=== PATIENT | male | born 1940 | race Caucasian/White ===

== ENCOUNTER 2017-07-25 17:06 | Emergency (ER) | payer MEDICARE ==
[2017-07-25] MEDS ORDERED: Adacel Vial IM ONE (17:23)
[2017-07-25] MEDS ORDERED: BACIGUENT PACKET TP ONE (17:23)
--- NOTE | 2017-07-25 17:49 | ERPHSYRPT ---
- History of Present Illness Source: patient Exam Limitations: no limitations Patient Subjective Stated Complaint: states yesterday was having left lower leg cramping. hx of dvt in left lower leg four years ago. denies any pain today Triage Nursing Assessment: ambulated to room per self. skin w/d, color normal. left lower leg warm/dry, no redness noted to leg. no swelling or tenderness at this time. Method of Injury: other (no injury) Occurred: other (symptoms for the last several weeks(2-3) worse yesterday resolved today) Severity of Pain-Max: moderate Severity of Pain-Current: none Lower Extremities Pain: leg: left Modifying Factors: Improves With: nothing Associated Symptoms: none Hx Tetanus, Diphtheria Vaccination/Date Given: Yes Hx Influenza Vaccination/Date Given: No Hx Pneumococcal Vaccination/Date Given: Yes <BRANDON AVILA - Last Filed: 07/25/17 18:59> <DANIELA ALEXANDRA - Last Filed: 07/25/17 20:20> - History of Present Illness Time Seen by Provider: 07/25/17 17:23 Physician History: 77-year-old white male arrives with complaint of leg cramps in the lower leg on the left symptoms for 2-3 weeks he states that this is markedly worse yesterday. However today he is pain free. He states that he was worried about possible blood clot. Past medical history includes DVT, PE, prostate problems, orthopedic surgery, arthritis, fractures Past surgical history includes neck surgery (BRANDON AVILA) Allergies/Adverse Reactions: hydromorphone [From Dilaudid] Allergy (Unknown, Verified 07/25/17 17:29) Home Medications: Tamsulosin HCl 0.4 mg [Flomax 0.4 MG] 0.4 mg PO DAILY 03/16/13 [History] Warfarin Sodium 3 mg [Coumadin 3 MG] 3 mg PO DAILY 08/24/14 [History] Benazepril HCl [Lotensin] 20 mg PO DAILY 07/24/16 [History] Triamterene [Dyrenium] 50 mg PO DAILY 07/24/16 [History] Omeprazole 20 MG [Prilosec 20 mg] 20 mg PO DAILY 04/14/17 [History] - Review of Systems Constitutional: No Fever, No Chills Eyes: No Symptoms Ears, Nose, & Throat: No Symptoms Respiratory: No Cough, No Dyspnea Cardiac: No Chest Pain, No Edema, No Syncope Abdominal/Gastrointestinal: No Abdominal Pain, No Nausea, No Vomiting, No Diarrhea Genitourinary Symptoms: No Dysuria Musculoskeletal: Other (cramps and left lower leg for 2-3 weeks, worse yesterday ,, resolved today) Skin: No Rash Neurological: No Dizziness, No Focal Weakness, No Sensory Changes Psychological: No Symptoms Endocrine: No Symptoms All Other Systems: Reviewed and Negative <AUSTINBRANDON NACHO - Last Filed: 07/25/17 18:59> - Past Medical History Pertinent Past Medical History: Yes Neurological History: No Pertinent History ENT History: No Pertinent History Cardiac History: Deep Vein Thrombosis, Hypertension Respiratory History: No Pertinent History Endocrine Medical History: No Pertinent History, Liver Disease Musculoskeletal History: Arthritis, Fractures GI Medical History: No Pertinent History History: Other Psycho-Social History: No Pertinent History Male Reproductive Disorders: Prostate Problems Other Medical History: C-spine fracture - Past Surgical History Past Surgical History: Yes Neuro Surgical History: No Pertinent History Cardiac: No Pertinent History Respiratory: No Pertinent History Gastrointestinal: No Pertinent History Genitourinary: No Pertinent History Musculoskeletal: Orthopedic Surgery Male Surgical History: No Pertinent History Other Surgical History: neck surg - Social History Smoking Status: Current every day smoker How long have you smoked: 69 Exposure to second hand smoke: No Drug Use: none Patient Lives Alone: No <AUSTINBRANDON NACHO - Last Filed: 07/25/17 18:59> - Physical Exam General Appearance: alert Eyes, Ears, Nose, Throat Exam: moist mucous membranes Neck Exam: non-tender, supple Cardiovascular/Respiratory Exam: chest non-tender, normal breath sounds, regular rate/rhythm, no respiratory distress Gastrointestinal/Abdominal Exam: non-tender, guarding Back Exam: normal inspection, No vertebral tenderness Hips Exam: bilateral: non-tender, normal inspection, normal range of motion, no evidence of injury Legs Exam: bilateral leg: non-tender, normal inspection, normal range of motion , no evidence of injury Knees Exam: bilateral knee: non-tender, normal inspection, normal range of motion, no evidence of injury Ankle Exam: bilateral ankle: non-tender, normal inspection, normal range of motion, no evidence of injury Foot Exam: bilateral foot: non-tender, normal inspection, normal range of motion , no evidence of injury Neuro/Tendon Exam: normal sensation, normal motor functions Mental Status Exam: alert, oriented x 3, cooperative Skin Exam: normal color, warm, dry SpO2 Interpretation: normal (99%) SpO2: 99 Oxygen Delivery: Room Air <BRANDON AVILA - Last Filed: 07/25/17 18:59> - Nursing Vital Signs Nursing Vital Signs: Initial Vital Signs Temperature 97.6 F 07/25/17 17:15 Pulse Rate 68 07/25/17 17:15 Respiratory Rate 18 07/25/17 17:15 Blood Pressure 151/103 07/25/17 17:15 O2 Sat by Pulse Oximetry 99 07/25/17 17:15 Pain Scale Pain Intensity [Left Calf] 0 Pain Intensity 5 - Course Nursing assessment & vital signs reviewed: Yes <AUSTINBRANDON MAXWELLLEY - Last Filed: 07/25/17 18:59> - Radiology Ultrasound Exam Venous Lower Extremity Ultrasound: tele radiology report, negative <DANIELA ALEXANDRA - Last Filed: 07/25/17 20:20> Ordered Tests: Active Orders 24 hr Category Date Time Status Wound Care STAT Care 07/25/17 17:23 Inactive VENOUS UNILAT/LIMITED EXTREMIT [US] Stat Exams 07/25/17 Ordered CBC W DIFF Stat Lab 07/25/17 18:24 Completed CMP Stat Lab 07/25/17 18:24 Completed D-DIMER QUANTITATION Stat Lab 07/25/17 18:24 Completed PROTIME WITH INR Stat Lab 07/25/17 18:15 Completed PTT Stat Lab 07/25/17 18:15 Completed Medication Summary Discontinued Medications Generic Name Dose Route Start Last Admin Trade Name Freq PRN Reason Stop Dose Admin Bacitracin Zinc 0.9 gm 07/25/17 17:23 07/25/17 17:25 Baciguent Packet TP 07/25/17 17:24 Not Given STAT ONE Diphtheria/Tetanus/Acell Pertussis 0.5 ml 07/25/17 17:23 07/25/17 17:27 Adacel Vial IM 07/25/17 17:24 Not Given .ONCE ONE Lab/Rad Data: Laboratory Result Diagrams 07/25/17 18:24 07/25/17 18:24 Laboratory Results 05/20/18 05/20/18 05/20/18 Range/Units 18:24 18:24 18:24 WBC 6.1 (4.0-10.5) K/mm3 RBC 4.11 (4.1-5.6) M/mm3 Hgb 12.5 (12.5-18.0) gm/dl Hct 36.9 L (42-50) % MCV 89.8 (78-100) fl MCH 30.4 (26-32) pg MCHC 33.9 (32-36) g/dl RDW 13.1 (11.5-14.0) % Plt Count 230 (150-450) K/mm3 MPV 9.4 (6-9.5) fl Gran % 47.9 (36.0-66.0) % Eos # (Auto) 0.34 (0-0.5) Absolute Lymphs (auto) 2.06 (1.0-4.6) Absolute Monos (auto) 0.74 (0.0-1.3) Lymphocytes % 33.7 (24.0-44.0) % Monocytes % 12.1 H (0.0-12.0) % Eosinophils % 5.6 H (0.00-5.0) % Basophils % 0.7 (0.0-0.4) % Absolute Granulocytes 2.93 (1.4-6.9) Basophils # 0.04 (0-0.4) PT (8.83-12.87) SECONDS INR (0.8-3.0) APTT (24.1-36.1) SECONDS D-Dimer 777 H* (215-500) ng/mL Sodium 138 (137-145) mmol/L Potassium 3.9 (3.5-5.1) mmol/L Chloride 101 (98-107) mmol/L Carbon Dioxide 27 (22-30) mmol/L Anion Gap 13.3 (5-15) MEQ/L BUN 9 (9-20) mg/dL Creatinine 0.89 (0.66-1.25) mg/dL Estimated GFR > 60.0 ML/MIN Glucose 102 (74-106) mg/dL Calcium 9.3 (8.4-10.2) mg/dL Total Bilirubin 0.40 (0.2-1.3) mg/dL AST 14 L (17-59) U/L ALT 9 (0-50) U/L Alkaline Phosphatase 85 (38-126) U/L Serum Total Protein 7.4 (6.3-8.2) g/dL Albumin 3.9 (3.5-5.0) g/dL 07/25/17 Range/Units 18:15 WBC (4.0-10.5) K/mm3 RBC (4.1-5.6) M/mm3 Hgb (12.5-18.0) gm/dl Hct (42-50) % MCV (78-100) fl MCH (26-32) pg MCHC (32-36) g/dl RDW (11.5-14.0) % Plt Count (150-450) K/mm3 MPV (6-9.5) fl Gran % (36.0-66.0) % Eos # (Auto) (0-0.5) Absolute Lymphs (auto) (1.0-4.6) Absolute Monos (auto) (0.0-1.3) Lymphocytes % (24.0-44.0) % Monocytes % (0.0-12.0) % Eosinophils % (0.00-5.0) % Basophils % (0.0-0.4) % Absolute Granulocytes (1.4-6.9) Basophils # (0-0.4) PT 22.6 H (8.83-12.87) SECONDS INR 1.93 (0.8-3.0) APTT 40.6 H (24.1-36.1) SECONDS D-Dimer (215-500) ng/mL Sodium (137-145) mmol/L Potassium (3.5-5.1) mmol/L Chloride (98-107) mmol/L Carbon Dioxide (22-30) mmol/L Anion Gap (5-15) MEQ/L BUN (9-20) mg/dL Creatinine (0.66-1.25) mg/dL Estimated GFR ML/MIN Glucose (74-106) mg/dL Calcium (8.4-10.2) mg/dL Total Bilirubin (0.2-1.3) mg/dL AST (17-59) U/L ALT (0-50) U/L Alkaline Phosphatase (38-126) U/L Serum Total Protein (6.3-8.2) g/dL Albumin (3.5-5.0) g/dL - Progress Progress: improved <BRANDON AVILA - Last Filed: 07/25/17 18:59> - Progress Counseled pt/family regarding: lab results, diagnosis, need for follow-up, rad results <DANIELA ALEXANDRA - Last Filed: 07/25/17 20:20> - Progress Progress Note: 07/25/17 17:47 This is a 77-year-old white male who has had a PE in the past as well as a DVT in the left leg in the past approximate 4 years ago he states 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 . He complains of leg cramps for 2-3 weeks left lower extremity he states he has not been having any swelling he denies any injury he has not been bedridden he has no diagnosis of cancer on physical examination patient is alert oriented 3 his bilateral legs are nontender with palpation dorsal pedal posterior tibial pulses are intact 2 over 4 there is no calf tenderness there is no pain with dorsiflexion of the feet Patient states he was quite tender yesterday. Will go ahead and obtain CMP CBC and d-dimer. 07/25/17 18:57 the patient's d-dimer is elevated INR is 1.9 Venous Doppler has been ordered. the patient's case will be turned over to Dr. West due to shift change ( BRANDON AVILA) 07/25/17 20:19 I discussed the results with patient, agreed to be discharged and take his usual pain medications, contact his PCP tomorrow for follow up. (DANIELA ALEXANDRA) <BRANDON AVILA - Last Filed: 07/25/17 18:59> - Departure Time of Disposition: 20:18 Departure Disposition: Home Critical Care Time: No <DANIELA ALEXANDRA - Last Filed: 07/25/17 20:20> - Departure Clinical Impression: Leg pain Qualifiers: Laterality: left Qualified Code(s): M79.605 - Pain in left leg Condition: Stable Referrals: KAYLEIGH QUINTERO [Primary Care Provider] - Instructions: Nocturnal (Nighttime) Leg Cramps, Peripheral Vascular (Arterial) Disease (DC) Additional Instructions: Rest x 2-3 days with elevated leg, follow up with your physician next week, return if severe pain, swelling or discoloration of the toes!
[2017-07-25 18:35] LABS: ALBUMIN 3.9 g/dL (3.5-5.0); ALKALINE PHOSPHATASE 85 U/L (38-126); ANION GAP 13.3 MEQ/L (5-15); BLOOD UREA NITROGEN 9 mg/dL (9-20); CHLORIDE 101 mmol/L (98-107); Calcium 9.3 mg/dL (8.4-10.2); Carbon Dioxide 27 mmol/L (22-30); Creatinine 1 0.89 mg/dL (0.66-1.25); Glucose 102 mg/dL (74-106); Potassium 3.9 mmol/L (3.5-5.1); SGOT/AST 14 U/L (17-59); SGPT/ALT 9 U/L (0-50); SODIUM 138 mmol/L (137-145); Total Protein 7.4 g/dL (6.3-8.2)
[2017-07-25 18:36] LABS: BASOPHIL % 0.7 % (0.0-0.4); Basophil (Absolute #) 0.04 (0-0.4); Eosinophil % 5.6 % (0.00-5.0); Eosinophil (Absolute #) 0.34 (0-0.5); Granulocyte Absolute (ANC) 2.93 (1.4-6.9); Granulocytes % 47.9 % (36.0-66.0); Hematocrit 36.9 % (42-50); Hemoglobin 12.5 gm/dl (12.5-18.0); Lymphocyte (Absolute #) 2.06 (1.0-4.6); Lymphocytes % 33.7 % (24.0-44.0); Mean Cell Volume 89.8 fl (78-100); Mean Corpuscular Hemoglobin 30.4 pg (26-32); Mean Corpuscular Hgb Concent. 33.9 g/dl (32-36); Mean Platelet Volume 9.4 fl (6-9.5); Monocyte (Absolute #) 0.74 (0.0-1.3); Monocytes % 12.1 % (0.0-12.0); Platelet Count 230 K/mm3 (150-450); Red Blood Count 4.11 M/mm3 (4.1-5.6); Red Cell Distribution Width 13.1 % (11.5-14.0); White Blood Count 6.1 K/mm3 (4.0-10.5)
[2017-07-25 18:54] LABS: INR 1.93 (0.8-3.0); PTT 40.6 SECONDS (24.1-36.1)
[2017-07-25 20:28] VITALS: BP 161/109; PULSE 78; O2SAT 98
--- NOTE | 2017-07-25 21:05 | XRAY ---
Indication: Left leg pain. Elevated d-dimer. Two-dimensional sonogram and color Doppler imaging of the major venous vessels of the left leg was performed. Comparison: March 16, 2013. No thrombus seen in the examined deep venous vessels of the left leg including greater saphenous vein. Veins demonstrate normal compressibility. Venous waveforms are normal with and without augmentation. Impression: Left leg negative for DVT. Comment: Preliminary report was given.
== END 2017-07-25 20:28 | disposition home or self-care (01) ==
LOC: ED 17:06
DX: M79.605 Pain in left leg (principal); R25.2 Cramp and spasm; Z86.718 Personal history of other venous thrombosis and embolism; Z79.01 Long term (current) use of anticoagulants; Z79.899 Other long term (current) drug therapy
CPT/HCPCS: 36415; 80053; 85025; 85379; 85610; 85730; 93971; 99283

== ENCOUNTER 2017-12-27 13:19 | Emergency (ER) | payer MEDICARE ==
[2017-12-27] MEDS ORDERED: solu-MEDROL 125 MG IV ONE (13:23)
[2017-12-27] MEDS ORDERED: DUONEB 0.5-3 MG/3 ml Neb IH ONE ×2 (13:23→13:41)
--- NOTE | 2017-12-27 13:28 | ERPHSYRPT ---
- History of Present Illness Time Seen by Provider: 12/27/17 13:26 Source: patient Physician History: mild to mod shortness of breath, hx copd, +wheezing, no fever, no pain, not on home oxygen, hx dvt left leg Allergies/Adverse Reactions: hydromorphone [From Dilaudid] Allergy (Unknown, Verified 12/27/17 13:38) Home Medications: Tamsulosin HCl 0.4 mg [Flomax 0.4 MG] 0.4 mg PO DAILY 03/16/13 [History] Warfarin Sodium 3 mg [Coumadin 3 MG] 2 mg PO DAILY 08/24/14 [History] Hx Tetanus, Diphtheria Vaccination/Date Given: Yes Hx Influenza Vaccination/Date Given: No Hx Pneumococcal Vaccination/Date Given: Yes - Review of Systems Constitutional: Fatigue, No Fever Eyes: No Vision Changes Ears, Nose, & Throat: No Nose Congestion Respiratory: Dyspnea Cardiac: No Chest Pain Abdominal/Gastrointestinal: No Abdominal Pain Genitourinary Symptoms: No Dysuria Musculoskeletal: No Back Pain Skin: No Rash Neurological: No Dizziness - Past Medical History Pertinent Past Medical History: Yes Neurological History: No Pertinent History ENT History: No Pertinent History Cardiac History: Deep Vein Thrombosis, Hypertension Respiratory History: No Pertinent History Endocrine Medical History: No Pertinent History, Liver Disease Musculoskeletal History: Arthritis, Fractures GI Medical History: No Pertinent History History: Other Psycho-Social History: No Pertinent History Male Reproductive Disorders: Prostate Problems Other Medical History: C-spine fracture - Past Surgical History Past Surgical History: Yes Neuro Surgical History: No Pertinent History Cardiac: No Pertinent History Respiratory: No Pertinent History Gastrointestinal: No Pertinent History Genitourinary: No Pertinent History Musculoskeletal: Orthopedic Surgery Male Surgical History: No Pertinent History Other Surgical History: neck surg - Social History Smoking Status: Current every day smoker How long have you smoked: 69 Exposure to second hand smoke: No Drug Use: none Patient Lives Alone: No - Nursing Vital Signs Nursing Vital Signs: Initial Vital Signs Temperature 97.9 F 12/27/17 13:20 Pulse Rate 90 12/27/17 13:20 Respiratory Rate 27 H 12/27/17 13:20 Blood Pressure 138/122 12/27/17 13:20 O2 Sat by Pulse Oximetry 95 12/27/17 13:20 Pain Scale Pain Intensity 0 - Physical Exam General Appearance: no apparent distress Eye Exam: eyes nml inspection Ears, Nose, Throat Exam: moist mucous membranes Neck Exam: normal inspection Respiratory Exam: wheezing Cardiovascular Exam: regular rate/rhythm Gastrointestinal/Abdomen Exam: soft, No tenderness Extremity Exam: swelling Neurologic Exam: alert, oriented x 3, cooperative Skin Exam: warm, dry - Course Nursing assessment & vital signs reviewed: Yes EKG Interpreted by Me: Other - Radiology Exams Chest X-ray Interpretation: Discussed w/ radiologist, Negative Ordered Tests: Active Orders 24 hr Category Date Time Status EKG-ER Only STAT Care 12/27/17 13:23 Active IV Insertion STAT Care 12/27/17 13:23 Active Pulse Oximetry (ED) STAT Care 12/27/17 13:23 Active CHEST 1 VIEW (PORTABLE) Stat Exams 12/27/17 13:24 Completed BLOOD CULTURE Stat Lab 12/27/17 13:47 Received CBC W DIFF Stat Lab 12/27/17 13:47 Completed CMP Stat Lab 12/27/17 13:47 Completed D-DIMER QUANTITATION Stat Lab 12/27/17 13:47 Completed Lactic Acid Stat Lab 12/27/17 13:55 Completed NT PRO BNP Stat Lab 12/27/17 13:47 Completed PROTIME WITH INR Stat Lab 12/27/17 13:47 Completed TROPONIN Q3H Lab 12/27/17 13:47 Completed TROPONIN Q3H Lab 12/27/17 16:30 Ordered TROPONIN Q3H Lab 12/27/17 19:30 Ordered TROPONIN Q3H Lab 12/27/17 22:30 Ordered TROPONIN Q3H Lab 12/28/17 01:30 Ordered Peak Expiratory Flow Rate ONCE RT 12/27/17 13:46 Active Respiratory Nebulizer STAT RT 12/27/17 13:25 Completed Respiratory Therapy Assessment DAILY RT 12/27/17 13:47 Active Medication Summary Discontinued Medications Generic Name Dose Route Start Last Admin Trade Name Freq PRN Reason Stop Dose Admin Albuterol/Ipratropium 3 ml 12/27/17 13:23 12/27/17 13:42 Duoneb 0.5-3 Mg/3 Ml Neb IH 12/27/17 13:24 3 ml STAT ONE Administration Albuterol/Ipratropium Confirm 12/27/17 13:41 Duoneb 0.5-3 Mg/3 Ml Neb Administered 12/27/17 13:42 Dose 3 ml IH .STK-MED ONE Methylprednisolone Sodium Succinate 125 mg 10/22/18 13:23 12/27/17 13:54 Solu-Medrol 125 Mg IV 12/27/17 13:24 125 mg STAT ONE Administration Methylprednisolone Sodium Succinate Confirm 12/27/17 13:49 Solu-Medrol 125 Mg Administered 12/27/17 13:50 Dose 125 mg .ROUTE .STK-MED ONE Lab/Rad Data: Laboratory Result Diagrams 12/27/17 13:47 12/27/17 13:47 Laboratory Results 12/27/17 12/27/17 12/27/17 Range/Units 13:55 13:47 13:47 WBC (4.0-10.5) K/mm3 RBC (4.1-5.6) M/mm3 Hgb (12.5-18.0) gm/dl Hct (42-50) % MCV (78-100) fl MCH (26-32) pg MCHC (32-36) g/dl RDW (11.5-14.0) % Plt Count (150-450) K/mm3 MPV (6-9.5) fl Gran % (36.0-66.0) % Eos # (Auto) (0-0.5) Absolute Lymphs (auto) (1.0-4.6) Absolute Monos (auto) (0.0-1.3) Lymphocytes % (24.0-44.0) % Monocytes % (0.0-12.0) % Eosinophils % (0.00-5.0) % Basophils % (0.0-0.4) % Absolute Granulocytes (1.4-6.9) Basophils # (0-0.4) PT 35.8 H (8.83-12.87) SECONDS INR 3.04 H (0.8-3.0) D-Dimer 353 (215-500) ng/mL Sodium (137-145) mmol/L Potassium (3.5-5.1) mmol/L Chloride (98-107) mmol/L Carbon Dioxide (22-30) mmol/L Anion Gap (5-15) MEQ/L BUN (9-20) mg/dL Creatinine (0.66-1.25) mg/dL Estimated GFR ML/MIN Glucose (74-106) mg/dL Lactic Acid 1.8 (0.4-2.0) Calcium (8.4-10.2) mg/dL Total Bilirubin (0.2-1.3) mg/dL AST (17-59) U/L ALT (0-50) U/L Alkaline Phosphatase (38-126) U/L Troponin I < 0.012 (0.000-0.034) ng/mL NT-Pro-B Natriuret Pep (0-1800) pg/mL Serum Total Protein (6.3-8.2) g/dL Albumin (3.5-5.0) g/dL 12/27/17 12/27/17 Range/Units 13:47 13:47 WBC 7.8 (4.0-10.5) K/mm3 RBC 4.51 (4.1-5.6) M/mm3 Hgb 13.9 (12.5-18.0) gm/dl Hct 40.9 L (42-50) % MCV 90.7 (78-100) fl MCH 30.8 (26-32) pg MCHC 34.0 (32-36) g/dl RDW 13.8 (11.5-14.0) % Plt Count 213 (150-450) K/mm3 MPV 10.0 H (6-9.5) fl Gran % 46.8 (36.0-66.0) % Eos # (Auto) 1.23 H (0-0.5) Absolute Lymphs (auto) 2.22 (1.0-4.6) Absolute Monos (auto) 0.64 (0.0-1.3) Lymphocytes % 28.4 (24.0-44.0) % Monocytes % 8.2 (0.0-12.0) % Eosinophils % 15.7 H (0.00-5.0) % Basophils % 0.9 (0.0-0.4) % Absolute Granulocytes 3.65 (1.4-6.9) Basophils # 0.07 (0-0.4) PT (8.83-12.87) SECONDS INR (0.8-3.0) D-Dimer (215-500) ng/mL Sodium 140 (137-145) mmol/L Potassium 3.9 (3.5-5.1) mmol/L Chloride 106 (98-107) mmol/L Carbon Dioxide 24 (22-30) mmol/L Anion Gap 14.0 (5-15) MEQ/L BUN 9 (9-20) mg/dL Creatinine 0.88 (0.66-1.25) mg/dL Estimated GFR > 60.0 ML/MIN Glucose 111 H (74-106) mg/dL Lactic Acid (0.4-2.0) Calcium 9.1 (8.4-10.2) mg/dL Total Bilirubin 0.30 (0.2-1.3) mg/dL AST 19 (17-59) U/L ALT 17 (0-50) U/L Alkaline Phosphatase 82 (38-126) U/L Troponin I (0.000-0.034) ng/mL NT-Pro-B Natriuret Pep 203 (0-1800) pg/mL Serum Total Protein 7.7 (6.3-8.2) g/dL Albumin 4.3 (3.5-5.0) g/dL - Progress Progress: improved Progress Note: 12/27/17 15:17 elevated ddimer, known dvt, therapeutic INR Counseled pt/family regarding: lab results, diagnosis, need for follow-up, rad results - Departure Time of Disposition: 15:13 Departure Disposition: Home Clinical Impression: COPD (chronic obstructive pulmonary disease) Qualifiers: COPD type: COPD with acute exacerbation Qualified Code(s): J44.1 - Chronic obstructive pulmonary disease with (acute) exacerbation Condition: Stable Critical Care Time: No Referrals: KAYLEIGH QUINTERO [Primary Care Provider] - Instructions: Exacerbation of COPD (DC), Chronic Obstructive Pulmonary Disease Additional Instructions: see your doctor, return if worse, medrol, proventil inhaler, levaquiin Prescriptions: Albuterol Sulfate [Albuterol Sulfate Hfa] 7 gm IH Q6HPRN PRN 7 Days [email or web address] PRN Reason: Shortness Of Breath Levofloxacin [Levaquin] 1 tab PO DAILY #7 tablet Methylprednisolone Packet [Medrol Dosepack] 0 mg PO UD #1 packet
[2017-12-27] MEDS ORDERED: solu-MEDROL 125 MG ONE (13:49)
--- NOTE | 2017-12-27 13:51 | XRAY ---
Indication: Short of breath one month. Comparison: February 02, 2012. Portable chest again demonstrates COPD with biapical pleural parenchymal scarring/thickening. No focal infiltrate, consolidation, or large effusion. Heart is not enlarged. Stable right paratracheal calcified node. Bony thorax intact again with mild osteopenia and degenerative changes. Impression: Nonacute chest with chronic features.
[2017-12-27 13:56] LABS: BASOPHIL % 0.9 % (0.0-0.4); Basophil (Absolute #) 0.07 (0-0.4); Eosinophil % 15.7 % (0.00-5.0); Eosinophil (Absolute #) 1.23 (0-0.5); Granulocyte Absolute (ANC) 3.65 (1.4-6.9); Granulocytes % 46.8 % (36.0-66.0); Hematocrit 40.9 % (42-50); Hemoglobin 13.9 gm/dl (12.5-18.0); Lymphocyte (Absolute #) 2.22 (1.0-4.6); Lymphocytes % 28.4 % (24.0-44.0); Mean Cell Volume 90.7 fl (78-100); Mean Corpuscular Hemoglobin 30.8 pg (26-32); Monocyte (Absolute #) 0.64 (0.0-1.3); Monocytes % 8.2 % (0.0-12.0); Platelet Count 213 K/mm3 (150-450); Red Blood Count 4.51 M/mm3 (4.1-5.6); Red Cell Distribution Width 13.8 % (11.5-14.0); White Blood Count 7.8 K/mm3 (4.0-10.5)
[2017-12-27 14:05] LABS: INR 3.04 (0.8-3.0)
[2017-12-27 14:09] LABS: ALBUMIN 4.3 g/dL (3.5-5.0); ALKALINE PHOSPHATASE 82 U/L (38-126); BLOOD UREA NITROGEN 9 mg/dL (9-20); CHLORIDE 106 mmol/L (98-107); Calcium 9.1 mg/dL (8.4-10.2); Carbon Dioxide 24 mmol/L (22-30); Creatinine 1 0.88 mg/dL (0.66-1.25); Glucose 111 mg/dL (74-106); NT PRO BNP 203 pg/mL (0-1800); Potassium 3.9 mmol/L (3.5-5.1); SGOT/AST 19 U/L (17-59); SGPT/ALT 17 U/L (0-50); SODIUM 140 mmol/L (137-145); Total Protein 7.7 g/dL (6.3-8.2)
[2017-12-27] MEDS ORDERED: PROVENTIL 2.5 MG/3 ML NEB IH ONE ×2 (15:48→15:49)
[2017-12-27 16:09] VITALS: BP 129/90; PULSE 110; O2SAT 97
== END 2017-12-27 16:03 | disposition home or self-care (01) ==
LOC: ED 13:19
DX: J44.1 Chronic obstructive pulmonary disease with (acute) exacerbation (principal); I10 Essential (primary) hypertension; Z86.718 Personal history of other venous thrombosis and embolism; M19.90 Unspecified osteoarthritis, unspecified site; K76.9 Liver disease, unspecified; Z79.01 Long term (current) use of anticoagulants; Z79.899 Other long term (current) drug therapy
CPT/HCPCS: 36000; 36415; 71045; 80053; 83605; 83880; 84484; 85025; 85379; 85610; 87040; 94150; 94640; 96374; 99284; J7609; J2930; A9270-GY

== ENCOUNTER 2019-02-15 18:34 | Inpatient (IN) | payer MEDICARE ==
--- NOTE | 2019-02-15 18:38 | ERPHSYRPT ---
- History of Present Illness Time Seen by Provider: 02/15/19 18:38 Source: patient, family Exam Limitations: no limitations Physician History: 78 y/o white male, former smoker quitting 2 years ago, presents with cough and soa with right lateral chest wall pain with coughing. pt is exposed to second hand smoke. pt is supposed to on oxygen 24/7 but only uses it during the day. pt has copd. 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 he denies h/o fever. he denies n/v/d. pt denies abd pain. Timing/Duration: day(s) (4 to 5) Severity: moderate Associated Symptoms: shortness of breath, cough, No nausea, No vomiting, No abdominal pain, No chest pain Allergies/Adverse Reactions: hydromorphone [From Dilaudid] Allergy (Unknown, Verified 02/15/19 18:54) Home Medications: Tamsulosin HCl 0.4 mg [Flomax 0.4 MG] 0.4 mg PO DAILY 03/16/13 [History] Warfarin Sodium 3 mg [Coumadin 3 MG] 2 mg PO DAILY 08/24/14 [History] Albuterol 2.5 mg/3 ml Neb [Proventil 2.5 mg/3 ml Neb] 1 neb PO UD [History] Finasteride 5 mg [Proscar 5 MG] 5 mg PO DAILY 02/15/19 [History] Hx Tetanus, Diphtheria Vaccination/Date Given: Yes Hx Influenza Vaccination/Date Given: No Hx Pneumococcal Vaccination/Date Given: Yes - Review of Systems Constitutional: No Symptoms Eyes: No Symptoms Ears, Nose, & Throat: No Symptoms Respiratory: Cough, Dyspnea Cardiac: No Symptoms Abdominal/Gastrointestinal: No Symptoms Genitourinary Symptoms: No Symptoms Musculoskeletal: No Symptoms Skin: No Symptoms Neurological: No Symptoms Psychological: No Symptoms Endocrine: No Symptoms Hematologic/Lymphatic: No Symptoms Immunological/Allergic: No Symptoms All Other Systems: Reviewed and Negative - Past Medical History Pertinent Past Medical History: Yes Neurological History: No Pertinent History ENT History: No Pertinent History Cardiac History: Deep Vein Thrombosis, Hypertension Respiratory History: No Pertinent History Endocrine Medical History: No Pertinent History, Liver Disease Musculoskeletal History: Arthritis, Fractures GI Medical History: No Pertinent History History: Other Psycho-Social History: No Pertinent History Male Reproductive Disorders: Prostate Problems Other Medical History: C-spine fracture - Past Surgical History Past Surgical History: Yes Neuro Surgical History: No Pertinent History Cardiac: No Pertinent History Respiratory: No Pertinent History Gastrointestinal: No Pertinent History Genitourinary: No Pertinent History Musculoskeletal: Orthopedic Surgery Male Surgical History: No Pertinent History Other Surgical History: neck surg - Social History Smoking Status: Current every day smoker How long have you smoked: 69 Exposure to second hand smoke: No Drug Use: none Patient Lives Alone: No - Nursing Vital Signs Nursing Vital Signs: Initial Vital Signs Temperature 98.7 F 02/15/19 18:44 Pulse Rate 102 H 02/15/19 18:44 Respiratory Rate 36 H 02/15/19 18:44 Blood Pressure 134/87 02/15/19 18:44 O2 Sat by Pulse Oximetry 93 L 02/15/19 18:44 Pain Scale Pain Intensity 3 - Physical Exam General Appearance: mild distress, alert, anxiety Eye Exam: PERRL/EOMI, eyes nml inspection Ears, Nose, Throat Exam: normal ENT inspection, moist mucous membranes Neck Exam: normal inspection, non-tender, supple, full range of motion Respiratory Exam: normal breath sounds, chest tenderness (right lateral chest wall with inspiration and cough), lungs clear, respiratory distress (mild), airway intact, No accessory muscle use, No rhonchi, No wheezing, No stridor Cardiovascular Exam: regular rate/rhythm, normal heart sounds, normal peripheral pulses Gastrointestinal/Abdomen Exam: soft, normal bowel sounds, No tenderness Rectal Exam: not done Back Exam: normal inspection, normal range of motion, No CVA tenderness, No vertebral tenderness Extremity Exam: normal inspection, normal range of motion, pelvis stable Neurologic Exam: alert, oriented x 3, cooperative, youth teacher II-XII nml as tested Skin Exam: normal color, warm, dry Lymphatic Exam: No adenopathy SpO2 Interpretation: normal O2 Delivery: Nasal Cannula - Course Nursing assessment & vital signs reviewed: Yes Ordered Tests: Active Orders 24 hr Category Date Time Status Personal Injury Litigation Paralegal STAT Care 02/15/19 19:04 Active EKG-ER Only STAT Care 02/15/19 19:02 Active IV Insertion STAT Care 02/15/19 19:02 Active IV Insertion-2nd Peripheral STAT Care 02/15/19 19:42 Active Pulse Oximetry (ED) STAT Care 02/15/19 19:02 Active CHEST 1 VIEW (PORTABLE) Stat Exams 02/15/19 19:04 Taken BLOOD CULTURE Stat Lab 02/15/19 19:40 Received CBC W DIFF Stat Lab 02/15/19 18:50 Completed CMP Stat Lab 02/15/19 18:50 Completed CULTURE,SPUTUM Stat Lab 02/15/19 19:04 Uncollected CULTURE,URINE Stat Lab 02/15/19 22:10 Received Lactic Acid Stat Lab 02/15/19 19:38 Completed Lactic Acid Stat Lab 02/15/19 22:30 Completed Manual Differential NC Stat Lab 02/15/19 18:50 Completed NT PRO BNP Stat Lab 02/15/19 18:50 Completed PROTIME WITH INR Stat Lab 02/15/19 18:50 Completed TROPONIN Q3H Lab 02/15/19 18:50 Completed TROPONIN Q3H Lab 02/15/19 22:20 Completed TROPONIN Q3H Lab 02/16/19 01:15 Ordered TROPONIN Q3H Lab 02/16/19 04:15 Ordered TROPONIN Q3H Lab 02/16/19 07:15 Ordered UA W/RFX UR CULTURE Stat Lab 02/15/19 20:37 Completed Peak Expiratory Flow Rate ONCE RT 02/15/19 19:24 Completed Respiratory Therapy Assessment DAILY RT 02/15/19 19:25 Completed Transfer Order Routine Transfer 02/15/19 Ordered Medication Summary Generic Name Dose Route Start Last Admin Trade Name Freq PRN Reason Stop Dose Admin Sodium Chloride 1,000 mls @ 250 mls/hr 02/15/19 20:30 02/15/19 21:30 Sodium Chloride 0.9% 1000 Ml IV 03/17/19 20:29 Infused .Q4H YANELI Infusion Sodium Chloride 1,000 mls @ 100 mls/hr 02/15/19 21:30 02/15/19 21:32 Sodium Chloride 0.9% 1000 Ml IV 03/17/19 21:29 100 mls/hr .Q10H YANELI Administration Discontinued Medications Generic Name Dose Route Start Last Admin Trade Name Freq PRN Reason Stop Dose Admin Albuterol Sulfate 2.5 mg 02/15/19 19:02 02/15/19 19:18 Proventil 2.5 Mg/3 Ml Neb IH 02/15/19 19:03 2.5 mg STAT ONE Administration Albuterol Sulfate Confirm 02/15/19 19:15 Proventil 2.5 Mg/3 Ml Neb Administered 02/15/19 19:16 Dose 2.5 mg IH .STK-MED ONE Diltiazem HCl 15 mg 02/15/19 20:08 02/15/19 20:10 Cardizem Iv 50 Mg/10 Ml IV 02/15/19 20:09 15 mg STAT ONE Administration Diltiazem HCl Confirm 02/15/19 20:09 Cardizem Iv 50 Mg/10 Ml Administered 02/15/19 20:10 Dose 50 mg IV .STK-MED ONE Diltiazem HCl 10 mg 02/15/19 20:19 02/15/19 20:29 Cardizem Iv 50 Mg/10 Ml IV 02/15/19 20:20 10 mg STAT ONE Administration Fentanyl Citrate 25 mcg 02/15/19 21:41 02/15/19 21:44 Sublimaze 100 Mcg/2 Ml IV 02/15/19 21:42 25 mcg STAT ONE Administration Fentanyl Citrate Confirm 02/15/19 21:43 Sublimaze 100 Mcg/2 Ml Administered 02/15/19 21:44 Dose 100 mcg .ROUTE .STK-MED ONE Sodium Chloride 500 mls @ 500 mls/hr 02/15/19 19:43 02/15/19 20:47 Sodium Chloride 0.9% 500 Ml IV 02/15/19 20:42 Infused .Q1H ONE Infusion Sodium Chloride Confirm 02/15/19 19:44 Sodium Chloride 0.9% 1000 Ml Administered 02/15/19 19:45 Dose 1,000 mls @ ud .ROUTE .STK-MED ONE Sodium Chloride Confirm 02/15/19 19:46 Sodium Chloride 0.9% 500 Ml Administered 02/15/19 19:47 Dose 500 mls @ ud IV .STK-MED ONE Meropenem 1 g/ Sodium Chloride 100 mls @ 200 mls/hr 02/15/19 22:21 02/15/19 22:30 IV 02/15/19 22:50 200 mls/hr STAT ONE Administration Sodium Chloride Confirm 02/15/19 22:24 Sodium Chloride 0.9% 100 Ml Ivpb Administered 02/15/19 22:25 Dose 100 mls @ ud IV .STK-MED ONE Lidocaine HCl 200 mg 02/15/19 21:58 02/15/19 22:00 Xylocaine 2% Uro-Jet TOP 02/15/19 21:59 200 mg STAT ONE Administration Lidocaine HCl Confirm 02/15/19 21:59 Xylocaine 2% Uro-Jet Administered 02/15/19 22:00 Dose 200 mg .ROUTE .STK-MED ONE Meropenem Confirm 02/15/19 22:23 Merrem 1 Gm Administered 02/15/19 22:24 Dose 1 g IV .STK-MED ONE Methylprednisolone Sodium Succinate 125 mg 02/15/19 19:02 02/15/19 19:17 Solu-Medrol 125 Mg IV 02/15/19 19:03 125 mg STAT ONE Administration Methylprednisolone Sodium Succinate Confirm 02/15/19 19:15 Solu-Medrol 125 Mg Administered 02/15/19 19:16 Dose 125 mg .ROUTE .STK-MED ONE Metoprolol Tartrate 2.5 mg 02/15/19 20:30 02/15/19 20:38 Lopressor 5 Mg/5 Ml Injection IV 02/15/19 20:31 2.5 mg STAT ONE Administration Metoprolol Tartrate Confirm 02/15/19 20:35 Lopressor 5 Mg/5 Ml Injection Administered 02/15/19 20:36 Dose 5 mg IV .STK-MED ONE Metoprolol Tartrate 2.5 mg 02/15/19 21:02 02/15/19 21:05 Lopressor 5 Mg/5 Ml Injection IV 02/15/19 21:03 2.5 mg STAT ONE Administration Lab/Rad Data: Laboratory Result Diagrams 02/15/19 18:50 02/15/19 18:50 Laboratory Results 02/15/19 02/15/19 02/15/19 Range/Units Unknown 22:30 22:20 WBC (4.0-10.5) K/mm3 RBC (4.1-5.6) M/mm3 Hgb (12.5-18.0) gm/dl Hct (42-50) % MCV (78-100) fl MCH (26-32) pg MCHC (32-36) g/dl RDW (11.5-14.0) % Plt Count (150-450) K/mm3 MPV (6-9.5) fl Segmented Neutrophils (36.-66.) % Band Neutrophils (0.0-2.0) % Lymphocytes (Manual) (24-44) % Monocytes (Manual) (0.0-12.0) % Toxic Granulation Platelet Estimate (NORMAL) RBC Morphology Poikilocytosis Anisocytosis PT (8.83-12.87) SECONDS INR (0.8-3.0) Sodium (137-145) mmol/L Potassium (3.5-5.1) mmol/L Chloride (98-107) mmol/L Carbon Dioxide (22-30) mmol/L Anion Gap (5-15) MEQ/L BUN (9-20) mg/dL Creatinine (0.66-1.25) mg/dL Estimated GFR ML/MIN Glucose (74-106) mg/dL Lactic Acid 1.8 (0.4-2.0) Calcium (8.4-10.2) mg/dL Total Bilirubin (0.2-1.3) mg/dL AST (17-59) U/L ALT (0-50) U/L Alkaline Phosphatase (38-126) U/L Troponin I < 0.012 (0.000-0.034) ng/mL NT-Pro-B Natriuret Pep (0-1800) pg/mL Serum Total Protein (6.3-8.2) g/dL Albumin (3.5-5.0) g/dL Urine Color (YELLOW) Urine Appearance (CLEAR) Urine pH (5-6) Ur Specific Banner (1.005-1.025) Urine Protein (Negative) Urine Ketones (NEGATIVE) Urine Blood (0-5) Richard/ul Urine Nitrite (NEGATIVE) Urine Bilirubin (NEGATIVE) Urine Urobilinogen (0-1) mg/dL Ur Leukocyte Esterase (NEGATIVE) Urine WBC (Auto) (0-5) /HPF Urine Bacteria (Auto) (NEGATIVE) /HPF Urine Mucus (Auto) (NEGATIVE) /HPF Urine Culture Reflexed (NO) Urine Glucose (NEGATIVE) mg/dL Influenza Type A Ag NEGATIVE (NEGATIVE) Influenza Type B Ag NEGATIVE (NEGATIVE) RSV (PCR) NEGATIVE (Negative) 02/15/19 02/15/19 02/15/19 Range/Units 20:37 19:38 18:50 WBC (4.0-10.5) K/mm3 RBC (4.1-5.6) M/mm3 Hgb (12.5-18.0) gm/dl Hct (42-50) % MCV (78-100) fl MCH (26-32) pg MCHC (32-36) g/dl RDW (11.5-14.0) % Plt Count (150-450) K/mm3 MPV (6-9.5) fl Segmented Neutrophils (36.-66.) % Band Neutrophils (0.0-2.0) % Lymphocytes (Manual) (24-44) % Monocytes (Manual) (0.0-12.0) % Toxic Granulation Platelet Estimate (NORMAL) RBC Morphology Poikilocytosis Anisocytosis PT (8.83-12.87) SECONDS INR (0.8-3.0) Sodium (137-145) mmol/L Potassium (3.5-5.1) mmol/L Chloride (98-107) mmol/L Carbon Dioxide (22-30) mmol/L Anion Gap (5-15) MEQ/L BUN (9-20) mg/dL Creatinine (0.66-1.25) mg/dL Estimated GFR ML/MIN Glucose (74-106) mg/dL Lactic Acid 3.3 H (0.4-2.0) Calcium (8.4-10.2) mg/dL Total Bilirubin (0.2-1.3) mg/dL AST (17-59) U/L ALT (0-50) U/L Alkaline Phosphatase (38-126) U/L Troponin I < 0.012 (0.000-0.034) ng/mL NT-Pro-B Natriuret Pep (0-1800) pg/mL Serum Total Protein (6.3-8.2) g/dL Albumin (3.5-5.0) g/dL Urine Color YELLOW (YELLOW) Urine Appearance SLIGHTLY CLOUDY (CLEAR) Urine pH 5.0 (5-6) Ur Specific Banner 1.020 (1.005-1.025) Urine Protein 30 (Negative) Urine Ketones TRACE (NEGATIVE) Urine Blood MODERATE (0-5) Richard/ul Urine Nitrite NEGATIVE (NEGATIVE) Urine Bilirubin NEGATIVE (NEGATIVE) Urine Urobilinogen NEGATIVE (0-1) mg/dL Ur Leukocyte Esterase NEGATIVE (NEGATIVE) Urine WBC (Auto) NONE (0-5) /HPF Urine Bacteria (Auto) FEW (NEGATIVE) /HPF Urine Mucus (Auto) MODERATE (NEGATIVE) /HPF Urine Culture Reflexed NO (NO) Urine Glucose >=500 (NEGATIVE) mg/dL Influenza Type A Ag (NEGATIVE) Influenza Type B Ag (NEGATIVE) RSV (PCR) (Negative) 02/15/19 02/15/19 02/15/19 Range/Units 18:50 18:50 18:50 WBC 17.2 H (4.0-10.5) K/mm3 RBC 4.35 (4.1-5.6) M/mm3 Hgb 13.2 (12.5-18.0) gm/dl Hct 39.5 L (42-50) % MCV 90.8 (78-100) fl MCH 30.3 (26-32) pg MCHC 33.4 (32-36) g/dl RDW 13.1 (11.5-14.0) % Plt Count 213 (150-450) K/mm3 MPV 10.5 H (6-9.5) fl Segmented Neutrophils 72 H (36.-66.) % Band Neutrophils 5 H (0.0-2.0) % Lymphocytes (Manual) 21 L (24-44) % Monocytes (Manual) 2 (0.0-12.0) % Toxic Granulation 2+ Platelet Estimate NORMAL (NORMAL) RBC Morphology ABNORMAL Poikilocytosis 1+ Anisocytosis 2+ PT 54.7 H (8.83-12.87) SECONDS INR 4.69 H (0.8-3.0) Sodium 135 L (137-145) mmol/L Potassium 3.2 L (3.5-5.1) mmol/L Chloride 98 (98-107) mmol/L Carbon Dioxide 25 (22-30) mmol/L Anion Gap 15.8 H (5-15) MEQ/L BUN 16 (9-20) mg/dL Creatinine 1.03 (0.66-1.25) mg/dL Estimated GFR > 60.0 ML/MIN Glucose 202 H (74-106) mg/dL Lactic Acid (0.4-2.0) Calcium 8.8 (8.4-10.2) mg/dL Total Bilirubin 0.70 (0.2-1.3) mg/dL AST 59 (17-59) U/L ALT 32 (0-50) U/L Alkaline Phosphatase 96 (38-126) U/L Troponin I (0.000-0.034) ng/mL NT-Pro-B Natriuret Pep 626 (0-1800) pg/mL Serum Total Protein 7.5 (6.3-8.2) g/dL Albumin 3.6 (3.5-5.0) g/dL Urine Color (YELLOW) Urine Appearance (CLEAR) Urine pH (5-6) Ur Specific Banner (1.005-1.025) Urine Protein (Negative) Urine Ketones (NEGATIVE) Urine Blood (0-5) Richard/ul Urine Nitrite (NEGATIVE) Urine Bilirubin (NEGATIVE) Urine Urobilinogen (0-1) mg/dL Ur Leukocyte Esterase (NEGATIVE) Urine WBC (Auto) (0-5) /HPF Urine Bacteria (Auto) (NEGATIVE) /HPF Urine Mucus (Auto) (NEGATIVE) /HPF Urine Culture Reflexed (NO) Urine Glucose (NEGATIVE) mg/dL Influenza Type A Ag (NEGATIVE) Influenza Type B Ag (NEGATIVE) RSV (PCR) (Negative) - Progress Progress: improved, re-examined Progress Note: 02/15/19 23:20 cxr-right pneumonia 02/15/19 23:20 i reviewed pt hx, condition, labs, xray and ekg results. i also reviewed my care in ED and pt response. dr. zhang states to hold on any lopressor or cardizem. will admit to med-surg telemetry Discussed with : Soniya Will see patient in: hospital (full admit) Counseled pt/family regarding: lab results, diagnosis, rad results - Departure Departure Disposition: In-patient Admission Clinical Impression: Atrial fibrillation with RVR, Hypotension, Sepsis, Pneumonia Condition: Fair Critical Care Time: Yes Critical Care Time(excluding separately billable procedures): Critical 75-104 mins Referrals: KAYLEIGH QUINTERO [Primary Care Provider] -
[2019-02-15] MEDS ORDERED: PROVENTIL 2.5 MG/3 ML NEB IH ONE ×2 (19:02→19:15)
[2019-02-15] MEDS ORDERED: solu-MEDROL 125 MG IV ONE (19:02)
[2019-02-15] MEDS ORDERED: solu-MEDROL 125 MG ONE (19:15)
[2019-02-15] MEDS ORDERED: Sodium Chloride 0.9% 500 ML 500 ML IV ONE ×2 (19:43→19:46)
[2019-02-15] MEDS ORDERED: Sodium Chloride 0.9% 1000 ML 0 ML ONE (19:44)
[2019-02-15 19:49] LABS: Hematocrit 39.5 % (42-50); Hemoglobin 13.2 gm/dl (12.5-18.0); Mean Cell Volume 90.8 fl (78-100); Mean Corpuscular Hemoglobin 30.3 pg (26-32); Mean Corpuscular Hgb Concent. 33.4 g/dl (32-36); Mean Platelet Volume 10.5 fl (6-9.5); Platelet Count 213 K/mm3 (150-450); Red Blood Count 4.35 M/mm3 (4.1-5.6); Red Cell Distribution Width 13.1 % (11.5-14.0); White Blood Count 17.2 K/mm3 (4.0-10.5)
[2019-02-15 19:56] LABS: INR 4.69 (0.8-3.0); PROTIME 54.7 SECONDS (8.83-12.87)
[2019-02-15] MEDS ORDERED: Cardizem IV 50 MG/10 ML IV ONE ×3 (20:08→20:19)
[2019-02-15 20:15] LABS: ALBUMIN 3.6 g/dL (3.5-5.0); ALKALINE PHOSPHATASE 96 U/L (38-126); ANION GAP 15.8 MEQ/L (5-15); BLOOD UREA NITROGEN 16 mg/dL (9-20); CHLORIDE 98 mmol/L (98-107); Calcium 8.8 mg/dL (8.4-10.2); Carbon Dioxide 25 mmol/L (22-30); Creatinine 1 1.03 mg/dL (0.66-1.25); Glucose 202 mg/dL (74-106); NT PRO BNP 626 pg/mL (0-1800); Potassium 3.2 mmol/L (3.5-5.1); SGOT/AST 59 U/L (17-59); SGPT/ALT 32 U/L (0-50); SODIUM 135 mmol/L (137-145); Total Protein 7.5 g/dL (6.3-8.2)
[2019-02-15] MEDS ORDERED: LOPRESSOR 5 MG/5 ML INJECTION IV ONE ×3 (20:30→21:02)
[2019-02-15] MEDS ORDERED: Sodium Chloride 0.9% 1000 ML 1,000 ML IV SCH ×2 (20:30→21:30)
[2019-02-15 21:15] LABS: INFLUENZA A NEGATIVE (NEGATIVE); INFLUENZA B NEGATIVE (NEGATIVE); RESPIRATORY SYNCTIAL VIRUS NEGATIVE (Negative)
[2019-02-15] MEDS ORDERED: SUBLIMAZE 100 MCG/2 ML IV ONE (21:41)
[2019-02-15] MEDS ORDERED: SUBLIMAZE 100 MCG/2 ML ONE (21:43)
[2019-02-15 21:47] LABS: Lactic Acid 3.3 (0.4-2.0)
[2019-02-15] MEDS ORDERED: XYLOCAINE 2% Uro-Jet TOP ONE (21:58)
[2019-02-15] MEDS ORDERED: XYLOCAINE 2% Uro-Jet ONE (21:59)
[2019-02-15 22:20] LABS: Appearance SLIGHTLY CLOUDY (CLEAR); Bacteria FEW /HPF (NEGATIVE); Bilirubin NEGATIVE (NEGATIVE); Blood MODERATE Ery/ul (0-5); Glucose >=500 mg/dL (NEGATIVE); Ketones TRACE (NEGATIVE); Leukocyte Esterase NEGATIVE (NEGATIVE); Mucus MODERATE /HPF (NEGATIVE); Nitrite NEGATIVE (NEGATIVE); Protein,Urine Dip 30 (Negative); Urobilinogen NEGATIVE mg/dL (0-1)
[2019-02-15] MEDS ORDERED: Merrem 1 GM 1 G in Sodium Chloride 100ML MINI-BAG PLUS 100 ML IV ONE (22:21)
[2019-02-15] MEDS ORDERED: Merrem 1 GM IV ONE (22:23)
[2019-02-15] MEDS ORDERED: Sodium Chloride 0.9% 100 ML IVPB 100 ML IV ONE (22:24)
[2019-02-15 22:46] LABS: ANISOCYTOSIS 2+; BAND 5 % (0.0-2.0); Lymphocytes 21 % (24-44); Monocyte 2 % (0.0-12.0); Neutrophils 72 % (36.-66.); Platelet Estimate NORMAL (NORMAL); Poikilocytosis 1+; Total Cells Counted 100; Toxic Granulation 2+
[2019-02-16] MEDS ORDERED: DILAUDID 2 MG INJECTION IV PRN
[2019-02-16] MEDS ORDERED: TYLENOL 325 MG PO PRN
[2019-02-16] MEDS ORDERED: PROVENTIL 2.5 MG/3 ML NEB IH ONE (01:44)
[2019-02-16] MEDS: PROVENTIL 2.5 MG/3 ML NEB IH SCH ×2 (01:52→07:03)
[2019-02-16] MEDS: Sodium Chloride 0.9% 1000 ML 1,000 ML IV SCH ×3 (02:06→17:50)
[2019-02-16 05:01] LABS: Absolute Neutrophil Ct (ANC) 10.16 (1.4-6.9); BASOPHIL % 0.1 % (0.0-0.4); Basophil (Absolute #) 0.01 (0-0.4); Eosinophil % 0.1 % (0.00-5.0); Eosinophil (Absolute #) 0.01 (0-0.5); Hematocrit 35.5 % (42-50); Hemoglobin 11.7 gm/dl (12.5-18.0); Lymphocyte (Absolute #) 0.59 (1.0-4.6); Lymphocytes % 5.2 % (24.0-44.0); Mean Cell Volume 92.2 fl (78-100); Mean Corpuscular Hemoglobin 30.4 pg (26-32); Mean Platelet Volume 9.9 fl (6-9.5); Monocyte (Absolute #) 0.47 (0.0-1.3); Monocytes % 4.2 % (0.0-12.0); Platelet Count 189 K/mm3 (150-450); Red Blood Count 3.85 M/mm3 (4.1-5.6); Red Cell Distribution Width 13.3 % (11.5-14.0); White Blood Count 11.2 K/mm3 (4.0-10.5)
[2019-02-16 05:25] LABS: ALBUMIN 2.5 g/dL (3.5-5.0); ALKALINE PHOSPHATASE 72 U/L (38-126); ANION GAP 13.9 MEQ/L (5-15); BLOOD UREA NITROGEN 18 mg/dL (9-20); CHLORIDE 104 mmol/L (98-107); Calcium 8.3 mg/dL (8.4-10.2); Carbon Dioxide 23 mmol/L (22-30); Creatinine 1 0.84 mg/dL (0.66-1.25); Glucose 359 mg/dL (74-106); NT PRO BNP 781 pg/mL (0-1800); Potassium 3.5 mmol/L (3.5-5.1); SGOT/AST 39 U/L (17-59); SGPT/ALT 27 U/L (0-50); SODIUM 136 mmol/L (137-145); Total Protein 5.4 g/dL (6.3-8.2)
[2019-02-16 05:40] LABS: BAND 4 % (0.0-2.0); Lymphocytes 7 % (24-44); Neutrophils 89 % (36.-66.); Platelet Estimate NORMAL (NORMAL); Total Cells Counted 100; Toxic Granulation 2+
[2019-02-16 05:41] LABS: ANISOCYTOSIS 1+; Poikilocytosis 1+
[2019-02-16] MEDS ORDERED: Merrem 1 GM IV ONE (06:07)
[2019-02-16] MEDS ORDERED: Sodium Chloride 0.9% 100 ML IVPB 100 ML IV ONE (06:07)
[2019-02-16] MEDS: Merrem 1 GM 1 G in Sodium Chloride 100ML MINI-BAG PLUS 100 ML IV SCH ×3 (06:17→21:29)
--- NOTE | 2019-02-16 08:47 | XRAY ---
Indication: Cough. Comparison: May 27, 2018. Portable chest demonstrates new right mid to lower lung airspace disease with small effusion. Elsewhere stable biapical pleural parenchymal scarring/thickening. Heart is not enlarged. Bony thorax intact again with mild osteopenia, degenerative changes, and lower cervical fusion surgery. Impression: New right lung airspace disease with small effusion.
--- NOTE | 2019-02-16 09:10 | HP ---
CHIEF COMPLAINT: Shortness of breath. HISTORY OF PRESENT ILLNESS: The patient is a 78 year-old white male who reports that over the past three or four days he has had problems with increasing shortness of breath, having pain on the right side of his chest. He reports he coughed up some mucous plug thick and as long as his middle finger. He reported that he is having increasing shortness of breath and felt that he was getting into trouble and therefore presented himself to the emergency room. The patient does have a previous history of pneumonia, chronic obstructive pulmonary disease and hypoxia. He does have home oxygen he wears just at nighttime. PAST MEDICAL/SURGICAL HISTORY: Previous history for deep venous thrombosis. He has had benign prostatic hypertrophy. He had spinal fracture. HOME MEDICATIONS: Tamsulosin 0.4 mg daily. Warfarin 3 mg tablet alternating with 2 mg every other day. Albuterol nebulizer treatments. Proscar 5 mg daily. ALLERGIES: HYDROMORPHONE. PHYSICAL EXAMINATION: The patient's vital signs on admission showed a temperature 98.7F, pulse 102, respiratory rate 36 and blood pressure 134/87. O2 saturation 93% on sublingual oxygen. HEENT: Normocephalic, atraumatic. Pupils equal round reactive to light. Extraocular movements intact. Oropharynx is somewhat dry. NECK: Supple without lymphadenopathy, thyromegaly or JVD. CHEST: Reveals rales and rhonchi in the right side of the chest. The left is much more clear. HEART: The heart currently is regular. He was in atrial fibrillation with rapid ventricular response on his initial evaluation in the emergency room. ABDOMEN: Soft. No palpable masses. EXTREMITIES: Without cyanosis, clubbing or edema. NEUROLOGIC: The patient is alert and oriented x3. No focal deficits were noted. LAB DATA AND TESTS: Chest x-ray on my interpretation showed pneumonia on the right side in mid and lower lobe areas. The left seems to be clear. The heart seems to be normal. His initial lab studies showed his lactic acid to be somewhat elevated at 3.3 but after fluids was down to 1.8. His white count was 17,200 with 5 bands and 72 polys, hemoglobin 13.2, PLT 213,000. His UA with specific gravity 1.020, greater than 500 glucose and was otherwise negative. Troponin was less than 0.012. Influenza A, B and respiratory syncytial virus were negative. His metabolic panel showed a glucose of 202, BUN 16, creatinine 1.03. Potassium slightly low at 3.2. Electrolytes were otherwise normal. Liver enzymes were normal. The patient's international normalized ratio was 4.69. His EKG initially showed atrial fibrillation with rapid ventricular rate but after Cardizem has returned to sinus rhythm. ASSESSMENT: A patient with pneumonia. He has been admitted to the hospital on IV fluids, IV antibiotics and nebulizer treatments and guaifenesin. We will give him a flutter valve and instruct him to be up and moving around as he tolerates.
[2019-02-16] MEDS ORDERED: Zofran 4 MG/2 ML VIAL IV PRN ×2 (11:23)
[2019-02-16] MEDS: Flomax 0.4 MG PO SCH (11:38)
[2019-02-16] MEDS: Proscar 5 MG PO SCH (11:39)
[2019-02-16] MEDS: Mucinex 600MG ER Tabs PO SCH ×2 (11:39→21:29)
[2019-02-16] MEDS: PROTONIX 40 MG IV IV SCH (11:39)
[2019-02-16] MEDS: DUONEB 0.5-3 MG/3 ml Neb IH SCH ×2 (12:58→20:25)
[2019-02-16] MEDS ORDERED: PROVENTIL 2.5 MG/3 ML NEB IH SCH (13:00)
[2019-02-17] MEDS: DUONEB 0.5-3 MG/3 ml Neb IH SCH ×4 (00:07→20:20)
[2019-02-17] MEDS: Sodium Chloride 0.9% 1000 ML 1,000 ML IV SCH (04:30)
[2019-02-17 04:58] LABS: Hemoglobin 10.4 gm/dl (12.5-18.0); Mean Cell Volume 92.8 fl (78-100); Mean Corpuscular Hemoglobin 30.1 pg (26-32); Mean Corpuscular Hgb Concent. 32.5 g/dl (32-36); Mean Platelet Volume 10.3 fl (6-9.5); Platelet Count 214 K/mm3 (150-450); Red Blood Count 3.45 M/mm3 (4.1-5.6); Red Cell Distribution Width 13.3 % (11.5-14.0); White Blood Count 14.4 K/mm3 (4.0-10.5)
[2019-02-17 05:25] LABS: BLOOD UREA NITROGEN 25 mg/dL (9-20); CHLORIDE 108 mmol/L (98-107); Calcium 8.6 mg/dL (8.4-10.2); Carbon Dioxide 23 mmol/L (22-30); Creatinine 1 0.89 mg/dL (0.66-1.25); Glucose 339 mg/dL (74-106); Potassium 3.2 mmol/L (3.5-5.1); SODIUM 138 mmol/L (137-145)
[2019-02-17] MEDS: Merrem 1 GM 1 G in Sodium Chloride 100ML MINI-BAG PLUS 100 ML IV SCH ×3 (05:41→21:24)
[2019-02-17] MEDS ORDERED: Sodium Chloride 0.9% 10 ML FLUSH Syringe IV PRN (06:24)
[2019-02-17 06:59] LABS: BAND 1 % (0.0-2.0); Lymphocytes 1 % (24-44); Neutrophils 98 % (36.-66.); Total Cells Counted 100
[2019-02-17 07:00] LABS: ANISOCYTOSIS 1+; Platelet Estimate NORMAL (NORMAL); Poikilocytosis 1+; Toxic Granulation 1+
[2019-02-17] MEDS ORDERED: Glutose 15 GM ORAL GEL PO PRN (07:09)
[2019-02-17] MEDS ORDERED: D50W 50 ml Abboject IV PRN (07:09)
[2019-02-17] MEDS: Flomax 0.4 MG PO SCH (09:32)
[2019-02-17] MEDS: Mucinex 600MG ER Tabs PO SCH ×2 (09:32→21:24)
[2019-02-17] MEDS: Proscar 5 MG PO SCH (09:32)
[2019-02-17] MEDS: solu-MEDROL 40 MG IV SCH ×2 (09:33→21:24)
[2019-02-17 10:16] LABS: INR 5.97 (0.8-3.0)
[2019-02-17] MEDS: Norco 10/325 MG Tablet PO PRN (11:42)
[2019-02-17] MEDS: PROTONIX 40 MG IV IV SCH (11:43)
[2019-02-18] MEDS: DUONEB 0.5-3 MG/3 ml Neb IH SCH ×4 (01:15→19:37)
[2019-02-18] MEDS ORDERED: PROVENTIL 2.5 MG/3 ML NEB IH PRN (04:36)
[2019-02-18] MEDS ORDERED: PROVENTIL Solution 2.5 MG/0.5 ML IH ONE (04:39)
[2019-02-18] MEDS: Merrem 1 GM 1 G in Sodium Chloride 100ML MINI-BAG PLUS 100 ML IV SCH ×3 (05:45→21:45)
[2019-02-18 05:58] LABS: Hematocrit 32.7 % (42-50); Hemoglobin 10.5 gm/dl (12.5-18.0); Mean Cell Volume 93.2 fl (78-100); Mean Corpuscular Hemoglobin 29.9 pg (26-32); Mean Corpuscular Hgb Concent. 32.1 g/dl (32-36); Mean Platelet Volume 10.3 fl (6-9.5); Platelet Count 249 K/mm3 (150-450); Red Blood Count 3.51 M/mm3 (4.1-5.6); Red Cell Distribution Width 13.5 % (11.5-14.0); White Blood Count 8.9 K/mm3 (4.0-10.5)
[2019-02-18 06:09] LABS: ALBUMIN 2.8 g/dL (3.5-5.0); ALKALINE PHOSPHATASE 79 U/L (38-126); ANION GAP 14.1 MEQ/L (5-15); BLOOD UREA NITROGEN 24 mg/dL (9-20); CHLORIDE 105 mmol/L (98-107); Calcium 8.5 mg/dL (8.4-10.2); Carbon Dioxide 22 mmol/L (22-30); Creatinine 1 0.89 mg/dL (0.66-1.25); Glucose 409 mg/dL (74-106); Potassium 3.6 mmol/L (3.5-5.1); SGOT/AST 29 U/L (17-59); SGPT/ALT 40 U/L (0-50); SODIUM 138 mmol/L (137-145); Total Protein 5.9 g/dL (6.3-8.2)
[2019-02-18 08:01] LABS: INR 6.94 (0.8-3.0)
[2019-02-18] MEDS: Flomax 0.4 MG PO SCH (09:00)
[2019-02-18] MEDS: solu-MEDROL 40 MG IV SCH ×2 (09:00→21:44)
[2019-02-18] MEDS: Mucinex 600MG ER Tabs PO SCH ×3 (09:00→21:51)
[2019-02-18] MEDS: Proscar 5 MG PO SCH (09:00)
[2019-02-18] MEDS: NovoLOG Insulin SQ PRN ×3 (12:37→21:18)
[2019-02-18] MEDS: PROTONIX 40 MG IV IV SCH (12:38)
--- NOTE | 2019-02-18 15:05 | PCM.NOTE ---
Date and Time: 02/18/19 1500 Subjective Assessment: Pt feeling better, breathing is better. Russel po. BS continue to be elevated, this a.m. 409. - Review of Systems Constitutional: No Fever Respiratory: Cough Objective Exam General Appearance: no apparent distress, alert Neurologic Exam: oriented x 3, cooperative Skin Exam: normal color, warm, dry, No rash Respiratory Exam: diminished breath sounds, No crackles/rales, No rhonchi, No wheezing Cardiovascular Exam: regular rate/rhythm, normal heart sounds, No murmur Gastrointestinal/Abdomen Exam: soft, normal bowel sounds, No tenderness, No distention Extremity Exam: normal inspection, No pedal edema, No swelling Back Exam: normal inspection, No rash OBJECTIVE DATA Vital Signs: Vital Signs - 24 hr Temp Pulse Resp BP Pulse Ox 02/18/19 14:06 79 18 95 02/18/19 14:03 93 H 20 93 L 02/18/19 11:54 98.2 F 84 18 158/82 94 L 02/18/19 07:53 98.2 F 77 18 149/77 89 L 02/18/19 04:39 85 28 H 92 L 02/18/19 02:15 88 L 02/18/19 02:00 97.7 F 83 20 119/72 88 L 02/18/19 01:15 73 18 90 L 02/17/19 20:23 85 24 90 L 02/17/19 20:00 97.4 F 85 26 H 153/77 91 L 02/17/19 16:00 97.1 F 77 22 109/57 90 L Oxygen-Last 24 hours O2 Percentage 3 Liters = 32% O2 Percentage 3 Liters = 32% O2 Percentage 3 Liters = 32% O2 Percentage 2 Liters = 28% Pain Assessment - Last Documented Pain Intensity 5 Pain Scale Used 0-10 Pain Scale Intake and Output: Intake & Output 02/16/19 02/17/19 02/18/19 02/19/19 11:59 11:59 11:59 11:59 Intake Total 1040 4666 2029 Output Total 75 400 825 Balance 965 4266 1204 Weight 84.6 kg 86.6 kg 86.5 kg Lab Results: Accuchecks Date 02/18/19 Time 12:40 Accucheck Value: 464 Lab Results-Last 24 Hours 02/18/19 02/18/19 02/18/19 Range/Units 05:30 05:30 05:30 WBC 8.9 (4.0-10.5) K/mm3 RBC 3.51 L (4.1-5.6) M/mm3 Hgb 10.5 L (12.5-18.0) gm/dl Hct 32.7 L (42-50) % MCV 93.2 (78-100) fl MCH 29.9 (26-32) pg MCHC 32.1 (32-36) g/dl RDW 13.5 (11.5-14.0) % Plt Count 249 (150-450) K/mm3 MPV 10.3 H (6-9.5) fl PT 81.0 H (8.83-12.87) SECONDS INR 6.94 H* (0.8-3.0) Sodium 138 (137-145) mmol/L Potassium 3.6 (3.5-5.1) mmol/L Chloride 105 (98-107) mmol/L Carbon Dioxide 22 (22-30) mmol/L Anion Gap 14.1 (5-15) MEQ/L BUN 24 H (9-20) mg/dL Creatinine 0.89 (0.66-1.25) mg/dL Estimated GFR > 60.0 ML/MIN Glucose 409 H (74-106) mg/dL Calcium 8.5 (8.4-10.2) mg/dL Total Bilirubin 0.30 (0.2-1.3) mg/dL AST 29 (17-59) U/L ALT 40 (0-50) U/L Alkaline Phosphatase 79 (38-126) U/L Serum Total Protein 5.9 L (6.3-8.2) g/dL Albumin 2.8 L (3.5-5.0) g/dL Assessment/Plan (1) Pneumonia Current Visit: Yes Status: Acute Qualifiers: Pneumonia type: due to unspecified organism Laterality: right Lung location: lower lobe of lung Qualified Code(s): J18.9 - Pneumonia, unspecified organism Assessment & Plan: On IV meropenem day #4. Doing better wtih addition of solumedrol yesterday, 40mg IV q12h. WIll start to decrease tomorrow if still going well. Pt will be here at least until Wednesday. Code(s): J18.9 - PNEUMONIA, UNSPECIFIED ORGANISM (2) COPD (chronic obstructive pulmonary disease) Current Visit: No Status: Chronic Qualifiers: COPD type: unspecified COPD Qualified Code(s): J44.9 - Chronic obstructive pulmonary disease, unspecified (3) HTN (hypertension) Current Visit: Yes Status: Chronic Qualifiers: Hypertension type: essential hypertension Qualified Code(s): I10 - Essential (primary) hypertension Code(s): I10 - ESSENTIAL (PRIMARY) HYPERTENSION (4) BPH (benign prostatic hyperplasia) Current Visit: Yes Status: Chronic Qualifiers: Lower urinary tract symptom presence: symptoms absent Qualified Code(s): N40.0 - Benign prostatic hyperplasia without lower urinary tract symptoms Code(s): N40.0 - BENIGN PROSTATIC HYPERPLASIA WITHOUT LOWER URINRY TRACT SYMP (5) Hx of deep venous thrombosis Current Visit: Yes Status: Chronic Assessment & Plan: on coumadin; currently INR is elevated, likely due to abx/steroids. Continue checking daily and holding coumadin. Code(s): Z86.718 - PERSONAL HISTORY OF OTHER VENOUS THROMBOSIS AND EMBOLISM (6) Chronic low back pain Current Visit: Yes Status: Chronic Qualifiers: Back pain laterality: unspecified Sciatica presence: without sciatica Qualified Code(s): M54.5 - Low back pain; G89.29 - Other chronic pain Code(s): M54.5 - LOW BACK PAIN; G89.29 - OTHER CHRONIC PAIN
[2019-02-18] MEDS ORDERED: Cardizem IV 50 MG/10 ML IV ONE (23:28)
[2019-02-18] MEDS: Norco 10/325 MG Tablet PO PRN (23:44)
[2019-02-19] MEDS: Lopressor 25MG Tab PO SCH ×3 (00:18→22:17)
[2019-02-19] MEDS ORDERED: Lopressor 25MG Tab PO ONE ×2 (02:13→03:05)
[2019-02-19] MEDS ORDERED: Lopressor 25MG Tab ONE ×2 (02:21→03:06)
[2019-02-19 04:48] LABS: PROTIME 76.4 SECONDS (8.83-12.87)
[2019-02-19 05:07] LABS: INR 6.32 (0.8-3.0)
[2019-02-19] MEDS: Merrem 1 GM 1 G in Sodium Chloride 100ML MINI-BAG PLUS 100 ML IV SCH ×3 (05:35→22:17)
[2019-02-19] MEDS: DUONEB 0.5-3 MG/3 ml Neb IH SCH ×5 (06:30→23:41)
[2019-02-19] MEDS: NovoLOG Insulin SQ PRN ×3 (07:44→22:16)
[2019-02-19 08:27] LABS: ANION GAP 11.8 MEQ/L (5-15); BLOOD UREA NITROGEN 22 mg/dL (9-20); CHLORIDE 107 mmol/L (98-107); Calcium 8.2 mg/dL (8.4-10.2); Carbon Dioxide 25 mmol/L (22-30); Creatinine 1 0.83 mg/dL (0.66-1.25); Glucose 367 mg/dL (74-106); SODIUM 140 mmol/L (137-145)
[2019-02-19] MEDS: Flomax 0.4 MG PO SCH (09:23)
[2019-02-19] MEDS: solu-MEDROL 40 MG IV SCH (09:23)
[2019-02-19] MEDS: Mucinex 600MG ER Tabs PO SCH ×2 (09:23→22:16)
[2019-02-19] MEDS: Proscar 5 MG PO SCH (09:23)
[2019-02-19] MEDS: PROTONIX 40 MG IV IV SCH (10:36)
[2019-02-19] MEDS ORDERED: CEPACOL SORE THROAT LOZENGE PO PRN (10:40)
--- NOTE | 2019-02-19 13:14 | PCM.NOTE ---
Date and Time: 02/19/19 1308 Subjective Assessment: Overnight pt went into afib with RVR, HR to 150s. was given 10mg IV cardiazem with no improvement; then was given a total of 50mg metoprolol and HR decreased. In sinus rhythm today. Overnight he also became more hypoxemia and dyspneic on exertion (rolling over in bed causes dyspnea). He denies any chest pain. Was put on 6L NC at some point between 4 am and 6 am today; currently on 3L NC with O2 sat between 88-92% . - Review of Systems Constitutional: No Fever Respiratory: Cough, Short Of Breath Objective Exam General Appearance: no apparent distress, alert Neurologic Exam: oriented x 3, cooperative Skin Exam: normal color, warm, dry, No rash Respiratory Exam: diminished breath sounds, wheezing (throughout), No crackles/ rales, No rhonchi Cardiovascular Exam: regular rate/rhythm, normal heart sounds, No murmur Gastrointestinal/Abdomen Exam: soft, normal bowel sounds, distention, No tenderness, No mass, No guarding, No rebound Extremity Exam: normal inspection, No pedal edema, No swelling Back Exam: normal inspection, No rash OBJECTIVE DATA Vital Signs: Vital Signs - 24 hr Temp Pulse Resp BP Pulse Ox 02/19/19 11:39 98.2 F 70 18 175/91 98 02/19/19 11:31 91 H 22 94 L 02/19/19 07:49 98.2 F 69 22 145/78 94 L 02/19/19 06:50 69 22 94 L 02/19/19 04:00 98.0 F 123 H 18 99/62 93 L 02/19/19 00:00 97.7 F 85 18 159/74 94 L 02/18/19 20:00 97.7 F 75 18 146/73 98 02/18/19 19:38 69 18 93 L 02/18/19 15:58 98.3 F 75 18 132/72 94 L 02/18/19 14:06 79 18 95 02/18/19 14:03 93 H 20 93 L Oxygen-Last 24 hours O2 Percentage 6 Liters = 44% O2 Percentage 6 Liters = 44% O2 Percentage 2 Liters = 28% O2 Percentage 2 Liters = 28% O2 Percentage 2 Liters = 28% O2 Percentage 2 Liters = 28% Pain Assessment - Last Documented Pain Intensity 2 Pain Scale Used FLACC Intake and Output: Intake & Output 02/17/19 02/18/19 02/19/19 02/20/19 11:59 11:59 11:59 11:59 Intake Total 4661 2029 607 Output Total 400 825 175 400 Balance 4266 1204 432 -400 Weight 86.6 kg 86.5 kg 86.2 kg Lab Results: Accuchecks Date 02/19/19 Date 02/19/19 Date 02/18/19 Date 02/18/19 Time 11:42 Time 07:43 Time 21:30 Time 16:15 Accucheck Value: 151 Accucheck Value: 324 Accucheck Value: 357 Accucheck Value: 270 Lab Results-Last 24 Hours 02/18/19 02/19/19 02/19/19 Range/Units Unknown 04:39 05:00 PT 76.4 H (8.83-12.87) SECONDS INR 6.32 H* (0.8-3.0) Sodium 140 (137-145) mmol/L Potassium 4.0 (3.5-5.1) mmol/L Chloride 107 (98-107) mmol/L Carbon Dioxide 25 (22-30) mmol/L Anion Gap 11.8 (5-15) MEQ/L BUN 22 H (9-20) mg/dL Creatinine 0.83 (0.66-1.25) mg/dL Estimated GFR > 60.0 ML/MIN Glucose 367 H (74-106) mg/dL Hemoglobin A1c 6.15 H (4.5-6.0) % Calcium 8.2 L (8.4-10.2) mg/dL Magnesium (1.6-2.3) mg/dL 02/19/19 Range/Units 05:00 PT (8.83-12.87) SECONDS INR (0.8-3.0) Sodium (137-145) mmol/L Potassium (3.5-5.1) mmol/L Chloride (98-107) mmol/L Carbon Dioxide (22-30) mmol/L Anion Gap (5-15) MEQ/L BUN (9-20) mg/dL Creatinine (0.66-1.25) mg/dL Estimated GFR ML/MIN Glucose (74-106) mg/dL Hemoglobin A1c (4.5-6.0) % Calcium (8.4-10.2) mg/dL Magnesium 2.4 H (1.6-2.3) mg/dL Radiology Exams: Radiology Procedures Category Date Time Status CHEST 1 VIEW (PORTABLE) Stat Exams 02/19/19 09:52 Taken Assessment/Plan (1) Pneumonia Current Visit: Yes Status: Acute Qualifiers: Pneumonia type: due to unspecified organism Laterality: right Lung location: lower lobe of lung Qualified Code(s): J18.9 - Pneumonia, unspecified organism Assessment & Plan: Increased steroid. Repeat CXR with read pending. Code(s): J18.9 - PNEUMONIA, UNSPECIFIED ORGANISM (2) Atrial fibrillation with RVR Current Visit: Yes Status: Acute Assessment & Plan: on coumadin; in fact INR is still elevated Code(s): I48.91 - UNSPECIFIED ATRIAL FIBRILLATION (3) Shortness of breath Current Visit: Yes Status: Acute Assessment & Plan: Pt extremely unlikely to have PE with elevated INR. CXR is pending. Will check troponin and EKG. Code(s): R06.02 - SHORTNESS OF BREATH (4) Elevated INR Current Visit: Yes Status: Acute Assessment & Plan: Down today, to 6.32 from a high of 6.94 yesterday. Continuing to hold coumadin. Code(s): R79.1 - ABNORMAL COAGULATION PROFILE (5) COPD (chronic obstructive pulmonary disease) Current Visit: No Status: Chronic Qualifiers: COPD type: unspecified COPD Qualified Code(s): J44.9 - Chronic obstructive pulmonary disease, unspecified (6) HTN (hypertension) Current Visit: Yes Status: Chronic Qualifiers: Hypertension type: essential hypertension Qualified Code(s): I10 - Essential (primary) hypertension Code(s): I10 - ESSENTIAL (PRIMARY) HYPERTENSION (7) BPH (benign prostatic hyperplasia) Current Visit: Yes Status: Chronic Qualifiers: Lower urinary tract symptom presence: symptoms absent Qualified Code(s): N40.0 - Benign prostatic hyperplasia without lower urinary tract symptoms Code(s): N40.0 - BENIGN PROSTATIC HYPERPLASIA WITHOUT LOWER URINRY TRACT SYMP (8) Hx of deep venous thrombosis Current Visit: Yes Status: Chronic Code(s): Z86.718 - PERSONAL HISTORY OF OTHER VENOUS THROMBOSIS AND EMBOLISM (9) Chronic low back pain Current Visit: Yes Status: Chronic Qualifiers: Back pain laterality: unspecified Sciatica presence: without sciatica Qualified Code(s): M54.5 - Low back pain; G89.29 - Other chronic pain Code(s): M54.5 - LOW BACK PAIN; G89.29 - OTHER CHRONIC PAIN
[2019-02-19] MEDS: solu-MEDROL 125 MG IV SCH ×3 (13:20→23:58)
[2019-02-19] MEDS: Mylicon 80MG PO PRN ×2 (13:53→21:34)
--- NOTE | 2019-02-19 20:29 | XRAY ---
Indication: Increased O2 requirement. Comparison: February 15, 2019. Portable chest demonstrates very minimal clearing of the previous right mid to lower lung airspace disease with effusion. Stable biapical pleural parenchymal scarring/thickening and paratracheal calcified nodes. Heart is not enlarged. No new cardiopulmonary abnormalities. Comment: Preliminary interpretation was made by [facility]. No critical discrepancy.
[2019-02-20] MEDS: DUONEB 0.5-3 MG/3 ml Neb IH SCH ×3 (03:57→10:43)
[2019-02-20] MEDS ORDERED: APRESOLINE 20 MG/ML INJ IV ONE (04:20)
[2019-02-20 04:47] VITALS: BP 180/100
[2019-02-20] MEDS ORDERED: Sodium Chloride 0.9% 100 ML IVPB 100 ML IV ONE (05:26)
[2019-02-20] MEDS ORDERED: Merrem 1 GM IV ONE (05:26)
[2019-02-20 05:32] LABS: PROTIME 59.9 SECONDS (8.83-12.87)
[2019-02-20] MEDS: solu-MEDROL 125 MG IV SCH (05:54)
[2019-02-20] MEDS: Merrem 1 GM 1 G in Sodium Chloride 100ML MINI-BAG PLUS 100 ML IV SCH (05:54)
[2019-02-20 06:17] LABS: INR 5.17 (0.8-3.0)
[2019-02-20] MEDS: NovoLOG Insulin SQ PRN (08:03)
[2019-02-20] MEDS ORDERED: Vitamin K 10 MG/ML PO ONE (09:04)
[2019-02-20] MEDS: Flomax 0.4 MG PO SCH (10:29)
[2019-02-20] MEDS: Mucinex 600MG ER Tabs PO SCH (10:30)
[2019-02-20] MEDS: Lopressor 25MG Tab PO SCH (10:30)
[2019-02-20] MEDS: PROTONIX 40 MG IV IV SCH (10:31)
[2019-02-20] MEDS: Proscar 5 MG PO SCH (10:31)
[2019-02-20 10:46] VITALS: PULSE 76; O2SAT 92
--- NOTE | 2019-02-20 10:52 | DS ---
DISCHARGE DIAGNOSES: 1) PNEUMONIA. 2) ATRIAL FIBRILLATION WITH RAPID VENTRICULAR RESPONSE. 3) CHRONIC OBSTRUCTIVE PULMONARY DISEASE. 4) HYPOXIA. HOSPITAL COURSE: The patient is a 78 year-old white male who reports he had gotten sicker over the past three days. He presented to the emergency room and had a rapid heart rate and being short of breath. The patient was found to be in atrial fibrillation with rapid ventricular rate which responded nicely to Cardizem drip and fluids. The patient however showed significant pneumonia on the right side of the chest. He was put on Meropenem which he did improve nicely over the ensuing next several days. By the morning of 02/20/2019, the patient looked to be back to his normal state of health. There was minimal abnormal sounds in his chest on the right side at the time of discharge. No wheezes. His oxygen saturations were running in the mid 90's on supplemental oxygen. He was running a little high on his sugars due to the Solu-Medrol and this had been discontinued prior to his discharge home. His international normalized ratio has been running a little high with the most recent one running at 5.17. We will hold his blood thinners for an additional two days at home. Otherwise he will be using Augmentin 875 mg twice a day for seven days and guaifenesin extended release 600 mg b.i.d. He is to use his oxygen and keep an eye on his oxygen sensors at home and call us if he cannot keep his saturations above 90%. We will see him in follow up in the office in five days, or he is to return to the hospital if he has any further problems in the interim.
== END 2019-02-20 12:00 | disposition home or self-care (01) | DRG 195 ==
LOC: ED 18:34 → MED SURG 23:57
PROVIDERS: ADMIT Family Medicine; ATTEND Family Medicine
DX: J18.9 Pneumonia, unspecified organism (principal); J44.9 Chronic obstructive pulmonary disease, unspecified; Z86.711 Personal history of pulmonary embolism; I10 Essential (primary) hypertension; I48.91 Unspecified atrial fibrillation; R09.02 Hypoxemia; Z99.81 Dependence on supplemental oxygen; N40.0 Benign prostatic hyperplasia without lower urinary tract symptoms; M54.5 Low back pain; R79.1 Abnormal coagulation profile; Z79.01 Long term (current) use of anticoagulants; Z79.899 Other long term (current) drug therapy
CPT/HCPCS: 36000; 36415; 71045; 80048; 80053; 81001; 82962; 83036; 83605; 83735; 83880; 84484; 85025; 85027; 85610; 87040; 87070; 87086; 87631; 93005; 93041; 94150; 94640; 94667; 94668; 94760; 94762; 96374; 96375; 96376; 99285; 99291; 99292; J0360; J2405; J2920; J2930; J3010; J3430; J7609; A9270-GY

== ENCOUNTER 2021-10-17 14:17 | Emergency (ER) | payer MEDICARE ==
--- NOTE | 2021-10-17 14:45 | ERPHSYRPT ---
- History of Present Illness Time Seen by Provider: 10/17/21 14:45 Source: patient Exam Limitations: no limitations Physician History: This is an 81-year-old white male patient of Dr. Currie who stated that he has noticed a sore has been present on the lateral aspect of his right ankle for approximately 2 weeks. It has not healed well and he is concerned there might be an infection. There is redness that is present today that was not redness before. There is been no odor and no significant drainage. Patient has not had a fever. Method of Injury: other Occurred: last week, other (2 weeks) Severity of Pain-Max: mild Severity of Pain-Current: mild Lower Extremities Pain: ankle: right (Lateral aspect) Modifying Factors: Improves With: nothing Associated Symptoms: none Allergies/Adverse Reactions: hydromorphone [From Dilaudid] Allergy (Unknown, Verified 10/17/21 14:49) unknown by patient if real allergy Home Medications: Tamsulosin HCl 0.4 mg [Flomax 0.4 MG] 0.4 mg PO DAILY 03/16/13 [History] Warfarin Sodium 3 mg [Coumadin 3 MG] 2 mg PO DAILY 08/24/14 [History] Albuterol 2.5 mg/3 ml Neb [Proventil 2.5 mg/3 ml Neb] 1 neb PO UD 02/15/19 [History] Finasteride 5 mg [Proscar 5 MG] 5 mg PO DAILY 02/15/19 [History] Furosemide 40 mg [Lasix 40 MG] 40 mg PO BID 10/17/21 [History] Hx Tetanus, Diphtheria Vaccination/Date Given: Yes Hx Influenza Vaccination/Date Given: No Hx Pneumococcal Vaccination/Date Given: Yes Travel Risk - International Travel Have you traveled outside of the country in past 3 weeks: No - Coronavirus Screening Are you exhibiting any of the following symptoms?: No Close contact with a COVID-19 positive Pt in past 14-21 Days: No - Review of Systems Constitutional: No Symptoms Eyes: No Symptoms Ears, Nose, & Throat: No Symptoms Respiratory: No Symptoms Cardiac: No Symptoms Abdominal/Gastrointestinal: No Symptoms Genitourinary Symptoms: No Symptoms Musculoskeletal: No Symptoms Skin: Cellulitis (Mild localized cellulitis lateral aspect right ankle. There is a wound/ulceration present with a thin layer of fibrinous exudate on it. There is no odor) Neurological: No Symptoms Psychological: No Symptoms Endocrine: No Symptoms Hematologic/Lymphatic: No Symptoms Immunological/Allergic: No Symptoms All Other Systems: Reviewed and Negative - Past Medical History Pertinent Past Medical History: Yes Neurological History: No Pertinent History ENT History: No Pertinent History Cardiac History: Deep Vein Thrombosis, Hypertension Respiratory History: No Pertinent History, COPD Endocrine Medical History: No Pertinent History Musculoskeletal History: Arthritis, Fractures GI Medical History: No Pertinent History History: Other Psycho-Social History: No Pertinent History Male Reproductive Disorders: Prostate Problems Other Medical History: C-spine fracture - Past Surgical History Past Surgical History: Yes Neuro Surgical History: No Pertinent History Cardiac: No Pertinent History Respiratory: No Pertinent History Gastrointestinal: No Pertinent History Genitourinary: No Pertinent History Musculoskeletal: Orthopedic Surgery Male Surgical History: No Pertinent History Other Surgical History: neck surg - Social History Smoking Status: Former smoker How long have you smoked: 69 Exposure to second hand smoke: Yes Drug Use: none Patient Lives Alone: No - Nursing Vital Signs Nursing Vital Signs: Initial Vital Signs Temperature 96.7 F 10/17/21 14:43 Pulse Rate 68 10/17/21 14:43 Respiratory Rate 18 10/17/21 14:43 Blood Pressure 121/72 10/17/21 14:43 O2 Sat by Pulse Oximetry 100 10/17/21 14:43 Pain Scale Pain Intensity 0 - Physical Exam General Appearance: no apparent distress, alert Eyes, Ears, Nose, Throat Exam: normal ENT inspection, moist mucous membranes Neck Exam: normal inspection, non-tender, supple, full range of motion Cardiovascular/Respiratory Exam: chest non-tender, no respiratory distress Gastrointestinal/Abdominal Exam: non-tender Back Exam: normal inspection, normal range of motion, No CVA tenderness, No vertebral tenderness Hips Exam: bilateral: non-tender, normal inspection, normal range of motion, no evidence of injury Legs Exam: bilateral leg: non-tender, normal inspection, normal range of motion, no evidence of injury Knees Exam: bilateral knee: non-tender, normal inspection, normal range of motion, no evidence of injury Ankle Exam: right ankle: normal range of motion, other (Ulcer skin overlying lateral malleoli region. Mild fibrinous exudate present. No odor. No proximal streaking), left ankle: non-tender, normal inspection, no evidence of injury Foot Exam: bilateral foot: non-tender, normal inspection, normal range of motion, no evidence of injury Neuro/Tendon Exam: normal sensation, normal motor functions, normal tendon functions, responds to pain, no evidence tendon injury Mental Status Exam: alert, oriented x 3, cooperative Skin Exam: normal color, warm, dry SpO2 Interpretation: normal O2 Delivery: Room Air - Course Nursing assessment & vital signs reviewed: Yes Ordered Tests: Medication Summary Discontinued Medications Generic Name Dose Route Start Last Admin Trade Name Manuel PRN Reason Stop Dose Admin Albuterol/Ipratropium 3 ml 10/17/21 15:12 Ipratropium/Albuterol Sulfate 3 Ml Ampul.Neb IH 10/17/21 15:13 STAT ONE Albuterol/Ipratropium Confirm 10/17/21 15:23 Ipratropium/Albuterol Sulfate 3 Ml Ampul.Neb Administered 10/17/21 15:24 Dose 3 ml IH .STK-MED ONE Ceftriaxone Sodium 1,000 mg 10/17/21 15:13 Ceftriaxone Sodium 1000 Mg Inj Vial IM 10/17/21 15:14 STAT ONE Trimethoprim/Sulfamethoxazole 1 tab 10/17/21 15:13 Smz/Tmp Ds Tablet 1 Tablet PO 10/17/21 15:14 STAT ONE - Progress Progress: unchanged Counseled pt/family regarding: diagnosis, need for follow-up - Departure Departure Disposition: Home Clinical Impression: Cellulitis, Skin ulcer Condition: Stable Critical Care Time: No Referrals: KAYLEIGH CURRIE [Primary Care Provider] - Follow up/PCP as directed Additional Instructions: Keep the site clean daily with soap and water. Scrub the ulceration/wound daily. Take your antibiotics as prescribed. Follow-up with your prescribing physician on 10/20/2021, for further evaluation and management.
[2021-10-17] MEDS ORDERED: DUONEB 0.5-3 MG/3 ml Neb IH ONE ×2 (15:12→15:23)
[2021-10-17] MEDS ORDERED: BACTRIM DS TABLET PO ONE ×2 (15:13→15:45)
[2021-10-17] MEDS ORDERED: Rocephin 1000 MG INJ IM ONE (15:13)
[2021-10-17] MEDS ORDERED: XYLOCAINE 1% HCL 20 ML MDV ONE (15:45)
[2021-10-17] MEDS ORDERED: Rocephin 1000 MG INJ ONE (15:45)
[2021-10-17 15:53] VITALS: BP 111/85; PULSE 72; O2SAT 95
== END 2021-10-17 15:57 | disposition home or self-care (01) ==
LOC: ED 14:17
DX: L97.319 Non-pressure chronic ulcer of right ankle with unspecified severity (principal); L03.115 Cellulitis of right lower limb; I10 Essential (primary) hypertension; J44.9 Chronic obstructive pulmonary disease, unspecified; Z79.01 Long term (current) use of anticoagulants; Z79.899 Other long term (current) drug therapy
CPT/HCPCS: 94640; 96372; 99283; J0696; A9270-GY

== ENCOUNTER 2024-02-20 15:50 | Emergency (ER) | payer MEDICARE ==
[2024-02-20] MEDS ORDERED: Xopenex 1.25 MG/0.5 ML UD NEBULE IH ONE (16:45)
[2024-02-20] MEDS: Xopenex 1.25 MG/0.5 ML UD NEBULE IH ONE (16:45)
--- NOTE | 2024-02-20 16:48 | ERPHSYRPT ---
- History of Present Illness Time Seen by Provider: 02/20/24 16:31 Source: patient Physician History: Pt states he has had shortness of air and dull right sided chest pain up to 8/10 in severity for the past 12.5 hours. Pt is on 2L/min oxygen at home but was without his oxygen for 3 hours today. Pt denies abdominal pain, fever, vomiting. Allergies/Adverse Reactions: hydromorphone [From Dilaudid] Allergy (Unknown, Verified 02/20/24 16:34) unknown by patient if real allergy Home Medications: Albuterol 2.5 mg/3 ml Neb [Proventil 2.5 mg/3 ml Neb] 1 neb IH Q4H PRN 02/20/24 [History] Finasteride 5 mg [Proscar 5 MG] 5 mg PO DAILY 02/20/24 [History] Fluticasone/Umeclidin/Vilanter [Trelegy Ellipta 100-62.5-25] 1 puff PO DAILY 02/20/24 [History] Metoprolol Tartrate 50 mg [Lopressor 50 MG] 50 mg PO BID 02/20/24 [Hist ory] Tamsulosin HCl 0.4 mg [Flomax 0.4 MG] 0.4 mg PO HS 02/20/24 [History] Warfarin Sodium 5 mg [Coumadin] 5 mg PO DAILY 02/20/24 [History] Hx Tetanus, Diphtheria Vaccination/Date Given: Yes Hx Influenza Vaccination/Date Given: No Hx Pneumococcal Vaccination/Date Given: Yes - Review of Systems Constitutional: No Fever Respiratory: Dyspnea Cardiac: Chest Pain Abdominal/Gastrointestinal: No Abdominal Pain, No Nausea, No Vomiting, No Diarrhea - Past Medical History Pertinent Past Medical History: Yes Neurological History: No Pertinent History ENT History: No Pertinent History Cardiac History: Deep Vein Thrombosis, Hypertension Respiratory History: No Pertinent History, COPD Endocrine Medical History: No Pertinent History Musculoskeletal History: Arthritis, Fractures GI Medical History: No Pertinent History History: Other Psycho-Social History: No Pertinent History Male Reproductive Disorders: Prostate Problems Other Medical History: C-spine fracture - Past Surgical History Past Surgical History: Yes Neuro Surgical History: No Pertinent History Cardiac: No Pertinent History Respiratory: No Pertinent History Gastrointestinal: No Pertinent History Genitourinary: No Pertinent History Musculoskeletal: Orthopedic Surgery Male Surgical History: No Pertinent History Other Surgical History: neck surg - Social History Smoking Status: Former smoker How long have you smoked: 69 Exposure to second hand smoke: Yes Drug Use: none Patient Lives Alone: No - Nursing Vital Signs Nursing Vital Signs: Initial Vital Signs Temperature 97.8 F 02/20/24 16:35 Pulse Rate 176 H 02/20/24 16:35 Respiratory Rate 38 H 02/20/24 16:35 Blood Pressure 94/61 02/20/24 16:35 O2 Sat by Pulse Oximetry 89 L 02/20/24 16:35 Pain Scale Pain Intensity 5 - Physical Exam General Appearance: alert Eye Exam: eyes nml inspection Ears, Nose, Throat Exam: hearing grossly normal, abnormal TM (L) (erythematous), pharyngeal erythema Neck Exam: normal inspection Respiratory Exam: crackles/rales, wheezing Cardiovascular/Chest Exam: tachycardia Abdominal/Gastrointestinal Exam: normal bowel sounds Extremity Exam: No pedal edema Neurologic Exam: alert, cooperative Skin Exam: warm, dry SpO2 Interpretation: hypoxic SpO2: 89 - Course EKG Interpreted by Me: RATE (176), A-fib, Other (QTc = 408) - Radiology Exams Chest X-ray Interpretation: Teleradiologist Report (Severe interstitial thickening more marked on the right lung suggests interstitial disease. Mild right pleural effusion. ) Ordered Tests: Active Orders 24 hr Category Date Time Status Senior Research Fellow STAT Care 02/20/24 16:42 Active Cath [Catheter-[place] [facility]] STAT Care 02/20/24 18:21 Active EKG-ER Only STAT Care 02/20/24 16:40 Active IV Insertion STAT Care 02/20/24 16:40 Active Pulse Oximetry (ED) STAT Care 02/20/24 16:40 Active CHEST 1 VIEW (PORTABLE) Stat Exams 02/20/24 16:42 Completed AMYLASE Stat Lab 02/20/24 16:53 Completed BLOOD CULTURE Stat Lab 02/20/24 16:57 Received CBC W DIFF Stat Lab 02/20/24 16:53 Completed CMP Stat Lab 02/20/24 16:53 Completed CULTURE,SPUTUM Stat Lab 02/20/24 16:46 Ordered CULTURE,URINE Stat Lab 02/20/24 18:23 Received D-DIMER QUANTITATIVE Stat Lab 02/20/24 16:53 Completed LIPASE Stat Lab 02/20/24 16:53 Completed Lactic Acid Stat Lab 02/20/24 19:20 Ordered MAGNESIUM Stat Lab 02/20/24 16:53 Completed Manual Differential NC Stat Lab 02/20/24 16:53 Completed NT PRO BNPII Stat Lab 02/20/24 16:53 Completed PROTIME WITH INR Stat Lab 02/20/24 16:53 Completed PTT Stat Lab 02/20/24 16:53 Completed TROPONIN Q4H Lab 02/20/24 16:53 Completed TROPONIN Q4H Lab 02/20/24 20:45 Ordered TROPONIN Q4H Lab 02/21/24 00:45 Ordered UA W/RFX UR CULTURE Stat Lab 02/20/24 18:23 Completed VENOUS BLOOD GAS Urgent Lab 02/20/24 16:40 Completed BiPap/CPAP STAT RT 02/20/24 16:48 Active Respiratory Therapy Assessment DAILY RT 02/20/24 16:48 Active Medication Summary Generic Name Dose Route Start Last Admin Trade Name Freq PRN Reason Stop Dose Admin Sodium Chloride 1,000 mls @ 100 mls/hr 02/20/24 16:45 02/20/24 19:01 Sodium Chloride 0.9% 1000 Ml IV 03/21/24 16:44 999 mls/hr .Q10H YANELI Infusion Diltiazem HCl 100 mls @ 5 mls/hr 02/20/24 16:57 02/20/24 17:22 Cardizem Drip 100 Mg/100 Ml D5w IV 03/21/24 16:56 10 mg/hr .Q20H PRN 10 mls/hr HEART RATE/ A-FIB Titration Protocol 5 MG/HR Norepinephrine/Dextrose 8 mg in 250 mls @ 3.75 mls/hr 02/20/24 19:27 02/20/24 19:30 Norepinephrine 8 Mg/250 Ml-D5w IV 03/21/24 19:26 2 mcg/min .Q24H PRN 3.75 mls/hr HYPOTENSION Administration Protocol 2 MCG/MIN Discontinued Medications Generic Name Dose Route Start Last Admin Trade Name Freq PRN Reason Stop Dose Admin Diltiazem HCl 10 mg 02/20/24 16:43 02/20/24 16:50 Diltiazem Hcl Iv 5 Mg/Ml Vial IV 02/20/24 16:44 10 mg STAT ONE Administration Diltiazem HCl Confirm 02/20/24 16:49 Diltiazem Hcl Iv 5 Mg/Ml Vial Administered 02/20/24 16:50 Dose 50 mg IV .STK-MED ONE Diltiazem HCl 10 mg 02/20/24 16:57 02/20/24 17:00 Diltiazem Hcl Iv 5 Mg/Ml Vial IV 02/20/24 16:58 10 mg STAT ONE Administration Etomidate 70 mg 02/20/24 19:16 Etomidate 20 Mg/10 Ml Amp IV 02/20/24 19:17 ONCE ONE Furosemide 40 mg 02/20/24 17:49 02/20/24 18:06 Furosemide 40 Mg/4 Ml Vial IV 02/20/24 17:50 40 mg STAT ONE Administration Furosemide Confirm 02/20/24 18:05 Furosemide 40 Mg/4 Ml Vial Administered 02/20/24 18:06 Dose 40 mg .ROUTE .STK-MED ONE Ceftriaxone Sodium 1 gm in 100 mls @ 200 mls/hr 02/20/24 16:45 02/20/24 17:34 Rocephin 1 Gm / 100 Ml Nacl IV 02/20/24 17:14 Infused STAT ONE Infusion Azithromycin 500 mg in 250 mls @ 250 mls/hr 02/20/24 16:45 02/20/24 18:20 Zithromax 500 Mg/ 250 Ml Nacl Premix IV 02/20/24 17:44 Infused STAT STA Infusion Ceftriaxone Sodium Confirm 02/20/24 16:55 Rocephin 1 Gm / 100 Ml Nacl Administered 02/20/24 16:56 Dose 1 gm in 100 mls @ ud IV .STK-MED ONE Azithromycin Confirm 02/20/24 17:12 Zithromax 500 Mg/ 250 Ml Nacl Premix Administered 02/20/24 17:13 Dose 500 mg in 250 mls @ ud IV .STK-MED ONE Acetaminophen 1,000 mg in 100 mls @ 400 mls/hr 02/20/24 18:34 02/20/24 18:37 Ofirmev IV 02/20/24 18:48 400 mls/hr 1HRPRIOR ONE Administration Acetaminophen Confirm 02/20/24 18:37 Ofirmev Administered 02/20/24 18:38 Dose 100 mls @ ud IV .STK-MED ONE Levalbuterol HCl 1.25 mg 02/20/24 16:45 02/20/24 16:45 Levalbuterol Hcl 1.25 Mg/0.5 Ml Neb IH 02/20/24 16:46 1.25 mg STAT ONE Administration Levalbuterol HCl Confirm 02/20/24 16:45 Levalbuterol Hcl 1.25 Mg/0.5 Ml Neb Administered 02/20/24 16:46 Dose 1.25 mg IH .STK-MED ONE Phytonadione 5 mg 02/20/24 17:41 02/20/24 17:47 Phytonadione 1 Mg/0.5 Ml Amp IM 02/20/24 17:42 5 mg STAT ONE Administration Phytonadione Confirm 02/20/24 17:44 Phytonadione 10 Mg/Ml Amp Administered 02/20/24 17:45 Dose 10 mg .ROUTE .STK-MED ONE Lab/Rad Data: Laboratory Result Diagrams 02/20/24 16:53 02/20/24 16:53 Laboratory Results 02/20/24 02/20/24 02/20/24 Range/Units 18:23 16:57 16:57 WBC (4.23-9.07) x10^3/uL RBC (4.63-6.08) x10^6/uL Hgb (13.7-17.5) g/dL Hct (40.1-51.0) % MCV (79.0-92.2) fL MCH (25.7-32.2) pg MCHC (32.3-36.5) g/dL RDW (11.6-14.4) % Plt Count (163-337) x10^3/uL MPV (9.4-12.4) fL PT (9.4-12.5) SECONDS INR (0.8-3.0) APTT (25.1-36.5) SECONDS D-Dimer (0.0-0.50) mg/L pO2/FiO2 Ratio % VBG pH (7.32-7.42) VBG pCO2 at Pat Temp (42-55) mm/Hg VBG pO2 at Pat Temp (25-40) mm/Hg VBG HCO3 (22-28) meq/L VBG O2 Sat ([place]) (95-100) VBG Base Excess (-2.0-2.0) VBG Hemoglobin VBG Carboxyhemoglobin (0.0-6.9) % T HGB POC Potassium (3.5-5.1) Sodium (135-145) mmol/L Potassium (3.5-5.1) mmol/L Chloride (98-107) mmol/L Carbon Dioxide (22-30) mmol/L Anion Gap (5-15) MEQ/L BUN (9-20) mg/dL Creatinine (0.66-1.25) mg/dL Estimated GFR ML/MIN Glucose (74-106) mg/dL Calcium (8.4-10.2) mg/dL Magnesium (1.6-2.3) mg/dL Total Bilirubin (0.2-1.3) mg/dL AST (17-59) U/L ALT (0-50) U/L Alkaline Phosphatase (38-126) U/L Troponin I (0.000-0.033) ng/mL NT-Pro-B Natriuret Pep (<300) pg/mL Serum Total Protein (6.3-8.2) g/dL Albumin (3.5-5.0) g/dL Amylase (30-110) U/L Lipase (23-300) U/L Urine Color Yellow (Yellow) Urine Appearance Cloudy A (Clear) Urine pH 5.0 (4.6-8.0) Ur Specific [place] 1.020 (1.005-1.030) Urine Protein 30 (Negative) Urine Glucose (UA) Negative (Negative) mg/dL Urine Ketones Trace A (Negative) Urine Blood Negative (Negative) Urine Nitrite Negative (Negative) Urine Bilirubin Negative (Negative) Urine Urobilinogen 1.0 A (0.2) mg/dL Ur Leukocyte Esterase Negative (Negative) U Hyaline Cast (Auto) 11-20 (0-2) /LPF Urine Microscopic RBC 0-2 (0-5) /HPF Urine Microscopic WBC 0-2 (0-5) /HPF Ur Epithelial Cells Rare (None Seen) /HPF Urine Bacteria None Seen (None Seen) /HPF Urine Culture Reflexed ORDERED SEPARATELY (NO) Influenza Type A Ag NEGATIVE (NEGATIVE) Influenza Type B Ag NEGATIVE (NEGATIVE) RSV (PCR) NEGATIVE (NEGATIVE) SARS-CoV-2 (PCR) NEGATIVE (NEGATIVE) Group A Strep Antibody NOT DETECTED (NEGATIVE) 02/20/24 02/20/24 02/20/24 Range/Units 16:53 16:53 16:53 WBC (4.23-9.07) x10^3/uL RBC (4.63-6.08) x10^6/uL Hgb (13.7-17.5) g/dL Hct (40.1-51.0) % MCV (79.0-92.2) fL MCH (25.7-32.2) pg MCHC (32.3-36.5) g/dL RDW (11.6-14.4) % Plt Count (163-337) x10^3/uL MPV (9.4-12.4) fL PT > 90.0 H (9.4-12.5) SECONDS INR 9.65 H* (0.8-3.0) APTT 59.9 H (25.1-36.5) SECONDS D-Dimer 2.66 H* (0.0-0.50) mg/L pO2/FiO2 Ratio % VBG pH (7.32-7.42) VBG pCO2 at Pat Temp (42-55) mm/Hg VBG pO2 at Pat Temp (25-40) mm/Hg VBG HCO3 (22-28) meq/L VBG O2 Sat ([place]) (95-100) VBG Base Excess (-2.0-2.0) VBG Hemoglobin VBG Carboxyhemoglobin (0.0-6.9) % T HGB POC Potassium (3.5-5.1) Sodium (135-145) mmol/L Potassium (3.5-5.1) mmol/L Chloride (98-107) mmol/L Carbon Dioxide (22-30) mmol/L Anion Gap (5-15) MEQ/L BUN (9-20) mg/dL Creatinine (0.66-1.25) mg/dL Estimated GFR ML/MIN Glucose (74-106) mg/dL Calcium (8.4-10.2) mg/dL Magnesium (1.6-2.3) mg/dL Total Bilirubin (0.2-1.3) mg/dL AST (17-59) U/L ALT (0-50) U/L Alkaline Phosphatase (38-126) U/L Troponin I 0.097 H* (0.000-0.033) ng/mL NT-Pro-B Natriuret Pep 35048 (<300) pg/mL Serum Total Protein (6.3-8.2) g/dL Albumin (3.5-5.0) g/dL Amylase (30-110) U/L Lipase (23-300) U/L Urine Color (Yellow) Urine Appearance (Clear) Urine pH (4.6-8.0) Ur Specific [place] (1.005-1.030) Urine Protein (Negative) Urine Glucose (UA) (Negative) mg/dL Urine Ketones (Negative) Urine Blood (Negative) Urine Nitrite (Negative) Urine Bilirubin (Negative) Urine Urobilinogen (0.2) mg/dL Ur Leukocyte Esterase (Negative) U Hyaline Cast (Auto) (0-2) /LPF Urine Microscopic RBC (0-5) /HPF Urine Microscopic WBC (0-5) /HPF Ur Epithelial Cells (None Seen) /HPF Urine Bacteria (None Seen) /HPF Urine Culture Reflexed (NO) Influenza Type A Ag (NEGATIVE) Influenza Type B Ag (NEGATIVE) RSV (PCR) (NEGATIVE) SARS-CoV-2 (PCR) (NEGATIVE) Group A Strep Antibody (NEGATIVE) 02/20/24 02/20/24 02/20/24 Range/Units 16:53 16:53 16:40 WBC 14.5 H (4.23-9.07) x10^3/uL RBC 3.81 L (4.63-6.08) x10^6/uL Hgb 10.5 L (13.7-17.5) g/dL Hct 33.0 L (40.1-51.0) % MCV 86.6 (79.0-92.2) fL MCH 27.6 (25.7-32.2) pg MCHC 31.8 L (32.3-36.5) g/dL RDW 16.0 H (11.6-14.4) % Plt Count 271 (163-337) x10^3/uL MPV 9.4 (9.4-12.4) fL PT (9.4-12.5) SECONDS INR (0.8-3.0) APTT (25.1-36.5) SECONDS D-Dimer (0.0-0.50) mg/L pO2/FiO2 Ratio 60.0 % VBG pH 7.34 (7.32-7.42) VBG pCO2 at Pat Temp 32 L (42-55) mm/Hg VBG pO2 at Pat Temp 38 (25-40) mm/Hg VBG HCO3 17.3 L (22-28) meq/L VBG O2 Sat ([place]) 63.3 L (95-100) VBG Base Excess -7.5 L (-2.0-2.0) VBG Hemoglobin 10.9 VBG Carboxyhemoglobin 4.5 (0.0-6.9) % T HGB POC Potassium 4.0 (3.5-5.1) Sodium 135 (135-145) mmol/L Potassium 4.0 (3.5-5.1) mmol/L Chloride 101 (98-107) mmol/L Carbon Dioxide 13 L* (22-30) mmol/L Anion Gap 23.8 H (5-15) MEQ/L BUN 41 H (9-20) mg/dL Creatinine 1.91 H (0.66-1.25) mg/dL Estimated GFR 34.4 ML/MIN Glucose 139 H (74-106) mg/dL Calcium 9.6 (8.4-10.2) mg/dL Magnesium 1.8 (1.6-2.3) mg/dL Total Bilirubin 0.80 (0.2-1.3) mg/dL AST 35 (17-59) U/L ALT 28 (0-50) U/L Alkaline Phosphatase 63 (38-126) U/L Troponin I (0.000-0.033) ng/mL NT-Pro-B Natriuret Pep (<300) pg/mL Serum Total Protein 7.1 (6.3-8.2) g/dL Albumin 3.3 L (3.5-5.0) g/dL Amylase 34 (30-110) U/L Lipase 31 (23-300) U/L Urine Color (Yellow) Urine Appearance (Clear) Urine pH (4.6-8.0) Ur Specific [place] (1.005-1.030) Urine Protein (Negative) Urine Glucose (UA) (Negative) mg/dL Urine Ketones (Negative) Urine Blood (Negative) Urine Nitrite (Negative) Urine Bilirubin (Negative) Urine Urobilinogen (0.2) mg/dL Ur Leukocyte Esterase (Negative) U Hyaline Cast (Auto) (0-2) /LPF Urine Microscopic RBC (0-5) /HPF Urine Microscopic WBC (0-5) /HPF Ur Epithelial Cells (None Seen) /HPF Urine Bacteria (None Seen) /HPF Urine Culture Reflexed (NO) Influenza Type A Ag (NEGATIVE) Influenza Type B Ag (NEGATIVE) RSV (PCR) (NEGATIVE) SARS-CoV-2 (PCR) (NEGATIVE) Group A Strep Antibody (NEGATIVE) - Progress Progress: unchanged Discussed with Dr.: Other (Spoke with & discussed case with Dr. Mar([id number]) who accepted pt for transfer to [facility] as a direct admission.) Counseled pt/family regarding: lab results, diagnosis, rad results Medical Desision Making - Diagnostic Testing Diagnostic test were ordered, analyzed, and reviewed by me: Yes Radiological Interpretation: Teleradiologist Report - Departure Departure Disposition: Transfer ([facility]) Clinical Impression: Hypotension, Elevated troponin, Chest pain, A. fib with rvr, right pleural effusion, Coumadin toxicity Condition: Serious Critical Care Time: Yes Critical Care Time(excluding separately billable procedures): Critical 30-74 mins Referrals: KAYLEIGH QUINTERO [Primary Care Provider] - Follow up/PCP as directed
[2024-02-20] MEDS ORDERED: Sodium Chloride 0.9% 1000 ML 1,000 ML ONE (16:49)
[2024-02-20] MEDS ORDERED: Cardizem IV 50 MG/10 ML IV ONE (16:49)
[2024-02-20] MEDS: Cardizem IV 50 MG/10 ML IV ONE ×2 (16:50→17:00)
[2024-02-20] MEDS: Sodium Chloride 0.9% 1000 ML 1,000 ML IV SCH (16:52)
[2024-02-20] MEDS ORDERED: ROCEPHIN 1 GM / 100 ML NaCl 1 GM/100 ML IVPB IV ONE (16:55)
[2024-02-20] MEDS: ROCEPHIN 1 GM / 100 ML NaCl 1 GM/100 ML IVPB IV ONE (16:55)
[2024-02-20] MEDS ORDERED: CARDIZEM DRIP 100 MG/100 ML D5W 100 ML IV ONE (17:04)
[2024-02-20 17:05] LABS: Hemoglobin 10.5 g/dL (13.7-17.5); Mean Cell Volume 86.6 fL (79.0-92.2); Mean Corpuscular Hemoglobin 27.6 pg (25.7-32.2); Mean Corpuscular Hgb Concent. 31.8 g/dL (32.3-36.5); Mean Platelet Volume 9.4 fL (9.4-12.4); Platelet Count 271 x10^3/uL (163-337); Red Blood Count 3.81 x10^6/uL (4.63-6.08); White Blood Count 14.5 x10^3/uL (4.23-9.07)
[2024-02-20] MEDS: CARDIZEM DRIP 100 MG/100 ML D5W 100 ML IV PRN (17:05)
[2024-02-20] MEDS ORDERED: Zithromax 500 MG/ 250 ML NaCl Premix 500 MG/250 ML IVPB IV ONE (17:12)
[2024-02-20] MEDS: Zithromax 500 MG/ 250 ML NaCl Premix 500 MG/250 ML IVPB IV STA (17:12)
[2024-02-20 17:22] LABS: ALBUMIN 3.3 g/dL (3.5-5.0); ANION GAP 23.8 MEQ/L (5-15); BILIRUBIN,TOTAL 0.8 mg/dL (0.2-1.3); Calcium 9.6 mg/dL (8.4-10.2); Creatinine 1 1.91 mg/dL (0.66-1.25); EST GLOMERULAR FILTRATION RATE 34.4 ML/MIN; MAGNESIUM 1.8 mg/dL (1.6-2.3); Total Protein 7.1 g/dL (6.3-8.2)
[2024-02-20 17:29] LABS: PROTIME > 90.0 SECONDS (9.4-12.5); PTT 59.9 SECONDS (25.1-36.5)
[2024-02-20 17:35] LABS: VBG BASE EXCESS -7.5 (-2.0-2.0); VBG CARBOXYHEMOGLOBIN 4.5 % T HGB (0.0-6.9); VBG HCO3- 17.3 meq/L (22-28); VBG HEMOGLOBIN 10.9; VBG O2 SATURATION 63.3 (95-100); VBG pH 7.34 (7.32-7.42)
[2024-02-20 17:38] LABS: D-DIMER QUANTITATIVE 2.66 mg/L (0.0-0.50); INR 9.65 (0.8-3.0)
[2024-02-20] MEDS ORDERED: Vitamin K 10 MG/ML ONE (17:44)
[2024-02-20 17:45] LABS: INFLUENZA A NEGATIVE (NEGATIVE); INFLUENZA B NEGATIVE (NEGATIVE); RESPIRATORY SYNCTIAL VIRUS NEGATIVE (NEGATIVE); SARS-CoV-2 Xpert Express NEGATIVE (NEGATIVE)
[2024-02-20] MEDS: Vitamin K 1 MG IM ONE (17:47)
[2024-02-20] MEDS ORDERED: Lasix 40 MG/4 ML ONE (18:05)
[2024-02-20] MEDS: Lasix 40 MG/4 ML IV ONE (18:06)
--- NOTE | 2024-02-20 18:26 | XRAY ---
CLINICAL HISTORY: dyspnea COMPARISON: None. TECHNIQUE: X ray of the chest was performed in AP view. FINDINGS: Bilateral interstitial thickening more marked at the right lung. Focal ill-defined opacities at the right subpleural regions. Obliteration of the right costophrenic angle. The cardiac size is normal. Prominent aortic knob with mural calcifications. The bony thorax is unremarkable. Cardiac monitoring electrodes. Atheromatous calcifications in aorta. IMPRESSION: 1. Severe interstitial thickening more marked on the right lung suggests interstitial disease. 2. Mild right pleural effusion. 3. Further evaluation with CT recommended. [facility] ER was called at [phone] Ext#[phone] at 05:18 PM CREDIT ANALYSIS MANAGER, 02/20/2024, and Kendy, the RN was informed regarding the presence of Important Medical Findings on this report. Electronically Signed by: Varsha Browne MD. (02/20/2024 18:22:42 EST)
[2024-02-20] MEDS ORDERED: OFIRMEV 100 ML IV ONE (18:37)
[2024-02-20] MEDS: OFIRMEV 1,000 MG/100 ML ML IV ONE (18:37)
[2024-02-20 18:47] LABS: Appearance Cloudy (Clear); Bacteria None Seen /HPF (None Seen); Bilirubin Negative (Negative); Blood Negative (Negative); Epithelial Cells Rare /HPF (None Seen); Glucose, Urine Negative (Negative); Ketones Trace (Negative); Leukocyte Esterase Negative (Negative); Nitrite Negative (Negative); Protein,Urine Dip 30 (Negative); RBC 0-2 /HPF (0-5); WBC 0-2 /HPF (0-5)
[2024-02-20] MEDS ORDERED: NOREPINEPHRINE 8 MG/250 ML-D5W 8 MG/250 ML PLAST..BAG IV ONE (19:27)
[2024-02-20] MEDS: NOREPINEPHRINE 8 MG/250 ML-D5W 8 MG/250 ML PLAST..BAG IV PRN (19:30)
[2024-02-20 19:46] LABS: ANISOCYTOSIS 1+; BAND 23 % (0.0-2.0); Lymphocytes 3 % (21.8-53.1); Monocyte 4 % (5.3-12.2); Neutrophils 70 % (34.0-67.9); Platelet Estimate NORMAL (NORMAL); Polychromasia 1+; Total Cells Counted 100
[2024-02-20 20:51] VITALS: TEMP 99.9
[2024-02-20] MEDS: Amidate 20 MG/10 ML IV ONE ×2 (21:54→23:02)
[2024-02-21] MEDS ORDERED: CARDIZEM DRIP 100 MG/100 ML D5W 100 ML IV ONE (00:32)
[2024-02-21 00:56] VITALS: BP 90/73; PULSE 148; RESP 28; O2SAT 94
== END 2024-02-21 01:38 | disposition short-term general hospital (02) ==
LOC: ED 15:50
DX: R07.9 Chest pain, unspecified (principal); R06.02 Shortness of breath; I48.20 Chronic atrial fibrillation, unspecified; R79.89 Other specified abnormal findings of blood chemistry; I95.9 Hypotension, unspecified; J90 Pleural effusion, not elsewhere classified
CPT/HCPCS: 0241U; 36415; 51702; 71045; 80053; 81001; 82150; 82805; 83605; 83690; 83735; 83880; 84484; 85025; 85379; 85610; 85730; 87040; 87077; 87086; 87651; 93005; 93041; 94002; 94640; 94760; 94799; 96365; 96367; 96372; 96374; 96375; 96376; 99291; 99285; J0456; J0696; J1940; J3430; A9270-GY

== ENCOUNTER 2024-05-25 13:55 | Emergency (ER) | payer MEDICARE ==
[2024-05-25 14:01] VITALS: TEMP 96.9
[2024-05-25] MEDS ORDERED: DUONEB 0.5-3 MG/3 ml Neb IH ONE (14:35)
[2024-05-25] MEDS: DUONEB 0.5-3 MG/3 ml Neb IH ONE (14:37)
[2024-05-25 14:39] LABS: A-aADO2 109; ABG HEMOGLOBIN 9.1; ABG POTASSIUM 3.4 (3.5-5.1); ABG SITE RIGHT RADIAL; ALLEN TEST OK? YES; ARTERIAL BLD GAS O2 SATURATION 99.4 % (95-100); ARTERIAL BLOOD GAS BASE EXCESS 1.6 (-2.0-2.0); ARTERIAL BLOOD GAS FIO2 36 %; ARTERIAL BLOOD GAS PCO2 38 mmHg (35-45); ARTERIAL BLOOD GAS PO2 100 mmHg (75-100); ARTERIAL BLOOD GAS pH 7.44 (7.35-7.45); CARBOXYHEMOGLOBIN 1.7 % THgb (0.0-6.9); HCO3- 25.8 (22-28); HGB O2 SAT 97.1 g/dF (94-100); Lactic Acid 1.8 (0.4-2.0); Methhemoglobin 0.7 % (1.4-1.5); paO2 pAO1 0.48
[2024-05-25] MEDS ORDERED: Sterile H2O 10 ml IJ ONE (14:39)
[2024-05-25] MEDS ORDERED: solu-MEDROL ONE (14:39)
[2024-05-25] MEDS: solu-MEDROL 125 MG, Sterile H2O 10 ml 10 ML IV ONE (14:40)
--- NOTE | 2024-05-25 14:50 | XRAY ---
Indication: Short of breath. Comparison: February 20, 2024 Portable chest demonstrates new subtle diffuse patchy left lung groundglass airspace disease with tiny effusion. Remaining chest unchanged again with pulmonary emphysema, scattered fibrosis/scarring, right apical/right base pleural thickening with right lung volume loss, arteriosclerotic tortuous descending aorta, and right paratracheal chunky calcified node. Heart not enlarged. Bony thorax intact again with osteopenia, degenerative changes, and cervical fusion hardware.
[2024-05-25 14:52] VITALS: RESP 18
[2024-05-25 15:12] LABS: Absolute Neutrophil Ct (ANC) 5.77 x10^3/uL (1.78-5.38); Basophil (Absolute #) 0.08 x10^3/uL (0.01-0.08); Eosinophil % 4.3 % (0.8-7.0); Eosinophil (Absolute #) 0.36 x10^3/uL (0.04-0.54); Hematocrit 28.2 % (40.1-51.0); Hemoglobin 8.7 g/dL (13.7-17.5); IMMATURE GRAN # 0.03 x10^3u/L (0.001-0.031); IMMATURE GRAN % 0.4 % (0.001-0.429); Lymphocyte (Absolute #) 1.39 x10^3/uL (1.32-3.57); Lymphocytes % 16.6 % (21.8-53.1); Mean Corpuscular Hgb Concent. 30.9 g/dL (32.3-36.5); Monocyte (Absolute #) 0.72 x10^3/uL (0.30-0.82); Monocytes % 8.6 % (5.3-12.2); Neutrophil % 69.1 % (34.0-67.9); Platelet Count 342 x10^3/uL (163-337); Red Cell Distribution Width 15.2 % (11.6-14.4); White Blood Count 8.4 x10^3/uL (4.23-9.07)
[2024-05-25 15:38] LABS: ALBUMIN 3.1 g/dL (3.5-5.0); ANION GAP 12.5 MEQ/L (5-15); BILIRUBIN,TOTAL 0.4 mg/dL (0.2-1.3); Calcium 8.6 mg/dL (8.4-10.2); Creatinine 1 0.72 mg/dL (0.66-1.25); EST GLOMERULAR FILTRATION RATE 90.7 ML/MIN; MAGNESIUM 1.7 mg/dL (1.6-2.3); Total Protein 6.9 g/dL (6.3-8.2)
[2024-05-25 15:49] LABS: INFLUENZA A NEGATIVE (NEGATIVE); INFLUENZA B NEGATIVE (NEGATIVE); RESPIRATORY SYNCTIAL VIRUS NEGATIVE (NEGATIVE); SARS-CoV-2 Xpert Express NEGATIVE (NEGATIVE)
[2024-05-25 15:56] LABS: INR 2.51 (0.8-3.0); PROTIME 25.8 SECONDS (9.4-12.5)
--- NOTE | 2024-05-25 16:40 | ERPHSYRPT ---
- History of Present Illness Time Seen by Provider: 05/25/24 14:02 Source: patient, family Exam Limitations: no limitations Patient Subjective Stated Complaint: pt here for sob with cough, no fever. Triage Nursing Assessment: pt alert, walked in resp labored, wears home o2 but does not have on, pt sat 66%,placed on o2 at 4 l nc, chest with crackles, productive cough, thick, Physician History: 83 years old male with history of atrial fibrillation on Coumadin, hypertension, borderline diabetic, chronic respiratory failure secondary to COPD on 4 L oxygen is sent in ER from primary care office with oxygen saturation in 70s. Patient reports he did not bring his oxygen with him for appointment and his sats dropped in 70s and it is in 60s on presentation in the ER. He is placed on 4 L oxygen with saturation improving and mid to upper 90s. Patient reports he was admitted couple months ago and thinks he still have pneumonia as he is coughing up thick yellow to green sputum moderate in amount. Reports having shortness of breath with exertion and without oxygen. Denies any fever or chills. Because of repeated coughing complaining of aches and pains all across his chest. Allergies/Adverse Reactions: hydromorphone [From Dilaudid] Allergy (Unknown, Verified 05/25/24 13:56) unknown by patient if real allergy Home Medications: Albuterol 2.5 mg/3 ml Neb [Proventil 2.5 mg/3 ml Neb] 1 neb IH Q4H PRN 02/20/24 [History] Finasteride 5 mg [Proscar 5 MG] 5 mg PO DAILY 02/20/24 [History] Fluticasone/Umeclidin/Vilanter [Trelegy Ellipta 100-62.5-25] 1 puff PO DAILY 02/20/24 [History] Metoprolol Tartrate 50 mg [Lopressor 50 MG] 50 mg PO BID 02/20/24 [History] Tamsulosin HCl 0.4 mg [Flomax 0.4 MG] 0.4 mg PO HS 02/20/24 [History] Warfarin Sodium 1 mg [Coumadin] 1 mg PO DAILY 05/17/24 [History] Hx Tetanus, Diphtheria Vaccination/Date Given: Yes Hx Influenza Vaccination/Date Given: No Hx Pneumococcal Vaccination/Date Given: Yes Immunizations Up to Date: Yes Travel Risk - International Travel Have you traveled outside of the country in past 3 weeks: No - Emerging Infectious Disease Are you exhibiting symptoms associated with any current EIDs: Yes Symptoms: Cough: New Onset, Shortness of Breath - Review of Systems Constitutional: Fatigue Eyes: No Symptoms Ears, Nose, & Throat: No Symptoms Respiratory: Cough, Dyspnea, Dyspnea on Exertion (HUERTA), Wheezing Cardiac: No Symptoms Abdominal/Gastrointestinal: No Symptoms Genitourinary Symptoms: No Symptoms Musculoskeletal: Arthralgias Skin: No Symptoms Neurological: No Symptoms Psychological: No Symptoms Endocrine: No Symptoms Hematologic/Lymphatic: No Symptoms - Past Medical History Pertinent Past Medical History: Yes Neurological History: No Pertinent History ENT History: No Pertinent History Cardiac History: Deep Vein Thrombosis, Hypertension Respiratory History: No Pertinent History, COPD Endocrine Medical History: No Pertinent History Musculoskeletal History: Arthritis, Fractures GI Medical History: No Pertinent History History: Other Psycho-Social History: No Pertinent History Male Reproductive Disorders: Prostate Problems Other Medical History: C-spine fracture - Past Surgical History Past Surgical History: Yes Neuro Surgical History: No Pertinent History Cardiac: No Pertinent History Respiratory: No Pertinent History Gastrointestinal: No Pertinent History Genitourinary: No Pertinent History Musculoskeletal: Orthopedic Surgery Male Surgical History: No Pertinent History Other Surgical History: neck surg - Social History Smoking Status: Former smoker How long have you smoked: 69 Exposure to second hand smoke: Yes Drug Use: none - Social Determinants of Health Will the patient participate in the screening: Yes Do you worry about a steady place to live?: No Do you have any problems with any of the following?: No known problems In the past 12 months,have you had to go without utilities?: No Transportation Issues: No Has anyone in your support network made you feel unsafe?: No Have you or anyone in your house had to go w/o enough food: No - Nursing Vital Signs Nursing Vital Signs: Initial Vital Signs Pulse Rate 75 05/25/24 13:56 Blood Pressure 115/77 05/25/24 13:56 O2 Sat by Pulse Oximetry 94 L 05/25/24 13:56 Pain Scale Pain Intensity 0 - Physical Exam General Appearance: no apparent distress, alert Eye Exam: PERRL/EOMI Ears, Nose, Throat Exam: hearing grossly normal, normal pharynx Neck Exam: normal inspection, non-tender, supple, full range of motion Respiratory Exam: diminished breath sounds, rhonchi, wheezing Cardiovascular/Chest Exam: normal heart sounds, regular rate/rhythm Extremity Exam: non-tender, normal range of motion Neurologic Exam: alert, oriented x 3, cooperative Skin Exam: normal color SpO2 Interpretation: hypoxic, O2 applied SpO2: 100 O2 Delivery: Nasal Cannula (4 L) - Course EKG Interpreted by Me: RATE (71), Sinus Rhythm, NORMAL AXIS, NORMAL INTERVALS, Non-specific ST Changes, Other (PACs) Ordered Tests: Active Orders 24 hr Category Date Time Status [place] STAT Care 05/25/24 14:29 Completed EKG-ER Only STAT Care 05/25/24 14:29 Completed IV Insertion STAT Care 05/25/24 14:29 Completed Oxygen-ED Only Nasal Cannula 4 lpm Care 05/25/24 14:29 Completed CHEST 1 VIEW (PORTABLE) Stat Exams 05/25/24 14:29 Completed ARTERIAL BLOOD GASES Stat Lab 05/25/24 14:29 Completed BLOOD CULTURE Stat Lab 05/25/24 14:55 Received CBC W DIFF Stat Lab 05/25/24 14:55 Completed CMP Stat Lab 05/25/24 14:55 Completed Lactic Acid Stat Lab 05/25/24 14:29 Completed MAGNESIUM Stat Lab 05/25/24 14:55 Completed NT PRO BNPII Stat Lab 05/25/24 14:55 Completed PT INR [PROTIME WITH INR] Stat Lab 05/25/24 15:29 Completed TROPONIN Q4H Lab 05/25/24 14:55 Completed TROPONIN Q4H Lab 05/25/24 16:57 Completed Respiratory Therapy Assessment ONCE RT 05/25/24 14:48 Completed Medication Summary Discontinued Medications Generic Name Dose Route Start Last Admin Trade Name Freq PRN Reason Stop Dose Admin Albuterol/Ipratropium 3 ml 05/25/24 14:29 05/25/24 14:37 Ipratropium/Albuterol Sulfate 3 Ml Ampul.Neb IH 05/25/24 14:30 3 ml STAT ONE Administration Albuterol/Ipratropium Confirm 05/25/24 14:35 Ipratropium/Albuterol Sulfate 3 Ml Ampul.Neb Administered 05/25/24 14:36 Dose 3 ml IH .STK-MED ONE Methylprednisolone Sodium 0 mg 05/25/24 14:29 05/25/24 14:40 Succinate 125 mg/ Sterile IV 05/25/24 14:30 125 mg Water 10 ml STAT ONE Administration Methylprednisolone Sodium Succinate Confirm 05/25/24 14:39 Methylprednis Sod Succ 125 Mg/2 Ml Vial Administered 05/25/24 14:40 Dose 125 mg .ROUTE .[employer] ONE Sterile Water Confirm 05/25/24 14:39 Water For Injection,Sterile 10 Ml Vial Administered 05/25/24 14:40 Dose 10 ml IJ .[employer]-[facility] ONE Lab/Rad Data: Laboratory Result Diagrams 05/25/24 14:55 05/25/24 14:55 Laboratory Results 05/25/24 05/25/24 05/25/24 Range/Units 16:57 15:29 15:07 WBC (4.23-9.07) x10^3/uL RBC (4.63-6.08) x10^6/uL Hgb (13.7-17.5) g/dL Hct (40.1-51.0) % MCV (79.0-92.2) fL MCH (25.7-32.2) pg MCHC (32.3-36.5) g/dL RDW (11.6-14.4) % Plt Count (163-337) x10^3/uL MPV (9.4-12.4) fL Gran % (34.0-67.9) % Immature Gran % (Auto) (0.001-0.429) % Nucleat RBC Rel Count (0.00-0.2) % Eos # (Auto) (0.04-0.54) x10^3/uL Immature Gran # (Auto) (0.001-0.031) x10^3u/L Absolute Lymphs (auto) (1.32-3.57) x10^3/uL Absolute Monos (auto) (0.30-0.82) x10^3/uL Absolute Nucleated RBC (0.00-0.012) x10^3u/L Lymphocytes % (21.8-53.1) % Monocytes % (5.3-12.2) % Eosinophils % (0.8-7.0) % Basophils % (0.2-1.2) % Absolute Granulocytes (1.78-5.38) x10^3/uL Basophils # (0.01-0.08) x10^3/uL PT 25.8 H (9.4-12.5) SECONDS INR 2.51 (0.8-3.0) Puncture Site pCO2 (35-45) mmHg pO2 (75-100) mmHg Base Excess (-2.0-2.0) O2 Saturation (94-100) g/dF ABG pH (7.35-7.45) ABG HCO3 (22-28) ABG O2 Sat (Measured) (95-100) % Herb Test A-a Gradient a/A Ratio Hemoglobin Carboxyhemoglobin (0.0-6.9) % THgb Methemoglobin (1.4-1.5) % Potassium (3.5-5.1) Temperature C POC O2 Flow Rate % Sodium (135-145) mmol/L Chloride (98-107) mmol/L Carbon Dioxide (22-30) mmol/L Anion Gap (5-15) MEQ/L BUN (9-20) mg/dL Creatinine (0.66-1.25) mg/dL Estimated GFR ML/MIN Glucose (74-106) mg/dL Lactic Acid (0.4-2.0) Calcium (8.4-10.2) mg/dL Magnesium (1.6-2.3) mg/dL Total Bilirubin (0.2-1.3) mg/dL AST (17-59) U/L ALT (0-50) U/L Alkaline Phosphatase (38-126) U/L Troponin I < 0.012 (0.000-0.033) ng/mL NT-Pro-B Natriuret Pep (<300) pg/mL Serum Total Protein (6.3-8.2) g/dL Albumin (3.5-5.0) g/dL Influenza Type A Ag NEGATIVE (NEGATIVE) Influenza Type B Ag NEGATIVE (NEGATIVE) RSV (PCR) NEGATIVE (NEGATIVE) SARS-CoV-2 (PCR) NEGATIVE (NEGATIVE) 05/25/24 05/25/24 05/25/24 Range/Units 14:55 14:55 14:55 WBC 8.4 (4.23-9.07) x10^3/uL RBC 3.00 L (4.63-6.08) x10^6/uL Hgb 8.7 L (13.7-17.5) g/dL Hct 28.2 L (40.1-51.0) % MCV 94.0 H (79.0-92.2) fL MCH 29.0 (25.7-32.2) pg MCHC 30.9 L (32.3-36.5) g/dL RDW 15.2 H (11.6-14.4) % Plt Count 342 H (163-337) x10^3/uL MPV 9.0 L (9.4-12.4) fL Gran % 69.1 H (34.0-67.9) % Immature Gran % (Auto) 0.4 (0.001-0.429) % Nucleat RBC Rel Count 0.0 (0.00-0.2) % Eos # (Auto) 0.36 (0.04-0.54) x10^3/uL Immature Gran # (Auto) 0.03 (0.001-0.031) x10^3u/L Absolute Lymphs (auto) 1.39 (1.32-3.57) x10^3/uL Absolute Monos (auto) 0.72 (0.30-0.82) x10^3/uL Absolute Nucleated RBC 0.00 (0.00-0.012) x10^3u/L Lymphocytes % 16.6 L (21.8-53.1) % Monocytes % 8.6 (5.3-12.2) % Eosinophils % 4.3 (0.8-7.0) % Basophils % 1.0 (0.2-1.2) % Absolute Granulocytes 5.77 H (1.78-5.38) x10^3/uL Basophils # 0.08 (0.01-0.08) x10^3/uL PT (9.4-12.5) SECONDS INR (0.8-3.0) Puncture Site pCO2 (35-45) mmHg pO2 (75-100) mmHg Base Excess (-2.0-2.0) O2 Saturation (94-100) g/dF ABG pH (7.35-7.45) ABG HCO3 (22-28) ABG O2 Sat (Measured) (95-100) % Herb Test A-a Gradient a/A Ratio Hemoglobin Carboxyhemoglobin (0.0-6.9) % THgb Methemoglobin (1.4-1.5) % Potassium 4.0 (3.5-5.1) Temperature C POC O2 Flow Rate % Sodium 139 (135-145) mmol/L Chloride 104 (98-107) mmol/L Carbon Dioxide 26 (22-30) mmol/L Anion Gap 12.5 (5-15) MEQ/L BUN 14 (9-20) mg/dL Creatinine 0.72 (0.66-1.25) mg/dL Estimated GFR 90.7 ML/MIN Glucose 159 H (74-106) mg/dL Lactic Acid (0.4-2.0) Calcium 8.6 (8.4-10.2) mg/dL Magnesium 1.7 (1.6-2.3) mg/dL Total Bilirubin 0.40 (0.2-1.3) mg/dL AST 19 (17-59) U/L ALT 15 (0-50) U/L Alkaline Phosphatase 70 (38-126) U/L Troponin I < 0.012 (0.000-0.033) ng/mL NT-Pro-B Natriuret Pep 1990 (<300) pg/mL Serum Total Protein 6.9 (6.3-8.2) g/dL Albumin 3.1 L (3.5-5.0) g/dL Influenza Type A Ag (NEGATIVE) Influenza Type B Ag (NEGATIVE) RSV (PCR) (NEGATIVE) SARS-CoV-2 (PCR) (NEGATIVE) 05/25/24 Range/Units 14:29 WBC (4.23-9.07) x10^3/uL RBC (4.63-6.08) x10^6/uL Hgb (13.7-17.5) g/dL Hct (40.1-51.0) % MCV (79.0-92.2) fL MCH (25.7-32.2) pg MCHC (32.3-36.5) g/dL RDW (11.6-14.4) % Plt Count (163-337) x10^3/uL MPV (9.4-12.4) fL Gran % (34.0-67.9) % Immature Gran % (Auto) (0.001-0.429) % Nucleat RBC Rel Count (0.00-0.2) % Eos # (Auto) (0.04-0.54) x10^3/uL Immature Gran # (Auto) (0.001-0.031) x10^3u/L Absolute Lymphs (auto) (1.32-3.57) x10^3/uL Absolute Monos (auto) (0.30-0.82) x10^3/uL Absolute Nucleated RBC (0.00-0.012) x10^3u/L Lymphocytes % (21.8-53.1) % Monocytes % (5.3-12.2) % Eosinophils % (0.8-7.0) % Basophils % (0.2-1.2) % Absolute Granulocytes (1.78-5.38) x10^3/uL Basophils # (0.01-0.08) x10^3/uL PT (9.4-12.5) SECONDS INR (0.8-3.0) Puncture Site RIGHT RADIAL pCO2 38 (35-45) mmHg pO2 100 (75-100) mmHg Base Excess 1.6 (-2.0-2.0) O2 Saturation 97.1 (94-100) g/dF ABG pH 7.44 (7.35-7.45) ABG HCO3 25.8 (22-28) ABG O2 Sat (Measured) 99.4 (95-100) % Herb Test YES A-a Gradient 109 a/A Ratio 0.48 Hemoglobin 9.1 Carboxyhemoglobin 1.7 (0.0-6.9) % THgb Methemoglobin 0.7 L (1.4-1.5) % Potassium 3.4 L (3.5-5.1) Temperature 37.0 C POC O2 Flow Rate 36 % Sodium (135-145) mmol/L Chloride (98-107) mmol/L Carbon Dioxide (22-30) mmol/L Anion Gap (5-15) MEQ/L BUN (9-20) mg/dL Creatinine (0.66-1.25) mg/dL Estimated GFR ML/MIN Glucose (74-106) mg/dL Lactic Acid 1.8 (0.4-2.0) Calcium (8.4-10.2) mg/dL Magnesium (1.6-2.3) mg/dL Total Bilirubin (0.2-1.3) mg/dL AST (17-59) U/L ALT (0-50) U/L Alkaline Phosphatase (38-126) U/L Troponin I (0.000-0.033) ng/mL NT-Pro-B Natriuret Pep (<300) pg/mL Serum Total Protein (6.3-8.2) g/dL Albumin (3.5-5.0) g/dL Influenza Type A Ag (NEGATIVE) Influenza Type B Ag (NEGATIVE) RSV (PCR) (NEGATIVE) SARS-CoV-2 (PCR) (NEGATIVE) - Progress Progress: improved, re-examined Air Movement: good Progress Note: 05/25/24 17:39 83 years old with history of COPD on 4 L oxygen is evaluated in the ER for hypoxia with sats in 60s without oxygen. He is placed on 4 L oxygen, saturation improved 90s. Given DuoNeb and Solu-Medrol, feeling much improved on reevaluation. EKG did not show in any acute ST elevations and negative initial troponins. Patient has normal WBC , Hb 8.7g, a drop from 10.5g in February, patient was admitted at [facility] where he had colonoscopy done for low hemoglobin according to patient and was negative. Patient is on Coumadin with a INR of 2.5. Chemistries with negative troponin x 2 and no other acute findings. Chest x-ray showed chronic findings and no acute infiltrative process. Patient oxygen saturation remained stable and in upper 90s on 4 L oxygen, offered observation admission but patient does not want to stay in the hospital at all. "I have been in hospitals for a long time, would like to go home". Patient is not confused or altered at all. Patient lives with his son who is also involved in decision making and I believe it is reasonable as his drop of oxygen was secondary to not being on oxygen while coming for appointment and is advised to use/take oxygen all the time wherever he goes. With his increasing cough I believe patient has COPD exacerbation and will continue with short course of steroid and Z-Nicho. Recommended frequent neb treatments and outpatient follow-up. Discussed signs symptoms of worsening needing return to ER which she seems understanding. Stable for discharge. Complexity of problem addressed: High acuity Complexity of data reviewed/analyzed: Moderate to extensive Risk of complication/morbidity/mortality of patient management: Moderate to high Blood Culture(s) Obtained: Yes Antibiotics given: Yes Counseled pt/family regarding: lab results, diagnosis, need for follow-up, rad results Medical Desision Making - Independent Historian Additional History obtained from: Child - Diagnostic Testing Diagnostic test were ordered, analyzed, and reviewed by me: Yes Radiological Interpretation: Interpreted by me, Reviewed by me - Risk of complications The pt has a mod risk of morbidity or mortality based on: Need for prescription drug management - Departure Departure Disposition: Home Clinical Impression: COPD with acute exacerbation, Anemia Condition: Stable Critical Care Time: No Referrals: [facility] [Primary Care Provider] - Follow up/PCP as directed (In 12 days for recheck of INR level) Instructions: Chronic Obstructive Pulmonary Disease, Exacerbation of COPD (DC) Additional Instructions: Follow-up with primary care for reevaluation and recheck of hemoglobin and Coumadin level. Also follow-up with the Coumadin clinic with frequent checks of INR while being on Coumadin. Return to ER for difficulty breathing or if develop fever chills/chest pain etc. Prescriptions: Prednisone 20 mg [Deltasone 20 mg] 40 mg PO DAILY 4 Days #8 tablet Azithromycin 250 mg [Zithromax 250 MG TABLET] 250 mg PO ZPACK #6 tablet
[2024-05-25 17:41] VITALS: O2SAT 100
[2024-05-25 17:53] VITALS: BP 152/79; PULSE 67
== END 2024-05-25 18:07 | disposition home or self-care (01) ==
LOC: ED 13:55
DX: J44.1 Chronic obstructive pulmonary disease with (acute) exacerbation (principal); D64.9 Anemia, unspecified; R05.9 Cough, unspecified; R06.02 Shortness of breath; I10 Essential (primary) hypertension; Z79.01 Long term (current) use of anticoagulants; Z79.899 Other long term (current) drug therapy
CPT/HCPCS: 0241U; 36415; 36600; 71045; 80053; 82375; 82803; 83605; 83735; 83880; 84484; 85025; 85610; 87040; 93005; 93041; 94640; 96374; 99285; 99284; J2919; A9270-GY

== ENCOUNTER 2024-06-20 18:18 | Observation (INO) | payer MEDICARE ==
[2024-06-20 19:18] LABS: Absolute Neutrophil Ct (ANC) 11.35 x10^3/uL (1.78-5.38); BASOPHIL % 0.3 % (0.2-1.2); Basophil (Absolute #) 0.05 x10^3/uL (0.01-0.08); Eosinophil % 0.5 % (0.8-7.0); Eosinophil (Absolute #) 0.07 x10^3/uL (0.04-0.54); Hematocrit 29.5 % (40.1-51.0); Hemoglobin 9.2 g/dL (13.7-17.5); IMMATURE GRAN # 0.14 x10^3u/L (0.001-0.031); IMMATURE GRAN % 0.9 % (0.001-0.429); Lymphocyte (Absolute #) 1.84 x10^3/uL (1.32-3.57); Mean Cell Volume 91.3 fL (79.0-92.2); Mean Corpuscular Hemoglobin 28.5 pg (25.7-32.2); Mean Corpuscular Hgb Concent. 31.2 g/dL (32.3-36.5); Mean Platelet Volume 9.9 fL (9.4-12.4); Monocyte (Absolute #) 1.85 x10^3/uL (0.30-0.82); Monocytes % 12.1 % (5.3-12.2); Neutrophil % 74.2 % (34.0-67.9); Platelet Count 369 x10^3/uL (163-337); Red Blood Count 3.23 x10^6/uL (4.63-6.08); Red Cell Distribution Width 14.7 % (11.6-14.4); White Blood Count 15.3 x10^3/uL (4.23-9.07)
--- NOTE | 2024-06-20 19:22 | ERPHSYRPT ---
- History of Present Illness Time Seen by Provider: 06/20/24 19:17 Source: patient Exam Limitations: no limitations Patient Subjective Stated Complaint: Pt states "I am short of breath and my chest hurts." Triage Nursing Assessment: PT presetned alert and oriented X 3, skin wpd. Pt ambulates with a hunched over slow gait. Pt able to speak in clear full sentences. Pt resting comfortably on the bed with audible rhonchi heard and productive cough. Physician History: Patient is a 84-year-old male former smoker quit 6 years ago history of COPD presents to our ED for evaluation of shortness of breath and chest pain. Sym ptoms started approximately 2 days ago. Symptoms have been constant. Pain described as a ache that is substernal no radiation. Patient requires oxygen daily. Patient uses 4 L nasal cannula at home regularly. Patient states his oxygen requirement went up since his shortness of breath developed 2 days ago. No fever. No nausea no vomiting no diarrhea no rash no trauma. Patient otherwise feels well. Son at bedside. They voiced no other complaints or concerns at this time. Portions of this note were created with voice recognition technology. There may be grammatical, spelling, punctuation or sound alike errors Timing/Duration: day(s) (2 days ago) Activities at Onset: activity Severity of Dyspnea-Max: mild Severity of Dyspnea-Current: moderate Possible Cause: occasional episodes Modifying Factors: Improves With: activity Associated Symptoms: cough Allergies/Adverse Reactions: hydromorphone [From Dilaudid] Allergy (Unknown, Verified 05/25/24 13:56) unknown by patient if real allergy Home Medications: Albuterol 2.5 mg/3 ml Neb [Proventil 2.5 mg/3 ml Neb] 1 neb IH Q4H PRN 02/20/24 [History] Fluticasone/Umeclidin/Vilanter [Trelegy Ellipta 100-62.5-25] 1 puff PO DAILY 02/20/24 [History] Metoprolol Tartrate 50 mg [Lopressor 50 MG] 50 mg PO BID 02/20/24 [History] Tamsulosin HCl 0.4 mg [Flomax 0.4 MG] 0.4 mg PO HS 02/20/24 [History] Warfarin Sodium 1 mg [Coumadin] 1 mg PO UD 05/17/24 [History] Metformin HCl [Metformin ER Gastric] 500 mg PO BID 06/20/24 [History] Warfarin Sodium 1 mg [Coumadin] 1.5 mg PO UD 06/20/24 [History] Hx Tetanus, Diphtheria Vaccination/Date Given: No Hx Influenza Vaccination/Date Given: Yes Hx Pneumococcal Vaccination/Date Given: Yes Immunizations Up to Date: No Travel Risk - International Travel Have you traveled outside of the country in past 3 weeks: No - Emerging Infectious Disease Are you exhibiting symptoms associated with any current EIDs: No Symptoms: Cough: New Onset, Shortness of Breath - Review of Systems Constitutional: No Symptoms, No Fever, No Chills Eyes: No Symptoms Ears, Nose, & Throat: No Symptoms Respiratory: No Symptoms, No Cough, No Dyspnea Cardiac: No Symptoms, No Chest Pain, No Edema, No Syncope Abdominal/Gastrointestinal: No Symptoms, No Abdominal Pain, No Nausea, No Vomiting, No Diarrhea Genitourinary Symptoms: No Symptoms, No Dysuria Musculoskeletal: No Symptoms, No Back Pain, No Neck Pain Skin: No Symptoms, No Rash Neurological: No Symptoms, No Dizziness, No Focal Weakness, No Sensory Changes Psychological: No Symptoms Endocrine: No Symptoms Hematologic/Lymphatic: No Symptoms Immunological/Allergic: No Symptoms All Other Systems: Reviewed and Negative - Past Medical History Pertinent Past Medical History: Yes Neurological History: No Pertinent History ENT History: No Pertinent History Cardiac History: Arrhythmia, Deep Vein Thrombosis, Hypertension Respiratory History: COPD Endocrine Medical History: No Pertinent History Musculoskeletal History: Arthritis, Fractures GI Medical History: No Pertinent History History: Other Psycho-Social History: No Pertinent History Male Reproductive Disorders: Prostate Problems Other Medical History: C-spine fracture - Past Surgical History Past Surgical History: Yes Neuro Surgical History: No Pertinent History Cardiac: No Pertinent History Respiratory: No Pertinent History Gastrointestinal: No Pertinent History Genitourinary: No Pertinent History Musculoskeletal: Orthopedic Surgery Male Surgical History: No Pertinent History Other Surgical History: neck surg - Social History Smoking Status: Former smoker Exposure to second hand smoke: Yes Drug Use: none - Social Determinants of Health Will the patient participate in the screening: Yes Do you worry about a steady place to live?: No Do you have any problems with any of the following?: No known problems In the past 12 months,have you had to go without utilities?: No Transportation Issues: No Has anyone in your support network made you feel unsafe?: No Have you or anyone in your house had to go w/o enough food: No - Nursing Vital Signs Nursing Vital Signs: Initial Vital Signs Temperature 98.1 F 06/20/24 18:19 Pulse Rate 107 H 06/20/24 18:19 Respiratory Rate 22 06/20/24 18:19 Blood Pressure 125/72 06/20/24 18:19 O2 Sat by Pulse Oximetry 87 L 06/20/24 18:19 Pain Scale Pain Intensity 5 - Physical Exam General Appearance: no apparent distress, alert Eye Exam: PERRL/EOMI, eyes nml inspection Ears, Nose, Throat Exam: hearing grossly normal, normal ENT inspection, normal pharynx Neck Exam: normal inspection, supple Respiratory Exam: diminished breath sounds, rhonchi, wheezing Cardiovascular/Chest Exam: normal heart sounds, regular rate/rhythm Abdominal/Gastrointestinal Exam: soft, No tenderness, No distention, No mass Extremity Exam: non-tender, normal range of motion, normal inspection, no calf tenderness, no pedal edema Neurologic Exam: alert, oriented x 3, cooperative, boarding house manager II-XII nml as tested, sensation nml, No motor deficits Skin Exam: normal color, warm, No dry Lymphatic Exam: No adenopathy SpO2 Interpretation: normal SpO2: 96 O2 Delivery: Room Air - Course Nursing assessment & vital signs reviewed: Yes EKG Interpreted by Me: RATE (101), Sinus Tach, NORMAL AXIS, NORMAL INTERVALS, NORMAL QRS - Radiology Exams Chest X-ray Interpretation: Interpreted by me (Patchy opacities) Ordered Tests: Active Orders 24 hr Category Date Time Status Educational Aide STAT Care 06/20/24 19:09 Active EKG-ER Only STAT Care 06/20/24 19:08 Active IV Insertion STAT Care 06/20/24 19:08 Active Pulse Oximetry (ED) STAT Care 06/20/24 19:08 Active CHEST 1 VIEW (PORTABLE) Stat Exams 06/20/24 20:40 Taken BLOOD CULTURE Stat Lab 06/20/24 19:30 Received CBC W DIFF Stat Lab 06/20/24 19:10 Completed CMP Stat Lab 06/20/24 19:20 Completed NT PRO BNPII Stat Lab 06/20/24 19:20 Completed PROTIME WITH INR Stat Lab 06/20/24 20:47 Ordered PTT Stat Lab 06/20/24 20:47 Ordered TROPONIN Q4H Lab 06/20/24 19:20 Completed TROPONIN Q4H Lab 06/20/24 23:15 Ordered TROPONIN Q4H Lab 06/21/24 03:15 Ordered Respiratory Therapy Assessment DAILY RT 06/20/24 20:00 Active Transfer Order Routine Transfer 06/20/24 Ordered Medication Summary Generic Name Dose Route Start Last Admin Trade Name Freq PRN Reason Stop Dose Admin Ceftriaxone Sodium 2 gm in 100 mls @ 200 mls/hr 06/20/24 20:47 06/20/24 20:58 Rocephin 2 Gm/100 Ml Nacl IV 06/20/24 21:16 200 ml/hr STAT ONE 200 mls/hr Administration Azithromycin 500 mg/ Sodium 250 mls @ 250 mls/hr 06/20/24 20:47 Chloride IV 06/20/24 21:46 STAT STA Discontinued Medications Generic Name Dose Route Start Last Admin Trade Name Freq PRN Reason Stop Dose Admin Albuterol/Ipratropium 3 ml 06/20/24 19:08 06/20/24 19:59 Ipratropium/Albuterol Sulfate 3 Ml Ampul.Neb IH 06/20/24 19:09 3 ml STAT ONE Administration Albuterol/Ipratropium Confirm 06/20/24 19:52 Ipratropium/Albuterol Sulfate 3 Ml Ampul.Neb Administered 06/20/24 19:53 Dose 3 ml IH .STK-MED ONE Aspirin 324 mg 06/20/24 21:06 06/20/24 21:11 Aspirin 81 Mg Tab.Chew PO 06/20/24 21:07 324 mg STAT ONE Administration Aspirin Confirm 06/20/24 21:09 Aspirin 81 Mg Tab.Chew Administered 06/20/24 21:10 Dose 324 mg .ROUTE .STK-MED ONE Methylprednisolone Sodium 0 mg 06/20/24 19:08 06/20/24 19:25 Succinate 125 mg/ Sterile IV 06/20/24 19:09 125 mg Water 2 ml STAT ONE Administration Furosemide 20 mg 06/20/24 20:46 06/20/24 20:56 Furosemide 20 Mg/Vial IV 06/20/24 20:47 20 mg ONCE STA Administration Furosemide Confirm 06/20/24 20:51 Furosemide 40 Mg/4 Ml Vial Administered 06/20/24 20:52 Dose 40 mg .ROUTE .STK-MED ONE Furosemide Confirm 06/20/24 20:53 Furosemide 20 Mg/Vial Administered 06/20/24 20:54 Dose 20 mg .ROUTE .STK-MED ONE Ceftriaxone Sodium Confirm 06/20/24 20:51 Rocephin 2 Gm/100 Ml Nacl Administered 06/20/24 20:52 Dose 2 gm in 100 mls @ ud IV .STK-MED ONE Methylprednisolone Sodium Succinate Confirm 06/20/24 19:24 Methylprednis Sod Succ 125 Mg/2 Ml Vial Administered 06/20/24 19:25 Dose 125 mg .ROUTE .STK-MED ONE Nitroglycerin 1 gm 06/20/24 21:06 06/20/24 21:12 Nitroglycerin 1 Gm Packet TOP 06/20/24 21:07 1 gm STAT ONE Administration Nitroglycerin Confirm 06/20/24 21:10 Nitroglycerin 1 Gm Packet Administered 06/20/24 21:11 Dose 1 gm .ROUTE .STK-MED ONE Sterile Water Confirm 06/20/24 19:24 Water For Injection,Sterile 10 Ml Vial Administered 06/20/24 19:25 Dose 10 ml IJ .STK-MED ONE Lab/Rad Data: Laboratory Result Diagrams 06/20/24 19:10 06/20/24 19:20 Laboratory Results 06/20/24 06/20/24 06/20/24 Range/Units 19:30 19:20 19:20 WBC (4.23-9.07) x10^3/uL RBC (4.63-6.08) x10^6/uL Hgb (13.7-17.5) g/dL Hct (40.1-51.0) % MCV (79.0-92.2) fL MCH (25.7-32.2) pg MCHC (32.3-36.5) g/dL RDW (11.6-14.4) % Plt Count (163-337) x10^3/uL MPV (9.4-12.4) fL Gran % (34.0-67.9) % Immature Gran % (Auto) (0.001-0.429) % Nucleat RBC Rel Count (0.00-0.2) % Eos # (Auto) (0.04-0.54) x10^3/uL Immature Gran # (Auto) (0.001-0.031) x10^3u/L Absolute Lymphs (auto) (1.32-3.57) x10^3/uL Absolute Monos (auto) (0.30-0.82) x10^3/uL Absolute Nucleated RBC (0.00-0.012) x10^3u/L Lymphocytes % (21.8-53.1) % Monocytes % (5.3-12.2) % Eosinophils % (0.8-7.0) % Basophils % (0.2-1.2) % Absolute Granulocytes (1.78-5.38) x10^3/uL Basophils # (0.01-0.08) x10^3/uL Sodium 135 (135-145) mmol/L Potassium 3.6 (3.5-5.1) mmol/L Chloride 97 L (98-107) mmol/L Carbon Dioxide 28 (22-30) mmol/L Anion Gap 13.4 (5-15) MEQ/L BUN 20 (9-20) mg/dL Creatinine 0.80 (0.66-1.25) mg/dL Estimated GFR 87.3 ML/MIN Glucose 131 H (74-106) mg/dL Calcium 8.2 L (8.4-10.2) mg/dL Total Bilirubin 0.40 (0.2-1.3) mg/dL AST 23 (17-59) U/L ALT 17 (0-50) U/L Alkaline Phosphatase 103 (38-126) U/L Troponin I < 0.012 (0.000-0.033) ng/mL NT-Pro-B Natriuret Pep 3390 (<300) pg/mL Serum Total Protein 6.3 (6.3-8.2) g/dL Albumin 2.8 L (3.5-5.0) g/dL Influenza Type A Ag NEGATIVE (NEGATIVE) Influenza Type B Ag NEGATIVE (NEGATIVE) RSV (PCR) NEGATIVE (NEGATIVE) SARS-CoV-2 (PCR) NEGATIVE (NEGATIVE) Slides for Path Review 06/20/24 Range/Units 19:10 WBC 15.3 H (4.23-9.07) x10^3/uL RBC 3.23 L (4.63-6.08) x10^6/uL Hgb 9.2 L (13.7-17.5) g/dL Hct 29.5 L (40.1-51.0) % MCV 91.3 (79.0-92.2) fL MCH 28.5 (25.7-32.2) pg MCHC 31.2 L (32.3-36.5) g/dL RDW 14.7 H (11.6-14.4) % Plt Count 369 H (163-337) x10^3/uL MPV 9.9 (9.4-12.4) fL Gran % 74.2 H (34.0-67.9) % Immature Gran % (Auto) 0.9 H (0.001-0.429) % Nucleat RBC Rel Count 0.0 (0.00-0.2) % Eos # (Auto) 0.07 (0.04-0.54) x10^3/uL Immature Gran # (Auto) 0.14 H (0.001-0.031) x10^3u/L Absolute Lymphs (auto) 1.84 (1.32-3.57) x10^3/uL Absolute Monos (auto) 1.85 H (0.30-0.82) x10^3/uL Absolute Nucleated RBC 0.00 (0.00-0.012) x10^3u/L Lymphocytes % 12.0 L (21.8-53.1) % Monocytes % 12.1 (5.3-12.2) % Eosinophils % 0.5 L (0.8-7.0) % Basophils % 0.3 (0.2-1.2) % Absolute Granulocytes 11.35 H (1.78-5.38) x10^3/uL Basophils # 0.05 (0.01-0.08) x10^3/uL Sodium (135-145) mmol/L Potassium (3.5-5.1) mmol/L Chloride (98-107) mmol/L Carbon Dioxide (22-30) mmol/L Anion Gap (5-15) MEQ/L BUN (9-20) mg/dL Creatinine (0.66-1.25) mg/dL Estimated GFR ML/MIN Glucose (74-106) mg/dL Calcium (8.4-10.2) mg/dL Total Bilirubin (0.2-1.3) mg/dL AST (17-59) U/L ALT (0-50) U/L Alkaline Phosphatase (38-126) U/L Troponin I (0.000-0.033) ng/mL NT-Pro-B Natriuret Pep (<300) pg/mL Serum Total Protein (6.3-8.2) g/dL Albumin (3.5-5.0) g/dL Influenza Type A Ag (NEGATIVE) Influenza Type B Ag (NEGATIVE) RSV (PCR) (NEGATIVE) SARS-CoV-2 (PCR) (NEGATIVE) Slides for Path Review YES - Progress Progress: improved Air Movement: good Progress Note: 84-year-old male presents to our ED for evaluation of shortness of breath. Physical exam reveals diminished coarse breath sounds with wheezing. Patient normally requires 4 L nasal cannula at home. Patient is on 5 L at this time. Patient complains of substernal chest pain. Initial troponin negative. BNP el evated at 3300. Lasix administered. Chest x-ray reveals patchy infiltrates. Formal read pending. Patient has a leukocytosis of 15,000. Blood cultures obtained. Antibiotics administered. RSV flu COVID-negative. Patient will require hospitalization for further evaluation and treatment. Plan of care discussed with patient. He agrees to admission at [facility] for further evaluation and treatment. Case discussed with hospitalist who accepts admission to observation at approximately 9:08 PM. Additionally patient complained of substernal chest pain. Aspirin and nitroglycerin administered. Portions of this note were created with voice recognition technology. There may be grammatical, spelling, punctuation or sound alike errors Complexity of problem addressed is moderate acute complicated. No critical care time. Complexity of data reviewed and analyzed is extensive. Test ordered test reviewed results analyzed and correlated clinically with history and physical exam. Management discussed with hospitalist who accepts admission to observation. Risk of complication and or risk of morbidity/mortality of patient management is high. Patient requires hospitalization for further evaluation and treatment. Vital stable. Time spent to admit patient is approximately 20 minutes. Plan of care established for shared decision making. No social determinants of health present to impede follow-up. Portions of this note were created with voice recognition technology. There may be grammatical, spelling, punctuation or sound alike errors 06/20/24 21:14 Blood Culture(s) Obtained: Yes Antibiotics given: Yes Discussed with : Mary Jo Counseled pt/family regarding: lab results, diagnosis, need for follow-up - Departure Departure Disposition: Observation Clinical Impression: Leukocytosis, COPD exacerbation, Thrombocytosis, Elevated brain natriuretic peptide (BNP) level, Hypoalbuminemia, Hypoxia, Chest pain, ACS (acute coronary syndrome) Condition: Stable Critical Care Time: No [facility]errals: [facility]] - Follow up/PCP as directed Instructions: Chronic Obstructive Pulmonary Disease
[2024-06-20] MEDS ORDERED: Sterile H2O 10 ml IJ ONE (19:24)
[2024-06-20] MEDS ORDERED: solu-MEDROL ONE (19:24)
[2024-06-20] MEDS: solu-MEDROL 125 MG, Sterile H2O 10 ml 2 ML IV ONE (19:25)
[2024-06-20 19:40] LABS: Slide Review 1 YES
[2024-06-20] MEDS ORDERED: DUONEB 0.5-3 MG/3 ml Neb IH ONE (19:52)
[2024-06-20] MEDS: DUONEB 0.5-3 MG/3 ml Neb IH ONE (19:59)
[2024-06-20 20:11] LABS: INFLUENZA A NEGATIVE (NEGATIVE); INFLUENZA B NEGATIVE (NEGATIVE); RESPIRATORY SYNCTIAL VIRUS NEGATIVE (NEGATIVE); SARS-CoV-2 Xpert Express NEGATIVE (NEGATIVE)
[2024-06-20 20:25] LABS: ALBUMIN 2.8 g/dL (3.5-5.0); ANION GAP 13.4 MEQ/L (5-15); BILIRUBIN,TOTAL 0.4 mg/dL (0.2-1.3); Calcium 8.2 mg/dL (8.4-10.2); Creatinine 1 0.8 mg/dL (0.66-1.25); EST GLOMERULAR FILTRATION RATE 87.3 ML/MIN; Potassium 3.6 mmol/L (3.5-5.1); Total Protein 6.3 g/dL (6.3-8.2)
[2024-06-20] MEDS ORDERED: Lasix 40 MG/4 ML ONE (20:51)
[2024-06-20] MEDS ORDERED: ROCEPHIN 2 GM/100 ML NACL 2 GM/100 ML IVPB IV ONE (20:51)
[2024-06-20] MEDS ORDERED: Lasix 20 MG/2 ML ONE (20:53)
[2024-06-20] MEDS: Lasix 20 MG/2 ML IV STA (20:56)
[2024-06-20] MEDS: ROCEPHIN 2 GM/100 ML NACL 2 GM/100 ML IVPB IV ONE (20:58)
[2024-06-20] MEDS ORDERED: BABY ASPIRIN 81 MG CHEW ONE (21:09)
[2024-06-20] MEDS ORDERED: NITRO-BID 2% UD PACKETS ONE (21:10)
[2024-06-20] MEDS: BABY ASPIRIN 81 MG CHEW PO ONE (21:11)
[2024-06-20] MEDS: NITRO-BID 2% UD PACKETS TOP ONE (21:12)
[2024-06-20 21:19] LABS: INR 4.14 (0.8-3.0); PROTIME 41.1 SECONDS (9.4-12.5); PTT 48.4 SECONDS (25.1-36.5)
[2024-06-20] MEDS ORDERED: ZITHROMAX IV IV ONE (21:35)
[2024-06-20] MEDS ORDERED: Sodium Chloride 0.9% 250 ML 250 ML IV ONE (21:35)
[2024-06-20] MEDS: ZITHROMAX IV*** 500 MG in Sodium Chloride 0.9% 250 ML 250 ML IV STA (21:42)
[2024-06-21] MEDS ORDERED: TYLENOL 325 MG PO PRN (02:47)
[2024-06-21] MEDS ORDERED: DUONEB 0.5-3 MG/3 ml Neb IH PRN (02:47)
[2024-06-21 04:30] LABS: Hematocrit 26.3 % (40.1-51.0); Hemoglobin 8.4 g/dL (13.7-17.5); Mean Cell Volume 89.8 fL (79.0-92.2); Mean Corpuscular Hemoglobin 28.7 pg (25.7-32.2); Mean Corpuscular Hgb Concent. 31.9 g/dL (32.3-36.5); Mean Platelet Volume 9.3 fL (9.4-12.4); Platelet Count 332 x10^3/uL (163-337); Red Blood Count 2.93 x10^6/uL (4.63-6.08); Red Cell Distribution Width 14.7 % (11.6-14.4); White Blood Count 7.3 x10^3/uL (4.23-9.07)
[2024-06-21 05:02] LABS: ANION GAP 13.6 MEQ/L (5-15); Calcium 7.7 mg/dL (8.4-10.2); Creatinine 1 0.74 mg/dL (0.66-1.25); EST GLOMERULAR FILTRATION RATE 89.4 ML/MIN; Potassium 3.6 mmol/L (3.5-5.1)
--- NOTE | 2024-06-21 05:08 | PCM.HP ---
History of Present Illness - Chief Complaint Chief Complaint: dyspnea Date: 06/21/24 History of Present Illness: 84-year-old male with history of COPD on 2 L oxygen, DM2, A-fib, BPH, who presents with dyspnea. Patient notes 2 days of worsening dyspnea associated with productive cough. He tried increasing his oxygen from his baseline 2 L up to 4 L, without benefit. Also had notably by his albuterol. Associated with some left-sided constant chest pain, worse with coughing and reproducible with palpation. He denies any fevers, chills, nausea, vomiting, diarrhea, or sick contacts. Of note, he is at 3 weeks prior, he was seen in the ED for similar symptoms and was given a Z-Nicho and steroids, and improved, at least transiently. - Review of Systems All Other Systems: Reviewed and Negative Medications & Allergies Home Medications: Home Medication List Albuterol 2.5 mg/3 ml Neb [Proventil 2.5 mg/3 ml Neb] 1 neb IH Q4H PRN 02/20/24 [History Confirmed 06/20/24] Fluticasone/Umeclidin/Vilanter [Trelegy Ellipta 100-62.5-25] 1 puff PO DAILY 02/20/24 [History Confirmed 06/20/24] Metoprolol Tartrate 50 mg [Lopressor 50 MG] 50 mg PO BID 02/20/24 [History Confirmed 06/20/24] Warfarin Sodium 1 mg [Coumadin] 1 mg PO UD 05/17/24 [History Confirmed 06/20/24] Metformin HCl [Metformin ER Gastric] 500 mg PO BID 06/20/24 [History Confirmed 06/20/24] Warfarin Sodium 1 mg [Coumadin] 1.5 mg PO UD 06/20/24 [History Confirmed 06/20/24] Allergies/Adverse Reactions: Allergies Allergy/AdvReac Type Severity Reaction Status Date / Time hydromorphone [From Dilaudid] Allergy Unknown Verified 05/25/24 13:56 - Past Medical History Past Medical History: Yes Neurological History: No Pertinent History ENT History: No Pertinent History Cardiac History: Arrhythmia, Deep Vein Thrombosis, Hypertension Respiratory History: COPD Endocrine Medical History: No Pertinent History Musculoskelatal History: Arthritis, Fractures GI Medical History: No Pertinent History History: Other Pyscho-Social History: No Pertinent History Male Reproductive Disorders: Prostate Problems Comment: C-spine fracture - Past Surgical History Past Surgical History: Yes Neuro Surgical History: No Pertinent History Cardiac History: No Pertinent History Respiratory Surgery: No Pertinent History GI Surgical History: No Pertinent History Genitourinary Surgical Hx: No Pertinent History Musculskeletal Surgical Hx: Orthopedic Surgery Male Surgical History: No Pertinent History Other Surgical History: neck surg Significant Family History: no pertinent family hx - Social History Smoking Status: Former smoker (quit 6 years ago) How long have you smoked: 69 Exposure to second hand smoke: Yes Alcohol: None Drug Use: none - Social Determinants of Health Will the patient participate in the screening: Yes Do you worry about a steady place to live?: No Do you have any problems with any of the following?: No known problems In the past 12 months,have you had to go without utilities?: No Have you or anyone in your house had to go without enough: No Transportation Issues: No Has anyone in your support network made you feel unsafe?: No Does the patient want assistance with any of the above?: No - Physical Exam Vital Signs: Vital Signs - 24 hr Temp Pulse Resp BP BP Pulse Ox 06/21/24 03:59 96.4 F 71 17 98/59 96 06/21/24 02:48 96 06/21/24 02:24 89 18 97 06/21/24 01:09 97.0 F 85 20 125/75 96 06/21/24 00:32 85 06/21/24 00:00 89 25 H 108/68 99 06/20/24 23:30 87 26 H 100/60 99 06/20/24 23:00 88 28 H 91/61 98 06/20/24 22:49 95 H 19 77/51 99 06/20/24 22:30 95 H 23 90/65 98 06/20/24 22:01 98 H 29 H 96/75 98 06/20/24 21:44 96 H 26 H 100/66 98 06/20/24 21:43 95 H 24 99 06/20/24 21:40 89 21 95 06/20/24 21:33 102 H 31 H 96/75 97 06/20/24 21:18 96 06/20/24 21:00 96 H 43 H 114/64 96 06/20/24 20:30 89 29 H 91/55 95 06/20/24 20:02 90 22 107/58 96 06/20/24 19:30 91 H 16 114/80 98 06/20/24 19:18 90 22 107/67 98 06/20/24 19:13 96 06/20/24 19:00 97 H 24 107/67 98 06/20/24 18:19 98.1 F 107 H 22 125/72 97 Physical Exam GEN: Sitting up in bed in no acute distress. HENT: Normocephalic, atraumatic. Moist mucous membranes. EYES: Normal inspection, anicteric sclera, extraocular movements intact. NECK: Supple, full range of motion CV: Regular rate and rhythm, no murmurs, no gallops. No JVD or edema. PULM: No wheezing noted, but diffuse bilateral crackles. No work of breathing. On 4 L oxygen by nasal cannula. ABD: Nondistended, nontender. MSK: No joint effusions, full range of motion SKIN: No rashes, normal color. NEURO: Face symmetric, no focal motor or sensory deficits. PSYCH: Alert, oriented x 3 Results - Labs Lab/Micro Results: Lab Results-Last 24 Hours 06/20/24 06/20/24 06/20/24 Range/Units 19:10 19:20 19:20 WBC 15.3 H (4.23-9.07) x10^3/uL RBC 3.23 L (4.63-6.08) x10^6/uL Hgb 9.2 L (13.7-17.5) g/dL Hct 29.5 L (40.1-51.0) % MCV 91.3 (79.0-92.2) fL MCH 28.5 (25.7-32.2) pg MCHC 31.2 L (32.3-36.5) g/dL RDW 14.7 H (11.6-14.4) % Plt Count 369 H (163-337) x10^3/uL MPV 9.9 (9.4-12.4) fL Gran % 74.2 H (34.0-67.9) % Immature Gran % (Auto) 0.9 H (0.001-0.429) % Nucleat RBC Rel Count 0.0 (0.00-0.2) % Eos # (Auto) 0.07 (0.04-0.54) x10^3/uL Immature Gran # (Auto) 0.14 H (0.001-0.031) x10^3u/L Absolute Lymphs (auto) 1.84 (1.32-3.57) x10^3/uL Absolute Monos (auto) 1.85 H (0.30-0.82) x10^3/uL Absolute Nucleated RBC 0.00 (0.00-0.012) x10^3u/L Lymphocytes % 12.0 L (21.8-53.1) % Monocytes % 12.1 (5.3-12.2) % Eosinophils % 0.5 L (0.8-7.0) % Basophils % 0.3 (0.2-1.2) % Absolute Granulocytes 11.35 H (1.78-5.38) x10^3/uL Basophils # 0.05 (0.01-0.08) x10^3/uL PT (9.4-12.5) SECONDS INR (0.8-3.0) APTT (25.1-36.5) SECONDS Sodium 135 (135-145) mmol/L Potassium 3.6 (3.5-5.1) mmol/L Chloride 97 L (98-107) mmol/L Carbon Dioxide 28 (22-30) mmol/L Anion Gap 13.4 (5-15) MEQ/L BUN 20 (9-20) mg/dL Creatinine 0.80 (0.66-1.25) mg/dL Estimated GFR 87.3 ML/MIN Glucose 131 H (74-106) mg/dL Calcium 8.2 L (8.4-10.2) mg/dL Total Bilirubin 0.40 (0.2-1.3) mg/dL AST 23 (17-59) U/L ALT 17 (0-50) U/L Alkaline Phosphatase 103 (38-126) U/L Troponin I < 0.012 (0.000-0.033) ng/mL NT-Pro-B Natriuret Pep 3390 (<300) pg/mL Serum Total Protein 6.3 (6.3-8.2) g/dL Albumin 2.8 L (3.5-5.0) g/dL Influenza Type A Ag (NEGATIVE) Influenza Type B Ag (NEGATIVE) RSV (PCR) (NEGATIVE) SARS-CoV-2 (PCR) (NEGATIVE) Slides for Path Review YES 06/20/24 06/20/24 06/20/24 Range/Units 19:30 20:47 23:28 WBC (4.23-9.07) x10^3/uL RBC (4.63-6.08) x10^6/uL Hgb (13.7-17.5) g/dL Hct (40.1-51.0) % MCV (79.0-92.2) fL MCH (25.7-32.2) pg MCHC (32.3-36.5) g/dL RDW (11.6-14.4) % Plt Count (163-337) x10^3/uL MPV (9.4-12.4) fL Gran % (34.0-67.9) % Immature Gran % (Auto) (0.001-0.429) % Nucleat RBC Rel Count (0.00-0.2) % Eos # (Auto) (0.04-0.54) x10^3/uL Immature Gran # (Auto) (0.001-0.031) x10^3u/L Absolute Lymphs (auto) (1.32-3.57) x10^3/uL Absolute Monos (auto) (0.30-0.82) x10^3/uL Absolute Nucleated RBC (0.00-0.012) x10^3u/L Lymphocytes % (21.8-53.1) % Monocytes % (5.3-12.2) % Eosinophils % (0.8-7.0) % Basophils % (0.2-1.2) % Absolute Granulocytes (1.78-5.38) x10^3/uL Basophils # (0.01-0.08) x10^3/uL PT 41.1 H (9.4-12.5) SECONDS INR 4.14 H (0.8-3.0) APTT 48.4 H (25.1-36.5) SECONDS Sodium (135-145) mmol/L Potassium (3.5-5.1) mmol/L Chloride (98-107) mmol/L Carbon Dioxide (22-30) mmol/L Anion Gap (5-15) MEQ/L BUN (9-20) mg/dL Creatinine (0.66-1.25) mg/dL Estimated GFR ML/MIN Glucose (74-106) mg/dL Calcium (8.4-10.2) mg/dL Total Bilirubin (0.2-1.3) mg/dL AST (17-59) U/L ALT (0-50) U/L Alkaline Phosphatase (38-126) U/L Troponin I < 0.012 (0.000-0.033) ng/mL NT-Pro-B Natriuret Pep (<300) pg/mL Serum Total Protein (6.3-8.2) g/dL Albumin (3.5-5.0) g/dL Influenza Type A Ag NEGATIVE (NEGATIVE) Influenza Type B Ag NEGATIVE (NEGATIVE) RSV (PCR) NEGATIVE (NEGATIVE) SARS-CoV-2 (PCR) NEGATIVE (NEGATIVE) Slides for Path Review 06/21/24 Range/Units 04:17 WBC 7.3 (4.23-9.07) x10^3/uL RBC 2.93 L (4.63-6.08) x10^6/uL Hgb 8.4 L (13.7-17.5) g/dL Hct 26.3 L (40.1-51.0) % MCV 89.8 (79.0-92.2) fL MCH 28.7 (25.7-32.2) pg MCHC 31.9 L (32.3-36.5) g/dL RDW 14.7 H (11.6-14.4) % Plt Count 332 (163-337) x10^3/uL MPV 9.3 L (9.4-12.4) fL Gran % (34.0-67.9) % Immature Gran % (Auto) (0.001-0.429) % Nucleat RBC Rel Count (0.00-0.2) % Eos # (Auto) (0.04-0.54) x10^3/uL Immature Gran # (Auto) (0.001-0.031) x10^3u/L Absolute Lymphs (auto) (1.32-3.57) x10^3/uL Absolute Monos (auto) (0.30-0.82) x10^3/uL Absolute Nucleated RBC (0.00-0.012) x10^3u/L Lymphocytes % (21.8-53.1) % Monocytes % (5.3-12.2) % Eosinophils % (0.8-7.0) % Basophils % (0.2-1.2) % Absolute Granulocytes (1.78-5.38) x10^3/uL Basophils # (0.01-0.08) x10^3/uL PT (9.4-12.5) SECONDS INR (0.8-3.0) APTT (25.1-36.5) SECONDS Sodium (135-145) mmol/L Potassium (3.5-5.1) mmol/L Chloride (98-107) mmol/L Carbon Dioxide (22-30) mmol/L Anion Gap (5-15) MEQ/L BUN (9-20) mg/dL Creatinine (0.66-1.25) mg/dL Estimated GFR ML/MIN Glucose (74-106) mg/dL Calcium (8.4-10.2) mg/dL Total Bilirubin (0.2-1.3) mg/dL AST (17-59) U/L ALT (0-50) U/L Alkaline Phosphatase (38-126) U/L Troponin I (0.000-0.033) ng/mL NT-Pro-B Natriuret Pep (<300) pg/mL Serum Total Protein (6.3-8.2) g/dL Albumin (3.5-5.0) g/dL Influenza Type A Ag (NEGATIVE) Influenza Type B Ag (NEGATIVE) RSV (PCR) (NEGATIVE) SARS-CoV-2 (PCR) (NEGATIVE) Slides for Path Review - Radiology Impressions Radiology Exams & Impressions: Radiology Procedures Category Date Time Status CHEST 1 VIEW (PORTABLE) Stat Exams 06/20/24 20:40 Taken Chest x-ray with severe diffuse scarring throughout the lung parenchyma, similar to prior chest x-ray. However, perhaps has some worsening infiltrate at the right base. (Images personally reviewed) - Other Procedures and Tests Respiratory Therapy 06/20/24 20:00 Respiratory Therapy Assessment DAILY 06/21/24 02:47 Oxygen Nasal Cannula 4 lpm Assessment/Plan (1) COPD exacerbation Current Visit: Yes Status: Acute Assessment & Plan: 84-year-old man with history of COPD on 2 L oxygen, A-fib, DM2, BPH, here with COPD exacerbation and likely pneumonia. ## COPD exacerbation, acute on chronic hypoxic respiratory failure with worsening dyspnea, although no wheezing on exam. However, this was after he was treated in the ED. He has increased his oxygen needs from his baseline 2 L up to his current 4 L. Likely triggered by pneumonia (see below). Start prednisone 40 mg daily DuoNeb q.6 hours scheduled, plus q.4 hours PRN Wean oxygen to maintain SPO2 between 91 and 94% ## Pneumonia difficult to be certain, because of patient's baseline severe pulmonary fibrosis. However, he does appear to have a subtle new infiltrate in the right base on chest x-ray. As well, he has a leukocytosis (possibly this is related to his steroid pack through his ago, but would marty but it is to normalize by now.) Start Rocephin and azithromycin IV Follow-up blood culture results ## Paroxysmal atrial fibrillation currently rate controlled and in sinus rhythm. Continue warfarin, 1 mg daily except for 1.5 mg on Sundays Follow daily INR Continue Lopressor 50 mg BID ## Type 2 diabetes only requiring metformin at home. Start low-dose sliding scale insulin Diabetic diet CODE STATUS: Full code Prophylaxis: Warfarin Diet: Diabetic Dispo: Place in observation, expect eventual discharge to home Entirety of encounter took place via live audio/video telemedicine device, with remote physician and patient in hospital, with the assistance of bedside nurse. Code(s): J44.1 - CHRONIC OBSTRUCTIVE PULMONARY DISEASE W (ACUTE) EXACERBATION Telemedicine Encounter - Telemedicine Encounter Telemedicine Encounter: "The entirety of this encounter was performed via Telemedicine" This visit was performed using real-time audio and video connection between my location and thepatients locationwith the assistance of a surrogateat the patients location. Written or verbal consent was obtained from the patient/guardian to perform this visit using[employer]telemedicine technology. Any patient questions regarding the telemedicine interaction were answered.
[2024-06-21 05:24] LABS: INR 4.61 (0.8-3.0); PROTIME 45.5 SECONDS (9.4-12.5)
[2024-06-21] MEDS: DUONEB 0.5-3 MG/3 ml Neb IH SCH (06:54)
[2024-06-21] MEDS: HUMALOG SQ PRN (07:30)
[2024-06-21] MEDS: PHARMACY DOSING REQUEST MC ONE (08:24)
--- NOTE | 2024-06-21 09:04 | XRAY ---
Indication: Cough and short of breath. Comparison: May 25, 2024 Portable chest demonstrates new mild right base infiltrate/atelectasis. Patchy left lung groundglass airspace disease with tiny effusion grossly unchanged. Chronic findings including pulmonary emphysema, scattered pulmonary fibrosis/scarring, right apical right base pleural thickening with right lung volume loss, arteriosclerotic tortuous ascending aorta, and right paratracheal chunky calcified node. Heart not enlarged.
[2024-06-21] MEDS: Lopressor 50 MG PO SCH ×2 (09:15→21:05)
[2024-06-21] MEDS: DELTASONE 20 MG PO SCH (09:15)
[2024-06-21] MEDS: Lanoxin 0.5 MG/2 ML INJECTION IV ONE (15:01)
[2024-06-21] MEDS ORDERED: Cardizem IV 50 MG/10 ML IV ONE (15:46)
[2024-06-21] MEDS: Cardizem IV 50 MG/10 ML IV ONE (15:49)
--- NOTE | 2024-06-21 17:31 | PCM.CONS ---
History of Present Illness - Reason for Consult Chief Complaint: dyspnea Date of Consultation Date: 06/21/24 Reason for Consult: Afib Requesting Provider: PAULETTE STOKES MD Consulting Provider: RAJESH TOWNSEND MD History of Present Illness: is a 84 year old male PMHX Afib on Warfarin, COPD on home oxygen 4 L/min, DM2, DVT who comes in with complaints of shortness of breath and L sided upper chest discomfort for about 2 days. Had some wheezing and shortness of breath. He denies any palpitations, ortophopnea, PND, edema, weight gain. He actually feels like his SOB is improved with laying down. No lightheadedness or dizziness. On arrival his chest imaging concerning for pneumonia. Admitted to hospitalist team and started on antibiotics and steroids. Did get duonebs as well. He has been in and out of atrial fibrillation as well. Got diltiazem and digoxin. He is now back in sinus rhythm. Throughout this episode felt asymptomatic. At the time of my exam he is resting in bed eating dinner. 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 He was admitted in February 2024 for Afib at another hospital. - Review of Systems Constitutional: No Fever, No Chills Eyes: No Symptoms Ears, Nose, & Throat: No Symptoms Respiratory: Cough, Short Of Breath Cardiac: Chest Pain, No Edema, No Palpitations, No Syncope Abdominal/Gastrointestinal: No Symptoms Genitourinary Symptoms: No Symptoms Musculoskeletal: No Symptoms Neurological: No Symptoms Psychological: No Symptoms Endocrine: No Symptoms Hematologic/Lymphatic: No Symptoms Immunological/Allergic: No Symptoms All Other Systems: Reviewed and Negative Medications & Allergies Home Medications: Home Medication List Albuterol 2.5 mg/3 ml Neb [Proventil 2.5 mg/3 ml Neb] 1 neb IH Q4H PRN 02/20/24 [History Confirmed 06/20/24] Fluticasone/Umeclidin/Vilanter [Trelegy Ellipta 100-62.5-25] 1 puff PO DAILY 02/20/24 [History Confirmed 06/20/24] Metoprolol Tartrate 50 mg [Lopressor 50 MG] 50 mg PO BID 02/20/24 [History Confirmed 06/20/24] Warfarin Sodium 1 mg [Coumadin] 1 mg PO UD 05/17/24 [History Confirmed 06/20/24] Metformin HCl [Metformin ER Gastric] 500 mg PO BID 06/20/24 [History Confirmed 06/20/24] Warfarin Sodium 1 mg [Coumadin] 1.5 mg PO UD 06/20/24 [History Confirmed 06/20/24] Allergies/Adverse Reactions: Allergies Allergy/AdvReac Type Severity Reaction Status Date / Time hydromorphone [From Dilaudid] Allergy Unknown Verified 05/25/24 13:56 - Past Medical History Past Medical History: Yes Neurological History: No Pertinent History ENT History: No Pertinent History Cardiac History: Arrhythmia, Deep Vein Thrombosis, Hypertension Respiratory History: COPD Endocrine Medical History: No Pertinent History Musculoskelatal History: Arthritis, Fractures GI Medical History: No Pertinent History History: Other Pyscho-Social History: No Pertinent History Male Reproductive Disorders: Prostate Problems Comment: C-spine fracture - Past Surgical History Past Surgical History: Yes Neuro Surgical History: No Pertinent History Cardiac History: No Pertinent History Respiratory Surgery: No Pertinent History GI Surgical History: No Pertinent History Genitourinary Surgical Hx: No Pertinent History Musculskeletal Surgical Hx: Orthopedic Surgery Male Surgical History: No Pertinent History Other Surgical History: neck surg Significant Family History: no pertinent family hx - Social History Smoking Status: Former smoker (quit 6 years ago) How long have you smoked: 69 Exposure to second hand smoke: Yes Alcohol: None Drug Use: none - Social Determinants of Health Will the patient participate in the screening: Yes Do you worry about a steady place to live?: No Do you have any problems with any of the following?: No known problems In the past 12 months,have you had to go without utilities?: No Have you or anyone in your house had to go without enough: No Transportation Issues: No Has anyone in your support network made you feel unsafe?: No Does the patient want assistance with any of the above?: No - Physical Exam Vital Signs: Vital Signs - 24 hr Temp Pulse Resp BP BP Pulse Ox 06/21/24 17:04 86 06/21/24 16:17 120 H 88/53 06/21/24 16:00 130 H 99/56 06/21/24 15:45 141 H 109/63 06/21/24 15:20 152 H 104/62 04/16/25 14:40 134 H 91/54 06/21/24 13:06 72 20 96 06/21/24 11:13 97.9 F 66 16 105/59 92 L 06/21/24 07:37 97.9 F 74 20 117/58 98 06/21/24 06:58 74 20 98 06/21/24 03:59 96.4 F 71 17 98/59 96 06/21/24 02:48 96 06/21/24 02:24 89 18 97 06/21/24 01:09 97.0 F 85 20 125/75 96 06/21/24 00:32 85 06/21/24 00:00 89 25 H 108/68 99 06/20/24 23:30 87 26 H 100/60 99 06/20/24 23:00 88 28 H 91/61 98 06/20/24 22:49 95 H 19 77/51 99 06/20/24 22:30 95 H 23 90/65 98 06/20/24 22:01 98 H 29 H 96/75 98 06/20/24 21:44 96 H 26 H 100/66 98 06/20/24 21:43 95 H 24 99 06/20/24 21:40 89 21 95 06/20/24 21:33 102 H 31 H 96/75 97 06/20/24 21:18 96 06/20/24 21:00 96 H 43 H 114/64 96 06/20/24 20:30 89 29 H 91/55 95 06/20/24 20:02 90 22 107/58 96 06/20/24 19:30 91 H 16 114/80 98 06/20/24 19:18 90 22 107/67 98 06/20/24 19:13 96 06/20/24 19:00 97 H 24 107/67 98 06/20/24 18:19 98.1 F 107 H 22 125/72 97 General Appearance: no apparent distress Neurologic Exam: alert, oriented x 3, cooperative, normal mood/affect Eye Exam: PERRL/EOMI, eyes nml inspection Ears, Nose, Throat Exam: normal ENT inspection Neck Exam: normal inspection, No JVD Respiratory Exam: wheezing, other (wearing oxygen), No accessory muscle use Cardiovascular Exam: regular rate/rhythm, normal heart sounds, capillary refill <2 sec Gastrointestinal/Abdomen Exam: soft, normal bowel sounds Rectal Exam: deferred Skin Exam: normal color Results - Labs Lab/Micro Results: Lab Results-Last 24 Hours 06/20/24 06/20/24 06/20/24 Range/Units 19:10 19:20 19:20 WBC 15.3 H (4.23-9.07) x10^3/uL RBC 3.23 L (4.63-6.08) x10^6/uL Hgb 9.2 L (13.7-17.5) g/dL Hct 29.5 L (40.1-51.0) % MCV 91.3 (79.0-92.2) fL MCH 28.5 (25.7-32.2) pg MCHC 31.2 L (32.3-36.5) g/dL RDW 14.7 H (11.6-14.4) % Plt Count 369 H (163-337) x10^3/uL MPV 9.9 (9.4-12.4) fL Gran % 74.2 H (34.0-67.9) % Immature Gran % (Auto) 0.9 H (0.001-0.429) % Nucleat RBC Rel Count 0.0 (0.00-0.2) % Eos # (Auto) 0.07 (0.04-0.54) x10^3/uL Immature Gran # (Auto) 0.14 H (0.001-0.031) x10^3u/L Absolute Lymphs (auto) 1.84 (1.32-3.57) x10^3/uL Absolute Monos (auto) 1.85 H (0.30-0.82) x10^3/uL Absolute Nucleated RBC 0.00 (0.00-0.012) x10^3u/L Lymphocytes % 12.0 L (21.8-53.1) % Monocytes % 12.1 (5.3-12.2) % Eosinophils % 0.5 L (0.8-7.0) % Basophils % 0.3 (0.2-1.2) % Absolute Granulocytes 11.35 H (1.78-5.38) x10^3/uL Basophils # 0.05 (0.01-0.08) x10^3/uL PT (9.4-12.5) SECONDS INR (0.8-3.0) APTT (25.1-36.5) SECONDS Sodium 135 (135-145) mmol/L Potassium 3.6 (3.5-5.1) mmol/L Chloride 97 L (98-107) mmol/L Carbon Dioxide 28 (22-30) mmol/L Anion Gap 13.4 (5-15) MEQ/L BUN 20 (9-20) mg/dL Creatinine 0.80 (0.66-1.25) mg/dL Estimated GFR 87.3 ML/MIN Glucose 131 H (74-106) mg/dL POC Glucometer (74 to 106) mg/dL Calcium 8.2 L (8.4-10.2) mg/dL Total Bilirubin 0.40 (0.2-1.3) mg/dL AST 23 (17-59) U/L ALT 17 (0-50) U/L Alkaline Phosphatase 103 (38-126) U/L Troponin I < 0.012 (0.000-0.033) ng/mL NT-Pro-B Natriuret Pep 3390 (<300) pg/mL Serum Total Protein 6.3 (6.3-8.2) g/dL Albumin 2.8 L (3.5-5.0) g/dL Influenza Type A Ag (NEGATIVE) Influenza Type B Ag (NEGATIVE) RSV (PCR) (NEGATIVE) SARS-CoV-2 (PCR) (NEGATIVE) Slides for Path Review YES 06/20/24 06/20/24 06/20/24 Range/Units 19:30 20:47 23:28 WBC (4.23-9.07) x10^3/uL RBC (4.63-6.08) x10^6/uL Hgb (13.7-17.5) g/dL Hct (40.1-51.0) % MCV (79.0-92.2) fL MCH (25.7-32.2) pg MCHC (32.3-36.5) g/dL RDW (11.6-14.4) % Plt Count (163-337) x10^3/uL MPV (9.4-12.4) fL Gran % (34.0-67.9) % Immature Gran % (Auto) (0.001-0.429) % Nucleat RBC Rel Count (0.00-0.2) % Eos # (Auto) (0.04-0.54) x10^3/uL Immature Gran # (Auto) (0.001-0.031) x10^3u/L Absolute Lymphs (auto) (1.32-3.57) x10^3/uL Absolute Monos (auto) (0.30-0.82) x10^3/uL Absolute Nucleated RBC (0.00-0.012) x10^3u/L Lymphocytes % (21.8-53.1) % Monocytes % (5.3-12.2) % Eosinophils % (0.8-7.0) % Basophils % (0.2-1.2) % Absolute Granulocytes (1.78-5.38) x10^3/uL Basophils # (0.01-0.08) x10^3/uL PT 41.1 H (9.4-12.5) SECONDS INR 4.14 H (0.8-3.0) APTT 48.4 H (25.1-36.5) SECONDS Sodium (135-145) mmol/L Potassium (3.5-5.1) mmol/L Chloride (98-107) mmol/L Carbon Dioxide (22-30) mmol/L Anion Gap (5-15) MEQ/L BUN (9-20) mg/dL Creatinine (0.66-1.25) mg/dL Estimated GFR ML/MIN Glucose (74-106) mg/dL POC Glucometer (74 to 106) mg/dL Calcium (8.4-10.2) mg/dL Total Bilirubin (0.2-1.3) mg/dL AST (17-59) U/L ALT (0-50) U/L Alkaline Phosphatase (38-126) U/L Troponin I < 0.012 (0.000-0.033) ng/mL NT-Pro-B Natriuret Pep (<300) pg/mL Serum Total Protein (6.3-8.2) g/dL Albumin (3.5-5.0) g/dL Influenza Type A Ag NEGATIVE (NEGATIVE) Influenza Type B Ag NEGATIVE (NEGATIVE) RSV (PCR) NEGATIVE (NEGATIVE) SARS-CoV-2 (PCR) NEGATIVE (NEGATIVE) Slides for Path Review 06/21/24 06/21/24 06/21/24 Range/Units 04:00 04:17 04:17 WBC 7.3 (4.23-9.07) x10^3/uL RBC 2.93 L (4.63-6.08) x10^6/uL Hgb 8.4 L (13.7-17.5) g/dL Hct 26.3 L (40.1-51.0) % MCV 89.8 (79.0-92.2) fL MCH 28.7 (25.7-32.2) pg MCHC 31.9 L (32.3-36.5) g/dL RDW 14.7 H (11.6-14.4) % Plt Count 332 (163-337) x10^3/uL MPV 9.3 L (9.4-12.4) fL Gran % (34.0-67.9) % Immature Gran % (Auto) (0.001-0.429) % Nucleat RBC Rel Count (0.00-0.2) % Eos # (Auto) (0.04-0.54) x10^3/uL Immature Gran # (Auto) (0.001-0.031) x10^3u/L Absolute Lymphs (auto) (1.32-3.57) x10^3/uL Absolute Monos (auto) (0.30-0.82) x10^3/uL Absolute Nucleated RBC (0.00-0.012) x10^3u/L Lymphocytes % (21.8-53.1) % Monocytes % (5.3-12.2) % Eosinophils % (0.8-7.0) % Basophils % (0.2-1.2) % Absolute Granulocytes (1.78-5.38) x10^3/uL Basophils # (0.01-0.08) x10^3/uL PT 45.5 H (9.4-12.5) SECONDS INR 4.61 H (0.8-3.0) APTT (25.1-36.5) SECONDS Sodium 135 (135-145) mmol/L Potassium 3.6 (3.5-5.1) mmol/L Chloride 98 (98-107) mmol/L Carbon Dioxide 27 (22-30) mmol/L Anion Gap 13.6 (5-15) MEQ/L BUN 21 H (9-20) mg/dL Creatinine 0.74 (0.66-1.25) mg/dL Estimated GFR 89.4 ML/MIN Glucose 225 H (74-106) mg/dL POC Glucometer (74 to 106) mg/dL Calcium 7.7 L (8.4-10.2) mg/dL Total Bilirubin (0.2-1.3) mg/dL AST (17-59) U/L ALT (0-50) U/L Alkaline Phosphatase (38-126) U/L Troponin I (0.000-0.033) ng/mL NT-Pro-B Natriuret Pep (<300) pg/mL Serum Total Protein (6.3-8.2) g/dL Albumin (3.5-5.0) g/dL Influenza Type A Ag (NEGATIVE) Influenza Type B Ag (NEGATIVE) RSV (PCR) (NEGATIVE) SARS-CoV-2 (PCR) (NEGATIVE) Slides for Path Review 06/21/24 06/21/24 06/21/24 Range/Units 07:22 11:33 16:03 WBC (4.23-9.07) x10^3/uL RBC (4.63-6.08) x10^6/uL Hgb (13.7-17.5) g/dL Hct (40.1-51.0) % MCV (79.0-92.2) fL MCH (25.7-32.2) pg MCHC (32.3-36.5) g/dL RDW (11.6-14.4) % Plt Count (163-337) x10^3/uL MPV (9.4-12.4) fL Gran % (34.0-67.9) % Immature Gran % (Auto) (0.001-0.429) % Nucleat RBC Rel Count (0.00-0.2) % Eos # (Auto) (0.04-0.54) x10^3/uL Immature Gran # (Auto) (0.001-0.031) x10^3u/L Absolute Lymphs (auto) (1.32-3.57) x10^3/uL Absolute Monos (auto) (0.30-0.82) x10^3/uL Absolute Nucleated RBC (0.00-0.012) x10^3u/L Lymphocytes % (21.8-53.1) % Monocytes % (5.3-12.2) % Eosinophils % (0.8-7.0) % Basophils % (0.2-1.2) % Absolute Granulocytes (1.78-5.38) x10^3/uL Basophils # (0.01-0.08) x10^3/uL PT (9.4-12.5) SECONDS INR (0.8-3.0) APTT (25.1-36.5) SECONDS Sodium (135-145) mmol/L Potassium (3.5-5.1) mmol/L Chloride (98-107) mmol/L Carbon Dioxide (22-30) mmol/L Anion Gap (5-15) MEQ/L BUN (9-20) mg/dL Creatinine (0.66-1.25) mg/dL Estimated GFR ML/MIN Glucose (74-106) mg/dL POC Glucometer 183 H 242 H 312 H (74 to 106) mg/dL Calcium (8.4-10.2) mg/dL Total Bilirubin (0.2-1.3) mg/dL AST (17-59) U/L ALT (0-50) U/L Alkaline Phosphatase (38-126) U/L Troponin I (0.000-0.033) ng/mL NT-Pro-B Natriuret Pep (<300) pg/mL Serum Total Protein (6.3-8.2) g/dL Albumin (3.5-5.0) g/dL Influenza Type A Ag (NEGATIVE) Influenza Type B Ag (NEGATIVE) RSV (PCR) (NEGATIVE) SARS-CoV-2 (PCR) (NEGATIVE) Slides for Path Review Accuchecks Date 06/21/24 Date 06/21/24 Date 06/21/24 Time 16:09 Time 11:39 Time 07:36 - Radiology Impressions Radiology Exams & Impressions: Radiology Procedures Category Date Time Status CHEST 1 VIEW (PORTABLE) Stat Exams 06/20/24 20:40 Completed - Other Procedures and Tests Respiratory Therapy 06/20/24 20:00 Respiratory Therapy Assessment DAILY 06/21/24 02:47 Oxygen Nasal Cannula 4 lpm Assessment/Plan (1) Paroxysmal atrial fibrillation Current Visit: Yes Status: Acute Assessment & Plan: He is currently back in sinus rhythm. Seems to be a chronic issue. Anticoagulated with warfarin; his INR is a bit on the higher side and so warfarin being held. Target INR 2-3. His BP is currently stable and he seems well perfused on exam. Since BP holding steady will increase metoprolol; he did get some digoxin and diltiazem but we may not need to continue these as standing medicines. He did have an echocardiogram about a few months ago and we will try to get those records; if unable to do so will get our own images. I do not think that there is any concern for ACS or coronary ischemia at this time. Rajesh Townsend M.D. [facility] [phone] Code(s): I48.0 - PAROXYSMAL ATRIAL FIBRILLATION
[2024-06-21] MEDS ORDERED: COUMADIN PO SCH (18:00)
[2024-06-21] MEDS: Xopenex 1.25 MG/0.5 ML UD NEBULE IH SCH (19:02)
[2024-06-21] MEDS: Sodium Chloride 3 ML UD NEBULES IH SCH (19:02)
[2024-06-21] MEDS ORDERED: Lopressor 25MG Tab ONE (20:09)
[2024-06-21] MEDS: ROCEPHIN 1 GM / 100 ML NaCl 1 GM/100 ML IVPB IV SCH (21:05)
[2024-06-21] MEDS: ZITHROMAX IV*** 500 MG in Sodium Chloride 0.9% 250 ML 250 ML IV SCH (21:25)
[2024-06-22 05:03] LABS: Absolute Neutrophil Ct (ANC) 11.93 x10^3/uL (1.78-5.38); BASOPHIL % 0.1 % (0.2-1.2); Basophil (Absolute #) 0.01 x10^3/uL (0.01-0.08); Eosinophil (Absolute #) 0 x10^3/uL (0.04-0.54); Hematocrit 24.7 % (40.1-51.0); Hemoglobin 7.9 g/dL (13.7-17.5); IMMATURE GRAN # 0.15 x10^3u/L (0.001-0.031); IMMATURE GRAN % 1.1 % (0.001-0.429); Lymphocyte (Absolute #) 1.07 x10^3/uL (1.32-3.57); Lymphocytes % 7.8 % (21.8-53.1); Mean Cell Volume 90.5 fL (79.0-92.2); Mean Corpuscular Hemoglobin 28.9 pg (25.7-32.2); Mean Platelet Volume 9.5 fL (9.4-12.4); Monocyte (Absolute #) 0.63 x10^3/uL (0.30-0.82); Monocytes % 4.6 % (5.3-12.2); Neutrophil % 86.4 % (34.0-67.9); Platelet Count 357 x10^3/uL (163-337); Red Blood Count 2.73 x10^6/uL (4.63-6.08); Red Cell Distribution Width 14.6 % (11.6-14.4); White Blood Count 13.8 x10^3/uL (4.23-9.07)
[2024-06-22 05:32] LABS: INR 4.91 (0.8-3.0); PROTIME 48.2 SECONDS (9.4-12.5)
[2024-06-22 05:36] LABS: ALBUMIN 2.5 g/dL (3.5-5.0); ANION GAP 9.5 MEQ/L (5-15); BILIRUBIN,TOTAL 0.2 mg/dL (0.2-1.3); Calcium 8.3 mg/dL (8.4-10.2); Creatinine 1 0.83 mg/dL (0.66-1.25); EST GLOMERULAR FILTRATION RATE 86.3 ML/MIN; Potassium 3.8 mmol/L (3.5-5.1); Total Protein 5.8 g/dL (6.3-8.2)
[2024-06-22] MEDS: HUMALOG SQ PRN (12:50)
--- NOTE | 2024-06-22 14:18 | PCM.NOTE ---
Date and Time: 06/22/24 1409 Subjective Assessment: Mr. 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 He attempted to increase his oxygen to 4 L/min without significant relief. The chest pain is constant, reproducible with palpation, and worsens with coughing. He denies fevers, chills, gastrointestinal symptoms, orthopnea, PND, palpitations, or recent sick contacts. Notably, he was treated in the ED three weeks ago with a course of azithromycin and steroids for similar symptoms, with only transient improvement. On admission, imaging is concerning for a new right basilar infiltrate suggestive of pneumonia, though baseline pulmonary fibrosis limits interpretation. He was started on IV antibiotics and corticosteroids. His oxygen requirement remains at 4L. He has been intermittently in atrial fibrillation; his INR is supratherapeutic, prompting temporary cessation of warfarin. Rate control has been managed with metoprolol which has been increased by cardiology to 75mg bid. Blood cultures are pending, and echocardiogram records are being obtained. 06/22/24: Met with patient bedside. Endorses improvement in dyspnea and cough. He is currently on 4 L/min of oxygen, which he notes has been his typical requirement at home in recent weeks, despite a prior baseline of 2 L/min. His cough remains productive with green sputum. On 06/21/24, he experienced an episode of atrial fibrillation with rapid ventricular response, which was effectively rate- controlled with digoxin and diltiazem. Cardiology was consulted and recommended increasing metoprolol to 75 mg twice daily for continued rate management. Denies fever,cp, abdominal pain, SORENSON, dizziness, N/V/D. - Review of Systems Constitutional: No Symptoms Eyes: No Symptoms Ears, Nose, & Throat: No Symptoms Respiratory: Cough, Short Of Breath, Wheezing Cardiac: No Symptoms Abdominal/Gastrointestinal: No Symptoms Genitourinary Symptoms: No Symptoms Musculoskeletal: No Symptoms Skin: No Symptoms Neurological: No Symptoms Psychological: No Symptoms Endocrine: No Symptoms Hematologic/Lymphatic: No Symptoms Immunological/Allergic: No Symptoms Objective Exam General Appearance: no apparent distress Neurologic Exam: alert, oriented x 3, cooperative Skin Exam: normal color Eye Exam: PERRL Ears, Nose, Throat Exam: normal ENT inspection Neck Exam: normal inspection Respiratory Exam: diminished breath sounds, crackles/rales, wheezing Cardiovascular Exam: tachycardia, irregular Gastrointestinal/Abdomen Exam: soft, normal bowel sounds Extremity Exam: normal inspection Back Exam: normal inspection Male Genitalia Exam: deferred Rectal Exam: deferred Objective Data Vital Signs: Vital Signs - 24 hr Temp Pulse Resp BP Pulse Ox 06/22/24 12:57 93 H 22 99 06/22/24 12:00 97.6 F 104 H 20 116/80 96 06/22/24 07:50 97.9 F 68 20 123/72 92 L 06/22/24 06:54 95 H 18 96 06/22/24 03:58 97.4 F 72 16 97/57 92 L 06/22/24 00:06 74 20 97 06/21/24 23:49 97.4 F 80 16 114/58 93 L 06/21/24 21:00 91 H 101/60 06/21/24 19:30 96.9 F 63 17 90/55 94 L 06/21/24 19:05 77 18 92 L 06/21/24 17:04 86 06/21/24 16:17 120 H 88/53 06/21/24 16:00 130 H 99/56 06/21/24 15:45 141 H 109/63 06/21/24 15:20 152 H 104/62 06/21/24 14:40 134 H 91/54 Pain Assessment - Last Documented Pain Intensity 4 Intake and Output: Intake & Output 06/20/24 06/21/24 06/22/24 06/23/24 11:59 11:59 11:59 11:59 Intake Total 380 1949 480 Balance 380 1949 480 Weight 62.2 kg Lab Results: Lab Results-Last 24 Hours 06/21/24 06/21/24 06/22/24 Range/Units 16:03 20:45 04:57 WBC 13.8 H (4.23-9.07) x10^3/uL RBC 2.73 L (4.63-6.08) x10^6/uL Hgb 7.9 L (13.7-17.5) g/dL Hct 24.7 L (40.1-51.0) % MCV 90.5 (79.0-92.2) fL MCH 28.9 (25.7-32.2) pg MCHC 32.0 L (32.3-36.5) g/dL RDW 14.6 H (11.6-14.4) % Plt Count 357 H (163-337) x10^3/uL MPV 9.5 (9.4-12.4) fL Gran % 86.4 H (34.0-67.9) % Immature Gran % (Auto) 1.1 H (0.001-0.429) % Nucleat RBC Rel Count 0.0 (0.00-0.2) % Eos # (Auto) 0 L (0.04-0.54) x10^3/uL Immature Gran # (Auto) 0.15 H (0.001-0.031) x10^3u/L Absolute Lymphs (auto) 1.07 L (1.32-3.57) x10^3/uL Absolute Monos (auto) 0.63 (0.30-0.82) x10^3/uL Absolute Nucleated RBC 0.00 (0.00-0.012) x10^3u/L Lymphocytes % 7.8 L (21.8-53.1) % Monocytes % 4.6 L (5.3-12.2) % Eosinophils % 0.0 L (0.8-7.0) % Basophils % 0.1 L (0.2-1.2) % Absolute Granulocytes 11.93 H (1.78-5.38) x10^3/uL Basophils # 0.01 (0.01-0.08) x10^3/uL PT (9.4-12.5) SECONDS INR (0.8-3.0) Sodium (135-145) mmol/L Potassium (3.5-5.1) mmol/L Chloride (98-107) mmol/L Carbon Dioxide (22-30) mmol/L Anion Gap (5-15) MEQ/L BUN (9-20) mg/dL Creatinine (0.66-1.25) mg/dL Estimated GFR ML/MIN Glucose (74-106) mg/dL POC Glucometer 312 H 129 H (74 to 106) mg/dL Calcium (8.4-10.2) mg/dL Total Bilirubin (0.2-1.3) mg/dL AST (17-59) U/L ALT (0-50) U/L Alkaline Phosphatase (38-126) U/L Serum Total Protein (6.3-8.2) g/dL Albumin (3.5-5.0) g/dL 06/22/24 06/22/24 06/22/24 Range/Units 04:57 04:57 07:05 WBC (4.23-9.07) x10^3/uL RBC (4.63-6.08) x10^6/uL Hgb (13.7-17.5) g/dL Hct (40.1-51.0) % MCV (79.0-92.2) fL MCH (25.7-32.2) pg MCHC (32.3-36.5) g/dL RDW (11.6-14.4) % Plt Count (163-337) x10^3/uL MPV (9.4-12.4) fL Gran % (34.0-67.9) % Immature Gran % (Auto) (0.001-0.429) % Nucleat RBC Rel Count (0.00-0.2) % Eos # (Auto) (0.04-0.54) x10^3/uL Immature Gran # (Auto) (0.001-0.031) x10^3u/L Absolute Lymphs (auto) (1.32-3.57) x10^3/uL Absolute Monos (auto) (0.30-0.82) x10^3/uL Absolute Nucleated RBC (0.00-0.012) x10^3u/L Lymphocytes % (21.8-53.1) % Monocytes % (5.3-12.2) % Eosinophils % (0.8-7.0) % Basophils % (0.2-1.2) % Absolute Granulocytes (1.78-5.38) x10^3/uL Basophils # (0.01-0.08) x10^3/uL PT 48.2 H (9.4-12.5) SECONDS INR 4.91 H (0.8-3.0) Sodium 138 (135-145) mmol/L Potassium 3.8 (3.5-5.1) mmol/L Chloride 101 (98-107) mmol/L Carbon Dioxide 31 H (22-30) mmol/L Anion Gap 9.5 (5-15) MEQ/L BUN 31 H (9-20) mg/dL Creatinine 0.83 (0.66-1.25) mg/dL Estimated GFR 86.3 ML/MIN Glucose 166 H (74-106) mg/dL POC Glucometer 166 H (74 to 106) mg/dL Calcium 8.3 L (8.4-10.2) mg/dL Total Bilirubin 0.20 (0.2-1.3) mg/dL AST 57 (17-59) U/L ALT 33 (0-50) U/L Alkaline Phosphatase 109 (38-126) U/L Serum Total Protein 5.8 L (6.3-8.2) g/dL Albumin 2.5 L (3.5-5.0) g/dL 06/22/24 Range/Units 11:28 WBC (4.23-9.07) x10^3/uL RBC (4.63-6.08) x10^6/uL Hgb (13.7-17.5) g/dL Hct (40.1-51.0) % MCV (79.0-92.2) fL MCH (25.7-32.2) pg MCHC (32.3-36.5) g/dL RDW (11.6-14.4) % Plt Count (163-337) x10^3/uL MPV (9.4-12.4) fL Gran % (34.0-67.9) % Immature Gran % (Auto) (0.001-0.429) % Nucleat RBC Rel Count (0.00-0.2) % Eos # (Auto) (0.04-0.54) x10^3/uL Immature Gran # (Auto) (0.001-0.031) x10^3u/L Absolute Lymphs (auto) (1.32-3.57) x10^3/uL Absolute Monos (auto) (0.30-0.82) x10^3/uL Absolute Nucleated RBC (0.00-0.012) x10^3u/L Lymphocytes % (21.8-53.1) % Monocytes % (5.3-12.2) % Eosinophils % (0.8-7.0) % Basophils % (0.2-1.2) % Absolute Granulocytes (1.78-5.38) x10^3/uL Basophils # (0.01-0.08) x10^3/uL PT (9.4-12.5) SECONDS INR (0.8-3.0) Sodium (135-145) mmol/L Potassium (3.5-5.1) mmol/L Chloride (98-107) mmol/L Carbon Dioxide (22-30) mmol/L Anion Gap (5-15) MEQ/L BUN (9-20) mg/dL Creatinine (0.66-1.25) mg/dL Estimated GFR ML/MIN Glucose (74-106) mg/dL POC Glucometer 224 H (74 to 106) mg/dL Calcium (8.4-10.2) mg/dL Total Bilirubin (0.2-1.3) mg/dL AST (17-59) U/L ALT (0-50) U/L Alkaline Phosphatase (38-126) U/L Serum Total Protein (6.3-8.2) g/dL Albumin (3.5-5.0) g/dL Radiology Exams: Radiology Procedures Category Date Time Status CHEST 1 VIEW (PORTABLE) Stat Exams 06/20/24 20:40 Completed Medications: Medications Generic Name Dose Route Start Last Admin Trade Name Freq PRN Reason Stop Dose Admin Acetaminophen 650 mg 06/21/24 02:47 Acetaminophen 325 Mg Tablet PO 07/21/24 02:46 Q6H PRN PRN PAIN AND/OR FEVER Docusate Sodium 100 mg 06/22/24 12:38 Docusate Sodium 100 Mg Capsule PO 07/22/24 12:37 BIDPRN PRN CONSTIPATION Ceftriaxone Sodium 1 gm in 100 mls @ 200 mls/hr 06/21/24 22:00 06/21/24 21:05 Rocephin 1 Gm / 100 Ml Nacl IV 07/21/24 21:59 200 mls/hr Q24H22 YANELI Administration Azithromycin 500 mg/ Sodium 250 mls @ 250 mls/hr 06/21/24 22:00 06/21/24 21:25 Chloride IV 07/21/24 21:59 250 mls/hr Q24H22 YANELI Administration Insulin Human Lispro 0 unit 06/21/24 17:28 06/22/24 12:50 Insulin Lispro 1 Unit SQ 07/21/24 17:27 6 unit UD PRN Administration HYPERGLYCEMIA Levalbuterol HCl 1.25 mg 06/21/24 19:00 06/22/24 12:20 Levalbuterol Hcl 1.25 Mg/0.5 Ml Neb 07/21/24 18:59 1.25 mg Q6HRT YANELI Administration Metoprolol Tartrate 75 mg 06/21/24 17:45 06/22/24 08:19 Metoprolol Tartrate 50 Mg Tablet PO 07/21/24 09:59 75 mg BID YANELI Administration Polyethylene Glycol 17 gm 06/22/24 12:40 Polyethylene Glycol 3350 17 Gm Packet PO 07/22/24 12:39 QDP PRN CONSTIPATION Prednisone 40 mg 06/21/24 10:00 06/22/24 09:41 Prednisone 20 Mg Tablet PO 07/21/24 09:59 40 mg DAILY YANELI Administration Sodium Chloride 3 ml 06/21/24 19:00 06/22/24 12:20 Sodium Cl For Inhalation 3 Ml Ud Nebule 07/21/24 18:59 3 ml Q6HRT [facility] Administration Warfarin Sodium 0.5 mg 06/29/24 18:00 Warfarin Sodium 1 Mg Tablet PO 07/29/24 17:59 Th@1800 YANELI Warfarin Sodium 1 mg 06/23/24 18:00 Warfarin Sodium 1 Mg Tablet PO 07/23/24 17:59 [email or web address] Discontinued Medications Generic Name Dose Route Start Last Admin Trade Name Freq PRN Reason Stop Dose Admin Albuterol/Ipratropium 3 ml 06/20/24 19:08 06/20/24 19:59 Ipratropium/Albuterol Sulfate 3 Ml Ampul.Neb 06/20/24 19:09 3 ml STAT ONE Administration Albuterol/Ipratropium Confirm 06/20/24 19:52 Ipratropium/Albuterol Sulfate 3 Ml Ampul.Neb Administered 06/20/24 19:53 Dose 3 ml IH .STK-MED ONE Albuterol/Ipratropium 3 ml 06/21/24 02:47 Ipratropium/Albuterol Sulfate 3 Ml Ampul.Neb 07/21/24 02:46 Q4HPRN PRN SHORTNESS OF BREATH/WHEEZING Albuterol/Ipratropium 3 ml 06/21/24 07:00 06/21/24 13:01 Ipratropium/Albuterol Sulfate 3 Ml Ampul.Neb IH 07/21/24 06:59 3 ml Q6HRT YANELI Administration Aspirin 324 mg 06/20/24 21:06 06/20/24 21:11 Aspirin 81 Mg Tab.Chew PO 06/20/24 21:07 324 mg STAT ONE Administration Aspirin Confirm 06/20/24 21:09 Aspirin 81 Mg Tab.Chew Administered 06/20/24 21:10 Dose 324 mg .ROUTE .STK-MED ONE Azithromycin Confirm 06/20/24 21:35 Azithromycin Inj Administered 06/20/24 21:36 Dose 500 mg IV .STK-MED ONE Methylprednisolone Sodium 0 mg 06/20/24 19:08 06/20/24 19:25 Succinate 125 mg/ Sterile IV 06/20/24 19:09 125 mg Water 2 ml STAT ONE Administration Digoxin 0.5 mg 06/21/24 14:56 06/21/24 15:01 Digoxin 0.5 Mg/2 Ml Injection IV 06/21/24 14:57 0.5 mg STAT ONE Administration Diltiazem HCl 10 mg 06/21/24 15:45 06/21/24 15:49 Diltiazem Hcl Iv 5 Mg/Ml Vial IV 06/21/24 15:46 10 mg STAT ONE Administration Diltiazem HCl Confirm 06/21/24 15:46 Diltiazem Hcl Iv 5 Mg/Ml Vial Administered 06/21/24 15:47 Dose 50 mg IV .STK-MED ONE Furosemide 20 mg 06/20/24 20:46 06/20/24 20:56 Furosemide 20 Mg/Vial IV 06/20/24 20:47 20 mg ONCE STA Administration Furosemide Confirm 06/20/24 20:51 Furosemide 40 Mg/4 Ml Vial Administered 06/20/24 20:52 Dose 40 mg .ROUTE .STK-MED ONE Furosemide Confirm 06/20/24 20:53 Furosemide 20 Mg/Vial Administered 06/20/24 20:54 Dose 20 mg .ROUTE .STK-MED ONE Ceftriaxone Sodium 2 gm in 100 mls @ 200 mls/hr 06/20/24 20:47 06/20/24 21:28 Rocephin 2 Gm/100 Ml Nacl IV 06/20/24 21:16 Infused STAT ONE Infusion Azithromycin 500 mg/ Sodium 250 mls @ 250 mls/hr 06/20/24 20:47 06/20/24 22:46 Chloride IV 06/20/24 21:46 Infused STAT STA Infusion Ceftriaxone Sodium Confirm 06/20/24 20:51 Rocephin 2 Gm/100 Ml Nacl Administered 06/20/24 20:52 Dose 2 gm in 100 mls @ ud IV .STK-MED ONE Sodium Chloride Confirm 06/20/24 21:35 Sodium Chloride 0.9% 250 Ml Administered 06/20/24 21:36 Dose 250 mls @ ud IV .STK-MED ONE Insulin Human Lispro 0 unit 06/21/24 02:47 06/21/24 16:16 Insulin Lispro 1 Unit SQ 07/21/24 02:46 5 unit UD PRN Administration HYPERGLYCEMIA Methylprednisolone Sodium Succinate Confirm 06/20/24 19:24 Methylprednis Sod Succ 125 Mg/2 Ml Vial Administered 06/20/24 19:25 Dose 125 mg .ROUTE .STK-MED ONE Metoprolol Tartrate 50 mg 06/21/24 10:00 06/21/24 09:15 Metoprolol Tartrate 50 Mg Tablet PO 07/21/24 09:59 50 mg BID YANELI Administration Metoprolol Tartrate Confirm 06/21/24 20:09 Metoprolol Tartrate 25 Mg Tab Administered 06/21/24 20:10 Dose 25 mg .ROUTE .STK-MED ONE Nitroglycerin 1 gm 06/20/24 21:06 06/20/24 21:12 Nitroglycerin 1 Gm Packet TOP 06/20/24 21:07 1 gm STAT ONE Administration Nitroglycerin Confirm 06/20/24 21:10 Nitroglycerin 1 Gm Packet Administered 06/20/24 21:11 Dose 1 gm .ROUTE .STK-MED ONE Non-Formulary Medication 1 each 06/21/24 07:30 06/21/24 08:24 Pharmacy Dosing Request [facility] 06/21/24 07:31 1 each STAT ONE Administration Sterile Water Confirm 06/20/24 19:24 Water For Injection,Sterile 10 Ml Vial Administered 06/20/24 19:25 Dose 10 ml IJ .STK-MED ONE Warfarin Sodium 1 mg 06/21/24 18:00 Warfarin Sodium 1 Mg Tablet PO 07/21/24 17:59 [email or web address] Multi-Disciplinary Progress Notes: Multi-Disciplinary Progress Notes 06/22/24 09:23 Case Management Note by Yahaira Lopez S/W PATIENT AND HE STILL PLANS TO RETURN HOME WITH FAMILY TO ASSIST. PLANS TO RETURN HOME AT PLOF AND DENIES ANY NEW NEEDS AT TIME OF DC. REFUSES HHC OR ANY ADDITIONAL ASSIST. Initialized on 06/22/24 09:23 - END OF NOTE Assessment/Plan (1) Acute respiratory failure with hypoxia Current Visit: Yes Status: Acute Assessment & Plan: -secondary to pneumonia/COPD exacerbation -Supplemental oxygen with goal spo2 > 91% - currently on 4L -Continue ceftriaxone/azith -CMP/CBC reviewed -Continue prednisone 20mg bid -Xopenex prn -Flutter/IS Code(s): J96.01 - ACUTE RESPIRATORY FAILURE WITH HYPOXIA (2) Pneumonia Current Visit: Yes Status: Acute Assessment & Plan: -see arf Code(s): J18.9 - PNEUMONIA, UNSPECIFIED ORGANISM (3) COPD exacerbation Current Visit: Yes Status: Acute Assessment & Plan: -See ARF Code(s): J44.1 - CHRONIC OBSTRUCTIVE PULMONARY DISEASE W (ACUTE) EXACERBATION (4) Atrial fibrillation with RVR Current Visit: Yes Status: Acute Assessment & Plan: -Diltizem 10mg and digoxin 0.5mg given 06/21/24 - HR controlled -on Warfarin - currently on hold due to supratherapeutic levels -Cardiology consulted with recs to increase Metoprolol to 75mg BID Code(s): I48.91 - UNSPECIFIED ATRIAL FIBRILLATION (5) Supratherapeutic INR Current Visit: Yes Status: Acute Assessment & Plan: -INR reviewed at 4.91 -Manages coumadin at the coumadin clinic at [facility]- currently on hold Code(s): R79.1 - ABNORMAL COAGULATION PROFILE (6) Type 2 diabetes mellitus Current Visit: Yes Status: Acute Assessment & Plan: -ADA diet -SSI - high dose -A1c reviewed from 04/17/24 at 5.15- controlled (7) BPH (benign prostatic hyperplasia) Current Visit: Yes Status: Acute Assessment & Plan: -continue Flomax Code(s): N40.0 - BENIGN PROSTATIC HYPERPLASIA WITHOUT LOWER URINRY TRACT SYMP (8) Hypocalcemia Current Visit: Yes Status: Acute Assessment & Plan: -corrected calcium at 9.5 Code(s): E83.51 - HYPOCALCEMIA (9) Anemia Current Visit: Yes Status: Acute Assessment & Plan: -Hgb at 7.9- will recheck will add iron studies and occult stools -Monitor closely - INR supratherapeutic -transfuse if hgb < 7 VTE: SCD PPI: protonix Dispo 2-3 days Code status: Full code Code(s): D64.9 - ANEMIA, UNSPECIFIED
[2024-06-22 14:58] LABS: Hematocrit 24.2 % (40.1-51.0); Hemoglobin 7.8 g/dL (13.7-17.5)
[2024-06-22] MEDS: Miralax Powder 17GM PACKET PO PRN (14:59)
[2024-06-22] MEDS: Docusate Sodium 100 MG PO PRN (14:59)
[2024-06-22 15:26] LABS: Iron 53 ug/dL (49-181); Iron Saturation 33 % (20-39); TIBC 160 ug/dL (261-497)
[2024-06-22 16:16] LABS: Folate (Folic Acid) 5.64 ng/mL (2.76 - >20)
[2024-06-22] MEDS: Xopenex 1.25 MG/0.5 ML UD NEBULE IH PRN (22:41)
[2024-06-23 00:54] LABS: IFOB TEST RESULTS POSITIVE (NEGATIVE)
[2024-06-23 04:53] LABS: Absolute Neutrophil Ct (ANC) 11.14 x10^3/uL (1.78-5.38); BASOPHIL % 0.1 % (0.2-1.2); Basophil (Absolute #) 0.02 x10^3/uL (0.01-0.08); Eosinophil (Absolute #) 0 x10^3/uL (0.04-0.54); Hematocrit 25.4 % (40.1-51.0); Hemoglobin 7.9 g/dL (13.7-17.5); IMMATURE GRAN # 0.21 x10^3u/L (0.001-0.031); IMMATURE GRAN % 1.6 % (0.001-0.429); Lymphocyte (Absolute #) 1.29 x10^3/uL (1.32-3.57); Lymphocytes % 9.6 % (21.8-53.1); Mean Corpuscular Hemoglobin 28.6 pg (25.7-32.2); Mean Corpuscular Hgb Concent. 31.1 g/dL (32.3-36.5); Mean Platelet Volume 9.1 fL (9.4-12.4); Monocyte (Absolute #) 0.75 x10^3/uL (0.30-0.82); Monocytes % 5.6 % (5.3-12.2); Neutrophil % 83.1 % (34.0-67.9); Platelet Count 399 x10^3/uL (163-337); Red Blood Count 2.76 x10^6/uL (4.63-6.08); Red Cell Distribution Width 14.6 % (11.6-14.4); White Blood Count 13.4 x10^3/uL (4.23-9.07)
[2024-06-23 05:15] LABS: INR 3.27 (0.8-3.0)
[2024-06-23 05:21] LABS: ALBUMIN 2.6 g/dL (3.5-5.0); ANION GAP 10.6 MEQ/L (5-15); BILIRUBIN,TOTAL 0.2 mg/dL (0.2-1.3); Calcium 8.3 mg/dL (8.4-10.2); Creatinine 1 0.86 mg/dL (0.66-1.25); EST GLOMERULAR FILTRATION RATE 85.4 ML/MIN; Potassium 4.4 mmol/L (3.5-5.1); Total Protein 5.9 g/dL (6.3-8.2)
--- NOTE | 2024-06-23 05:29 | PCM.NOTE ---
Date and Time: 06/23/24 0528 Subjective Assessment: Mr. 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 He attempted to increase his oxygen to 4 L/min without significant relief. The chest pain is constant, reproducible with palpation, and worsens with coughing. He denies fevers, chills, gastrointestinal symptoms, orthopnea, PND, palpitations, or recent sick contacts. Notably, he was treated in the ED three weeks ago with a course of azithromycin and steroids for similar symptoms, with only transient improvement. On admission, imaging is concerning for a new right basilar infiltrate suggestive of pneumonia, though baseline pulmonary fibrosis limits interpretation. He was started on IV antibiotics and corticosteroids. His oxygen requirement remains at 4L. He has been intermittently in atrial fibrillation; his INR is supratherapeutic, prompting temporary cessation of warfarin. Rate control has been managed with metoprolol which has been increased by cardiology to 75mg bid. Blood cultures are pending, and echocardiogram records are being obtained. 06/22/24: Met with patient bedside. Endorses improvement in dyspnea and cough. He is currently on 4 L/min of oxygen, which he notes has been his typical requirement at home in recent weeks, despite a prior baseline of 2 L/min. His cough remains productive with green sputum. On 06/21/24, he experienced an episode of atrial fibrillation with rapid ventricular response, which was effectively rate- controlled with digoxin and diltiazem. Cardiology was consulted and recommended increasing metoprolol to 75 mg twice daily for continued rate management. Denies fever,cp, abdominal pain, SORENSON, dizziness, N/V/D. 06/23/24: Patient reported worsening dyspnea and increased wheezing compared to baseline. Cough is non-productive. At baseline oxygen 4L/min via nasal cannula. Pulmonary examination revealed coarse breath sounds bilaterally with prominent expiratory wheezes. INR was noted to be elevated at 3.27 with coumadin on hold. Plan to increase steroids, add mucinex, repeat CXR today. - Review of Systems Constitutional: No Symptoms Eyes: No Symptoms Ears, Nose, & Throat: No Symptoms Respiratory: Cough, Short Of Breath, Wheezing Cardiac: No Symptoms Abdominal/Gastrointestinal: No Symptoms Genitourinary Symptoms: No Symptoms Musculoskeletal: No Symptoms Skin: No Symptoms Neurological: No Symptoms Psychological: No Symptoms Endocrine: No Symptoms Hematologic/Lymphatic: Anemia Immunological/Allergic: No Symptoms Objective Exam General Appearance: no apparent distress Neurologic Exam: alert, oriented x 3, cooperative Skin Exam: normal color Eye Exam: PERRL Ears, Nose, Throat Exam: normal ENT inspection Neck Exam: normal inspection Respiratory Exam: diminished breath sounds, crackles/rales, wheezing Cardiovascular Exam: tachycardia, irregular Gastrointestinal/Abdomen Exam: soft, normal bowel sounds Extremity Exam: normal inspection Back Exam: normal inspection Male Genitalia Exam: deferred Rectal Exam: deferred Objective Data Vital Signs: Vital Signs - 24 hr Temp Pulse Resp BP Pulse Ox 06/23/24 04:29 76 22 95 06/23/24 04:00 97.1 F 69 17 154/74 94 L 06/23/24 00:00 97.4 F 74 16 132/71 94 L 06/22/24 22:42 82 18 97 06/22/24 20:00 97.9 F 71 18 118/69 97 06/22/24 19:30 71 20 98 06/22/24 16:00 97.9 F 66 20 121/63 96 06/22/24 12:57 93 H 22 99 06/22/24 12:00 97.6 F 104 H 20 116/80 96 06/22/24 07:50 97.9 F 68 20 123/72 92 L 06/22/24 06:54 95 H 18 96 Pain Assessment - Last Documented Pain Intensity 0 Intake and Output: Intake & Output 06/20/24 06/21/24 06/22/24 06/23/24 11:59 11:59 11:59 11:59 Intake Total 380 1949 1220 Output Total 500 Balance 380 1949 720 Weight 62.2 kg Lab Results: Lab Results-Last 24 Hours 06/22/24 06/22/24 06/22/24 Range/Units 00:44 04:57 04:57 WBC 13.8 H (4.23-9.07) x10^3/uL RBC 2.73 L (4.63-6.08) x10^6/uL Hgb 7.9 L (13.7-17.5) g/dL Hct 24.7 L (40.1-51.0) % MCV 90.5 (79.0-92.2) fL MCH 28.9 (25.7-32.2) pg MCHC 32.0 L (32.3-36.5) g/dL RDW 14.6 H (11.6-14.4) % Plt Count 357 H (163-337) x10^3/uL MPV 9.5 (9.4-12.4) fL Gran % 86.4 H (34.0-67.9) % Immature Gran % (Auto) 1.1 H (0.001-0.429) % Nucleat RBC Rel Count 0.0 (0.00-0.2) % Eos # (Auto) 0 L (0.04-0.54) x10^3/uL Immature Gran # (Auto) 0.15 H (0.001-0.031) x10^3u/L Absolute Lymphs (auto) 1.07 L (1.32-3.57) x10^3/uL Absolute Monos (auto) 0.63 (0.30-0.82) x10^3/uL Absolute Nucleated RBC 0.00 (0.00-0.012) x10^3u/L Lymphocytes % 7.8 L (21.8-53.1) % Monocytes % 4.6 L (5.3-12.2) % Eosinophils % 0.0 L (0.8-7.0) % Basophils % 0.1 L (0.2-1.2) % Absolute Granulocytes 11.93 H (1.78-5.38) x10^3/uL Basophils # 0.01 (0.01-0.08) x10^3/uL PT (9.4-12.5) SECONDS INR (0.8-3.0) Sodium 138 (135-145) mmol/L Potassium 3.8 (3.5-5.1) mmol/L Chloride 101 (98-107) mmol/L Carbon Dioxide 31 H (22-30) mmol/L Anion Gap 9.5 (5-15) MEQ/L BUN 31 H (9-20) mg/dL Creatinine 0.83 (0.66-1.25) mg/dL Estimated GFR 86.3 ML/MIN Glucose 166 H (74-106) mg/dL POC Glucometer (74 to 106) mg/dL Calcium 8.3 L (8.4-10.2) mg/dL Iron (49-181) ug/dL TIBC (261-497) ug/dL Iron Saturation (20-39) % Ferritin (17.9-464) ng/mL Total Bilirubin 0.20 (0.2-1.3) mg/dL AST 57 (17-59) U/L ALT 33 (0-50) U/L Alkaline Phosphatase 109 (38-126) U/L Serum Total Protein 5.8 L (6.3-8.2) g/dL Albumin 2.5 L (3.5-5.0) g/dL Vitamin B12 (239-931) pg/mL Folic Acid (2.76 - >20) ng/mL Stl Occult Blood (IFOB) POSITIVE A (NEGATIVE) 06/22/24 06/22/24 06/22/24 Range/Units 04:57 07:05 11:28 WBC (4.23-9.07) x10^3/uL RBC (4.63-6.08) x10^6/uL Hgb (13.7-17.5) g/dL Hct (40.1-51.0) % MCV (79.0-92.2) fL MCH (25.7-32.2) pg MCHC (32.3-36.5) g/dL RDW (11.6-14.4) % Plt Count (163-337) x10^3/uL MPV (9.4-12.4) fL Gran % (34.0-67.9) % Immature Gran % (Auto) (0.001-0.429) % Nucleat RBC Rel Count (0.00-0.2) % Eos # (Auto) (0.04-0.54) x10^3/uL Immature Gran # (Auto) (0.001-0.031) x10^3u/L Absolute Lymphs (auto) (1.32-3.57) x10^3/uL Absolute Monos (auto) (0.30-0.82) x10^3/uL Absolute Nucleated RBC (0.00-0.012) x10^3u/L Lymphocytes % (21.8-53.1) % Monocytes % (5.3-12.2) % Eosinophils % (0.8-7.0) % Basophils % (0.2-1.2) % Absolute Granulocytes (1.78-5.38) x10^3/uL Basophils # (0.01-0.08) x10^3/uL PT 48.2 H (9.4-12.5) SECONDS INR 4.91 H (0.8-3.0) Sodium (135-145) mmol/L Potassium (3.5-5.1) mmol/L Chloride (98-107) mmol/L Carbon Dioxide (22-30) mmol/L Anion Gap (5-15) MEQ/L BUN (9-20) mg/dL Creatinine (0.66-1.25) mg/dL Estimated GFR ML/MIN Glucose (74-106) mg/dL POC Glucometer 166 H 224 H (74 to 106) mg/dL Calcium (8.4-10.2) mg/dL Iron (49-181) ug/dL TIBC (261-497) ug/dL Iron Saturation (20-39) % Ferritin (17.9-464) ng/mL Total Bilirubin (0.2-1.3) mg/dL AST (17-59) U/L ALT (0-50) U/L Alkaline Phosphatase (38-126) U/L Serum Total Protein (6.3-8.2) g/dL Albumin (3.5-5.0) g/dL Vitamin B12 (239-931) pg/mL Folic Acid (2.76 - >20) ng/mL Stl Occult Blood (IFOB) (NEGATIVE) 06/22/24 06/22/24 06/22/24 Range/Units 14:55 14:55 14:55 WBC (4.23-9.07) x10^3/uL RBC (4.63-6.08) x10^6/uL Hgb 7.8 L (13.7-17.5) g/dL Hct 24.2 L (40.1-51.0) % MCV (79.0-92.2) fL MCH (25.7-32.2) pg MCHC (32.3-36.5) g/dL RDW (11.6-14.4) % Plt Count (163-337) x10^3/uL MPV (9.4-12.4) fL Gran % (34.0-67.9) % Immature Gran % (Auto) (0.001-0.429) % Nucleat RBC Rel Count (0.00-0.2) % Eos # (Auto) (0.04-0.54) x10^3/uL Immature Gran # (Auto) (0.001-0.031) x10^3u/L Absolute Lymphs (auto) (1.32-3.57) x10^3/uL Absolute Monos (auto) (0.30-0.82) x10^3/uL Absolute Nucleated RBC (0.00-0.012) x10^3u/L Lymphocytes % (21.8-53.1) % Monocytes % (5.3-12.2) % Eosinophils % (0.8-7.0) % Basophils % (0.2-1.2) % Absolute Granulocytes (1.78-5.38) x10^3/uL Basophils # (0.01-0.08) x10^3/uL PT (9.4-12.5) SECONDS INR (0.8-3.0) Sodium (135-145) mmol/L Potassium (3.5-5.1) mmol/L Chloride (98-107) mmol/L Carbon Dioxide (22-30) mmol/L Anion Gap (5-15) MEQ/L BUN (9-20) mg/dL Creatinine (0.66-1.25) mg/dL Estimated GFR ML/MIN Glucose (74-106) mg/dL POC Glucometer (74 to 106) mg/dL Calcium (8.4-10.2) mg/dL Iron 53 (49-181) ug/dL TIBC 160 L (261-497) ug/dL Iron Saturation 33 (20-39) % Ferritin 395 (17.9-464) ng/mL Total Bilirubin (0.2-1.3) mg/dL AST (17-59) U/L ALT (0-50) U/L Alkaline Phosphatase (38-126) U/L Serum Total Protein (6.3-8.2) g/dL Albumin (3.5-5.0) g/dL Vitamin B12 764 (239-931) pg/mL Folic Acid 5.64 (2.76 - >20) ng/mL Stl Occult Blood (IFOB) (NEGATIVE) 06/22/24 06/22/24 06/23/24 Range/Units 16:12 20:44 04:48 WBC 13.4 H (4.23-9.07) x10^3/uL RBC 2.76 L (4.63-6.08) x10^6/uL Hgb 7.9 L (13.7-17.5) g/dL Hct 25.4 L (40.1-51.0) % MCV 92.0 (79.0-92.2) fL MCH 28.6 (25.7-32.2) pg MCHC 31.1 L (32.3-36.5) g/dL RDW 14.6 H (11.6-14.4) % Plt Count 399 H (163-337) x10^3/uL MPV 9.1 L (9.4-12.4) fL Gran % 83.1 H (34.0-67.9) % Immature Gran % (Auto) 1.6 H (0.001-0.429) % Nucleat RBC Rel Count 0.0 (0.00-0.2) % Eos # (Auto) 0 L (0.04-0.54) x10^3/uL Immature Gran # (Auto) 0.21 H (0.001-0.031) x10^3u/L Absolute Lymphs (auto) 1.29 L (1.32-3.57) x10^3/uL Absolute Monos (auto) 0.75 (0.30-0.82) x10^3/uL Absolute Nucleated RBC 0.00 (0.00-0.012) x10^3u/L Lymphocytes % 9.6 L (21.8-53.1) % Monocytes % 5.6 (5.3-12.2) % Eosinophils % 0.0 L (0.8-7.0) % Basophils % 0.1 L (0.2-1.2) % Absolute Granulocytes 11.14 H (1.78-5.38) x10^3/uL Basophils # 0.02 (0.01-0.08) x10^3/uL PT (9.4-12.5) SECONDS INR (0.8-3.0) Sodium (135-145) mmol/L Potassium (3.5-5.1) mmol/L Chloride (98-107) mmol/L Carbon Dioxide (22-30) mmol/L Anion Gap (5-15) MEQ/L BUN (9-20) mg/dL Creatinine (0.66-1.25) mg/dL Estimated GFR ML/MIN Glucose (74-106) mg/dL POC Glucometer 169 H 144 H (74 to 106) mg/dL Calcium (8.4-10.2) mg/dL Iron (49-181) ug/dL TIBC (261-497) ug/dL Iron Saturation (20-39) % Ferritin (17.9-464) ng/mL Total Bilirubin (0.2-1.3) mg/dL AST (17-59) U/L ALT (0-50) U/L Alkaline Phosphatase (38-126) U/L Serum Total Protein (6.3-8.2) g/dL Albumin (3.5-5.0) g/dL Vitamin B12 (239-931) pg/mL Folic Acid (2.76 - >20) ng/mL Stl Occult Blood (IFOB) (NEGATIVE) 06/23/24 Range/Units 04:48 WBC (4.23-9.07) x10^3/uL RBC (4.63-6.08) x10^6/uL Hgb (13.7-17.5) g/dL Hct (40.1-51.0) % MCV (79.0-92.2) fL MCH (25.7-32.2) pg MCHC (32.3-36.5) g/dL RDW (11.6-14.4) % Plt Count (163-337) x10^3/uL MPV (9.4-12.4) fL Gran % (34.0-67.9) % Immature Gran % (Auto) (0.001-0.429) % Nucleat RBC Rel Count (0.00-0.2) % Eos # (Auto) (0.04-0.54) x10^3/uL Immature Gran # (Auto) (0.001-0.031) x10^3u/L Absolute Lymphs (auto) (1.32-3.57) x10^3/uL Absolute Monos (auto) (0.30-0.82) x10^3/uL Absolute Nucleated RBC (0.00-0.012) x10^3u/L Lymphocytes % (21.8-53.1) % Monocytes % (5.3-12.2) % Eosinophils % (0.8-7.0) % Basophils % (0.2-1.2) % Absolute Granulocytes (1.78-5.38) x10^3/uL Basophils # (0.01-0.08) x10^3/uL PT 33.0 H (9.4-12.5) SECONDS INR 3.27 H D (0.8-3.0) Sodium (135-145) mmol/L Potassium (3.5-5.1) mmol/L Chloride (98-107) mmol/L Carbon Dioxide (22-30) mmol/L Anion Gap (5-15) MEQ/L BUN (9-20) mg/dL Creatinine (0.66-1.25) mg/dL Estimated GFR ML/MIN Glucose (74-106) mg/dL POC Glucometer (74 to 106) mg/dL Calcium (8.4-10.2) mg/dL Iron (49-181) ug/dL TIBC (261-497) ug/dL Iron Saturation (20-39) % Ferritin (17.9-464) ng/mL Total Bilirubin (0.2-1.3) mg/dL AST (17-59) U/L ALT (0-50) U/L Alkaline Phosphatase (38-126) U/L Serum Total Protein (6.3-8.2) g/dL Albumin (3.5-5.0) g/dL Vitamin B12 (239-931) pg/mL Folic Acid (2.76 - >20) ng/mL Stl Occult Blood (IFOB) (NEGATIVE) Medications: Medications Generic Name Dose Route Start Last Admin Trade Name Freq PRN Reason Stop Dose Admin Acetaminophen 650 mg 06/21/24 02:47 Acetaminophen 325 Mg Tablet PO 07/21/24 02:46 Q6H PRN PRN PAIN AND/OR FEVER Docusate Sodium 100 mg 06/22/24 12:38 06/22/24 14:59 Docusate Sodium 100 Mg Capsule PO 07/22/24 12:37 100 mg BIDPRN PRN Administration CONSTIPATION Ceftriaxone Sodium 1 gm in 100 mls @ 200 mls/hr 06/21/24 22:00 06/22/24 22:01 Rocephin 1 Gm / 100 Ml Nacl IV 07/21/24 21:59 200 mls/hr Q24H22 YANELI Administration Azithromycin 500 mg/ Sodium 250 mls @ 250 mls/hr 06/21/24 22:00 06/22/24 22:05 Chloride IV 07/21/24 21:59 250 mls/hr Q24H22 YANELI Administration Insulin Human Lispro 0 unit 06/21/24 17:28 06/22/24 17:01 Insulin Lispro 1 Unit SQ 07/21/24 17:27 4 unit UD PRN Administration HYPERGLYCEMIA Levalbuterol HCl 1.25 mg 06/23/24 10:00 Levalbuterol Hcl 1.25 Mg/0.5 Ml Neb 07/23/24 09:59 Q6HRT YANELI Metoprolol Tartrate 75 mg 06/21/24 17:45 06/22/24 22:35 Metoprolol Tartrate 50 Mg Tablet PO 07/21/24 09:59 75 mg BID YANELI Administration Pantoprazole Sodium 40 mg 06/23/24 10:00 Protonix (Pantoprazole) 40 Mg Tablet PO 07/23/24 09:59 DAILY YANELI Polyethylene Glycol 17 gm 06/22/24 12:40 06/22/24 14:59 Polyethylene Glycol 3350 17 Gm Packet PO 07/22/24 12:39 17 gm QDP PRN Administration CONSTIPATION Prednisone 40 mg 06/21/24 10:00 06/22/24 09:41 Prednisone 20 Mg Tablet PO 07/21/24 09:59 40 mg DAILY YANELI Administration Sodium Chloride 3 ml 06/21/24 19:00 06/23/24 04:29 Sodium Cl For Inhalation 3 Ml Ud Nebule 07/21/24 18:59 3 ml Q6HRT YANELI Administration Warfarin Sodium 0.5 mg 06/29/24 18:00 Warfarin Sodium 1 Mg Tablet PO 07/29/24 17:59 Th@1800 YANELI Warfarin Sodium 1 mg 06/23/24 18:00 Warfarin Sodium 1 Mg Tablet PO 07/23/24 17:59 [email or web address] [facility] Discontinued Medications Generic Name Dose Route Start Last Admin Trade Name Manuel PRN Reason Stop Dose Admin Albuterol/Ipratropium 3 ml 06/20/24 19:08 06/20/24 19:59 Ipratropium/Albuterol Sulfate 3 Ml Ampul.[facility] 06/20/24 19:09 3 ml STAT ONE Administration Albuterol/Ipratropium Confirm 06/20/24 19:52 Ipratropium/Albuterol Sulfate 3 Ml Ampul.Neb Administered 06/20/24 19:53 Dose 3 ml IH .STK-MED ONE Albuterol/Ipratropium 3 ml 06/21/24 02:47 Ipratropium/Albuterol Sulfate 3 Ml Ampul.[facility] 07/21/24 02:46 Q4HPRN PRN SHORTNESS OF BREATH/WHEEZING Albuterol/Ipratropium 3 ml 06/21/24 07:00 06/21/24 13:01 Ipratropium/Albuterol Sulfate 3 Ml Ampul.[facility] 07/21/24 06:59 3 ml Q6HRT [facility] Administration Aspirin 324 mg 06/20/24 21:06 06/20/24 21:11 Aspirin 81 Mg Tab.Chew PO 06/20/24 21:07 324 mg STAT ONE Administration Aspirin Confirm 06/20/24 21:09 Aspirin 81 Mg Tab.Chew Administered 06/20/24 21:10 Dose 324 mg .ROUTE .STK-MED ONE Azithromycin Confirm 06/20/24 21:35 Azithromycin Inj Administered 06/20/24 21:36 Dose 500 mg IV .STK-MED ONE Methylprednisolone Sodium 0 mg 06/20/24 19:08 06/20/24 19:25 Succinate 125 mg/ Sterile IV 06/20/24 19:09 125 mg Water 2 ml STAT ONE Administration Digoxin 0.5 mg 06/21/24 14:56 06/21/24 15:01 Digoxin 0.5 Mg/2 Ml Injection IV 06/21/24 14:57 0.5 mg STAT ONE Administration Diltiazem HCl 10 mg 06/21/24 15:45 06/21/24 15:49 Diltiazem Hcl Iv 5 Mg/Ml Vial IV 06/21/24 15:46 10 mg STAT ONE Administration Diltiazem HCl Confirm 06/21/24 15:46 Diltiazem Hcl Iv 5 Mg/Ml Vial Administered 06/21/24 15:47 Dose 50 mg IV .STK-MED ONE Furosemide 20 mg 06/20/24 20:46 06/20/24 20:56 Furosemide 20 Mg/Vial IV 06/20/24 20:47 20 mg ONCE STA Administration Furosemide Confirm 06/20/24 20:51 Furosemide 40 Mg/4 Ml Vial Administered 06/20/24 20:52 Dose 40 mg .ROUTE .STK-MED ONE Furosemide Confirm 06/20/24 20:53 Furosemide 20 Mg/Vial Administered 06/20/24 20:54 Dose 20 mg .ROUTE .STK-MED ONE Ceftriaxone Sodium 2 gm in 100 mls @ 200 mls/hr 06/20/24 20:47 06/20/24 21:28 Rocephin 2 Gm/100 Ml Nacl IV 06/20/24 21:16 Infused STAT ONE Infusion Azithromycin 500 mg/ Sodium 250 mls @ 250 mls/hr 06/20/24 20:47 06/20/24 22:46 Chloride IV 06/20/24 21:46 Infused STAT STA Infusion Ceftriaxone Sodium Confirm 06/20/24 20:51 Rocephin 2 Gm/100 Ml Nacl Administered 06/20/24 20:52 Dose 2 gm in 100 mls @ ud IV .STK-MED ONE Sodium Chloride Confirm 06/20/24 21:35 Sodium Chloride 0.9% 250 Ml Administered 06/20/24 21:36 Dose 250 mls @ ud IV .STK-MED ONE Insulin Human Lispro 0 unit 06/21/24 02:47 06/21/24 16:16 Insulin Lispro 1 Unit SQ 07/21/24 02:46 5 unit UD PRN Administration HYPERGLYCEMIA Levalbuterol HCl 1.25 mg 06/21/24 19:00 06/22/24 12:20 Levalbuterol Hcl 1.25 Mg/0.5 Ml [facility] 07/21/24 18:59 1.25 mg Q6HRT YANELI Administration Levalbuterol HCl 1.25 mg 06/22/24 14:22 06/23/24 04:29 Levalbuterol Hcl 1.25 Mg/0.5 Ml [facility] 07/22/24 14:21 1.25 mg Q6H PRN PRN Administration SHORTNESS OF BREATH/WHEEZING Methylprednisolone Sodium Succinate Confirm 06/20/24 19:24 Methylprednis Sod Succ 125 Mg/2 Ml Vial Administered 06/20/24 19:25 Dose 125 mg .ROUTE .STK-MED ONE Metoprolol Tartrate 50 mg 06/21/24 10:00 06/21/24 09:15 Metoprolol Tartrate 50 Mg Tablet PO 07/21/24 09:59 50 mg BID YANELI Administration Metoprolol Tartrate Confirm 06/21/24 20:09 Metoprolol Tartrate 25 Mg Tab Administered 06/21/24 20:10 Dose 25 mg .ROUTE .STK-MED ONE Nitroglycerin 1 gm 06/20/24 21:06 06/20/24 21:12 Nitroglycerin 1 Gm Packet TOP 06/20/24 21:07 1 gm STAT ONE Administration Nitroglycerin Confirm 06/20/24 21:10 Nitroglycerin 1 Gm Packet Administered 06/20/24 21:11 Dose 1 gm .ROUTE .STK-MED ONE Non-Formulary Medication 1 each 06/21/24 07:30 06/21/24 08:24 Pharmacy Dosing Request [facility] 06/21/24 07:31 1 each STAT ONE Administration Sterile Water Confirm 06/20/24 19:24 Water For Injection,Sterile 10 Ml Vial Administered 06/20/24 19:25 Dose 10 ml IJ .STK-MED ONE Warfarin Sodium 1 mg 06/21/24 18:00 Warfarin Sodium 1 Mg Tablet PO 07/21/24 17:59 [email or web address] [facility] Multi-Disciplinary Progress Notes: Multi-Disciplinary Progress Notes 06/23/24 04:30 Respiratory Note by Kathi Brantley RT CALLED MULTIPLE TIMES THROUGHOUT NIGHT DUE TO PATIENT REQUESTING NEBULIZER TREATMENT. XOPENEX GIVEN AT APPROXIMATELY 2240 ON 06/22/24 PER PATIENT REQUEST AND AT 0425 ON 06/23/24 DUE TO PATIENT REQUEST, WHEEZING, AND C/O SOB. Initialized on 06/23/24 04:30 - END OF NOTE 06/22/24 09:23 Case Management Note by Yahaira Lopez S/W PATIENT AND HE STILL PLANS TO RETURN HOME WITH FAMILY TO ASSIST. PLANS TO RETURN HOME AT [facility] AND DENIES ANY NEW NEEDS AT TIME OF DC. REFUSES HHC OR ANY ADDITIONAL ASSIST. Initialized on 06/22/24 09:23 - END OF NOTE Assessment/Plan (1) Acute respiratory failure with hypoxia Current Visit: Yes Status: Acute Assessment & Plan: -secondary to pneumonia/COPD exacerbation -Supplemental oxygen with goal spo2 > 91% - currently on 4L -Continue ceftriaxone/azith -CMP/CBC reviewed -Continue prednisone 20mg bid -Xopenex prn -Flutter/IS 06/23: -Continue abx -Change steroid to solumedrol 40mg q12H -Add mucinex -CMP/CBC reviewed Code(s): J96.01 - ACUTE RESPIRATORY FAILURE WITH HYPOXIA (2) Pneumonia Current Visit: Yes Status: Acute Assessment & Plan: -see arf Code(s): J18.9 - PNEUMONIA, UNSPECIFIED ORGANISM (3) COPD exacerbation Current Visit: Yes Status: Acute Assessment & Plan: -See ARF Code(s): J44.1 - CHRONIC OBSTRUCTIVE PULMONARY DISEASE W (ACUTE) EXACERBATION (4) Atrial fibrillation with RVR Current Visit: Yes Status: Acute Assessment & Plan: -Diltizem 10mg and digoxin 0.5mg given 06/21/24 - HR controlled -on Warfarin - currently on hold due to supratherapeutic levels -Cardiology consulted with recs to increase Metoprolol to 75mg BID 06/23: -HR controlled with Metroprolol at 75mg BID Code(s): I48.91 - UNSPECIFIED ATRIAL FIBRILLATION (5) Supratherapeutic INR Current Visit: Yes Status: Acute Assessment & Plan: -INR reviewed at 3.27 -Manages coumadin at the coumadin clinic at [facility]- currently on hold Code(s): R79.1 - ABNORMAL COAGULATION PROFILE (6) Type 2 diabetes mellitus Current Visit: Yes Status: Acute Assessment & Plan: -ADA diet -SSI - high dose -A1c reviewed from 04/17/24 at 5.15- controlled (7) BPH (benign prostatic hyperplasia) Current Visit: Yes Status: Acute Assessment & Plan: -continue Flomax Code(s): N40.0 - BENIGN PROSTATIC HYPERPLASIA WITHOUT LOWER URINRY TRACT SYMP (8) Hypocalcemia Current Visit: Yes Status: Acute Assessment & Plan: -corrected calcium at 9.5 Code(s): E83.51 - HYPOCALCEMIA (9) Anemia Current Visit: Yes Status: Acute Assessment & Plan: -Hgb at 7.9- will recheck will add iron studies and occult stools -Monitor closely - INR supratherapeutic -transfuse if hgb < 7 06/23: -Occult stools + -INR supratherapeutic at 3.27 -HGB at 7.9 - stable since admission -Continue to monitor closely -consider surgery consult if anemia worsens -Iron sat at 33% VTE: SCD PPI: protonix Dispo 2-3 days Code status: Full code Code(s): J96.01 - ACUTE RESPIRATORY FAILURE WITH HYPOXIA (2) Pneumonia Current Visit: Yes Status: Acute Code(s): J18.9 - PNEUMONIA, UNSPECIFIED ORGANISM (3) COPD exacerbation Current Visit: Yes Status: Acute Code(s): J44.1 - CHRONIC OBSTRUCTIVE PULMONARY DISEASE W (ACUTE) EXACERBATION (4) Atrial fibrillation with RVR Current Visit: Yes Status: Acute Code(s): I48.91 - UNSPECIFIED ATRIAL FIBRILLATION (5) Supratherapeutic INR Current Visit: Yes Status: Acute Code(s): R79.1 - ABNORMAL COAGULATION OK OFILE (6) Type 2 diabetes mellitus Current Visit: Yes Status: Acute (7) BPH (benign prostatic hyperplasia) Current Visit: Yes Status: Acute Code(s): N40.0 - BENIGN PROSTATIC HYPERPLASIA WITHOUT LOWER URINRY TRACT SYMP (8) Hypocalcemia Current Visit: Yes Status: Acute Code(s): E83.51 - HYPOCALCEMIA (9) Anemia Current Visit: Yes Status: Acute Code(s): D64.9 - ANEMIA, UNSPECIFIED
[2024-06-23] MEDS: solu-MEDROL 40 MG, Sterile H2O 10 ml 1 ML IV SCH (10:50)
[2024-06-23] MEDS: Protonix 40MG Tablet PO SCH (10:52)
[2024-06-23] MEDS: Mucinex 600MG ER Tabs PO SCH (10:52)
[2024-06-23] MEDS: Xopenex 1.25 MG/0.5 ML UD NEBULE IH SCH (10:52)
--- NOTE | 2024-06-23 12:18 | XRAY ---
CLINICAL HISTORY: pneumonia sob COMPARISON: Prior study dated 02.20.2024. TECHNIQUE: X ray of the chest was performed in AP view. FINDINGS: Bilateral interstitial thickening more marked at the left lung. Bilateral ill opacities seen which have increased in the left lower lung zone. Mild right pleural effussion. The cardiac size is normal. Ectatic aorta seen with atherosclerotic calcification. The bony thorax is unremarkable. Cardiac monitoring electrodes. IMPRESSION: 1. Severe interstitial thickening more marked at the left lung. Stable 2. Moderate regression of opacities in the right middle and lower zones. 3. Bilateral ill opacities seen which have increased in the left lower lung zone. new 4. Mild right pleural effusion. Stable 5. Further evaluation with CT recommended. [facility][1] ER was called at [phone] at 11:10 AM B[facility], 06/23/2024 and Nurse Zi was informed regarding the presence of Significant Medical Findings in the report. Electronically Signed by: Varsha Browne MD. (06/23/2024 12:14:52 EDT)
[2024-06-24 07:02] LABS: Absolute Neutrophil Ct (ANC) 5.25 x10^3/uL (1.78-5.38); BASOPHIL % 0.2 % (0.2-1.2); Basophil (Absolute #) 0.01 x10^3/uL (0.01-0.08); Eosinophil (Absolute #) 0 x10^3/uL (0.04-0.54); Hematocrit 25.3 % (40.1-51.0); Hemoglobin 7.7 g/dL (13.7-17.5); IMMATURE GRAN # 0.16 x10^3u/L (0.001-0.031); IMMATURE GRAN % 2.5 % (0.001-0.429); Lymphocyte (Absolute #) 0.76 x10^3/uL (1.32-3.57); Lymphocytes % 11.9 % (21.8-53.1); Mean Cell Volume 91.7 fL (79.0-92.2); Mean Corpuscular Hemoglobin 27.9 pg (25.7-32.2); Mean Corpuscular Hgb Concent. 30.4 g/dL (32.3-36.5); Mean Platelet Volume 9.6 fL (9.4-12.4); Monocyte (Absolute #) 0.18 x10^3/uL (0.30-0.82); Monocytes % 2.8 % (5.3-12.2); Neutrophil % 82.6 % (34.0-67.9); Platelet Count 358 x10^3/uL (163-337); Red Blood Count 2.76 x10^6/uL (4.63-6.08); Red Cell Distribution Width 14.4 % (11.6-14.4); White Blood Count 6.4 x10^3/uL (4.23-9.07)
[2024-06-24 07:16] LABS: ALBUMIN 2.6 g/dL (3.5-5.0); ANION GAP 9.2 MEQ/L (5-15); BILIRUBIN,TOTAL 0.2 mg/dL (0.2-1.3); Calcium 7.9 mg/dL (8.4-10.2); Creatinine 1 0.68 mg/dL (0.66-1.25); EST GLOMERULAR FILTRATION RATE 91.7 ML/MIN; Potassium 3.9 mmol/L (3.5-5.1); Total Protein 5.8 g/dL (6.3-8.2)
[2024-06-24 07:19] LABS: INR 2.57 (0.8-3.0); PROTIME 26.3 SECONDS (9.4-12.5)
--- NOTE | 2024-06-24 10:04 | PCM.DS ---
Discharge Summary Date of Admission: 06/21/24 00:21 Date of Discharge: 06/24/24 Admitting Physician: PAULETTE STOKES MD Consults: Consults on Case 06/21/24 15:14 Consult Cardiology ROUTINE Primary Care Provider: KAYLEIGH QUINTERO Allergies Allergies hydromorphone [From Dilaudid] Allergy (Unknown, Verified 05/25/24 13:56) unknown by patient if real allergy [facility] Summary - Hospital Course Hospital Course: Mr. Rodriguez is an 84-year-old male with a history of COPD on home oxygen, paroxysmal atrial fibrillation on warfarin, type 2 diabetes, BPH, prior DVT, and chronic anemia, who was admitted 06/21/24 with two days of worsening dyspnea, productive cough, and left-sided chest discomfort. Symptoms were consistent with a COPD exacerbation and possible pneumonia. Imaging revealed a new right basilar infiltrate, though interpretation was limited by underlying pulmonary fibrosis. He was treated with intravenous ceftriaxone, azithromycin, and corticosteroids. Oxygen requirement remained at his recent home baseline of 4L/min. On hospital day one, he developed atrial fibrillation with rapid ventricular response, effectively rate-controlled with digoxin and diltiazem. Cardiology recommended increasing metoprolol to 75 mg BID for ongoing rate control, which was well tolerated. Warfarin was held for supratherapeutic INR (3.27), which improved to 2.57; anticoagulation will be resumed with outpatient management via Coumadin clinic. CXR performed 06/23/24 unchanged. Solumedrol was initiated at 40 mg q12h, and guaifenesin added, with symptomatic improvement. Anemia remained stable (Hgb 7.9) with positive occult stool. Given the supratherapeutic INR, PPI was continued, and outpatient GI follow-up was arranged to evaluate for potential occult gastrointestinal bleeding. At the time of discharge, the patient is clinically improved, at baseline oxygen requirements, with controlled heart rate and stable hemoglobin. He will be discharged on a prednisone, cefuroxime, and mucinex. He is to follow up with his PCP, Cardiology, Coumadin clinic, and GI as an outpatient. He is in agreement with the discharge plan. Discharge Note New Diagnosis: Pneumonia/copd exac/supratherapeutic INR/anemia New Medications: cefuroxime/mucinex/prednisone/Metoprolol increased to 75mg bid Follow Up: PCP/pulm/cardiology Results pending: Sputum culture Latest Assessment & Plan I spent 35 minutes [id number] with the patient on the day of discharge performing discharge exam, discussing hospital stay and discharge instructions with patient and caregivers, preparation of discharge records, prescriptions & referral forms and addressing any questions/concerns the patient had as documented above. - Vitals & Intake/Output Vital Signs: Vital Signs Temperature 96.4 F 06/24/24 07:21 Pulse Rate 69 06/24/24 07:29 Respiratory Rate 20 06/24/24 07:29 Blood Pressure 162/74 06/24/24 07:21 O2 Sat by Pulse Oximetry 98 06/24/24 07:29 Intake & Output: Intake & Output 06/21/24 06/22/24 06/23/24 06/24/24 11:59 11:59 11:59 11:59 Intake Total 380 1949 1560 1360 Output Total 700 1125 Balance 380 1949 860 235 Weight 62.2 kg - Lab Result Diagrams: 06/24/24 06:38 06/24/24 06:38 Lab Results-Last 24 Hrs: Lab Results-Last 24 Hours 06/23/24 06/23/24 06/23/24 Range/Units 11:15 15:55 20:55 WBC (4.23-9.07) x10^3/uL RBC (4.63-6.08) x10^6/uL Hgb (13.7-17.5) g/dL Hct (40.1-51.0) % MCV (79.0-92.2) fL MCH (25.7-32.2) pg MCHC (32.3-36.5) g/dL RDW (11.6-14.4) % Plt Count (163-337) x10^3/uL MPV (9.4-12.4) fL Gran % (34.0-67.9) % Immature Gran % (Auto) (0.001-0.429) % Nucleat RBC Rel Count (0.00-0.2) % Eos # (Auto) (0.04-0.54) x10^3/uL Immature Gran # (Auto) (0.001-0.031) x10^3u/L Absolute Lymphs (auto) (1.32-3.57) x10^3/uL Absolute Monos (auto) (0.30-0.82) x10^3/uL Absolute Nucleated RBC (0.00-0.012) x10^3u/L Lymphocytes % (21.8-53.1) % Monocytes % (5.3-12.2) % Eosinophils % (0.8-7.0) % Basophils % (0.2-1.2) % Absolute Granulocytes (1.78-5.38) x10^3/uL Basophils # (0.01-0.08) x10^3/uL PT (9.4-12.5) SECONDS INR (0.8-3.0) Sodium (135-145) mmol/L Potassium (3.5-5.1) mmol/L Chloride (98-107) mmol/L Carbon Dioxide (22-30) mmol/L Anion Gap (5-15) MEQ/L BUN (9-20) mg/dL Creatinine (0.66-1.25) mg/dL Estimated GFR ML/MIN Glucose (74-106) mg/dL POC Glucometer 162 H 340 H 191 H (74 to 106) mg/dL Calcium (8.4-10.2) mg/dL Total Bilirubin (0.2-1.3) mg/dL AST (17-59) U/L ALT (0-50) U/L Alkaline Phosphatase (38-126) U/L Serum Total Protein (6.3-8.2) g/dL Albumin (3.5-5.0) g/dL 06/24/24 06/24/24 06/24/24 Range/Units 06:38 06:38 06:38 WBC 6.4 (4.23-9.07) x10^3/uL RBC 2.76 L (4.63-6.08) x10^6/uL Hgb 7.7 L (13.7-17.5) g/dL Hct 25.3 L (40.1-51.0) % MCV 91.7 (79.0-92.2) fL MCH 27.9 (25.7-32.2) pg MCHC 30.4 L (32.3-36.5) g/dL RDW 14.4 (11.6-14.4) % Plt Count 358 H (163-337) x10^3/uL MPV 9.6 (9.4-12.4) fL Gran % 82.6 H (34.0-67.9) % Immature Gran % (Auto) 2.5 H (0.001-0.429) % Nucleat RBC Rel Count 0.0 (0.00-0.2) % Eos # (Auto) 0 L (0.04-0.54) x10^3/uL Immature Gran # (Auto) 0.16 H (0.001-0.031) x10^3u/L Absolute Lymphs (auto) 0.76 L (1.32-3.57) x10^3/uL Absolute Monos (auto) 0.18 L (0.30-0.82) x10^3/uL Absolute Nucleated RBC 0.00 (0.00-0.012) x10^3u/L Lymphocytes % 11.9 L (21.8-53.1) % Monocytes % 2.8 L (5.3-12.2) % Eosinophils % 0.0 L (0.8-7.0) % Basophils % 0.2 (0.2-1.2) % Absolute Granulocytes 5.25 (1.78-5.38) x10^3/uL Basophils # 0.01 (0.01-0.08) x10^3/uL PT 26.3 H (9.4-12.5) SECONDS INR 2.57 (0.8-3.0) Sodium 136 (135-145) mmol/L Potassium 3.9 (3.5-5.1) mmol/L Chloride 101 (98-107) mmol/L Carbon Dioxide 30 (22-30) mmol/L Anion Gap 9.2 (5-15) MEQ/L BUN 25 H (9-20) mg/dL Creatinine 0.68 (0.66-1.25) mg/dL Estimated GFR 91.7 ML/MIN Glucose 173 H (74-106) mg/dL POC Glucometer (74 to 106) mg/dL Calcium 7.9 L (8.4-10.2) mg/dL Total Bilirubin 0.20 (0.2-1.3) mg/dL AST 24 (17-59) U/L ALT 28 (0-50) U/L Alkaline Phosphatase 98 (38-126) U/L Serum Total Protein 5.8 L (6.3-8.2) g/dL Albumin 2.6 L (3.5-5.0) g/dL 06/24/24 Range/Units 06:55 WBC (4.23-9.07) x10^3/uL RBC (4.63-6.08) x10^6/uL Hgb (13.7-17.5) g/dL Hct (40.1-51.0) % MCV (79.0-92.2) fL MCH (25.7-32.2) pg MCHC (32.3-36.5) g/dL RDW (11.6-14.4) % Plt Count (163-337) x10^3/uL MPV (9.4-12.4) fL Gran % (34.0-67.9) % Immature Gran % (Auto) (0.001-0.429) % Nucleat RBC Rel Count (0.00-0.2) % Eos # (Auto) (0.04-0.54) x10^3/uL Immature Gran # (Auto) (0.001-0.031) x10^3u/L Absolute Lymphs (auto) (1.32-3.57) x10^3/uL Absolute Monos (auto) (0.30-0.82) x10^3/uL Absolute Nucleated RBC (0.00-0.012) x10^3u/L Lymphocytes % (21.8-53.1) % Monocytes % (5.3-12.2) % Eosinophils % (0.8-7.0) % Basophils % (0.2-1.2) % Absolute Granulocytes (1.78-5.38) x10^3/uL Basophils # (0.01-0.08) x10^3/uL PT (9.4-12.5) SECONDS INR (0.8-3.0) Sodium (135-145) mmol/L Potassium (3.5-5.1) mmol/L Chloride (98-107) mmol/L Carbon Dioxide (22-30) mmol/L Anion Gap (5-15) MEQ/L BUN (9-20) mg/dL Creatinine (0.66-1.25) mg/dL Estimated GFR ML/MIN Glucose (74-106) mg/dL POC Glucometer 162 H (74 to 106) mg/dL Calcium (8.4-10.2) mg/dL Total Bilirubin (0.2-1.3) mg/dL AST (17-59) U/L ALT (0-50) U/L Alkaline Phosphatase (38-126) U/L Serum Total Protein (6.3-8.2) g/dL Albumin (3.5-5.0) g/dL Micro Results-Entire Visit: Microbiology 06/23/24 11:30 Gram Stain - Final Sputum - Expectorant 06/20/24 19:20 Blood Culture - Preliminary Blood 06/20/24 19:30 Blood Culture - Preliminary Blood Accuchecks Date 06/24/24 Date 06/23/24 Date 06/23/24 Time 07:20 Time 15:59 Time 11:29 - Radiology Exams Ordered Rad Exams-Entire Visit: Radiology Procedures Category Date Time Status CHEST 1 VIEW (PORTABLE) Stat Exams 06/23/24 11:20 Completed - Procedures and Test Procedures and Tests throughout Hospitalization: Therapy Orders & Screens 06/20/24 20:00 Respiratory Therapy Assessment DAILY Comment: 06/21/24 02:47 Oxygen Nasal Cannula 4 lpm Comment: Diagnosis: COPD exacerbation, chest pain Respiratory Therapy Consult ONCE Comment: Reason For Exam: Diagnosis: COPD exacerbation, chest pain 06/21/24 10:00 RT Screen per Nursing Assess ONCE Comment: Protocol Order Physician Instructions: Greater than 3 points order RT Admission Screen Reason For Exam: Triggered on Admission Diagnosis: COPD exacerbation, chest pain Diagnosis: COPD exacerbation, chest pain Pneumonia: Yes Home O2: Yes Asthma: No CHF: No Home CPAP/BIPAP: No Home Nebs/MDI: Yes Total Points: 13 06/21/24 14:31 EKG STAT Comment: Diagnosis: dyspnea EKG Reason: Other 06/21/24 17:54 FLUTTER [Flutter Therapy] UD Comment: Diagnosis: dyspnea 06/24/24 04:11 EKG ROUTINE Comment: Diagnosis: dyspnea Discharge Exam General Appearance: no apparent distress Neurologic Exam: alert, oriented x 3, cooperative Eye Exam: PERRL Ears, Nose, Throat Exam: normal ENT inspection Neck Exam: normal inspection Respiratory Exam: diminished breath sounds, crackles/rales, wheezing Cardiovascular Exam: irregular Gastrointestinal/Abdomen Exam: soft, normal bowel sounds Male Genitalia Exam: deferred Rectal Exam: deferred Back Exam: normal inspection Extremity Exam: normal inspection Skin Exam: normal color Final Diagnosis/Problem List - Final Discharge Diagnosis/Problem (1) Acute respiratory failure with hypoxia Current Visit: Yes Status: Resolved Code(s): J96.01 - ACUTE RESPIRATORY FAILURE WITH HYPOXIA (2) Pneumonia Current Visit: Yes Status: Acute Code(s): J18.9 - PNEUMONIA, UNSPECIFIED ORGANISM (3) COPD exacerbation Current Visit: Yes Status: Acute Code(s): J44.1 - CHRONIC OBSTRUCTIVE PULMONARY DISEASE W (ACUTE) EXACERBATION (4) Atrial fibrillation with RVR Current Visit: Yes Status: Resolved Code(s): I48.91 - UNSPECIFIED ATRIAL FIBRILLATION (5) Supratherapeutic INR Current Visit: Yes Status: Resolved Code(s): R79.1 - ABNORMAL COAGULATION PROFILE (6) Type 2 diabetes mellitus Current Visit: Yes Status: Chronic (7) BPH (benign prostatic hyperplasia) Current Visit: Yes Status: Chronic Code(s): N40.0 - BENIGN PROSTATIC HYPERPLASIA WITHOUT LOWER URINRY TRACT SYMP (8) Hypocalcemia Current Visit: Yes Status: Chronic Code(s): E83.51 - HYPOCALCEMIA (9) Anemia Current Visit: Yes Status: Chronic Code(s): D64.9 - ANEMIA, UNSPECIFIED - Discharge Discharge Date: 06/24/24 Disposition: Home, Self-Care Condition: Stable Prescriptions: New cefuroxime axetiL [Cefuroxime] 500 mg PO BID 10 Days #20 tablet Prednisone 20 mg [Deltasone 20 mg] 20 mg PO BID 5 Days #10 tablet Metoprolol Tartrate 50 mg [Lopressor 50 MG] 1.5 tab PO BID 30 Days #90 tablet Guaifenesin 600 mg ER [Mucinex 600MG ER Tabs] 600 mg PO BID 7 Days #14 tablet PANTOPRAZOLE 40 mg Tablet [Protonix 40MG Tablet] 40 mg PO BID 30 Days #60 tablet Continue Albuterol 2.5 mg/3 ml Neb [Proventil 2.5 mg/3 ml Neb] 1 neb IH Q4H PRN PRN Reason: Shortness Of Breath Warfarin Sodium 1 mg [Coumadin] 1 mg PO UD Warfarin Sodium 1 mg [Coumadin] 1.5 mg PO UD Metformin HCl [Metformin ER Gastric] 500 mg PO BID Tamsulosin HCl [Flomax] 0.4 mg PO HS Fluticasone/Umeclidin/Vilanter [Trelegy Ellipta 100-62.5-25] 1 each IH DAILY Discontinued Metoprolol Tartrate 50 mg [Lopressor 50 MG] 50 mg PO BID PANTOPRAZOLE 40 mg Tablet [Protonix 40MG Tablet] 40 mg PO DAILY Additional Instructions: CONTINUE YOUR CURRENT COUMADIN REGIMEN 1MG WED, WED, WED, , WED, SAT. 1.5MG ON WEDNESDAY. FOLLOW UP WITH COUMADIN CLINIC ON 07/13/24 TO HAVE LABS DRAWN INCREASE YOUR METOPROLOL TO 1.5 TAB (75MG) TWICE A DAY INCREASE YOUR PANTOPRAZOLE TO TWICE A DAY CALL YOUR ADVERTISING ANALYST ON WEDNESDAY FOR A FOLLOW UP APPT FOLLOW UP WITH A [employer] OUTPATIENT TO EVALUATE FOR POTENTIAL OCCULT GASTROINTESTINAL BLEEDING Follow up with: KAYLEIGH QUINTERO [Primary Care Provider] - 06/29/24 1:00 pm
[2024-06-24] MEDS: Protonix 40MG Tablet PO SCH (10:05)
[2024-06-24 11:18] VITALS: BP 154/68; TEMP 96.2
[2024-06-24 12:06] VITALS: PULSE 71; RESP 20; O2SAT 96
[2024-06-24] MEDS ORDERED: COUMADIN PO SCH (18:00)
[2024-06-30] MEDS ORDERED: COUMADIN PO SCH (18:00)
== END 2024-06-24 12:19 | disposition home or self-care (01) ==
LOC: ED 18:18 → MED SURG 06-21 00:21
PROVIDERS: ADMIT Internal Medicine; ATTEND Internal Medicine
DX: J96.01 Acute respiratory failure with hypoxia (principal); J18.9 Pneumonia, unspecified organism; J44.1 Chronic obstructive pulmonary disease with (acute) exacerbation; I48.20 Chronic atrial fibrillation, unspecified; R79.1 Abnormal coagulation profile; E11.9 Type 2 diabetes mellitus without complications; N40.0 Benign prostatic hyperplasia without lower urinary tract symptoms; E83.51 Hypocalcemia; D64.9 Anemia, unspecified; Z79.01 Long term (current) use of anticoagulants; Z79.899 Other long term (current) drug therapy; Z99.81 Dependence on supplemental oxygen; Z87.891 Personal history of nicotine dependence
CPT/HCPCS: 0241U; 36415; 71045; 80048; 80053; 82607; 82728; 82746; 82947; 83540; 83550; 83880; 84484; 85014; 85018; 85025; 85027; 85610; 85730; 87040; 87070; 93005; 93041; 93268; 94640; 94667; 94668; 94760; 96374; 99285; G0328; G0378; Q3014; 82274; J0456; J0696; J1160; J1817; J1938; J2919; A9270-GY

== ENCOUNTER 2024-07-03 09:53 | Inpatient (IN) | payer MEDICARE ==
--- NOTE | 2024-07-03 10:08 | ERPHSYRPT ---
- History of Present Illness Source: patient Exam Limitations: no limitations Physician History: Patient has a history of coronary artery disease, congestive heart failure, atrial fibrillation,COPD. Patient is had some dyspnea on exertion for the last 2 days. He said yesterday he felt his heart racing. It is continued to race. The patient realized that he was not getting any better and got worried about the dyspnea especially on exertionAnd decided to call EMS. When EMS got there he was tachycardic he was running around 180. They gave him some Cardizem and it slowed him down to the 130s to 140s. Exertion makes symptoms worse. Resting makes it better. He has not had any fever chills nausea vomiting or other Systemic symptoms.He denies chest pain at this time. Allergies/Adverse Reactions: hydromorphone [From Dilaudid] Allergy (Unknown, Verified 07/03/24 10:05) unknown by patient if real allergy Home Medications: Albuterol 2.5 mg/3 ml Neb [Proventil 2.5 mg/3 ml Neb] 1 neb IH Q4H PRN 02/20/24 [History] Warfarin Sodium 1 mg [Coumadin] 1 mg PO DAILY 05/17/24 [History] Warfarin Sodium 1 mg [Coumadin] 1.5 mg PO DAILY 06/20/24 [History] Finasteride 5 mg [Proscar 5 MG] 5 mg PO DAILY 07/03/24 [History] Fluticasone/Umeclidin/Vilanter [Trelegy Ellipta 100-62.5-25] 1 puff PO DAILY 07/03/24 [History] Metformin HCl 500 mg [Glucophage 500 MG] 500 mg PO BID 07/03/24 [History] Metoprolol Tartrate 50 mg [Lopressor 50 MG] 75 mg PO BID 07/03/24 [History] Omeprazole 20 mg PO DAILY 07/03/24 [History] PANTOPRAZOLE 40 mg Tablet [Protonix 40MG Tablet] 40 mg PO BID 07/03/24 [History] Tamsulosin HCl [Flomax] 0.4 mg PO HS 07/03/24 [History] Hx Tetanus, Diphtheria Vaccination/Date Given: No Hx Influenza Vaccination/Date Given: Yes Hx Pneumococcal Vaccination/Date Given: Yes Travel Risk - Emerging Infectious Disease Are you exhibiting symptoms associated with any current EIDs: No Symptoms: Cough: New Onset, Shortness of Breath - Review of Systems Constitutional: No Symptoms Eyes: No Symptoms Ears, Nose, & Throat: No Symptoms Cardiac: Palpitations Abdominal/Gastrointestinal: No Symptoms Skin: No Symptoms Neurological: No Symptoms Psychological: No Symptoms All Other Systems: Reviewed and Negative - Past Medical History Pertinent Past Medical History: Yes Neurological History: No Pertinent History ENT History: No Pertinent History Cardiac History: Arrhythmia, Deep Vein Thrombosis, Hypertension Respiratory History: COPD Endocrine Medical History: No Pertinent History Musculoskeletal History: Arthritis, Fractures GI Medical History: No Pertinent History History: Other Psycho-Social History: No Pertinent History Male Reproductive Disorders: Prostate Problems Other Medical History: C-spine fracture - Past Surgical History Past Surgical History: Yes Neuro Surgical History: No Pertinent History Cardiac: No Pertinent History Respiratory: No Pertinent History Gastrointestinal: No Pertinent History Genitourinary: No Pertinent History Musculoskeletal: Orthopedic Surgery Male Surgical History: No Pertinent History Other Surgical History: neck surg Significant Family History: no pertinent family hx - Social History Smoking Status: Former smoker (quit 6 years ago) How long have you smoked: 69 Exposure to second hand smoke: Yes Drug Use: none - Social Determinants of Health Will the patient participate in the screening: Yes Do you worry about a steady place to live?: No In the past 12 months,have you had to go without utilities?: No Transportation Issues: No Has anyone in your support network made you feel unsafe?: No Have you or anyone in your house had to go w/o enough food: No - Nursing Vital Signs Nursing Vital Signs: Initial Vital Signs Temperature 96.9 F 07/03/24 09:54 Pulse Rate 137 H 07/03/24 09:54 Respiratory Rate 25 H 07/03/24 09:54 Blood Pressure 115/83 07/03/24 09:54 O2 Sat by Pulse Oximetry 97 07/03/24 09:54 Pain Scale Pain Intensity 0 - Physical Exam General Appearance: no apparent distress Eye Exam: PERRL/EOMI Ears, Nose, Throat Exam: hearing grossly normal Respiratory Exam: other (Crackles in the bases and mid lungs. At the upper lung barron it sounds more clear.) Cardiovascular/Chest Exam: tachycardia, irregular Abdominal/Gastrointestinal Exam: soft, normal bowel sounds Neurologic Exam: alert, oriented x 3, cooperative Skin Exam: normal color, warm, dry SpO2 Interpretation: normal, borderline oxygenation - Course EKG Interpreted by Me: RATE, A-fib, NORMAL AXIS, NORMAL QRS, Non-specific ST Changes Ordered Tests: Active Orders 24 hr Category Date Time Status EKG-ER Only STAT Care 07/03/24 09:56 Active Oxygen-ED Only Nasal Cannula 5 lpm Care 07/03/24 10:47 Active CHEST 1 VIEW (PORTABLE) Stat Exams 07/03/24 09:56 Completed CHEST WITH CONTRAST [CT] Stat Exams 07/03/24 14:49 Completed BLOOD CULTURE Stat Lab 07/03/24 14:55 Ordered CBC W DIFF Stat Lab 07/03/24 10:12 Completed CMP Stat Lab 07/03/24 10:12 Completed CULTURE,URINE Stat Lab 07/03/24 12:44 Received Lactic Acid Stat Lab 07/03/24 14:55 Completed NT PRO BNPII Stat Lab 07/03/24 10:12 Completed PT INR [PROTIME WITH INR] Stat Lab 07/03/24 10:12 Completed TROPONIN Q4H Lab 07/03/24 10:12 Completed TROPONIN Q4H Lab 07/03/24 14:02 Completed TROPONIN Q4H Lab 07/03/24 18:00 Ordered UA W/RFX UR CULTURE Stat Lab 07/03/24 12:44 Completed VENOUS BLOOD GAS Stat Lab 07/03/24 09:56 Completed Medication Summary Generic Name Dose Route Start Last Admin Trade Name Freq PRN Reason Stop Dose Admin Diltiazem HCl 100 mls @ 5 mls/hr 07/03/24 10:28 07/03/24 15:13 Cardizem Drip 100 Mg/100 Ml D5w IV 08/02/24 10:27 7.5 mg/hr .Q20H PRN 7.5 mls/hr HEART RATE/ A-FIB Titration Protocol 5 MG/HR Azithromycin 500 mg/ Sodium 250 mls @ 250 mls/hr 07/04/24 10:00 Chloride IV 08/03/24 09:59 [id number] YANELI Discontinued Medications Generic Name Dose Route Start Last Admin Trade Name Freq PRN Reason Stop Dose Admin Calcium Chloride Confirm 07/03/24 17:22 Calcium Chloride 100 Mg/Ml 10ml Inj. Administered 07/03/24 17:23 Dose 1,000 mg .ROUTE .STK-MED ONE Diltiazem HCl 10 mg 07/03/24 10:28 07/03/24 10:37 Diltiazem Hcl Iv 5 Mg/Ml Vial IV 07/03/24 10:29 10 mg STAT ONE Administration Ceftriaxone Sodium 2 gm in 100 mls @ 200 mls/hr 07/03/24 14:55 07/03/24 17:00 Rocephin 2 Gm/100 Ml Nacl IV 07/03/24 15:24 Infused STAT ONE Infusion Calcium Chloride 1,000 mg/ 110 mls @ 220 mls/hr 07/03/24 15:11 07/03/24 17:23 Sodium Chloride IV 07/03/24 15:40 220 mls/hr ONCE ONE 220 mls/hr Administration Ceftriaxone Sodium Confirm 07/03/24 16:27 Rocephin 2 Gm/100 Ml Nacl Administered 07/03/24 16:28 Dose 2 gm in 100 mls @ ud IV .STK-MED ONE Sodium Chloride Confirm 07/03/24 17:23 Sodium Chloride 0.9% Administered 07/03/24 17:24 Dose 100 mls @ ud .ROUTE .STK-MED ONE Metoprolol Tartrate 5 mg 07/03/24 12:16 07/03/24 12:20 Metoprolol Tartrate 5 Mg/5 Ml Vial IV 07/03/24 12:17 5 mg STAT ONE Administration Metoprolol Tartrate Confirm 07/03/24 12:18 Metoprolol Tartrate 5 Mg/5 Ml Vial Administered 07/03/24 12:19 Dose 5 mg IV .STK-MED ONE Lab/Rad Data: Laboratory Result Diagrams 07/03/24 10:12 07/03/24 10:12 Laboratory Results 07/03/24 07/03/24 07/03/24 Range/Units 14:55 14:02 12:44 WBC (4.23-9.07) x10^3/uL RBC (4.63-6.08) x10^6/uL Hgb (13.7-17.5) g/dL Hct (40.1-51.0) % MCV (79.0-92.2) fL MCH (25.7-32.2) pg MCHC (32.3-36.5) g/dL RDW (11.6-14.4) % Plt Count (163-337) x10^3/uL MPV (9.4-12.4) fL Gran % (34.0-67.9) % Immature Gran % (Auto) (0.001-0.429) % Nucleat RBC Rel Count (0.00-0.2) % Eos # (Auto) (0.04-0.54) x10^3/uL Immature Gran # (Auto) (0.001-0.031) x10^3u/L Absolute Lymphs (auto) (1.32-3.57) x10^3/uL Absolute Monos (auto) (0.30-0.82) x10^3/uL Absolute Nucleated RBC (0.00-0.012) x10^3u/L Lymphocytes % (21.8-53.1) % Monocytes % (5.3-12.2) % Eosinophils % (0.8-7.0) % Basophils % (0.2-1.2) % Absolute Granulocytes (1.78-5.38) x10^3/uL Basophils # (0.01-0.08) x10^3/uL PT (9.4-12.5) SECONDS INR (0.8-3.0) pO2/FiO2 Ratio % VBG pH (7.32-7.42) VBG pCO2 at Pat Temp (42-55) mm/Hg VBG pO2 at Pat Temp (25-40) mm/Hg VBG HCO3 (22-28) meq/L VBG O2 Sat ([place]) (95-100) VBG Base Excess (-2.0-2.0) VBG Hemoglobin VBG Carboxyhemoglobin (0.0-6.9) % T HGB POC Potassium (3.5-5.1) Sodium (135-145) mmol/L Potassium (3.5-5.1) mmol/L Chloride (98-107) mmol/L Carbon Dioxide (22-30) mmol/L Anion Gap (5-15) MEQ/L BUN (9-20) mg/dL Creatinine (0.66-1.25) mg/dL Estimated GFR ML/MIN Glucose (74-106) mg/dL Lactic Acid 1.1 (0.4-2.0) Calcium (8.4-10.2) mg/dL Total Bilirubin (0.2-1.3) mg/dL AST (17-59) U/L ALT (0-50) U/L Alkaline Phosphatase (38-126) U/L Troponin I < 0.012 (0.000-0.033) ng/mL NT-Pro-B Natriuret Pep (<300) pg/mL Serum Total Protein (6.3-8.2) g/dL Albumin (3.5-5.0) g/dL Urine Color Yellow (Yellow) Urine Appearance Clear (Clear) Urine pH 7.0 (4.6-8.0) Ur Specific [place] 1.020 (1.005-1.030) Urine Protein 30 (Negative) Urine Glucose (UA) Negative (Negative) mg/dL Urine Ketones Trace A (Negative) Urine Blood Negative (Negative) Urine Nitrite Negative (Negative) Urine Bilirubin Negative (Negative) Urine Urobilinogen 0.2 (0.2) mg/dL Ur Leukocyte Esterase Small A (Negative) U Hyaline Cast (Auto) NONE SEEN (0-2) /LPF Urine Microscopic RBC 3-5 (0-5) /HPF Urine Microscopic WBC 11-20 A (0-5) /HPF Ur Epithelial Cells Few (None Seen) /HPF Urine Bacteria Few A (None Seen) /HPF Urine Yeast (Budding) Moderate A (None Seen) /HPF Urine Culture Reflexed ORDERED SEPARATELY (NO) 07/03/24 07/03/24 07/03/24 Range/Units 10:12 10:12 10:12 WBC (4.23-9.07) x10^3/uL RBC (4.63-6.08) x10^6/uL Hgb (13.7-17.5) g/dL Hct (40.1-51.0) % MCV (79.0-92.2) fL MCH (25.7-32.2) pg MCHC (32.3-36.5) g/dL RDW (11.6-14.4) % Plt Count (163-337) x10^3/uL MPV (9.4-12.4) fL Gran % (34.0-67.9) % Immature Gran % (Auto) (0.001-0.429) % Nucleat RBC Rel Count (0.00-0.2) % Eos # (Auto) (0.04-0.54) x10^3/uL Immature Gran # (Auto) (0.001-0.031) x10^3u/L Absolute Lymphs (auto) (1.32-3.57) x10^3/uL Absolute Monos (auto) (0.30-0.82) x10^3/uL Absolute Nucleated RBC (0.00-0.012) x10^3u/L Lymphocytes % (21.8-53.1) % Monocytes % (5.3-12.2) % Eosinophils % (0.8-7.0) % Basophils % (0.2-1.2) % Absolute Granulocytes (1.78-5.38) x10^3/uL Basophils # (0.01-0.08) x10^3/uL PT 30.2 H (9.4-12.5) SECONDS INR 2.98 (0.8-3.0) pO2/FiO2 Ratio % VBG pH (7.32-7.42) VBG pCO2 at Pat Temp (42-55) mm/Hg VBG pO2 at Pat Temp (25-40) mm/Hg VBG HCO3 (22-28) meq/L VBG O2 Sat ([place]) (95-100) VBG Base Excess (-2.0-2.0) VBG Hemoglobin VBG Carboxyhemoglobin (0.0-6.9) % T HGB POC Potassium (3.5-5.1) Sodium 139 (135-145) mmol/L Potassium 3.7 (3.5-5.1) mmol/L Chloride 103 (98-107) mmol/L Carbon Dioxide 27 (22-30) mmol/L Anion Gap 12.1 (5-15) MEQ/L BUN 26 H (9-20) mg/dL Creatinine 0.79 (0.66-1.25) mg/dL Estimated GFR 87.6 ML/MIN Glucose 112 H (74-106) mg/dL Lactic Acid (0.4-2.0) Calcium 7.7 L (8.4-10.2) mg/dL Total Bilirubin 0.70 (0.2-1.3) mg/dL AST 19 (17-59) U/L ALT 21 (0-50) U/L Alkaline Phosphatase 101 (38-126) U/L Troponin I < 0.012 (0.000-0.033) ng/mL NT-Pro-B Natriuret Pep 9850 (<300) pg/mL Serum Total Protein 5.4 L (6.3-8.2) g/dL Albumin 2.5 L (3.5-5.0) g/dL Urine Color (Yellow) Urine Appearance (Clear) Urine pH (4.6-8.0) Ur Specific [place] (1.005-1.030) Urine Protein (Negative) Urine Glucose (UA) (Negative) mg/dL Urine Ketones (Negative) Urine Blood (Negative) Urine Nitrite (Negative) Urine Bilirubin (Negative) Urine Urobilinogen (0.2) mg/dL Ur Leukocyte Esterase (Negative) U Hyaline Cast (Auto) (0-2) /LPF Urine Microscopic RBC (0-5) /HPF Urine Microscopic WBC (0-5) /HPF Ur Epithelial Cells (None Seen) /HPF Urine Bacteria (None Seen) /HPF Urine Yeast (Budding) (None Seen) /HPF Urine Culture Reflexed (NO) 07/03/24 07/03/24 Range/Units 10:12 09:56 WBC 12.6 H (4.23-9.07) x10^3/uL RBC 3.24 L (4.63-6.08) x10^6/uL Hgb 9.6 L (13.7-17.5) g/dL Hct 30.3 L (40.1-51.0) % MCV 93.5 H (79.0-92.2) fL MCH 29.6 (25.7-32.2) pg MCHC 31.7 L (32.3-36.5) g/dL RDW 16.6 H (11.6-14.4) % Plt Count 161 L (163-337) x10^3/uL MPV 10.4 (9.4-12.4) fL Gran % 80.3 H (34.0-67.9) % Immature Gran % (Auto) 0.6 H (0.001-0.429) % Nucleat RBC Rel Count 0.0 (0.00-0.2) % Eos # (Auto) 0.03 L (0.04-0.54) x10^3/uL Immature Gran # (Auto) 0.07 H (0.001-0.031) x10^3u/L Absolute Lymphs (auto) 1.48 (1.32-3.57) x10^3/uL Absolute Monos (auto) 0.88 H (0.30-0.82) x10^3/uL Absolute Nucleated RBC 0.00 (0.00-0.012) x10^3u/L Lymphocytes % 11.8 L (21.8-53.1) % Monocytes % 7.0 (5.3-12.2) % Eosinophils % 0.2 L (0.8-7.0) % Basophils % 0.1 L (0.2-1.2) % Absolute Granulocytes 10.10 H (1.78-5.38) x10^3/uL Basophils # 0.01 (0.01-0.08) x10^3/uL PT (9.4-12.5) SECONDS INR (0.8-3.0) pO2/FiO2 Ratio 21.0 % VBG pH 7.40 (7.32-7.42) VBG pCO2 at Pat Temp 47 (42-55) mm/Hg VBG pO2 at Pat Temp 29 (25-40) mm/Hg VBG HCO3 29.1 H* (22-28) meq/L VBG O2 Sat ([place]) 50.8 L (95-100) VBG Base Excess 3.7 H (-2.0-2.0) VBG Hemoglobin 9.9 VBG Carboxyhemoglobin 4.7 (0.0-6.9) % T HGB POC Potassium 3.9 (3.5-5.1) Sodium (135-145) mmol/L Potassium (3.5-5.1) mmol/L Chloride (98-107) mmol/L Carbon Dioxide (22-30) mmol/L Anion Gap (5-15) MEQ/L BUN (9-20) mg/dL Creatinine (0.66-1.25) mg/dL Estimated GFR ML/MIN Glucose (74-106) mg/dL Lactic Acid (0.4-2.0) Calcium (8.4-10.2) mg/dL Total Bilirubin (0.2-1.3) mg/dL AST (17-59) U/L ALT (0-50) U/L Alkaline Phosphatase (38-126) U/L Troponin I (0.000-0.033) ng/mL NT-Pro-B Natriuret Pep (<300) pg/mL Serum Total Protein (6.3-8.2) g/dL Albumin (3.5-5.0) g/dL Urine Color (Yellow) Urine Appearance (Clear) Urine pH (4.6-8.0) Ur Specific [place] (1.005-1.030) Urine Protein (Negative) Urine Glucose (UA) (Negative) mg/dL Urine Ketones (Negative) Urine Blood (Negative) Urine Nitrite (Negative) Urine Bilirubin (Negative) Urine Urobilinogen (0.2) mg/dL Ur Leukocyte Esterase (Negative) U Hyaline Cast (Auto) (0-2) /LPF Urine Microscopic RBC (0-5) /HPF Urine Microscopic WBC (0-5) /HPF Ur Epithelial Cells (None Seen) /HPF Urine Bacteria (None Seen) /HPF Urine Yeast (Budding) (None Seen) /HPF Urine Culture Reflexed (NO) - Progress Progress: improved Air Movement: fair Progress Note: Patient was tachycardic when he got here. His pressure started to drop a little bit as well 2. We went ahead and gave him a bolus of normal saline and started him on a Cardizem drip after he had gotten a Cardizem bolus of 20 mg. The drip was started at 5 and then went up to 7-1/2. We got a little bit of slowing of his heart but it was not very consistent. He was still running around 125 as his baseline. I do not believe that he is fluid overloaded at this time I think that his findings on physical exam and x-ray are from interstitial lung disease. We were able to look back at some of the x-rays. On the differential is pulmonary embolism, Coronary vascular event, A-fib with RVR, congestive heart failure, COPD exacerbation. I did a Cardizem drip after a bolus and then he was not responding very well. I went ahead and added 5 mg of Lopressor. He did get a little bit hypotensive earlier however he was able to maintain pressures around 100/70 sometimes little higher throughout. His heart rate dropped to right around 100. He was feeling better. He was maintaining good O2 saturations when he was at rest whenever he began to eat his O2 sats dropped some.His lab work came back. He was therapeutic on his Coumadin.He was mildly anemic his hemoglobin was 9.6. His chemistry panel looked very good. He did not have a elevated troponin. His initial EKG showedA-fib with RVR.He was observed treated and stabilized.He is still on a Cardizem drip I believe its at 7.5 mg an hour. I am going to call the hospitalist about placement. His BNP was almost 10,000. That quite a bit higher than it usually is usually runs around 3000 area. I went ahead and gave him a liter of fluids just because he was so hypotensive.On his chest x-ray it looks like there were more chronic findings than acute. He does have apparently some sort of interstitial lung disease.I believe that that could be the findings that look like CHF on the x- ray as well as the crackles that we hear in his lungs.I do think that the BNP should be monitored seriallyI spoke with the hospitalist about admission. She wanted to get a CT of the chest. I want a go ahead and get a CTA just to rule out any kind of pulmonary embolism as well.The patient's been stable his heart rates been right around 100 and blood pressure is maintaining around 100/70. He is on a Cardizem drip currently. The CTA was read looks like he has a pneumonia. I am going to admit him to the hospitalist service.He was started on Zithromax and Rocephin down here. Blood cultures were drawn. 07/03/24 12:17 07/03/24 14:22 07/03/24 14:23 07/03/24 14:25 07/03/24 17:03 07/03/24 17:26 07/03/24 17:27 Blood Culture(s) Obtained: Yes Antibiotics given: Yes - Departure Departure Disposition: In-patient Admission Clinical Impression: Atrial fibrillation with RVR, Pneumonia, Pleural effusion, Dyspnea Condition: Good Critical Care Time: No Referrals: KAYLEIGH QUINTERO [Primary Care Provider, [facility]] - Follow up/PCP as directed
--- NOTE | 2024-07-03 10:16 | XRAY ---
Indication: Dyspnea. Comparison: June 23, 2024 Portable chest demonstrates new left mid to lower lung airspace disease with small effusion. Remaining chest unchanged again with chronic findings including pulmonary emphysema, diffuse pulmonary fibrosis/scarring, right pleural thickening with right lung volume loss, and chunky right paratracheal calcified node. Heart not enlarged. Bony thorax intact again with osteopenia and degenerative changes.
[2024-07-03 10:17] LABS: BASOPHIL % 0.1 % (0.2-1.2); Basophil (Absolute #) 0.01 x10^3/uL (0.01-0.08); Eosinophil % 0.2 % (0.8-7.0); Eosinophil (Absolute #) 0.03 x10^3/uL (0.04-0.54); Hematocrit 30.3 % (40.1-51.0); Hemoglobin 9.6 g/dL (13.7-17.5); IMMATURE GRAN # 0.07 x10^3u/L (0.001-0.031); IMMATURE GRAN % 0.6 % (0.001-0.429); Lymphocyte (Absolute #) 1.48 x10^3/uL (1.32-3.57); Lymphocytes % 11.8 % (21.8-53.1); Mean Cell Volume 93.5 fL (79.0-92.2); Mean Corpuscular Hemoglobin 29.6 pg (25.7-32.2); Mean Corpuscular Hgb Concent. 31.7 g/dL (32.3-36.5); Mean Platelet Volume 10.4 fL (9.4-12.4); Monocyte (Absolute #) 0.88 x10^3/uL (0.30-0.82); Neutrophil % 80.3 % (34.0-67.9); Platelet Count 161 x10^3/uL (163-337); Red Blood Count 3.24 x10^6/uL (4.63-6.08); Red Cell Distribution Width 16.6 % (11.6-14.4); White Blood Count 12.6 x10^3/uL (4.23-9.07)
[2024-07-03 10:33] LABS: INR 2.98 (0.8-3.0); PROTIME 30.2 SECONDS (9.4-12.5)
[2024-07-03 10:33] LABS: VBG BASE EXCESS 3.7 (-2.0-2.0); VBG CARBOXYHEMOGLOBIN 4.7 % T HGB (0.0-6.9); VBG HCO3- 29.1 meq/L (22-28); VBG HEMOGLOBIN 9.9; VBG O2 SATURATION 50.8 (95-100); VBG POTASSIUM 3.9 (3.5-5.1); VBG pH 7.4 (7.32-7.42)
[2024-07-03] MEDS: CARDIZEM DRIP 100 MG/100 ML D5W 100 ML IV PRN (10:36)
[2024-07-03] MEDS: Cardizem IV 50 MG/10 ML IV ONE (10:37)
[2024-07-03 10:42] LABS: ALBUMIN 2.5 g/dL (3.5-5.0); ANION GAP 12.1 MEQ/L (5-15); BILIRUBIN,TOTAL 0.7 mg/dL (0.2-1.3); Calcium 7.7 mg/dL (8.4-10.2); Creatinine 1 0.79 mg/dL (0.66-1.25); EST GLOMERULAR FILTRATION RATE 87.6 ML/MIN; Potassium 3.7 mmol/L (3.5-5.1); Total Protein 5.4 g/dL (6.3-8.2)
[2024-07-03] MEDS ORDERED: LOPRESSOR INJECTION IV ONE (12:18)
[2024-07-03] MEDS: LOPRESSOR INJECTION IV ONE (12:20)
[2024-07-03 13:13] LABS: Appearance Clear (Clear); Bilirubin Negative (Negative); Blood Negative (Negative); Glucose, Urine Negative (Negative); Hyaline Casts NONE SEEN /LPF (0-2); Ketones Trace (Negative); Leukocyte Esterase Small (Negative); Nitrite Negative (Negative); Protein,Urine Dip 30 (Negative); Urobilinogen 0.2 mg/dL (0.2)
[2024-07-03 13:26] LABS: Bacteria Few /HPF (None Seen); Epithelial Cells Few /HPF (None Seen)
[2024-07-03 13:27] LABS: Budding Yeast Moderate /HPF (None Seen)
[2024-07-03] MEDS ORDERED: ROCEPHIN 2 GM/100 ML NACL 2 GM/100 ML IVPB IV ONE (16:27)
[2024-07-03] MEDS: ROCEPHIN 2 GM/100 ML NACL 2 GM/100 ML IVPB IV ONE (16:28)
--- NOTE | 2024-07-03 17:16 | XRAY ---
Indication: Dyspnea. Multiple contiguous axial images obtained through the chest using 80 cc Isovue 370 contrast in PE protocol. Comparison: May 11, 2023 Good opacification pulmonary arteries to include lobar and segmental branches. No pulmonary embolus. Heart not enlarged again with scattered coronary calcifications. Aorta again mildly arteriosclerotic without aneurysm/dissection. New subcarinal lymphadenopathy up to 3.1 x 7.1 cm. Stable chunky distal paratracheal and tiny mediastinal/right hilar calcified nodes. Lungs again demonstrates marked diffuse centrilobular pulmonary emphysema. Again extensive scattered bilateral pulmonary fibrosis/scarring and tiny right midlung calcified granuloma. New bilateral lower lobe and lesser degree left upper lobe patchy consolidating/nonconsolidating airspace disease with small bilateral effusions. Bony thorax intact again with osteopenia, mild/moderate multilevel degenerative spondylosis, remote T12 compression fracture, and partially visualized lower cervical fusion hardware. Limited upper abdomen including adrenal glands are unremarkable. Impression: 1. Negative pulmonary embolus. 2. New left upper and bilateral lower lobe consolidating/nonconsolidating airspace disease with small bilateral effusions. 3. New subcarinal lymphadenopathy possibly reactive. Primary or metastatic malignancy not completely excluded in right clinical setting. 4. Again chronic findings including pulmonary emphysema, pulmonary fibrosis/scarring, arteriosclerotic disease, chronic bony findings, and old granulomatous disease.
[2024-07-03] MEDS ORDERED: CALCIUM CHLORIDE 10% 1000 MG ONE (17:22)
[2024-07-03] MEDS: CALCIUM CHLORIDE 10% 1000 MG 1,000 MG in Sodium Chloride 0.9% 100 ML IV ONE (17:23)
[2024-07-03] MEDS ORDERED: Sodium Chloride 0.9% 100 ML ONE (17:23)
[2024-07-03] MEDS ORDERED: ZITHROMAX IV IV ONE (17:46)
[2024-07-03] MEDS ORDERED: Sodium Chloride 0.9% 250 ML 250 ML IV ONE (17:46)
[2024-07-03] MEDS: ZITHROMAX IV*** 500 MG in Sodium Chloride 0.9% 250 ML 250 ML IV SCH (17:48)
[2024-07-03] MEDS: Xopenex 1.25 MG/0.5 ML UD NEBULE IH PRN (19:57)
[2024-07-03] MEDS ORDERED: TYLENOL 325 MG PO PRN (20:44)
--- NOTE | 2024-07-03 20:58 | PCM.HP ---
History of Present Illness - Chief Complaint Chief Complaint: Shortness of breath, cough Date: 07/03/24 History of Present Illness: 84-year-old man with a history of COPD on 4 liters home oxygen, DM2, A-fib, and BPH, who presents with cough and dyspnea. Patient was admitted last week with COPD exacerbation, pneumonia, and A-fib with RVR. he was discharged 9 days ago on a 5-day course of steroids and a 10-day course of cefuroxime. He states that he was doing much better, feeling well, compliant with all of his medications. However, yesterday, he had the onset of recurrent dyspnea, unable to walk to the bathroom because of worsening exertional dyspnea. As well, he had recurrence of thick, productive cough. He noted that his home oxygen saturation monitor dropped to 88%, even when he tried to clean the filter on his home oxygen system and change out his tubing. He had symptomatic relief with his albuterol nebulizer, but only temporarily. He denies any fevers, chest pain, nausea, myalgias, or sick contacts. In the ED, he was noted to be hypoxic, requiring 8 liters of oxygen, as well as an A-fib with RVR. This did not respond to the initial doses of metoprolol and diltiazem, and he was eventually placed on a diltiazem continuous drip. Currently, his rate is controlled on diltiazem at 7.5, and he is on 5 liters of oxygen. He states that he feels much better currently. - Review of Systems All Other Systems: Reviewed and Negative (Except as per HPI. ) Medications & Allergies Home Medications: Home Medication List Albuterol 2.5 mg/3 ml Neb [Proventil 2.5 mg/3 ml Neb] 1 neb IH Q4H PRN 02/20/24 [History Confirmed 07/03/24] Warfarin Sodium 1 mg [Coumadin] 1 mg PO DAILY 05/17/24 [History Confirmed 07/03/24] Warfarin Sodium 1 mg [Coumadin] 1.5 mg PO DAILY 06/20/24 [History Confirmed 07/03/24] Finasteride 5 mg [Proscar 5 MG] 5 mg PO DAILY 07/03/24 [History Confirmed 07/03/24] Fluticasone/Umeclidin/Vilanter [Trelegy Ellipta 100-62.5-25] 1 puff PO DAILY 07/03/24 [History Confirmed 07/03/24] Metformin HCl 500 mg [Glucophage 500 MG] 500 mg PO BID 07/03/24 [History Confirmed 07/03/24] Metoprolol Tartrate 50 mg [Lopressor 50 MG] 75 mg PO BID 07/03/24 [History Confirmed 07/03/24] Omeprazole 20 mg PO DAILY 07/03/24 [History Confirmed 07/03/24] PANTOPRAZOLE 40 mg Tablet [Protonix 40MG Tablet] 40 mg PO BID 07/03/24 [History Confirmed 07/03/24] Tamsulosin HCl [Flomax] 0.4 mg PO HS 07/03/24 [History Confirmed 07/03/24] Allergies/Adverse Reactions: Allergies Allergy/AdvReac Type Severity Reaction Status Date / Time hydromorphone [From Dilaudid] Allergy Unknown Verified 07/03/24 10:05 - Past Medical History Past Medical History: Yes Neurological History: No Pertinent History ENT History: No Pertinent History Cardiac History: Arrhythmia, Deep Vein Thrombosis, Hypertension Respiratory History: COPD (on 4-5 liters home oxygen ) Endocrine Medical History: No Pertinent History Musculoskelatal History: Arthritis, Fractures GI Medical History: No Pertinent History History: Other Pyscho-Social History: No Pertinent History Male Reproductive Disorders: Prostate Problems Comment: C-spine fracture - Past Surgical History Past Surgical History: Yes Neuro Surgical History: No Pertinent History Cardiac History: No Pertinent History Respiratory Surgery: No Pertinent History GI Surgical History: No Pertinent History Genitourinary Surgical Hx: No Pertinent History Musculskeletal Surgical Hx: Orthopedic Surgery Male Surgical History: No Pertinent History Other Surgical History: neck surg Significant Family History: no pertinent family hx - Social History Smoking Status: Former smoker (quit 6 years ago) How long have you smoked: 69 Exposure to second hand smoke: Yes Alcohol: None Drug Use: none - Social Determinants of Health Will the patient participate in the screening: Yes Do you worry about a steady place to live?: No Do you have any problems with any of the following?: No known problems In the past 12 months,have you had to go without utilities?: No Have you or anyone in your house had to go without enough: No Transportation Issues: No Has anyone in your support network made you feel unsafe?: No Does the patient want assistance with any of the above?: No - Physical Exam Vital Signs: Vital Signs - 24 hr Temp Pulse Resp BP Pulse Ox 07/03/24 20:21 89 26 H 07/03/24 19:59 89 26 H 95 07/03/24 19:35 91 H 28 H 105/70 07/03/24 19:30 95 H 29 H 105/70 96 07/03/24 19:15 106 H 25 H 97/65 96 07/03/24 19:04 102 H 26 H 80/57 07/03/24 19:00 96 H 33 H 80/57 95 07/03/24 18:52 98 H 32 H 92/66 95 07/03/24 18:51 99 H 35 H 95 07/03/24 18:50 96 H 29 H 07/03/24 18:00 91 H 24 104/77 97 07/03/24 17:50 84 26 H 103/67 97 07/03/24 17:40 103 H 27 H 95/68 97 07/03/24 17:30 102 H 23 112/65 96 07/03/24 17:29 114 H 23 112/72 07/03/24 17:20 106 H 26 H 112/72 95 07/03/24 17:10 110 H 26 H 111/68 07/03/24 17:00 105 H 21 99/79 07/03/24 16:50 122 H 28 H 105/62 07/03/24 16:40 102 H 33 H 99/63 94 L 07/03/24 16:30 108 H 25 H 95/67 97 07/03/24 15:50 106/66 07/03/24 15:40 108 H 27 H 106/73 97 07/03/24 15:30 108 H 26 H 111/64 96 07/03/24 15:20 110 H 29 H 101/64 94 L 07/03/24 15:13 107 H 20 87/65 07/03/24 15:10 111 H 30 H 87/65 97 07/03/24 15:00 107 H 26 H 91/63 98 07/03/24 14:50 93 H 18 94/68 98 07/03/24 14:40 121 H 26 H 104/70 97 07/03/24 14:30 101 H 21 94/69 98 07/03/24 14:20 100 H 23 98/74 07/03/24 14:10 122 H 28 H 91/74 98 07/03/24 14:00 117 H 28 H 111/75 07/03/24 13:50 123 H 28 H 110/74 97 07/03/24 13:46 128 H 28 H 112/85 07/03/24 13:40 110 H 29 H 112/85 84 L 07/03/24 13:30 110 H 22 112/83 07/03/24 13:20 108 H 28 H 101/71 96 07/03/24 13:10 100 H 22 103/68 95 07/03/24 13:05 111 H 26 H 109/70 96 07/03/24 13:00 104 H 23 120/70 97 07/03/24 12:55 101 H 27 H 105/63 97 07/03/24 12:50 101 H 22 119/66 97 07/03/24 12:45 110 H 28 H 92/76 96 07/03/24 12:40 98 H 21 101/72 94 L 07/03/24 12:35 108 H 31 H 105/70 94 L 07/03/24 12:30 97 H 30 H 102/72 96 07/03/24 12:25 118 H 27 H 102/71 95 07/03/24 12:20 109 H 26 H 106/67 96 07/03/24 12:15 108 H 23 97/68 97 07/03/24 12:10 125 H 23 106/71 97 07/03/24 12:05 117 H 28 H 105/77 96 07/03/24 12:02 121 H 24 106/65 07/03/24 12:00 125 H 24 106/65 96 07/03/24 11:55 131 H 30 H 94/76 96 07/03/24 11:50 141 H 32 H 90/69 95 07/03/24 11:45 150 H 18 103/65 96 07/03/24 11:40 146 H 26 H 110/67 96 07/03/24 11:35 150 H 24 78/54 98 07/03/24 11:30 149 H 18 113/75 95 07/03/24 11:25 145 H 14 101/67 94 L 07/03/24 11:21 144 H 19 95/65 95 07/03/24 11:15 149 H 25 H 94/70 95 07/03/24 11:10 155 H 27 H 90/69 94 L 07/03/24 11:00 152 H 23 90/75 93 L 07/03/24 10:50 154 H 24 78/58 93 L 07/03/24 10:36 157 H 32 H 97/72 07/03/24 10:32 136 H 30 H 97/72 89 L 07/03/24 10:30 146 H 25 H 87/71 93 L 07/03/24 10:00 139 H 28 H 107/82 93 L 07/03/24 09:54 96.9 F 137 H 28 H 115/83 97 Physical Exam GENERAL: Sitting up in bed in no acute distress. HEENT: Normocephalic, atraumatic. Moist mucous membranes. EYES: Normal inspection, anicteric sclera, extraocular movements intact. NECK: Supple, full range of motion CV: Irregularly irregular rhythm, with rate in the 80s, no murmurs, no gallops. No JVD or edema. PULM: mild tachypnea, but generally clear to auscultation bilaterally, with no increased work of breathing. On 5 liters oxygen by nasal cannula. ABD: Nondistended, nontender. MSK: No joint effusions, full range of motion. SKIN: No rashes, normal color. NEURO: Face symmetric, no focal motor or sensory deficits. PSYCH: Alert, oriented x3 Results - Labs Lab/Micro Results: Lab Results-Last 24 Hours 07/03/24 07/03/24 07/03/24 Range/Units 09:56 10:12 10:12 WBC 12.6 H (4.23-9.07) x10^3/uL RBC 3.24 L (4.63-6.08) x10^6/uL Hgb 9.6 L (13.7-17.5) g/dL Hct 30.3 L (40.1-51.0) % MCV 93.5 H (79.0-92.2) fL MCH 29.6 (25.7-32.2) pg MCHC 31.7 L (32.3-36.5) g/dL RDW 16.6 H (11.6-14.4) % Plt Count 161 L (163-337) x10^3/uL MPV 10.4 (9.4-12.4) fL Gran % 80.3 H (34.0-67.9) % Immature Gran % (Auto) 0.6 H (0.001-0.429) % Nucleat RBC Rel Count 0.0 (0.00-0.2) % Eos # (Auto) 0.03 L (0.04-0.54) x10^3/uL Immature Gran # (Auto) 0.07 H (0.001-0.031) x10^3u/L Absolute Lymphs (auto) 1.48 (1.32-3.57) x10^3/uL Absolute Monos (auto) 0.88 H (0.30-0.82) x10^3/uL Absolute Nucleated RBC 0.00 (0.00-0.012) x10^3u/L Lymphocytes % 11.8 L (21.8-53.1) % Monocytes % 7.0 (5.3-12.2) % Eosinophils % 0.2 L (0.8-7.0) % Basophils % 0.1 L (0.2-1.2) % Absolute Granulocytes 10.10 H (1.78-5.38) x10^3/uL Basophils # 0.01 (0.01-0.08) x10^3/uL PT (9.4-12.5) SECONDS INR (0.8-3.0) pO2/FiO2 Ratio 21.0 % VBG pH 7.40 (7.32-7.42) VBG pCO2 at Pat Temp 47 (42-55) mm/Hg VBG pO2 at Pat Temp 29 (25-40) mm/Hg VBG HCO3 29.1 H* (22-28) meq/L VBG O2 Sat ([place]) 50.8 L (95-100) VBG Base Excess 3.7 H (-2.0-2.0) VBG Hemoglobin 9.9 VBG Carboxyhemoglobin 4.7 (0.0-6.9) % T HGB POC Potassium 3.9 (3.5-5.1) Sodium 139 (135-145) mmol/L Potassium 3.7 (3.5-5.1) mmol/L Chloride 103 (98-107) mmol/L Carbon Dioxide 27 (22-30) mmol/L Anion Gap 12.1 (5-15) MEQ/L BUN 26 H (9-20) mg/dL Creatinine 0.79 (0.66-1.25) mg/dL Estimated GFR 87.6 ML/MIN Glucose 112 H (74-106) mg/dL Lactic Acid (0.4-2.0) Calcium 7.7 L (8.4-10.2) mg/dL Total Bilirubin 0.70 (0.2-1.3) mg/dL AST 19 (17-59) U/L ALT 21 (0-50) U/L Alkaline Phosphatase 101 (38-126) U/L Troponin I (0.000-0.033) ng/mL NT-Pro-B Natriuret Pep 9850 (<300) pg/mL Serum Total Protein 5.4 L (6.3-8.2) g/dL Albumin 2.5 L (3.5-5.0) g/dL Urine Color (Yellow) Urine Appearance (Clear) Urine pH (4.6-8.0) Ur Specific [place] (1.005-1.030) Urine Protein (Negative) Urine Glucose (UA) (Negative) mg/dL Urine Ketones (Negative) Urine Blood (Negative) Urine Nitrite (Negative) Urine Bilirubin (Negative) Urine Urobilinogen (0.2) mg/dL Ur Leukocyte Esterase (Negative) U Hyaline Cast (Auto) (0-2) /LPF Urine Microscopic RBC (0-5) /HPF Urine Microscopic WBC (0-5) /HPF Ur Epithelial Cells (None Seen) /HPF Urine Bacteria (None Seen) /HPF Urine Yeast (Budding) (None Seen) /HPF Urine Culture Reflexed (NO) 07/03/24 07/03/24 07/03/24 Range/Units 10:12 10:12 12:44 WBC (4.23-9.07) x10^3/uL RBC (4.63-6.08) x10^6/uL Hgb (13.7-17.5) g/dL Hct (40.1-51.0) % MCV (79.0-92.2) fL MCH (25.7-32.2) pg MCHC (32.3-36.5) g/dL RDW (11.6-14.4) % Plt Count (163-337) x10^3/uL MPV (9.4-12.4) fL Gran % (34.0-67.9) % Immature Gran % (Auto) (0.001-0.429) % Nucleat RBC Rel Count (0.00-0.2) % Eos # (Auto) (0.04-0.54) x10^3/uL Immature Gran # (Auto) (0.001-0.031) x10^3u/L Absolute Lymphs (auto) (1.32-3.57) x10^3/uL Absolute Monos (auto) (0.30-0.82) x10^3/uL Absolute Nucleated RBC (0.00-0.012) x10^3u/L Lymphocytes % (21.8-53.1) % Monocytes % (5.3-12.2) % Eosinophils % (0.8-7.0) % Basophils % (0.2-1.2) % Absolute Granulocytes (1.78-5.38) x10^3/uL Basophils # (0.01-0.08) x10^3/uL PT 30.2 H (9.4-12.5) SECONDS INR 2.98 (0.8-3.0) pO2/FiO2 Ratio % VBG pH (7.32-7.42) VBG pCO2 at Pat Temp (42-55) mm/Hg VBG pO2 at Pat Temp (25-40) mm/Hg VBG HCO3 (22-28) meq/L VBG O2 Sat ([place]) (95-100) VBG Base Excess (-2.0-2.0) VBG Hemoglobin VBG Carboxyhemoglobin (0.0-6.9) % T HGB POC Potassium (3.5-5.1) Sodium (135-145) mmol/L Potassium (3.5-5.1) mmol/L Chloride (98-107) mmol/L Carbon Dioxide (22-30) mmol/L Anion Gap (5-15) MEQ/L BUN (9-20) mg/dL Creatinine (0.66-1.25) mg/dL Estimated GFR ML/MIN Glucose (74-106) mg/dL Lactic Acid (0.4-2.0) Calcium (8.4-10.2) mg/dL Total Bilirubin (0.2-1.3) mg/dL AST (17-59) U/L ALT (0-50) U/L Alkaline Phosphatase (38-126) U/L Troponin I < 0.012 (0.000-0.033) ng/mL NT-Pro-B Natriuret Pep (<300) pg/mL Serum Total Protein (6.3-8.2) g/dL Albumin (3.5-5.0) g/dL Urine Color Yellow (Yellow) Urine Appearance Clear (Clear) Urine pH 7.0 (4.6-8.0) Ur Specific [place] 1.020 (1.005-1.030) Urine Protein 30 (Negative) Urine Glucose (UA) Negative (Negative) mg/dL Urine Ketones Trace A (Negative) Urine Blood Negative (Negative) Urine Nitrite Negative (Negative) Urine Bilirubin Negative (Negative) Urine Urobilinogen 0.2 (0.2) mg/dL Ur Leukocyte Esterase Small A (Negative) U Hyaline Cast (Auto) NONE SEEN (0-2) /LPF Urine Microscopic RBC 3-5 (0-5) /HPF Urine Microscopic WBC 11-20 A (0-5) /HPF Ur Epithelial Cells Few (None Seen) /HPF Urine Bacteria Few A (None Seen) /HPF Urine Yeast (Budding) Moderate A (None Seen) /HPF Urine Culture Reflexed ORDERED SEPARATELY (NO) 07/03/24 07/03/24 07/03/24 Range/Units 14:02 14:55 17:55 WBC (4.23-9.07) x10^3/uL RBC (4.63-6.08) x10^6/uL Hgb (13.7-17.5) g/dL Hct (40.1-51.0) % MCV (79.0-92.2) fL MCH (25.7-32.2) pg MCHC (32.3-36.5) g/dL RDW (11.6-14.4) % Plt Count (163-337) x10^3/uL MPV (9.4-12.4) fL Gran % (34.0-67.9) % Immature Gran % (Auto) (0.001-0.429) % Nucleat RBC Rel Count (0.00-0.2) % Eos # (Auto) (0.04-0.54) x10^3/uL Immature Gran # (Auto) (0.001-0.031) x10^3u/L Absolute Lymphs (auto) (1.32-3.57) x10^3/uL Absolute Monos (auto) (0.30-0.82) x10^3/uL Absolute Nucleated RBC (0.00-0.012) x10^3u/L Lymphocytes % (21.8-53.1) % Monocytes % (5.3-12.2) % Eosinophils % (0.8-7.0) % Basophils % (0.2-1.2) % Absolute Granulocytes (1.78-5.38) x10^3/uL Basophils # (0.01-0.08) x10^3/uL PT (9.4-12.5) SECONDS INR (0.8-3.0) pO2/FiO2 Ratio % VBG pH (7.32-7.42) VBG pCO2 at Pat Temp (42-55) mm/Hg VBG pO2 at Pat Temp (25-40) mm/Hg VBG HCO3 (22-28) meq/L VBG O2 Sat ([place]) (95-100) VBG Base Excess (-2.0-2.0) VBG Hemoglobin VBG Carboxyhemoglobin (0.0-6.9) % T HGB POC Potassium (3.5-5.1) Sodium (135-145) mmol/L Potassium (3.5-5.1) mmol/L Chloride (98-107) mmol/L Carbon Dioxide (22-30) mmol/L Anion Gap (5-15) MEQ/L BUN (9-20) mg/dL Creatinine (0.66-1.25) mg/dL Estimated GFR ML/MIN Glucose (74-106) mg/dL Lactic Acid 1.1 (0.4-2.0) Calcium (8.4-10.2) mg/dL Total Bilirubin (0.2-1.3) mg/dL AST (17-59) U/L ALT (0-50) U/L Alkaline Phosphatase (38-126) U/L Troponin I < 0.012 < 0.012 (0.000-0.033) ng/mL NT-Pro-B Natriuret Pep (<300) pg/mL Serum Total Protein (6.3-8.2) g/dL Albumin (3.5-5.0) g/dL Urine Color (Yellow) Urine Appearance (Clear) Urine pH (4.6-8.0) Ur Specific [place] (1.005-1.030) Urine Protein (Negative) Urine Glucose (UA) (Negative) mg/dL Urine Ketones (Negative) Urine Blood (Negative) Urine Nitrite (Negative) Urine Bilirubin (Negative) Urine Urobilinogen (0.2) mg/dL Ur Leukocyte Esterase (Negative) U Hyaline Cast (Auto) (0-2) /LPF Urine Microscopic RBC (0-5) /HPF Urine Microscopic WBC (0-5) /HPF Ur Epithelial Cells (None Seen) /HPF Urine Bacteria (None Seen) /HPF Urine Yeast (Budding) (None Seen) /HPF Urine Culture Reflexed (NO) Microbiology 07/03/24 20:45 Blood Culture Gram Stain - Final Blood Not Reportable 07/03/24 20:45 Blood Culture Gram Stain - Final Blood Not Reportable - Radiology Impressions Radiology Exams & Impressions: Radiology Procedures Category Date Time Status CHEST 1 VIEW (PORTABLE) Stat Exams 07/03/24 09:56 Completed CHEST WITH CONTRAST [CT] Stat Exams 07/03/24 14:[address] chest - diffuse interstitial scarring with severe emphysematous changes and blebs. However, there is new infiltrate with honeycombing at both bases, comp ared to prior CT. (Images personally reviewed.) - Other Procedures and Tests Respiratory Therapy 07/03/24 18:20 Oxygen Oxymask LPM 4 lpm 07/03/24 19:52 Respiratory Therapy Assessment DAILY Assessment/Plan (1) Atrial fibrillation with RVR Current Visit: Yes Status: Acute Code(s): I48.91 - UNSPECIFIED ATRIAL FIBRILLATION (2) Pneumonia Current Visit: Yes Status: Acute Assessment & Plan: 84-year-old man with history of COPD, DM2, A-fib, and BPH, here with recurrent pneumonia, accompanied by [id number] hypoxic respiratory failure with COPD exacerbation, and A-fib with RVR. ## Pneumonia - with new bibasilar infiltrates on CT chest. Of note, patient developed this new pneumonia despite being on cefuroxime at home. The patient seemed to have some initial improvement with his symptoms during his last hospitalization. Of note, he received 4 days of IV antibiotics during that admission. He was discharged home on cefuroxime, but also on a new b.i.d. dosing of PPI. PPIs can affect the oral absorption of cefuroxime, which might explain the patient's susceptibility to new pneumonia. - Start IV Rocephin and p.o. azithromycin, plan for 5-day course for pneumonia ## [id number] hypoxic respiratory failure, COPD exacerbation - secondary to pneumonia as above. Patient appears to be improving markedly from his appearance in the ED, currently down to 5 liters oxygen, close to his home baseline requirements. As well, after getting nebulizer treatment on arrival to the floor, he currently has no wheezing or work of breathing. - Give Solu-Medrol 80 mg IV x1 now - Start prednisone 40 mg p.o. daily, plan for a total of five-day course - P.r.n. Xopenex q.4 hours (due to A-fib with RVR) - Wean oxygen to maintain SPO2 between 91 and 94% ## Atrial fibrillation with rapid ventricular response - worsening heart rate control is likely secondary to his acute lung infection as above. He just had his metoprolol dose increased to 75 mg b.i.d. last week to help control his rate better. Currently he is requiring diltiazem drip to control his heart rate, but currently he is at goal. - Resume home metoprolol 75 mg b.i.d. - Once on oral rate control agents, attempt to wean off of IV diltiazem Continue home warfarin 1 mg daily except for 1.5 mg on Sundays - Follow PT/INR daily ## type 2 diabetes - hemoglobin A1c only 5.1, and only requiring metformin at home. - Hold home metformin - Start low-dose sliding scale insulin - Diabetic diet ## BPH - Continue home tamsulosin and finasteride ## GERD - Continue home Protonix b.i.d. Code status: Full Prophylaxis: warfarin Diet: Diabetic Dispo: Place in observation Entirety of encounter took place via live audio/video telemedicine device, with remote physician and patient in hospital, with the assistance of the bedside nurse. Dank Faith MD Telemedicine Hospitalist [facility] 07/03/2024 9:07 PM Code(s): J18.9 - PNEUMONIA, UNSPECIFIED ORGANISM (3) COPD exacerbation Current Visit: No Status: Acute Code(s): J44.1 - CHRONIC OBSTRUCTIVE PULMONARY DISEASE W (ACUTE) EXACERBATION Telemedicine Encounter - Telemedicine Encounter Telemedicine Encounter: "The entirety of this encounter was performed via Telemedicine" This visit was performed using real-time audio and video connection between my location and thepatients locationwith the assistance of a surrogateat the patients location. Written or verbal consent was obtained from the patient/guardian to perform this visit [facility]. Any patient questions regarding the telemedicine interaction were answered.
[2024-07-03] MEDS ORDERED: solu-MEDROL ONE (21:52)
[2024-07-03] MEDS ORDERED: Sterile H2O 10 ml IJ ONE (21:54)
[2024-07-03] MEDS: Protonix 40MG Tablet PO SCH (21:59)
[2024-07-03] MEDS: Flomax 0.4 MG PO SCH (21:59)
[2024-07-03] MEDS: Lopressor 50 MG PO SCH (21:59)
[2024-07-03] MEDS: solu-MEDROL 80 MG, Sterile H2O 10 ml 2 ML IV ONE (22:03)
[2024-07-04 05:05] LABS: Absolute Neutrophil Ct (ANC) 6.05 x10^3/uL (1.78-5.38); Basophil (Absolute #) 0 x10^3/uL (0.01-0.08); Eosinophil (Absolute #) 0 x10^3/uL (0.04-0.54); Hematocrit 27.1 % (40.1-51.0); Hemoglobin 8.2 g/dL (13.7-17.5); IMMATURE GRAN # 0.04 x10^3u/L (0.001-0.031); IMMATURE GRAN % 0.6 % (0.001-0.429); Lymphocyte (Absolute #) 0.56 x10^3/uL (1.32-3.57); Lymphocytes % 8.3 % (21.8-53.1); Mean Cell Volume 96.1 fL (79.0-92.2); Mean Corpuscular Hemoglobin 29.1 pg (25.7-32.2); Mean Corpuscular Hgb Concent. 30.3 g/dL (32.3-36.5); Monocytes % 1.5 % (5.3-12.2); Neutrophil % 89.6 % (34.0-67.9); Platelet Count 145 x10^3/uL (163-337); Red Blood Count 2.82 x10^6/uL (4.63-6.08); Red Cell Distribution Width 16.8 % (11.6-14.4); White Blood Count 6.8 x10^3/uL (4.23-9.07)
--- NOTE | 2024-07-04 05:17 | PCM.NOTE ---
Date and Time: 07/04/24 0513 Subjective Assessment: HPI: MR. Rodriguez is an 84-year-old male with a past medical history of COPD on 4L home oxygen, DM2, A-fib on anticoagulation (coumadin), BPH, and GERD who presented 07/03/24 with recurrent cough and progressive dyspnea. He was discharged nine days ago following hospitalization at [facility] for COPD exacerbation, pneumonia, and A-fib with RVR, and was prescribed a five-day steroid course and a ten-day course of cefuroxime. The patient initially experienced significant clinical improvement but developed acute dyspnea the day prior to admission, associated with thick productive cough and decreased oxygen saturations despite appropriate home interventions. Upon arrival to the ED, he was hypoxic, requiring 8L oxygen, and had recurrence of A-fib with RVR, unresponsive to initial boluses of metoprolol and diltiazem, necessitating a diltiazem drip. CT chest revealed severe emphysematous changes with diffuse interstitial scarring, new bilateral basilar infiltrates, and honeycombing compared to prior imaging. The patient now requires 5L oxygen and has achieved ventricular rate control. 07/04/24: Met with patient bedside. Endorses improvement in dyspnea. On auscultation, lung sounds remain coarse. Heart rate is currently well-controlled with a Cardizem infusion, which is undergoing titration; oral metoprolol 75 mg twice daily has been resumed. The patient confirmed recent outpatient cardiology follow-up, during which no medication adjustments were made. Given the patient's clinical course, including failure of outpatient antibiotic therapy for pneumonia, antibiotic coverage is being escalated to vancomycin and piperacillin-tazobactam to address potential resistant pathogens. - Review of Systems Constitutional: Weakness Eyes: No Symptoms Ears, Nose, & Throat: No Symptoms Respiratory: Cough, Short Of Breath, Wheezing Cardiac: Edema (right ankle 2+) Abdominal/Gastrointestinal: No Symptoms Genitourinary Symptoms: No Symptoms Musculoskeletal: No Symptoms Skin: No Symptoms Neurological: No Symptoms Psychological: No Symptoms Endocrine: No Symptoms Hematologic/Lymphatic: No Symptoms Immunological/Allergic: No Symptoms Objective Exam General Appearance: no apparent distress Neurologic Exam: alert, oriented x 3, cooperative Skin Exam: normal color Eye Exam: PERRL Ears, Nose, Throat Exam: normal ENT inspection Respiratory Exam: crackles/rales, wheezing Cardiovascular Exam: irregular Gastrointestinal/Abdomen Exam: soft, normal bowel sounds Extremity Exam: swelling (RLE +2 pitting around the ankle) Back Exam: normal inspection Male Genitalia Exam: deferred Rectal Exam: deferred Objective Data Vital Signs: Vital Signs - 24 hr Temp Pulse Resp BP Pulse Ox 07/04/24 04:13 97 07/04/24 04:00 90 30 H 111/65 97 07/04/24 03:45 81 24 101/70 96 07/04/24 03:30 94 H 31 H 86/55 95 07/04/24 03:15 78 21 98/64 99 07/04/24 03:00 83 45 H 108/57 97 07/04/24 02:45 80 29 H 101/60 96 07/04/24 02:30 76 24 110/65 96 07/04/24 02:15 88 25 H 107/68 95 07/04/24 02:00 89 24 105/57 96 07/04/24 01:45 89 24 95/69 96 07/04/24 01:30 81 35 H 98/70 92 L 07/04/24 01:15 89 33 H 109/70 94 L 07/04/24 01:00 74 28 H 105/67 94 L 07/04/24 00:45 91 H 30 H 102/67 94 L 07/04/24 00:30 91 H 32 H 105/68 94 L 07/04/24 00:16 88 30 H 69/59 93 L 07/04/24 00:14 91 H 23 100/61 93 L 07/04/24 00:12 92 H 33 H 106/63 92 L 07/04/24 00:11 101 H 27 H 92 L 07/04/24 00:10 99 H 26 H 93 L 07/04/24 00:02 120 H 24 90 L 07/03/24 23:45 121 H 22 88/68 91 L 07/03/24 23:37 99 H 26 H 94 L 07/03/24 23:30 93 H 25 H 111/66 98 07/03/24 23:15 107 H 28 H 93/63 95 07/03/24 23:00 102 H 24 108/75 94 L 07/03/24 22:45 104 H 30 H 108/71 91 L 07/03/24 22:30 112 H 34 H 104/70 93 L 07/03/24 22:15 111 H 34 H 105/73 92 L 07/03/24 22:00 102 H 28 H 114/65 92 L 07/03/24 21:45 106 H 29 H 113/75 91 L 07/03/24 21:30 108 H 26 H 119/69 90 L 07/03/24 21:15 94 H 28 H 98/68 94 L 07/03/24 20:45 111 H 26 H 99/68 84 L 07/03/24 20:30 100 H 33 H 107/65 93 L 07/03/24 20:21 89 26 H 07/03/24 20:15 94 H 31 H 103/70 91 L 07/03/24 20:00 95 H 30 H 101/65 95 07/03/24 19:59 89 26 H 95 07/03/24 19:46 92 H 28 H 101/60 97 07/03/24 19:35 91 H 28 H 105/70 07/03/24 19:30 95 H 29 H 105/70 96 07/03/24 19:15 106 H 25 H 97/65 96 07/03/24 19:04 102 H 26 H 80/57 07/03/24 19:00 96 H 33 H 80/57 95 07/03/24 18:52 98 H 32 H 92/66 95 07/03/24 18:51 99 H 35 H 95 07/03/24 18:50 96 H 29 H 07/03/24 18:00 91 H 24 104/77 97 07/03/24 17:50 84 26 H 103/67 97 07/03/24 17:40 103 H 27 H 95/68 97 07/03/24 17:30 102 H 23 112/65 96 07/03/24 17:29 114 H 23 112/72 07/03/24 17:20 106 H 26 H 112/72 95 07/03/24 17:10 110 H 26 H 111/68 07/03/24 17:00 105 H 21 99/79 07/03/24 16:50 122 H 28 H 105/62 07/03/24 16:40 102 H 33 H 99/63 94 L 07/03/24 16:30 108 H 25 H 95/67 97 07/03/24 15:50 106/66 07/03/24 15:40 108 H 27 H 106/73 97 07/03/24 15:30 108 H 26 H 111/64 96 07/03/24 15:20 110 H 29 H 101/64 94 L 07/03/24 15:13 107 H 20 87/65 07/03/24 15:10 111 H 30 H 87/65 97 07/03/24 15:00 107 H 26 H 91/63 98 07/03/24 14:50 93 H 18 94/68 98 07/03/24 14:40 121 H 26 H 104/70 97 07/03/24 14:30 101 H 21 94/69 98 07/03/24 14:20 100 H 23 98/74 07/03/24 14:10 122 H 28 H 91/74 98 07/03/24 14:00 117 H 28 H 111/75 07/03/24 13:50 123 H 28 H 110/74 97 07/03/24 13:46 128 H 28 H 112/85 07/03/24 13:40 110 H 29 H 112/85 84 L 07/03/24 13:30 110 H 22 112/83 07/03/24 13:20 108 H 28 H 101/71 96 07/03/24 13:10 100 H 22 103/68 95 07/03/24 13:05 111 H 26 H 109/70 96 07/03/24 13:00 104 H 23 120/70 97 07/03/24 12:55 101 H 27 H 105/63 97 07/03/24 12:50 101 H 22 119/66 97 07/03/24 12:45 110 H 28 H 92/76 96 07/03/24 12:40 98 H 21 101/72 94 L 07/03/24 12:35 108 H 31 H 105/70 94 L 07/03/24 12:30 97 H 30 H 102/72 96 07/03/24 12:25 118 H 27 H 102/71 95 07/03/24 12:20 109 H 26 H 106/67 96 07/03/24 12:15 108 H 23 97/68 97 07/03/24 12:10 125 H 23 106/71 97 07/03/24 12:05 117 H 28 H 105/77 96 07/03/24 12:02 121 H 24 106/65 07/03/24 12:00 125 H 24 106/65 96 07/03/24 11:55 131 H 30 H 94/76 96 07/03/24 11:50 141 H 32 H 90/69 95 07/03/24 11:45 150 H 18 103/65 96 07/03/24 11:40 146 H 26 H 110/67 96 07/03/24 11:35 150 H 24 78/54 98 07/03/24 11:30 149 H 18 113/75 95 07/03/24 11:25 145 H 14 101/67 94 L 07/03/24 11:21 144 H 19 95/65 95 07/03/24 11:15 149 H 25 H 94/70 95 07/03/24 11:10 155 H 27 H 90/69 94 L 07/03/24 11:00 152 H 23 90/75 93 L 07/03/24 10:50 154 H 24 78/58 93 L 07/03/24 10:36 157 H 32 H 97/72 07/03/24 10:32 136 H 30 H 97/72 89 L 07/03/24 10:30 146 H 25 H 87/71 93 L 07/03/24 10:00 139 H 28 H 107/82 93 L 07/03/24 09:54 96.9 F 137 H 28 H 115/83 97 Pain Assessment - Last Documented Pain Intensity 0 Intake and Output: Intake & Output 07/01/24 07/02/24 07/03/24 07/04/24 11:59 11:59 11:59 11:59 Intake Total 1060 Output Total 2500 Balance -1440 Weight 64.4 kg Lab Results: Lab Results-Last 24 Hours 07/03/24 07/03/24 07/03/24 Range/Units 09:56 10:12 10:12 WBC 12.6 H (4.23-9.07) x10^3/uL RBC 3.24 L (4.63-6.08) x10^6/uL Hgb 9.6 L (13.7-17.5) g/dL Hct 30.3 L (40.1-51.0) % MCV 93.5 H (79.0-92.2) fL MCH 29.6 (25.7-32.2) pg MCHC 31.7 L (32.3-36.5) g/dL RDW 16.6 H (11.6-14.4) % Plt Count 161 L (163-337) x10^3/uL MPV 10.4 (9.4-12.4) fL Gran % 80.3 H (34.0-67.9) % Immature Gran % (Auto) 0.6 H (0.001-0.429) % Nucleat RBC Rel Count 0.0 (0.00-0.2) % Eos # (Auto) 0.03 L (0.04-0.54) x10^3/uL Immature Gran # (Auto) 0.07 H (0.001-0.031) x10^3u/L Absolute Lymphs (auto) 1.48 (1.32-3.57) x10^3/uL Absolute Monos (auto) 0.88 H (0.30-0.82) x10^3/uL Absolute Nucleated RBC 0.00 (0.00-0.012) x10^3u/L Lymphocytes % 11.8 L (21.8-53.1) % Monocytes % 7.0 (5.3-12.2) % Eosinophils % 0.2 L (0.8-7.0) % Basophils % 0.1 L (0.2-1.2) % Absolute Granulocytes 10.10 H (1.78-5.38) x10^3/uL Basophils # 0.01 (0.01-0.08) x10^3/uL PT (9.4-12.5) SECONDS INR (0.8-3.0) pO2/FiO2 Ratio 21.0 % VBG pH 7.40 (7.32-7.42) VBG pCO2 at Pat Temp 47 (42-55) mm/Hg VBG pO2 at Pat Temp 29 (25-40) mm/Hg VBG HCO3 29.1 H* (22-28) meq/L VBG O2 Sat ([place]) 50.8 L (95-100) VBG Base Excess 3.7 H (-2.0-2.0) VBG Hemoglobin 9.9 VBG Carboxyhemoglobin 4.7 (0.0-6.9) % T HGB POC Potassium 3.9 (3.5-5.1) Sodium 139 (135-145) mmol/L Potassium 3.7 (3.5-5.1) mmol/L Chloride 103 (98-107) mmol/L Carbon Dioxide 27 (22-30) mmol/L Anion Gap 12.1 (5-15) MEQ/L BUN 26 H (9-20) mg/dL Creatinine 0.79 (0.66-1.25) mg/dL Estimated GFR 87.6 ML/MIN Glucose 112 H (74-106) mg/dL POC Glucometer (74 to 106) mg/dL Lactic Acid (0.4-2.0) Calcium 7.7 L (8.4-10.2) mg/dL Total Bilirubin 0.70 (0.2-1.3) mg/dL AST 19 (17-59) U/L ALT 21 (0-50) U/L Alkaline Phosphatase 101 (38-126) U/L Troponin I (0.000-0.033) ng/mL NT-Pro-B Natriuret Pep 9850 (<300) pg/mL Serum Total Protein 5.4 L (6.3-8.2) g/dL Albumin 2.5 L (3.5-5.0) g/dL Urine Color (Yellow) Urine Appearance (Clear) Urine pH (4.6-8.0) Ur Specific [place] (1.005-1.030) Urine Protein (Negative) Urine Glucose (UA) (Negative) mg/dL Urine Ketones (Negative) Urine Blood (Negative) Urine Nitrite (Negative) Urine Bilirubin (Negative) Urine Urobilinogen (0.2) mg/dL Ur Leukocyte Esterase (Negative) U Hyaline Cast (Auto) (0-2) /LPF Urine Microscopic RBC (0-5) /HPF Urine Microscopic WBC (0-5) /HPF Ur Epithelial Cells (None Seen) /HPF Urine Bacteria (None Seen) /HPF Urine Yeast (Budding) (None Seen) /HPF Urine Culture Reflexed (NO) 07/03/24 07/03/24 07/03/24 Range/Units 10:12 10:12 12:44 WBC (4.23-9.07) x10^3/uL RBC (4.63-6.08) x10^6/uL Hgb (13.7-17.5) g/dL Hct (40.1-51.0) % MCV (79.0-92.2) fL MCH (25.7-32.2) pg MCHC (32.3-36.5) g/dL RDW (11.6-14.4) % Plt Count (163-337) x10^3/uL MPV (9.4-12.4) fL Gran % (34.0-67.9) % Immature Gran % (Auto) (0.001-0.429) % Nucleat RBC Rel Count (0.00-0.2) % Eos # (Auto) (0.04-0.54) x10^3/uL Immature Gran # (Auto) (0.001-0.031) x10^3u/L Absolute Lymphs (auto) (1.32-3.57) x10^3/uL Absolute Monos (auto) (0.30-0.82) x10^3/uL Absolute Nucleated RBC (0.00-0.012) x10^3u/L Lymphocytes % (21.8-53.1) % Monocytes % (5.3-12.2) % Eosinophils % (0.8-7.0) % Basophils % (0.2-1.2) % Absolute Granulocytes (1.78-5.38) x10^3/uL Basophils # (0.01-0.08) x10^3/uL PT 30.2 H (9.4-12.5) SECONDS INR 2.98 (0.8-3.0) pO2/FiO2 Ratio % VBG pH (7.32-7.42) VBG pCO2 at Pat Temp (42-55) mm/Hg VBG pO2 at Pat Temp (25-40) mm/Hg VBG HCO3 (22-28) meq/L VBG O2 Sat ([place]) (95-100) VBG Base Excess (-2.0-2.0) VBG Hemoglobin VBG Carboxyhemoglobin (0.0-6.9) % T HGB POC Potassium (3.5-5.1) Sodium (135-145) mmol/L Potassium (3.5-5.1) mmol/L Chloride (98-107) mmol/L Carbon Dioxide (22-30) mmol/L Anion Gap (5-15) MEQ/L BUN (9-20) mg/dL Creatinine (0.66-1.25) mg/dL Estimated GFR ML/MIN Glucose (74-106) mg/dL POC Glucometer (74 to 106) mg/dL Lactic Acid (0.4-2.0) Calcium (8.4-10.2) mg/dL Total Bilirubin (0.2-1.3) mg/dL AST (17-59) U/L ALT (0-50) U/L Alkaline Phosphatase (38-126) U/L Troponin I < 0.012 (0.000-0.033) ng/mL NT-Pro-B Natriuret Pep (<300) pg/mL Serum Total Protein (6.3-8.2) g/dL Albumin (3.5-5.0) g/dL Urine Color Yellow (Yellow) Urine Appearance Clear (Clear) Urine pH 7.0 (4.6-8.0) Ur Specific [place] 1.020 (1.005-1.030) Urine Protein 30 (Negative) Urine Glucose (UA) Negative (Negative) mg/dL Urine Ketones Trace A (Negative) Urine Blood Negative (Negative) Urine Nitrite Negative (Negative) Urine Bilirubin Negative (Negative) Urine Urobilinogen 0.2 (0.2) mg/dL Ur Leukocyte Esterase Small A (Negative) U Hyaline Cast (Auto) NONE SEEN (0-2) /LPF Urine Microscopic RBC 3-5 (0-5) /HPF Urine Microscopic WBC 11-20 A (0-5) /HPF Ur Epithelial Cells Few (None Seen) /HPF Urine Bacteria Few A (None Seen) /HPF Urine Yeast (Budding) Moderate A (None Seen) /HPF Urine Culture Reflexed ORDERED SEPARATELY (NO) 07/03/24 07/03/24 07/03/24 Range/Units 14:02 14:55 17:55 WBC (4.23-9.07) x10^3/uL RBC (4.63-6.08) x10^6/uL Hgb (13.7-17.5) g/dL Hct (40.1-51.0) % MCV (79.0-92.2) fL MCH (25.7-32.2) pg MCHC (32.3-36.5) g/dL RDW (11.6-14.4) % Plt Count (163-337) x10^3/uL MPV (9.4-12.4) fL Gran % (34.0-67.9) % Immature Gran % (Auto) (0.001-0.429) % Nucleat RBC Rel Count (0.00-0.2) % Eos # (Auto) (0.04-0.54) x10^3/uL Immature Gran # (Auto) (0.001-0.031) x10^3u/L Absolute Lymphs (auto) (1.32-3.57) x10^3/uL Absolute Monos (auto) (0.30-0.82) x10^3/uL Absolute Nucleated RBC (0.00-0.012) x10^3u/L Lymphocytes % (21.8-53.1) % Monocytes % (5.3-12.2) % Eosinophils % (0.8-7.0) % Basophils % (0.2-1.2) % Absolute Granulocytes (1.78-5.38) x10^3/uL Basophils # (0.01-0.08) x10^3/uL PT (9.4-12.5) SECONDS INR (0.8-3.0) pO2/FiO2 Ratio % VBG pH (7.32-7.42) VBG pCO2 at Pat Temp (42-55) mm/Hg VBG pO2 at Pat Temp (25-40) mm/Hg VBG HCO3 (22-28) meq/L VBG O2 Sat ([place]) (95-100) VBG Base Excess (-2.0-2.0) VBG Hemoglobin VBG Carboxyhemoglobin (0.0-6.9) % T HGB POC Potassium (3.5-5.1) Sodium (135-145) mmol/L Potassium (3.5-5.1) mmol/L Chloride (98-107) mmol/L Carbon Dioxide (22-30) mmol/L Anion Gap (5-15) MEQ/L BUN (9-20) mg/dL Creatinine (0.66-1.25) mg/dL Estimated GFR ML/MIN Glucose (74-106) mg/dL POC Glucometer (74 to 106) mg/dL Lactic Acid 1.1 (0.4-2.0) Calcium (8.4-10.2) mg/dL Total Bilirubin (0.2-1.3) mg/dL AST (17-59) U/L ALT (0-50) U/L Alkaline Phosphatase (38-126) U/L Troponin I < 0.012 < 0.012 (0.000-0.033) ng/mL NT-Pro-B Natriuret Pep (<300) pg/mL Serum Total Protein (6.3-8.2) g/dL Albumin (3.5-5.0) g/dL Urine Color (Yellow) Urine Appearance (Clear) Urine pH (4.6-8.0) Ur Specific [place] (1.005-1.030) Urine Protein (Negative) Urine Glucose (UA) (Negative) mg/dL Urine Ketones (Negative) Urine Blood (Negative) Urine Nitrite (Negative) Urine Bilirubin (Negative) Urine Urobilinogen (0.2) mg/dL Ur Leukocyte Esterase (Negative) U Hyaline Cast (Auto) (0-2) /LPF Urine Microscopic RBC (0-5) /HPF Urine Microscopic WBC (0-5) /HPF Ur Epithelial Cells (None Seen) /HPF Urine Bacteria (None Seen) /HPF Urine Yeast (Budding) (None Seen) /HPF Urine Culture Reflexed (NO) 07/03/24 Range/Units 22:36 WBC (4.23-9.07) x10^3/uL RBC (4.63-6.08) x10^6/uL Hgb (13.7-17.5) g/dL Hct (40.1-51.0) % MCV (79.0-92.2) fL MCH (25.7-32.2) pg MCHC (32.3-36.5) g/dL RDW (11.6-14.4) % Plt Count (163-337) x10^3/uL MPV (9.4-12.4) fL Gran % (34.0-67.9) % Immature Gran % (Auto) (0.001-0.429) % Nucleat RBC Rel Count (0.00-0.2) % Eos # (Auto) (0.04-0.54) x10^3/uL Immature Gran # (Auto) (0.001-0.031) x10^3u/L Absolute Lymphs (auto) (1.32-3.57) x10^3/uL Absolute Monos (auto) (0.30-0.82) x10^3/uL Absolute Nucleated RBC (0.00-0.012) x10^3u/L Lymphocytes % (21.8-53.1) % Monocytes % (5.3-12.2) % Eosinophils % (0.8-7.0) % Basophils % (0.2-1.2) % Absolute Granulocytes (1.78-5.38) x10^3/uL Basophils # (0.01-0.08) x10^3/uL PT (9.4-12.5) SECONDS INR (0.8-3.0) pO2/FiO2 Ratio % VBG pH (7.32-7.42) VBG pCO2 at Pat Temp (42-55) mm/Hg VBG pO2 at Pat Temp (25-40) mm/Hg VBG HCO3 (22-28) meq/L VBG O2 Sat ([place]) (95-100) VBG Base Excess (-2.0-2.0) VBG Hemoglobin VBG Carboxyhemoglobin (0.0-6.9) % T HGB POC Potassium (3.5-5.1) Sodium (135-145) mmol/L Potassium (3.5-5.1) mmol/L Chloride (98-107) mmol/L Carbon Dioxide (22-30) mmol/L Anion Gap (5-15) MEQ/L BUN (9-20) mg/dL Creatinine (0.66-1.25) mg/dL Estimated GFR ML/MIN Glucose (74-106) mg/dL POC Glucometer 128 H (74 to 106) mg/dL Lactic Acid (0.4-2.0) Calcium (8.4-10.2) mg/dL Total Bilirubin (0.2-1.3) mg/dL AST (17-59) U/L ALT (0-50) U/L Alkaline Phosphatase (38-126) U/L Troponin I (0.000-0.033) ng/mL NT-Pro-B Natriuret Pep (<300) pg/mL Serum Total Protein (6.3-8.2) g/dL Albumin (3.5-5.0) g/dL Urine Color (Yellow) Urine Appearance (Clear) Urine pH (4.6-8.0) Ur Specific [place] (1.005-1.030) Urine Protein (Negative) Urine Glucose (UA) (Negative) mg/dL Urine Ketones (Negative) Urine Blood (Negative) Urine Nitrite (Negative) Urine Bilirubin (Negative) Urine Urobilinogen (0.2) mg/dL Ur Leukocyte Esterase (Negative) U Hyaline Cast (Auto) (0-2) /LPF Urine Microscopic RBC (0-5) /HPF Urine Microscopic WBC (0-5) /HPF Ur Epithelial Cells (None Seen) /HPF Urine Bacteria (None Seen) /HPF Urine Yeast (Budding) (None Seen) /HPF Urine Culture Reflexed (NO) Radiology Exams: Radiology Procedures Category Date Time Status CHEST 1 VIEW (PORTABLE) Stat Exams 07/03/24 09:56 Completed CHEST WITH CONTRAST [CT] Stat Exams 07/03/24 14:49 Completed Medications: Medications Generic Name Dose Route Start Last Admin Trade Name Freq PRN Reason Stop Dose Admin Acetaminophen 650 mg 07/03/24 20:44 Acetaminophen 325 Mg Tablet PO 08/02/24 20:43 Q6H PRN PRN PAIN AND/OR FEVER Azithromycin 500 mg 07/04/24 10:00 Azithromycin 250 Mg Tablet PO 07/07/24 10:01 DAILY YANELI Methylprednisolone Sodium 0 mg 07/03/24 20:42 07/03/24 22:03 Succinate 80 mg/ Sterile Water IV 07/03/24 20:43 80 mg 2 ml STAT ONE Administration Finasteride 5 mg 07/04/24 10:00 Finasteride 5 Mg Tablet PO 08/03/24 09:59 DAILY YANELI Diltiazem HCl 100 mls @ 5 mls/hr 07/03/24 10:28 07/03/24 19:35 Cardizem Drip 100 Mg/100 Ml D5w IV 08/02/24 10:27 7.5 mg/hr .Q20H PRN 7.5 mls/hr HEART RATE/ A-FIB Administration Protocol 5 MG/HR Azithromycin 500 mg/ Sodium 250 mls @ 250 mls/hr 07/04/24 10:00 Chloride IV 08/03/24 09:59 [id number] YANELI Ceftriaxone Sodium 1 gm in 100 mls @ 200 mls/hr 07/04/24 10:00 Rocephin 1 Gm / 100 Ml Nacl IV 07/08/24 09:59 [id number] YANELI Insulin Human Lispro 0 unit 07/03/24 20:44 Insulin Lispro 1 Unit SQ 08/02/24 20:43 UD PRN HYPERGLYCEMIA Levalbuterol HCl 1.25 mg 07/03/24 19:51 07/04/24 04:13 Levalbuterol Hcl 1.25 Mg/0.5 Ml Neb IH 08/02/24 19:50 1.25 mg Q4H PRN PRN Administration SHORTNESS OF BREATH Metoprolol Tartrate 75 mg 07/03/24 22:00 07/03/24 21:59 Metoprolol Tartrate 50 Mg Tablet PO 08/02/24 21:59 75 mg BID YANELI Administration Pantoprazole Sodium 40 mg 07/03/24 22:00 07/03/24 21:59 Protonix (Pantoprazole) 40 Mg Tablet PO 08/02/24 21:59 40 mg BID YANELI Administration Prednisone 40 mg 07/04/24 10:00 Prednisone 20 Mg Tablet PO 07/07/24 10:01 DAILY YANELI Tamsulosin HCl 0.4 mg 07/03/24 22:00 07/03/24 21:59 Tamsulosin Hcl 0.4 Mg Cap PO 08/02/24 21:59 0.4 mg HS YANELI Administration Warfarin Sodium 1 mg 07/04/24 10:00 Warfarin Sodium 1 Mg Tablet PO 08/03/24 09:59 DAILY YANELI Discontinued Medications Generic Name Dose Route Start Last Admin Trade Name Freq PRN Reason Stop Dose Admin Azithromycin Confirm 07/03/24 17:46 Azithromycin Inj Administered 07/03/24 17:47 Dose 500 mg IV .STK-MED ONE Calcium Chloride Confirm 07/03/24 17:22 Calcium Chloride 100 Mg/Ml 10ml Inj. Administered 07/03/24 17:23 Dose 1,000 mg .ROUTE .STK-MED ONE Diltiazem HCl 10 mg 07/03/24 10:28 07/03/24 10:37 Diltiazem Hcl Iv 5 Mg/Ml Vial IV 07/03/24 10:29 10 mg STAT ONE Administration Ceftriaxone Sodium 2 gm in 100 mls @ 200 mls/hr 07/03/24 14:55 07/03/24 17:00 Rocephin 2 Gm/100 Ml Nacl IV 07/03/24 15:24 Infused STAT ONE Infusion Azithromycin 500 mg/ Sodium 250 mls @ 250 mls/hr 07/04/24 10:00 07/03/24 17:48 Chloride IV 08/03/24 09:59 250 mls/hr [id number] YANELI 250 mls/hr Administration Calcium Chloride 1,000 mg/ 110 mls @ 220 mls/hr 07/03/24 15:11 07/03/24 17:58 Sodium Chloride IV 07/03/24 15:40 Infused ONCE ONE Infusion Ceftriaxone Sodium Confirm 07/03/24 16:27 Rocephin 2 Gm/100 Ml Nacl Administered 07/03/24 16:28 Dose 2 gm in 100 mls @ ud IV .STK-MED ONE Sodium Chloride Confirm 07/03/24 17:23 Sodium Chloride 0.9% Administered 07/03/24 17:24 Dose 100 mls @ ud .ROUTE .STK-MED ONE Sodium Chloride Confirm 07/03/24 17:46 Sodium Chloride 0.9% 250 Ml Administered 07/03/24 17:47 Dose 250 mls @ ud IV .STK-MED ONE Sodium Chloride 1,000 mls @ 100 mls/hr 07/03/24 18:20 Sodium Chloride 0.9% 1000 Ml IV 08/02/24 18:19 .Q10H YANELI Methylprednisolone Sodium Succinate Confirm 07/03/24 21:52 Methylprednisolone Sod Suc 40m 40 Mg/Ml Vial Administered 07/03/24 21:53 Dose 40 mg .ROUTE .STK-MED ONE Metoprolol Tartrate 5 mg 07/03/24 12:16 07/03/24 12:20 Metoprolol Tartrate 5 Mg/5 Ml Vial IV 07/03/24 12:17 5 mg STAT ONE Administration Metoprolol Tartrate Confirm 07/03/24 12:18 Metoprolol Tartrate 5 Mg/5 Ml Vial Administered 07/03/24 12:19 Dose 5 mg IV .STK-MED ONE Sterile Water Confirm 07/03/24 21:54 Water For Injection,Sterile 10 Ml Vial Administered 07/03/24 21:55 Dose 10 ml IJ .STK-MED ONE Multi-Disciplinary Progress Notes: Multi-Disciplinary Progress Notes 07/03/24 14:00 Respiratory Note by Glendy Mitchell PT'S O2 SAT ON 5LPM VIA NASAL CANNULA WAS 86-88%. PT CHANGED OVER TO 8LPM VIA OXYMASK DUE TO MOUTH BREATHING. O2 SAT INCREASED TO 94%. NURSE AWARE. Initialized on 07/03/24 14:00 - END OF NOTE Assessment/Plan (1) Acute on chronic hypoxic respiratory failure Current Visit: Yes Status: Acute Assessment & Plan: -Secondary to pneumonia and COPD exacerbation -CT chest reviewed demonstrating new bibasilar infiltrates suggesting pneumonia -Supplemental oxygen for goal spo2 > 90% - baseline 4L - currently at 4L -ceftriaxone and azithromycin discontinued - vanc/zosyn ordered to address potential resistant pathogens. -Solumedrol given x 1 dose of 80mg IV- transitioned to pulmicort -sputum culture pending -CMP/CBC reviewed -Blood cultures pending Code(s): J96.21 - ACUTE AND CHRONIC RESPIRATORY FAILURE WITH HYPOXIA (2) Pneumonia Current Visit: Yes Status: Acute Assessment & Plan: -see ARF Code(s): J18.9 - PNEUMONIA, UNSPECIFIED ORGANISM (3) COPD exacerbation Current Visit: Yes Status: Acute Assessment & Plan: -see ARF Code(s): J44.1 - CHRONIC OBSTRUCTIVE PULMONARY DISEASE W (ACUTE) EXACERBATION (4) Atrial fibrillation with RVR Current Visit: Yes Status: Acute Assessment & Plan: -Most likely secondary to pneumonia -ventricular rate currently controlled on cardizem drip - wean -transition to metoprolol 75mg BID -continue coumadin- managed OP by the coumadin clinic at [facility] Code(s): I48.91 - UNSPECIFIED ATRIAL FIBRILLATION (5) Type 2 diabetes mellitus Current Visit: Yes Status: Acute Assessment & Plan: -A1c 5.1 - controlled -Hold metformin -SSI -ADA diet (6) BPH (benign prostatic hyperplasia) Current Visit: Yes Status: Acute Assessment & Plan: -Continue flomax and finasteride Code(s): N40.0 - BENIGN PROSTATIC HYPERPLASIA WITHOUT LOWER URINRY TRACT SYMP (7) GERD (gastroesophageal reflux disease) Current Visit: Yes Status: Acute Assessment & Plan: -continue protonix VTE: coumadin PPI: Protonix Dispo: 1-2 days Code status: Full code Code(s): K21.9 - GASTRO-ESOPHAGEAL REFLUX DISEASE WITHOUT ESOPHAGITIS
[2024-07-04 05:22] LABS: ANION GAP 13.1 MEQ/L (5-15); Calcium 7.9 mg/dL (8.4-10.2); Creatinine 1 0.69 mg/dL (0.66-1.25); EST GLOMERULAR FILTRATION RATE 91.3 ML/MIN; Potassium 4.1 mmol/L (3.5-5.1)
[2024-07-04 05:34] LABS: INR 2.58 (0.8-3.0); PROTIME 26.4 SECONDS (9.4-12.5); Slide Review 1 YES
[2024-07-04] MEDS ORDERED: Sodium Chloride 3 ML UD NEBULES IH ONE (06:15)
[2024-07-04] MEDS ORDERED: Sodium Chloride 0.9% 1000 ML 1,000 ML ONE (06:30)
[2024-07-04] MEDS: Sodium Chloride 0.9% 1000 ML 1,000 ML IV SCH ×2 (07:27→07:52)
[2024-07-04] MEDS: PHARMACY DOSING REQUEST MC ONE (07:45)
[2024-07-04] MEDS: HUMALOG SQ PRN ×2 (07:49→17:05)
[2024-07-04] MEDS: DELTASONE 20 MG PO SCH (09:12)
[2024-07-04] MEDS: ROCEPHIN 1 GM / 100 ML NaCl 1 GM/100 ML IVPB IV SCH (09:13)
[2024-07-04] MEDS: Proscar 5 MG PO SCH (09:13)
[2024-07-04] MEDS: Mucinex 600MG ER Tabs PO SCH (09:13)
[2024-07-04] MEDS: Zithromax 250 MG TABLET PO SCH (09:13)
[2024-07-04] MEDS: Sodium Chloride 3 ML UD NEBULES IH PRN (09:32)
[2024-07-04] MEDS ORDERED: PHARMACY DOSING REQUIRED: VANCOMYCIN IV SCH (10:00)
[2024-07-04] MEDS ORDERED: ZITHROMAX IV*** 500 MG in Sodium Chloride 0.9% 250 ML 250 ML IV SCH (10:00)
[2024-07-04] MEDS: VANCOMYCIN 1 GRAM/200 ML BAG 1 GM/200 ML PIGGYBACK IV SCH (10:16)
[2024-07-04] MEDS: PULMICORT 0.5 MG/2 ML RESPULES IH SCH (10:35)
--- NOTE | 2024-07-04 10:37 | XRAY ---
Indication: Edema. Two-dimensional sonogram and color Doppler imaging major venous vessels right leg performed. Comparison: None Occluding DVT seen in the mid to distal femoral and popliteal veins. Additional occluding and nonoccluding DVT in the posterior tibial vein. No thrombus in the remaining visualized common femoral, proximal femoral, and greater saphenous veins. Patent veins demonstrate normal compressibility and normal venous waveforms. Impression: Scattered occluding and nonoccluding DVTs as above.
[2024-07-04] MEDS: ENOXAPARIN SODIUM SQ SCH (11:18)
[2024-07-04] MEDS: HUMALOG SQ SCH (11:48)
[2024-07-04] MEDS: PIPERACILLIN/TAZOBACTAM 3.375 GM in Sodium Chloride 100ML MINI-BAG PLUS 100 ML IV SCH (11:50)
[2024-07-04] MEDS: HOLD METFORMIN PRODUCTS FOR 48 HOURS MC SCH (15:21)
[2024-07-04] MEDS ORDERED: COUMADIN PO SCH (18:00)
[2024-07-04] MEDS: VANCOCIN 500 MG VIAL*** 500 MG in Sodium Chloride 100ML MINI-BAG PLUS 100 ML IV SCH (21:42)
[2024-07-04] MEDS: ELIQUIS 2.5 MG TABLET PO SCH (21:43)
[2024-07-05 05:02] LABS: Absolute Neutrophil Ct (ANC) 5.77 x10^3/uL (1.78-5.38); Basophil (Absolute #) 0 x10^3/uL (0.01-0.08); Eosinophil % 0.2 % (0.8-7.0); Eosinophil (Absolute #) 0.01 x10^3/uL (0.04-0.54); Hematocrit 22.8 % (40.1-51.0); Hemoglobin 7.3 g/dL (13.7-17.5); IMMATURE GRAN # 0.03 x10^3u/L (0.001-0.031); IMMATURE GRAN % 0.5 % (0.001-0.429); Lymphocyte (Absolute #) 0.48 x10^3/uL (1.32-3.57); Lymphocytes % 7.4 % (21.8-53.1); Mean Cell Volume 91.6 fL (79.0-92.2); Mean Corpuscular Hemoglobin 29.3 pg (25.7-32.2); Mean Platelet Volume 10.4 fL (9.4-12.4); Monocyte (Absolute #) 0.22 x10^3/uL (0.30-0.82); Monocytes % 3.4 % (5.3-12.2); Neutrophil % 88.5 % (34.0-67.9); Platelet Count 139 x10^3/uL (163-337); Red Blood Count 2.49 x10^6/uL (4.63-6.08); Red Cell Distribution Width 16.1 % (11.6-14.4); White Blood Count 6.5 x10^3/uL (4.23-9.07)
[2024-07-05 05:19] LABS: INR 4.58 (0.8-3.0); PROTIME 45.2 SECONDS (9.4-12.5)
[2024-07-05 05:32] LABS: ALBUMIN 2.2 g/dL (3.5-5.0); ANION GAP 10.5 MEQ/L (5-15); BILIRUBIN,TOTAL 0.2 mg/dL (0.2-1.3); Calcium 7.6 mg/dL (8.4-10.2); Creatinine 1 0.75 mg/dL (0.66-1.25); Potassium 3.8 mmol/L (3.5-5.1)
[2024-07-05 05:46] LABS: Slide Review 1 YES
--- NOTE | 2024-07-05 05:57 | PCM.NOTE ---
Date and Time: 07/05/24 0551 Subjective Assessment: PI: MR. Rodriguez is an 84-year-old male with a past medical history of COPD on 4L home oxygen, DM2, A-fib on anticoagulation (coumadin), BPH, and GERD who presented 07/03/24 with recurrent cough and progressive dyspnea. He was discharged nine days ago following hospitalization at [facility] for COPD exacerbation, pneumonia, and A-fib with RVR, and was prescribed a five-day steroid course and a ten-day course of cefuroxime. The patient initially experienced significant clinical improvement but developed acute dyspnea the day prior to admission, associated with thick productive cough and decreased oxygen saturations despite appropriate home interventions. Upon arrival to the ED, he was hypoxic, requiring 8L oxygen, and had recurrence of A-fib with RVR, unresponsive to initial boluses of metoprolol and diltiazem, necessitating a diltiazem drip. CT chest revealed severe emphysematous changes with diffuse interstitial scarring, new bilateral basilar infiltrates, and honeycombing compared to prior imaging - addendum showed nonoccluding emboli in segmental branches of both lower and less degree left upper lobe. Venous doppler of the right leg positive for DVT in the mid to distal femoral and popliteal veins. Additional occluding and Nonoccluding DVT in the posterior tibial vein. The patient now at baseline 4L oxygen and has achieved ventricular rate control. Coumadin discontinued and Eliquis started at maintenance dosing of 5mg bid. HR is now controlled and cardizem drip discontinued- Metoprolol 75mg bid resumed. 07/04/24: Met with patient bedside. Endorses improvement in dyspnea. On auscultation, lung sounds remain coarse. Heart rate is currently well-controlled with a Cardizem infusion, which is undergoing titration; oral metoprolol 75 mg twice daily has been resumed. The patient confirmed recent outpatient cardiology follow-up, during which no medication adjustments were made. Given the patient's clinical course, including failure of outpatient antibiotic therapy for pneumonia, antibiotic coverage is being escalated to vancomycin and piperacillin-tazobactam to address potential resistant pathogens. Objective Data Vital Signs: Vital Signs - 24 hr Temp Pulse Resp BP Pulse Ox 07/05/24 05:00 87 15 115/70 99 07/05/24 04:00 97 H 16 93/61 100 07/05/24 03:00 78 12 94/49 99 07/05/24 02:00 80 17 108/77 100 07/05/24 01:00 84 26 H 93/68 96 07/05/24 00:00 73 24 118/75 97 07/04/24 23:00 79 19 116/74 98 07/04/24 22:00 90 19 117/83 98 07/04/24 21:00 110 H 31 H 102/77 97 07/04/24 20:00 97 H 24 108/67 98 07/04/24 19:11 88 26 H 97 07/04/24 19:00 98 H 28 H 102/66 98 07/04/24 18:01 92 H 24 112/71 96 07/04/24 17:00 87 31 H 107/67 94 L 07/04/24 16:00 97.9 F 83 28 H 109/68 96 07/04/24 15:00 80 30 H 111/69 94 L 07/04/24 14:25 79 26 H 93 L 07/04/24 14:00 82 25 H 93/58 93 L 07/04/24 13:00 72 27 H 92/58 95 07/04/24 12:00 97.7 F 76 21 102/67 96 07/04/24 11:55 71 07/04/24 11:00 72 21 102/60 97 07/04/24 10:38 79 22 95 07/04/24 10:16 86 28 H 98/63 07/04/24 10:00 69 23 98/63 96 07/04/24 09:35 91 H 24 97 07/04/24 09:20 96 H 30 H 99/63 07/04/24 09:00 96 H 27 H 99/63 95 07/04/24 08:08 94 H 28 H 114/66 07/04/24 08:00 97.2 F 110 H 23 114/66 97 07/04/24 07:30 94 H 26 H 112/74 97 07/04/24 07:15 86 18 110/77 98 07/04/24 07:12 100 H 24 111/68 07/04/24 07:00 84 18 111/68 98 07/04/24 06:45 98 H 20 92/63 96 07/04/24 06:30 97 H 22 103/67 95 07/04/24 06:15 106 H 24 102/68 96 07/04/24 06:00 102 H 20 111/69 97 Pain Assessment - Last Documented Pain Intensity 0 Intake and Output: Intake & Output 07/02/24 07/03/24 07/04/24 07/05/24 11:59 11:59 11:59 11:59 Intake Total 1420 2219 Output Total 2600 1150 Balance -1180 1069 Weight 64.4 kg 64.4 kg Lab Results: Lab Results-Last 24 Hours 07/04/24 07/04/24 07/04/24 Range/Units 07:43 11:29 16:36 WBC (4.23-9.07) x10^3/uL RBC (4.63-6.08) x10^6/uL Hgb (13.7-17.5) g/dL Hct (40.1-51.0) % MCV (79.0-92.2) fL MCH (25.7-32.2) pg MCHC (32.3-36.5) g/dL RDW (11.6-14.4) % Plt Count (163-337) x10^3/uL MPV (9.4-12.4) fL Gran % (34.0-67.9) % Immature Gran % (Auto) (0.001-0.429) % Nucleat RBC Rel Count (0.00-0.2) % Eos # (Auto) (0.04-0.54) x10^3/uL Immature Gran # (Auto) (0.001-0.031) x10^3u/L Absolute Lymphs (auto) (1.32-3.57) x10^3/uL Absolute Monos (auto) (0.30-0.82) x10^3/uL Absolute Nucleated RBC (0.00-0.012) x10^3u/L Lymphocytes % (21.8-53.1) % Monocytes % (5.3-12.2) % Eosinophils % (0.8-7.0) % Basophils % (0.2-1.2) % Absolute Granulocytes (1.78-5.38) x10^3/uL Basophils # (0.01-0.08) x10^3/uL PT (9.4-12.5) SECONDS INR (0.8-3.0) Sodium (135-145) mmol/L Potassium (3.5-5.1) mmol/L Chloride (98-107) mmol/L Carbon Dioxide (22-30) mmol/L Anion Gap (5-15) MEQ/L BUN (9-20) mg/dL Creatinine (0.66-1.25) mg/dL Estimated GFR ML/MIN Glucose (74-106) mg/dL POC Glucometer 352 H 241 H 201 H (74 to 106) mg/dL Calcium (8.4-10.2) mg/dL Total Bilirubin (0.2-1.3) mg/dL AST (17-59) U/L ALT (0-50) U/L Alkaline Phosphatase (38-126) U/L Serum Total Protein (6.3-8.2) g/dL Albumin (3.5-5.0) g/dL Slides for Path Review 07/04/24 07/05/24 07/05/24 Range/Units 20:54 04:55 04:55 WBC 6.5 (4.23-9.07) x10^3/uL RBC 2.49 L (4.63-6.08) x10^6/uL Hgb 7.3 L (13.7-17.5) g/dL Hct 22.8 L (40.1-51.0) % MCV 91.6 (79.0-92.2) fL MCH 29.3 (25.7-32.2) pg MCHC 32.0 L (32.3-36.5) g/dL RDW 16.1 H (11.6-14.4) % Plt Count 139 L (163-337) x10^3/uL MPV 10.4 (9.4-12.4) fL Gran % 88.5 H (34.0-67.9) % Immature Gran % (Auto) 0.5 H (0.001-0.429) % Nucleat RBC Rel Count 0.0 (0.00-0.2) % Eos # (Auto) 0.01 L (0.04-0.54) x10^3/uL Immature Gran # (Auto) 0.03 (0.001-0.031) x10^3u/L Absolute Lymphs (auto) 0.48 L (1.32-3.57) x10^3/uL Absolute Monos (auto) 0.22 L (0.30-0.82) x10^3/uL Absolute Nucleated RBC 0.00 (0.00-0.012) x10^3u/L Lymphocytes % 7.4 L (21.8-53.1) % Monocytes % 3.4 L (5.3-12.2) % Eosinophils % 0.2 L (0.8-7.0) % Basophils % 0.0 L (0.2-1.2) % Absolute Granulocytes 5.77 H (1.78-5.38) x10^3/uL Basophils # 0 L (0.01-0.08) x10^3/uL PT 45.2 H (9.4-12.5) SECONDS INR 4.58 H D (0.8-3.0) Sodium (135-145) mmol/L Potassium (3.5-5.1) mmol/L Chloride (98-107) mmol/L Carbon Dioxide (22-30) mmol/L Anion Gap (5-15) MEQ/L BUN (9-20) mg/dL Creatinine (0.66-1.25) mg/dL Estimated GFR ML/MIN Glucose (74-106) mg/dL POC Glucometer 243 H (74 to 106) mg/dL Calcium (8.4-10.2) mg/dL Total Bilirubin (0.2-1.3) mg/dL AST (17-59) U/L ALT (0-50) U/L Alkaline Phosphatase (38-126) U/L Serum Total Protein (6.3-8.2) g/dL Albumin (3.5-5.0) g/dL Slides for Path Review YES 07/05/24 Range/Units 04:55 WBC (4.23-9.07) x10^3/uL RBC (4.63-6.08) x10^6/uL Hgb (13.7-17.5) g/dL Hct (40.1-51.0) % MCV (79.0-92.2) fL MCH (25.7-32.2) pg MCHC (32.3-36.5) g/dL RDW (11.6-14.4) % Plt Count (163-337) x10^3/uL MPV (9.4-12.4) fL Gran % (34.0-67.9) % Immature Gran % (Auto) (0.001-0.429) % Nucleat RBC Rel Count (0.00-0.2) % Eos # (Auto) (0.04-0.54) x10^3/uL Immature Gran # (Auto) (0.001-0.031) x10^3u/L Absolute Lymphs (auto) (1.32-3.57) x10^3/uL Absolute Monos (auto) (0.30-0.82) x10^3/uL Absolute Nucleated RBC (0.00-0.012) x10^3u/L Lymphocytes % (21.8-53.1) % Monocytes % (5.3-12.2) % Eosinophils % (0.8-7.0) % Basophils % (0.2-1.2) % Absolute Granulocytes (1.78-5.38) x10^3/uL Basophils # (0.01-0.08) x10^3/uL PT (9.4-12.5) SECONDS INR (0.8-3.0) Sodium 137 (135-145) mmol/L Potassium 3.8 (3.5-5.1) mmol/L Chloride 105 (98-107) mmol/L Carbon Dioxide 25 (22-30) mmol/L Anion Gap 10.5 (5-15) MEQ/L BUN 29 H (9-20) mg/dL Creatinine 0.75 (0.66-1.25) mg/dL Estimated GFR 89.0 ML/MIN Glucose 186 H (74-106) mg/dL POC Glucometer (74 to 106) mg/dL Calcium 7.6 L (8.4-10.2) mg/dL Total Bilirubin 0.20 (0.2-1.3) mg/dL AST 14 L (17-59) U/L ALT 15 (0-50) U/L Alkaline Phosphatase 73 (38-126) U/L Serum Total Protein 5.0 L (6.3-8.2) g/dL Albumin 2.2 L (3.5-5.0) g/dL Slides for Path Review Radiology Exams: Radiology Procedures Category Date Time Status CHEST 1 VIEW (PORTABLE) Stat Exams 07/03/24 09:56 Completed CHEST WITH CONTRAST [CT] Stat Exams 07/03/24 14:49 Completed VENOUS UNILAT/LIMITED EXTREMIT [US] Routine Exams 07/04/24 08:18 Completed Medications: Medications Generic Name Dose Route Start Last Admin Trade Name Freq PRN Reason Stop Dose Admin Acetaminophen 650 mg 07/03/24 20:44 Acetaminophen 325 Mg Tablet PO 08/02/24 20:43 Q6H PRN PRN PAIN AND/OR FEVER Apixaban 5 mg 07/04/24 22:00 07/04/24 21:43 Apixaban 2.5 Mg Tablet PO 08/03/24 21:59 5 mg BID YANELI Administration Budesonide 0.5 mg 07/04/24 10:00 07/04/24 19:08 Budesonide 0.5 Mg/2 Ml Ampul.Neb. IH 08/03/24 09:59 0.5 mg BIDRT YANELI Administration Finasteride 5 mg 07/04/24 10:00 07/04/24 09:13 Finasteride 5 Mg Tablet PO 08/03/24 09:59 5 mg DAILY YANELI Administration Guaifenesin 600 mg 07/04/24 10:00 07/04/24 21:43 Guaifenesin 600 Mg Tablet Er PO 08/03/24 09:59 600 mg BID YANELI Administration Piperacillin Sod/Tazobactam 100 mls @ 200 mls/hr 07/04/24 12:00 07/05/24 05:14 Sod 3.375 gm/ Sodium Chloride IV 07/07/24 11:59 200 mls/hr Q6HT YANELI Administration Vancomycin HCl 500 mg/ Sodium 100 mls @ 100 mls/hr 07/04/24 22:00 07/04/24 21:42 Chloride IV 08/03/24 21:59 100 mls/hr Q12HT YANELI Administration Insulin Human Lispro 0 unit 07/04/24 11:42 07/04/24 21:41 Insulin Lispro 1 Unit SQ 08/03/24 11:41 5 unit UD PRN Administration HYPERGLYCEMIA Insulin Human Lispro 6 unit 07/04/24 12:00 07/04/24 17:05 Insulin Lispro 1 Unit SQ 08/03/24 11:59 6 unit TIDWM YANELI Administration Levalbuterol HCl 1.25 mg 07/03/24 19:51 07/05/24 01:21 Levalbuterol Hcl 1.25 Mg/0.5 Ml Neb 08/02/24 19:50 1.25 mg Q4H PRN PRN Administration SHORTNESS OF BREATH Metoprolol Tartrate 75 mg 07/03/24 22:00 07/04/24 21:42 Metoprolol Tartrate 50 Mg Tablet PO 08/02/24 21:59 75 mg BID YANELI Administration Non-Formulary Medication 1 each 07/03/24 16:15 07/04/24 15:21 Hold Metformin Products For 48hrs 07/05/24 16:16 Not Given Q48H YANELI Pantoprazole Sodium 40 mg 07/03/24 22:00 07/04/24 21:42 Protonix (Pantoprazole) 40 Mg Tablet PO 08/02/24 21:59 40 mg BID YANELI Administration Sodium Chloride 3 ml 07/04/24 09:33 07/05/24 01:21 Sodium Cl For Inhalation 3 Ml Ud Nebule 08/03/24 09:32 3 ml Q4HPRN PRN Administration SHORTNESS OF BREATH/WHEEZING Tamsulosin HCl 0.4 mg 07/03/24 22:00 07/04/24 21:42 Tamsulosin Hcl 0.4 Mg Cap PO 08/02/24 21:59 0.4 mg HS YANELI Administration Discontinued Medications Generic Name Dose Route Start Last Admin Trade Name Freq PRN Reason Stop Dose Admin Azithromycin Confirm 07/03/24 17:46 Azithromycin Inj Administered 07/03/24 17:47 Dose 500 mg IV .STK-MED ONE Azithromycin 500 mg 07/04/24 10:00 07/04/24 09:13 Azithromycin 250 Mg Tablet PO 07/07/24 10:01 500 mg DAILY YANELI Administration Calcium Chloride Confirm 07/03/24 17:22 Calcium Chloride 100 Mg/Ml 10ml Inj. Administered 07/03/24 17:23 Dose 1,000 mg .ROUTE .STK-MED ONE Methylprednisolone Sodium 0 mg 07/03/24 20:42 07/03/24 22:03 Succinate 80 mg/ Sterile Water IV 07/03/24 20:43 80 mg 2 ml STAT ONE Administration Diltiazem HCl 10 mg 07/03/24 10:28 07/03/24 10:37 Diltiazem Hcl Iv 5 Mg/Ml Vial IV 07/03/24 10:29 10 mg STAT ONE Administration Enoxaparin Sodium 60 mg 07/04/24 11:00 07/04/24 11:18 Enoxaparin Sodium 60 Mg/0.6 Ml Syringe 1 mg/kg (60 mg) 08/03/24 10:59 Not Given SQ Q12HT YANELI Diltiazem HCl 100 mls @ 5 mls/hr 07/03/24 10:28 07/04/24 10:16 Cardizem Drip 100 Mg/100 Ml D5w IV 08/02/24 10:27 0 mg/hr .Q20H PRN 0 mls/hr HEART RATE/ A-FIB Titration Protocol 5 MG/HR Ceftriaxone Sodium 2 gm in 100 mls @ 200 mls/hr 07/03/24 14:55 07/03/24 17:00 Rocephin 2 Gm/100 Ml Nacl IV 07/03/24 15:24 Infused STAT ONE Infusion Azithromycin 500 mg/ Sodium 250 mls @ 250 mls/hr 07/04/24 10:00 07/03/24 1 7:48 Chloride IV 08/03/24 09:59 250 mls/hr Q24H10 YANELI 250 mls/hr Administration Calcium Chloride 1,000 mg/ 110 mls @ 220 mls/hr 07/03/24 15:11 07/03/24 17:58 Sodium Chloride IV 07/03/24 15:40 Infused ONCE ONE Infusion Ceftriaxone Sodium Confirm 07/03/24 16:27 Rocephin 2 Gm/100 Ml Nacl Administered 07/03/24 16:28 Dose 2 gm in 100 mls @ ud IV .STK-MED ONE Sodium Chloride Confirm 07/03/24 17:23 Sodium Chloride 0.9% Administered 07/03/24 17:24 Dose 100 mls @ ud .ROUTE .STK-MED ONE Sodium Chloride Confirm 07/03/24 17:46 Sodium Chloride 0.9% 250 Ml Administered 07/03/24 17:47 Dose 250 mls @ ud IV .STK-MED ONE Azithromycin 500 mg/ Sodium 250 mls @ 250 mls/hr 07/04/24 10:00 Chloride IV 08/03/24 09:59 Q24H10 YANELI Sodium Chloride 1,000 mls @ 100 mls/hr 07/03/24 18:20 07/04/24 07:27 Sodium Chloride 0.9% 1000 Ml IV 08/02/24 18:19 Not Given .Q10H YANELI Ceftriaxone Sodium 1 gm in 100 mls @ 200 mls/hr 07/04/24 10:00 07/04/24 09:13 Rocephin 1 Gm / 100 Ml Nacl IV 07/08/24 09:59 200 mls/hr Q24H10 YANELI Administration Sodium Chloride Confirm 07/04/24 06:30 Sodium Chloride 0.9% 1000 Ml Administered 07/04/24 06:31 Dose 1,000 mls @ ud .ROUTE .STK-MED ONE Sodium Chloride 1,000 mls @ 150 mls/hr 07/04/24 07:30 07/04/24 07:52 Sodium Chloride 0.9% 1000 Ml IV 08/03/24 07:29 150 mls/hr .Q6H40M YANELI Administration Vancomycin HCl 1 gm in 200 mls @ 133.333 mls/hr 07/04/24 10:30 07/04/24 10:16 Vancomycin 1 Gram/200 Ml Bag IV 07/04/24 11:59 133.333 mls/hr 1030 YANELI Administration Insulin Human Lispro 0 unit 07/03/24 20:44 07/04/24 11:32 Insulin Lispro 1 Unit SQ 08/02/24 20:43 2 unit UD PRN Administration HYPERGLYCEMIA Methylprednisolone Sodium Succinate Confirm 07/03/24 21:52 Methylprednisolone Sod Suc 40m 40 Mg/Ml Vial Administered 07/03/24 21:53 Dose 40 mg .ROUTE .STK-MED ONE Metoprolol Tartrate 5 mg 07/03/24 12:16 07/03/24 12:20 Metoprolol Tartrate 5 Mg/5 Ml Vial IV 07/03/24 12:17 5 mg STAT ONE Administration Metoprolol Tartrate Confirm 07/03/24 12:18 Metoprolol Tartrate 5 Mg/5 Ml Vial Administered 07/03/24 12:19 Dose 5 mg IV .STK-MED ONE Non-Formulary Medication 1 each 07/04/24 07:44 07/04/24 07:45 Pharmacy Dosing Request [facility] 07/04/24 07:45 1 each STAT ONE Administration Non-Formulary Medication 1 each 07/04/24 10:00 Pharmacy Dose Request: Vancomycin 1 Each IV 08/03/24 09:59 [facility] Prednisone 40 mg 07/04/24 10:00 07/04/24 09:12 Prednisone 20 Mg Tablet PO 07/07/24 10:01 40 mg DAILY [facility] Administration Sodium Chloride Confirm 07/04/24 06:15 Sodium Cl For Inhalation 3 Ml Ud Nebule Administered 07/04/24 06:16 Dose 3 ml IH .STK-MED ONE Sterile Water Confirm 07/03/24 21:54 Water For Injection,Sterile 10 Ml Vial Administered 07/03/24 21:55 Dose 10 ml IJ .STK-MED ONE Warfarin Sodium 1 mg 07/04/24 18:00 Warfarin Sodium 1 Mg Tablet PO 08/03/24 17:59 [email or web address] Warfarin Sodium 1.5 mg 07/09/24 18:00 Warfarin Sodium 1 Mg Tablet PO 08/08/24 17:59 [email or web address] Multi-Disciplinary Progress Notes: Multi-Disciplinary Progress Notes 07/04/24 13:45 Pharmacy Note by Ramos Infante Vancomycin dosing: Will give 1 gram loading dose, then 500mg iv q12h. Will review tomorrow and order trough. Initialized on 07/04/24 13:45 - END OF NOTE Assessment/Plan (1) Acute on chronic hypoxic respiratory failure Current Visit: Yes Status: Acute Assessment & Plan: -Secondary to pneumonia and COPD exacerbation -CT chest reviewed demonstrating new bibasilar infiltrates suggesting pneumonia -Supplemental oxygen for goal spo2 > 90% - baseline 4L - currently at 4L -ceftriaxone and azithromycin discontinued - vanc/zosyn ordered to address potential resistant pathogens. -Solumedrol given x 1 dose of 80mg IV- transitioned to pulmicort -sputum culture pending -CMP/CBC reviewed -Blood cultures pending Code(s): J96.21 - ACUTE AND CHRONIC RESPIRATORY FAILURE WITH HYPOXIA (2) Pneumonia Current Visit: Yes Status: Acute Assessment & Plan: -see ARF Code(s): J18.9 - PNEUMONIA, UNSPECIFIED ORGANISM (3) COPD exacerbation Current Visit: Yes Status: Acute Assessment & Plan: -see ARF Code(s): J44.1 - CHRONIC OBSTRUCTIVE PULMONARY DISEASE W (ACUTE) EXACERBATION (4) Atrial fibrillation with RVR Current Visit: Yes Status: Acute Assessment & Plan: -Most likely secondary to pneumonia -ventricular rate currently controlled on cardizem drip - wean -transition to metoprolol 75mg BID -continue coumadin- managed OP by the coumadin clinic at [facility] 07/05/24 -Coumadin changed to eliquis due to DVT and PE found on imaging Code(s): I48.91 - UNSPECIFIED ATRIAL FIBRILLATION ####DVT/PE -Venous doppler positive for DVT in the mid to distal femoral and popliteal veins. Additional occluding and Nonoccluding DVT in the posterior tibial vein. Spoke with radiologist who also reports that a second view of the CT chest done 07/03/24 demonstrates tiny nonoccluding emboli in the degmental branches of both lower and lesser degree left upper lobes. -Coumadin discontinued and Eliquis started at maintenance dosing 5mg bid (5) Type 2 diabetes mellitus Current Visit: Yes Status: Acute Assessment & Plan: -A1c 5.1 - controlled -Hold metformin -SSI -ADA diet (6) BPH (benign prostatic hyperplasia) Current Visit: Yes Status: Acute Assessment & Plan: -Continue flomax and finasteride Code(s): N40.0 - BENIGN PROSTATIC HYPERPLASIA WITHOUT LOWER URINRY TRACT SYMP (7) GERD (gastroesophageal reflux disease) Current Visit: Yes Status: Acute Assessment & Plan: -continue protonix VTE: Eliquis PPI: Protonix Dispo: 1-2 days Code status: Full code Code(s): J96.21 - ACUTE AND CHRONIC RESPIRATORY FAILURE WITH HYPOXIA (2) Pneumonia Current Visit: Yes Status: Acute Code(s): J18.9 - PNEUMONIA, UNSPECIFIED ORGANISM (3) COPD exacerbation Current Visit: Yes Status: Acute Code(s): J44.1 - CHRONIC OBSTRUCTIVE PULMONARY DISEASE W (ACUTE) EXACERBATION (4) Atrial fibrillation with RVR Current Visit: Yes Status: Acute Code(s): I48.91 - UNSPECIFIED ATRIAL FIBRILLATION (5) Type 2 diabetes mellitus Current Visit: Yes Status: Acute (6) BPH (benign prostatic hyperplasia) Current Visit: Yes Status: Acute Code(s): N40.0 - BENIGN PROSTATIC HYPERPLASIA WITHOUT LOWER URINRY TRACT SYMP (7) GERD (gastroesophageal reflux disease) Current Visit: Yes Status: Acute Code(s): K21.9 - GASTRO-ESOPHAGEAL REFLUX DISEASE WITHOUT ESOPHAGITIS
[2024-07-05 12:20] VITALS: TEMP 97.6
--- NOTE | 2024-07-05 12:42 | PCM.DS ---
Discharge Summary Date of Admission: 07/04/24 05:13 Date of Discharge: 07/05/24 Admitting Physician: MAIRA BILLY MD Primary Care Provider: KAYLEIGH QUINTERO Allergies Allergies hydromorphone [From Dilaudid] Allergy (Unknown, Verified 07/03/24 10:05) unknown by patient if [facility] Summary - Hospital Course Hospital Course: Mr. Rodriguez is an 84-year-old male with a complex medical history including severe COPD on 4L home oxygen, atrial fibrillation previously managed with warfarin, type 2 diabetes mellitus, BPH, and GERD, who was admitted on 07/03/24 with progressive dyspnea, recurrent productive cough, and hypoxia. He had recently been discharged nine days prior after treatment for a COPD exacerbation complicated by pneumonia and atrial fibrillation with rapid ventricular response (RVR). Although he initially improved on a five-day steroid taper and ten-day course of cefuroxime, he developed acute worsening of symptoms at home, prompting readmission. On arrival, the patient was significantly hypoxic, requiring 8L oxygen, and had recurrence of atrial fibrillation with RVR unresponsive to IV metoprolol and diltiazem boluses, necessitating initiation of a diltiazem infusion. Cross-sectional imaging with CT chest revealed advanced emphysematous changes and diffuse interstitial fibrosis, with new bilateral basilar infiltrates and areas of honeycombing not present on prior imagingfindings suggestive of acute infectious or inflammatory insult superimposed on chronic lung disease. A late radiology addendum noted nonocclusive pulmonary emboli in segmental branches of both lower lobes and to a lesser extent in the left upper lobe. Additionally, venous Doppler ultrasound of the right lower extremity identified occlusive thrombi in the femoral and popliteal veins, along with both occlusive and nonocclusive thrombi in the posterior tibial vein. Given the new diagnosis of acute PE and extensive lower extremity DVTs despite therapeutic INR levels on warfarin, anticoagulation was transitioned to apixaban 5 mg BID. However, subsequent labs revealed a supratherapeutic INR of 4.58 and a significant drop in hemoglobin to 7.3, raising concern for occult gastrointestinal bleeding or anticoagulation-related anemia. The patient remained hemodynamically stable with improving respiratory symptoms following escalation of antibiotics to vancomycin and piperacillin- tazobactam due to failure of outpatient therapy. Ventricular rate has since been controlled, and he was transitioned back to metoprolol 75 mg BID. Oxygen requirements have returned to baseline at 4L via nasal cannula with adequate saturation. I spent 35 minutes [id number] with the patient on the day of discharge performing discharge exam, discussing hospital stay and discharge instructions with patient and caregivers, preparation of discharge records, prescriptions & referral forms and addressing any questions/concerns the patient had as documented above.Due to the constellation of new pulmonary embolism and DVT despite therapeutic anticoagulation, supratherapeutic INR, and new-onset anemia of unclear etiology, the decision was made to transfer the patient to a higher level of care for further evaluation and management. The receiving facility will pursue consideration of IVC filter placement, a comprehensive GI workup for potential bleeding source, and continued management of anticoagulation in the context of high thrombotic risk and active anemia. The patient and family were in agreement with this plan. He has been accepted at [facility], and transfer is pending bed availability. - Vitals & Intake/Output Vital Signs: Vital Signs Temperature 97.6 F 07/05/24 12:00 Pulse Rate 92 H 07/05/24 12:00 Respiratory Rate 13 07/05/24 12:00 Blood Pressure 115/69 07/05/24 12:00 O2 Sat by Pulse Oximetry 96 07/05/24 12:00 Intake & Output: Intake & Output 07/03/24 07/04/24 07/05/24 07/06/24 11:59 11:59 11:59 11:59 Intake Total 1420 2519 Output Total 2600 1400 Balance -1180 1119 Weight 64.4 kg 64.4 kg 64.4 kg - Lab Result Diagrams: 07/05/24 04:55 07/05/24 04:55 Lab Results-Last 24 Hrs: Lab Results-Last 24 Hours 07/04/24 07/04/24 07/05/24 Range/Units 16:36 20:54 04:55 WBC (4.23-9.07) x10^3/uL RBC (4.63-6.08) x10^6/uL Hgb (13.7-17.5) g/dL Hct (40.1-51.0) % MCV (79.0-92.2) fL MCH (25.7-32.2) pg MCHC (32.3-36.5) g/dL RDW (11.6-14.4) % Plt Count (163-337) x10^3/uL MPV (9.4-12.4) fL Gran % (34.0-67.9) % Immature Gran % (Auto) (0.001-0.429) % Nucleat RBC Rel Count (0.00-0.2) % Eos # (Auto) (0.04-0.54) x10^3/uL Immature Gran # (Auto) (0.001-0.031) x10^3u/L Absolute Lymphs (auto) (1.32-3.57) x10^3/uL Absolute Monos (auto) (0.30-0.82) x10^3/uL Absolute Nucleated RBC (0.00-0.012) x10^3u/L Lymphocytes % (21.8-53.1) % Monocytes % (5.3-12.2) % Eosinophils % (0.8-7.0) % Basophils % (0.2-1.2) % Absolute Granulocytes (1.78-5.38) x10^3/uL Basophils # (0.01-0.08) x10^3/uL PT 45.2 H (9.4-12.5) SECONDS INR 4.58 H D (0.8-3.0) Sodium (135-145) mmol/L Potassium (3.5-5.1) mmol/L Chloride (98-107) mmol/L Carbon Dioxide (22-30) mmol/L Anion Gap (5-15) MEQ/L BUN (9-20) mg/dL Creatinine (0.66-1.25) mg/dL Estimated GFR ML/MIN Glucose (74-106) mg/dL POC Glucometer 201 H 243 H (74 to 106) mg/dL Calcium (8.4-10.2) mg/dL Total Bilirubin (0.2-1.3) mg/dL AST (17-59) U/L ALT (0-50) U/L Alkaline Phosphatase (38-126) U/L Serum Total Protein (6.3-8.2) g/dL Albumin (3.5-5.0) g/dL Slides for Path Review 07/05/24 07/05/24 07/05/24 Range/Units 04:55 04:55 07:23 WBC 6.5 (4.23-9.07) x10^3/uL RBC 2.49 L (4.63-6.08) x10^6/uL Hgb 7.3 L (13.7-17.5) g/dL Hct 22.8 L (40.1-51.0) % MCV 91.6 (79.0-92.2) fL MCH 29.3 (25.7-32.2) pg MCHC 32.0 L (32.3-36.5) g/dL RDW 16.1 H (11.6-14.4) % Plt Count 139 L (163-337) x10^3/uL MPV 10.4 (9.4-12.4) fL Gran % 88.5 H (34.0-67.9) % Immature Gran % (Auto) 0.5 H (0.001-0.429) % Nucleat RBC Rel Count 0.0 (0.00-0.2) % Eos # (Auto) 0.01 L (0.04-0.54) x10^3/uL Immature Gran # (Auto) 0.03 (0.001-0.031) x10^3u/L Absolute Lymphs (auto) 0.48 L (1.32-3.57) x10^3/uL Absolute Monos (auto) 0.22 L (0.30-0.82) x10^3/uL Absolute Nucleated RBC 0.00 (0.00-0.012) x10^3u/L Lymphocytes % 7.4 L (21.8-53.1) % Monocytes % 3.4 L (5.3-12.2) % Eosinophils % 0.2 L (0.8-7.0) % Basophils % 0.0 L (0.2-1.2) % Absolute Granulocytes 5.77 H (1.78-5.38) x10^3/uL Basophils # 0 L (0.01-0.08) x10^3/uL PT (9.4-12.5) SECONDS INR (0.8-3.0) Sodium 137 (135-145) mmol/L Potassium 3.8 (3.5-5.1) mmol/L Chloride 105 (98-107) mmol/L Carbon Dioxide 25 (22-30) mmol/L Anion Gap 10.5 (5-15) MEQ/L BUN 29 H (9-20) mg/dL Creatinine 0.75 (0.66-1.25) mg/dL Estimated GFR 89.0 ML/MIN Glucose 186 H (74-106) mg/dL POC Glucometer 218 H (74 to 106) mg/dL Calcium 7.6 L (8.4-10.2) mg/dL Total Bilirubin 0.20 (0.2-1.3) mg/dL AST 14 L (17-59) U/L ALT 15 (0-50) U/L Alkaline Phosphatase 73 (38-126) U/L Serum Total Protein 5.0 L (6.3-8.2) g/dL Albumin 2.2 L (3.5-5.0) g/dL Slides for Path Review YES 07/05/24 Range/Units 12:03 WBC (4.23-9.07) x10^3/uL RBC (4.63-6.08) x10^6/uL Hgb (13.7-17.5) g/dL Hct (40.1-51.0) % MCV (79.0-92.2) fL MCH (25.7-32.2) pg MCHC (32.3-36.5) g/dL RDW (11.6-14.4) % Plt Count (163-337) x10^3/uL MPV (9.4-12.4) fL Gran % (34.0-67.9) % Immature Gran % (Auto) (0.001-0.429) % Nucleat RBC Rel Count (0.00-0.2) % Eos # (Auto) (0.04-0.54) x10^3/uL Immature Gran # (Auto) (0.001-0.031) x10^3u/L Absolute Lymphs (auto) (1.32-3.57) x10^3/uL Absolute Monos (auto) (0.30-0.82) x10^3/uL Absolute Nucleated RBC (0.00-0.012) x10^3u/L Lymphocytes % (21.8-53.1) % Monocytes % (5.3-12.2) % Eosinophils % (0.8-7.0) % Basophils % (0.2-1.2) % Absolute Granulocytes (1.78-5.38) x10^3/uL Basophils # (0.01-0.08) x10^3/uL PT (9.4-12.5) SECONDS INR (0.8-3.0) Sodium (135-145) mmol/L Potassium (3.5-5.1) mmol/L Chloride (98-107) mmol/L Carbon Dioxide (22-30) mmol/L Anion Gap (5-15) MEQ/L BUN (9-20) mg/dL Creatinine (0.66-1.25) mg/dL Estimated GFR ML/MIN Glucose (74-106) mg/dL POC Glucometer 185 H (74 to 106) mg/dL Calcium (8.4-10.2) mg/dL Total Bilirubin (0.2-1.3) mg/dL AST (17-59) U/L ALT (0-50) U/L Alkaline Phosphatase (38-126) U/L Serum Total Protein (6.3-8.2) g/dL Albumin (3.5-5.0) g/dL Slides for Path Review Micro Results-Entire Visit: Microbiology 07/03/24 21:00 Gram Stain - Final Sputum - Expectorant Sputum Culture - Preliminary ORGANISMS ISOLATED ARE CONSISTENT WITH NORMAL RESP JONATHAN MODERATE GROWTH, NO PREDOMINANT ORGANISM 07/03/24 12:44 Urine Culture - Final Catherized NO GROWTH 07/03/24 21:05 Blood Culture - Preliminary Blood 07/03/24 20:59 Blood Culture - Preliminary Blood Accuchecks Date 07/05/24 Date 07/05/24 Date 07/04/24 Date 07/04/24 Time 12:05 Time 08:03 Time 21:00 Time 16:55 - Radiology Exams Ordered Rad Exams-Entire Visit: Radiology Procedures Category Date Time Status CHEST WITH CONTRAST [CT] Stat Exams 07/03/24 14:49 Completed VENOUS UNILAT/LIMITED EXTREMIT [US] Routine Exams 07/04/24 08:18 Completed - Procedures and Test Procedures and Tests throughout Hospitalization: Therapy Orders & Screens 07/03/24 18:20 Oxygen Oxymask LPM 4 lpm Comment: 07/03/24 19:52 Respiratory Therapy Assessment DAILY Comment: Diagnosis: Pneumonia, A-fib with RVR,COPD 07/04/24 04:37 Flutter Therapy UD Comment: Diagnosis: Shortness of breath, cough 07/04/24 08:16 Incentive Spirometry UD Comment: Diagnosis: Shortness of breath, cough Discharge Exam General Appearance: no apparent distress Neurologic Exam: alert, oriented x 3, cooperative Eye Exam: PERRL Ears, Nose, Throat Exam: normal ENT inspection Neck Exam: normal inspection Respiratory Exam: crackles/rales, wheezing Cardiovascular Exam: irregular Gastrointestinal/Abdomen Exam: soft, normal bowel sounds Male Genitalia Exam: deferred Rectal Exam: deferred Back Exam: normal inspection Extremity Exam: normal inspection Skin Exam: normal color Final Diagnosis/Problem List - Final Discharge Diagnosis/Problem (1) Acute on chronic hypoxic respiratory failure Current Visit: Yes Status: Acute Assessment & Plan: -Continue supplemental oxygen at 4L/min to maintain SpO? > 90% -Pulmicort nebulization therapy continued for airway inflammation -Antibiotics escalated to vancomycin and piperacillin-tazobactam for suspected resistant organisms -Transfer to higher level of care for further pulmonary workup including potential bronchoscopy and advanced imaging due to CT findings of new honeycombing and interstitial scarring Code(s): J96.21 - ACUTE AND CHRONIC RESPIRATORY FAILURE WITH HYPOXIA (2) Pneumonia Current Visit: Yes Status: Acute Assessment & Plan: -see above Code(s): J18.9 - PNEUMONIA, UNSPECIFIED ORGANISM (3) COPD exacerbation Current Visit: Yes Status: Acute Assessment & Plan: -see above Code(s): J44.1 - CHRONIC OBSTRUCTIVE PULMONARY DISEASE W (ACUTE) EXACERBATION (4) Atrial fibrillation with RVR Current Visit: Yes Status: Acute Assessment & Plan: -Cardizem drip weaned; resumed oral metoprolol 75 mg BID -Transitioned anticoagulation from warfarin to apixaban (on hold)due to failure of INR-based therapy and new thromboembolic events -Continue cardiac monitoring at accepting facility with cardiology input Code(s): I48.91 - UNSPECIFIED ATRIAL FIBRILLATION (5) Type 2 diabetes mellitus Current Visit: Yes Status: Acute Assessment & Plan: -Hold metformin during acute illness and renal monitoring -Continue SSI for glucose control -Resume home regimen once stable (6) BPH (benign prostatic hyperplasia) Current Visit: Yes Status: Acute Assessment & Plan: -Continue outpatient medications: tamsulosin and finasteride Code(s): N40.0 - BENIGN PROSTATIC HYPERPLASIA WITHOUT LOWER URINRY TRACT SYMP (7) GERD (gastroesophageal reflux disease) Current Visit: Yes Status: Acute Assessment & Plan: Continue protonix 40 mg daily Code(s): K21.9 - GASTRO-ESOPHAGEAL REFLUX DISEASE WITHOUT ESOPHAGITIS - Discharge Discharge Date: 07/05/24 Disposition: DC TO [facility] Condition: Fair Prescriptions: New Apixaban [Eliquis 2.5 mg Tablet] 5 mg PO BID tablet Guaifenesin 600 mg ER [Mucinex 600MG ER Tabs] 600 mg PO BID tablet Piperacillin/Tazobactam 3.375G [Piperacillin/Tazobactam] 3.375 gm IV Q6HT Budesonide 0.5 mg/2 ml [Pulmicort 0.5 mg/2 ml Respules] 0.5 mg IH BIDRT Acetaminophen 325 mg [Tylenol 325 mg] 650 mg PO Q6H PRN PRN tablet PRN Reason: Pain And/Or Fever levalbuterol HCl [Xopenex 1.25 MG/0.5 ML UD NEBULE] 1.25 mg IH Q4H PRN PRN PRN Reason: Shortness Of Breath Continue Metoprolol Tartrate 50 mg [Lopressor 50 MG] 75 mg PO BID Tamsulosin HCl [Flomax] 0.4 mg PO HS PANTOPRAZOLE 40 mg Tablet [Protonix 40MG Tablet] 40 mg PO BID Finasteride 5 mg [Proscar 5 MG] 5 mg PO DAILY Fluticasone/Umeclidin/Vilanter [Trelegy Ellipta 100-62.5-25] 1 puff PO DAILY Discontinued Albuterol 2.5 mg/3 ml Neb [Proventil 2.5 mg/3 ml Neb] 1 neb IH Q4H PRN PRN Reason: Shortness Of Breath Warfarin Sodium 1 mg [Coumadin] 1 mg PO DAILY Warfarin Sodium 1 mg [Coumadin] 1.5 mg PO DAILY Omeprazole 20 mg PO DAILY Metformin HCl 500 mg [Glucophage 500 MG] 500 mg PO BID Follow up with: KAYLEIGH QUINTERO [Primary Care Provider, [facility]]
[2024-07-05] MEDS ORDERED: Lopressor 50 MG PO SCH (21:47)
[2024-07-05] MEDS ORDERED: Lanoxin 0.5 MG/2 ML INJECTION IV ONE (21:48)
--- NOTE | 2024-07-05 21:54 | PCM.CONS ---
History of Present Illness - Reason for Consult Chief Complaint: PNEUMONIA - BIBASILAR, COPD, ACUTE HYPOXIC RESPIRATORY FX Date of Consultation Date: 07/05/24 Reason for Consult: Atrial Fibrillation Requesting Provider: MAIRA BILLY MD Consulting Provider: RAJESH TOWNSEND MD History of Present Illness: is a 84 year old male with PMHX COPD on home oxygen 4 L/min, Afib, Hx prior DVT on Warfarin, tobacco us (quit 4 years ago) who comes in with complaints of SOB. Says that symptoms started several days ago. Of note was recently discharged after being treated for pneumonia and COPD exacerbation. In any case, tells me that for the past few days he has had to increase his oxygen and still been getting short of breath. Has had some swelling in the legs as well. Occasional cough. No chest pain, palpitations, lightheadedness, dizziness. BP at home can range from 90-140s systolic. He was worked up here on arrival and noted to have DVT and pneumonia on chest CT. Also with Afib with moderately fast heart rates. Has been hemodynamically stable. Initially was on Cardizem gtt which seemed to help but this was turned off and rates became faster. At the time of my exam patient is resting in bed. Looks comfortable. Denies any feeling that he is in atrial fibrillation. Has some cough as I mentioned before with some mucus production. Does not seem to be positional. He is pending transfer to another hospital. - Review of Systems Constitutional: Fatigue, No Fever, No Chills Eyes: No Symptoms Ears, Nose, & Throat: No Symptoms Respiratory: Cough, Short Of Breath, No Orthopnea, No Wheezing Cardiac: No Chest Pain, No Edema, No Palpitations, No Syncope Abdominal/Gastrointestinal: No Abdominal Pain, No Nausea, No Vomiting Genitourinary Symptoms: No Symptoms Musculoskeletal: No Symptoms Skin: No Symptoms Neurological: Dizziness Psychological: No Symptoms Endocrine: No Symptoms Hematologic/Lymphatic: No Symptoms Immunological/Allergic: No Symptoms Medications & Allergies Home Medications: Home Medication List Finasteride 5 mg [Proscar 5 MG] 5 mg PO DAILY 07/03/24 [History Confirmed 07/03/24] Fluticasone/Umeclidin/Vilanter [Trelegy Ellipta 100-62.5-25] 1 puff PO DAILY 07/03/24 [History Confirmed 07/03/24] Metoprolol Tartrate 50 mg [Lopressor 50 MG] 75 mg PO BID 07/03/24 [History Confirmed 07/03/24] PANTOPRAZOLE 40 mg Tablet [Protonix 40MG Tablet] 40 mg PO BID 07/03/24 [History Confirmed 07/03/24] Tamsulosin HCl [Flomax] 0.4 mg PO HS 07/03/24 [History Confirmed 07/03/24] Acetaminophen 325 mg [Tylenol 325 mg] 650 mg PO Q6H PRN PRN tablet 07/05/24 [Rx] Apixaban [Eliquis 2.5 mg Tablet] 5 mg PO BID tablet 07/05/24 [Rx] Budesonide 0.5 mg/2 ml [Pulmicort 0.5 mg/2 ml Respules] 0.5 mg IH BIDRT 07/05/24 [Rx] Guaifenesin 600 mg ER [Mucinex 600MG ER Tabs] 600 mg PO BID tablet 07/05/24 [Rx] Piperacillin/Tazobactam 3.375G [Piperacillin/Tazobactam] 3.375 gm IV Q6HT 07/05/24 [Rx] levalbuterol HCl [Xopenex 1.25 MG/0.5 ML UD NEBULE] 1.25 mg IH Q4H PRN PRN 07/05/24 [Rx] Allergies/Adverse Reactions: Allergies Allergy/AdvReac Type Severity Reaction Status Date / Time hydromorphone [From Dilaudid] Allergy Unknown Verified 07/03/24 10:05 - Past Medical History Past Medical History: Yes Neurological History: No Pertinent History ENT History: No Pertinent History Cardiac History: Arrhythmia, Deep Vein Thrombosis, Hypertension Respiratory History: COPD (on 4-5 liters home oxygen ) Endocrine Medical History: No Pertinent History Musculoskelatal History: Arthritis, Fractures GI Medical History: No Pertinent History History: Other Pyscho-Social History: No Pertinent History Male Reproductive Disorders: Prostate Problems Comment: C-spine fracture - Past Surgical History Past Surgical History: Yes Neuro Surgical History: No Pertinent History Cardiac History: No Pertinent History Respiratory Surgery: No Pertinent History GI Surgical History: No Pertinent History Genitourinary Surgical Hx: No Pertinent History Musculskeletal Surgical Hx: Orthopedic Surgery Male Surgical History: No Pertinent History Other Surgical History: neck surg Significant Family History: no pertinent family hx - Social History Smoking Status: Former smoker (quit 6 years ago) How long have you smoked: 69 Exposure to second hand smoke: Yes Alcohol: None Drug Use: none - Social Determinants of Health Will the patient participate in the screening: Yes Do you worry about a steady place to live?: No Do you have any problems with any of the following?: No known problems In the past 12 months,have you had to go without utilities?: No Have you or anyone in your house had to go without enough: No Transportation Issues: No Has anyone in your support network made you feel unsafe?: No Does the patient want assistance with any of the above?: No - Physical Exam Vital Signs: Vital Signs - 24 hr Temp Pulse Resp BP Pulse Ox 07/05/24 19:00 120 H 25 H 113/72 98 07/05/24 18:00 130 H 27 H 124/89 96 07/05/24 17:00 108 H 19 120/88 99 07/05/24 16:00 97.6 F 105 H 19 104/78 97 07/05/24 15:58 110 H 22 96 07/05/24 15:00 114 H 24 126/85 98 07/05/24 14:00 103 H 19 119/80 98 07/05/24 13:00 96 H 22 110/72 97 07/05/24 12:00 97.6 F 92 H 13 115/69 96 07/05/24 11:00 99 H 19 106/76 98 07/05/24 10:54 95 H 18 97 07/05/24 10:00 89 24 115/75 99 07/05/24 09:00 98.0 F 89 15 118/80 99 07/05/24 08:00 88 31 H 111/70 100 07/05/24 07:00 110 H 22 111/79 100 07/05/24 06:40 102 H 18 99 07/05/24 06:00 96 H 16 106/64 99 07/05/24 05:00 87 15 115/70 99 07/05/24 04:00 97 H 16 93/61 100 07/05/24 03:00 78 12 94/49 99 07/05/24 02:00 80 17 108/77 100 07/05/24 01:00 84 26 H 93/68 96 07/05/24 00:00 73 24 118/75 97 07/04/24 23:00 79 19 116/74 98 07/04/24 22:00 90 19 117/83 98 General Appearance: no apparent distress Neurologic Exam: alert, cooperative Eye Exam: PERRL/EOMI Ears, Nose, Throat Exam: normal ENT inspection Neck Exam: normal inspection, supple, full range of motion, No JVD Respiratory Exam: normal breath sounds, other (Wearing oxygen, good air glow) Cardiovascular Exam: tachycardia, irregular, capillary refill <2 sec, other (Trace nonpitting edema, R > L) Gastrointestinal/Abdomen Exam: soft, normal bowel sounds, No tenderness, No distention Rectal Exam: deferred Extremity Exam: normal inspection Skin Exam: normal color, warm, dry Results - Labs Lab/Micro Results: Lab Results-Last 24 Hours 07/05/24 07/05/24 07/05/24 Range/Units 04:55 04:55 04:55 WBC 6.5 (4.23-9.07) x10^3/uL RBC 2.49 L (4.63-6.08) x10^6/uL Hgb 7.3 L (13.7-17.5) g/dL Hct 22.8 L (40.1-51.0) % MCV 91.6 (79.0-92.2) fL MCH 29.3 (25.7-32.2) pg MCHC 32.0 L (32.3-36.5) g/dL RDW 16.1 H (11.6-14.4) % Plt Count 139 L (163-337) x10^3/uL MPV 10.4 (9.4-12.4) fL Gran % 88.5 H (34.0-67.9) % Immature Gran % (Auto) 0.5 H (0.001-0.429) % Nucleat RBC Rel Count 0.0 (0.00-0.2) % Eos # (Auto) 0.01 L (0.04-0.54) x10^3/uL Immature Gran # (Auto) 0.03 (0.001-0.031) x10^3u/L Absolute Lymphs (auto) 0.48 L (1.32-3.57) x10^3/uL Absolute Monos (auto) 0.22 L (0.30-0.82) x10^3/uL Absolute Nucleated RBC 0.00 (0.00-0.012) x10^3u/L Lymphocytes % 7.4 L (21.8-53.1) % Monocytes % 3.4 L (5.3-12.2) % Eosinophils % 0.2 L (0.8-7.0) % Basophils % 0.0 L (0.2-1.2) % Absolute Granulocytes 5.77 H (1.78-5.38) x10^3/uL Basophils # 0 L (0.01-0.08) x10^3/uL PT 45.2 H (9.4-12.5) SECONDS INR 4.58 H D (0.8-3.0) Sodium 137 (135-145) mmol/L Potassium 3.8 (3.5-5.1) mmol/L Chloride 105 (98-107) mmol/L Carbon Dioxide 25 (22-30) mmol/L Anion Gap 10.5 (5-15) MEQ/L BUN 29 H (9-20) mg/dL Creatinine 0.75 (0.66-1.25) mg/dL Estimated GFR 89.0 ML/MIN Glucose 186 H (74-106) mg/dL POC Glucometer (74 to 106) mg/dL Calcium 7.6 L (8.4-10.2) mg/dL Total Bilirubin 0.20 (0.2-1.3) mg/dL AST 14 L (17-59) U/L ALT 15 (0-50) U/L Alkaline Phosphatase 73 (38-126) U/L Serum Total Protein 5.0 L (6.3-8.2) g/dL Albumin 2.2 L (3.5-5.0) g/dL Slides for Path Review YES 07/05/24 07/05/24 07/05/24 Range/Units 07:23 12:03 16:10 WBC (4.23-9.07) x10^3/uL RBC (4.63-6.08) x10^6/uL Hgb (13.7-17.5) g/dL Hct (40.1-51.0) % MCV (79.0-92.2) fL MCH (25.7-32.2) pg MCHC (32.3-36.5) g/dL RDW (11.6-14.4) % Plt Count (163-337) x10^3/uL MPV (9.4-12.4) fL Gran % (34.0-67.9) % Immature Gran % (Auto) (0.001-0.429) % Nucleat RBC Rel Count (0.00-0.2) % Eos # (Auto) (0.04-0.54) x10^3/uL Immature Gran # (Auto) (0.001-0.031) x10^3u/L Absolute Lymphs (auto) (1.32-3.57) x10^3/uL Absolute Monos (auto) (0.30-0.82) x10^3/uL Absolute Nucleated RBC (0.00-0.012) x10^3u/L Lymphocytes % (21.8-53.1) % Monocytes % (5.3-12.2) % Eosinophils % (0.8-7.0) % Basophils % (0.2-1.2) % Absolute Granulocytes (1.78-5.38) x10^3/uL Basophils # (0.01-0.08) x10^3/uL PT (9.4-12.5) SECONDS INR (0.8-3.0) Sodium (135-145) mmol/L Potassium (3.5-5.1) mmol/L Chloride (98-107) mmol/L Carbon Dioxide (22-30) mmol/L Anion Gap (5-15) MEQ/L BUN (9-20) mg/dL Creatinine (0.66-1.25) mg/dL Estimated GFR ML/MIN Glucose (74-106) mg/dL POC Glucometer 218 H 185 H 182 H (74 to 106) mg/dL Calcium (8.4-10.2) mg/dL Total Bilirubin (0.2-1.3) mg/dL AST (17-59) U/L ALT (0-50) U/L Alkaline Phosphatase (38-126) U/L Serum Total Protein (6.3-8.2) g/dL Albumin (3.5-5.0) g/dL Slides for Path Review 07/05/24 Range/Units 21:27 WBC (4.23-9.07) x10^3/uL RBC (4.63-6.08) x10^6/uL Hgb (13.7-17.5) g/dL Hct (40.1-51.0) % MCV (79.0-92.2) fL MCH (25.7-32.2) pg MCHC (32.3-36.5) g/dL RDW (11.6-14.4) % Plt Count (163-337) x10^3/uL MPV (9.4-12.4) fL Gran % (34.0-67.9) % Immature Gran % (Auto) (0.001-0.429) % Nucleat RBC Rel Count (0.00-0.2) % Eos # (Auto) (0.04-0.54) x10^3/uL Immature Gran # (Auto) (0.001-0.031) x10^3u/L Absolute Lymphs (auto) (1.32-3.57) x10^3/uL Absolute Monos (auto) (0.30-0.82) x10^3/uL Absolute Nucleated RBC (0.00-0.012) x10^3u/L Lymphocytes % (21.8-53.1) % Monocytes % (5.3-12.2) % Eosinophils % (0.8-7.0) % Basophils % (0.2-1.2) % Absolute Granulocytes (1.78-5.38) x10^3/uL Basophils # (0.01-0.08) x10^3/uL PT (9.4-12.5) SECONDS INR (0.8-3.0) Sodium (135-145) mmol/L Potassium (3.5-5.1) mmol/L Chloride (98-107) mmol/L Carbon Dioxide (22-30) mmol/L Anion Gap (5-15) MEQ/L BUN (9-20) mg/dL Creatinine (0.66-1.25) mg/dL Estimated GFR ML/MIN Glucose (74-106) mg/dL POC Glucometer 140 H (74 to 106) mg/dL Calcium (8.4-10.2) mg/dL Total Bilirubin (0.2-1.3) mg/dL AST (17-59) U/L ALT (0-50) U/L Alkaline Phosphatase (38-126) U/L Serum Total Protein (6.3-8.2) g/dL Albumin (3.5-5.0) g/dL Slides for Path Review Microbiology 07/03/24 21:00 Gram Stain - Final Sputum - Expectorant Sputum Culture - Preliminary ORGANISMS ISOLATED ARE CONSISTENT WITH NORMAL RESP JONATHAN MODERATE GROWTH, NO PREDOMINANT ORGANISM 07/03/24 12:44 Urine Culture - Final Catherized NO GROWTH 07/03/24 21:05 Blood Culture - Preliminary Blood 07/03/24 20:59 Blood Culture - Preliminary Blood Accuchecks Date 07/05/24 Date 07/05/24 Date 07/05/24 Date 07/04/24 Time 16:11 Time 12:05 Time 08:03 Time 21:00 - Radiology Impressions Radiology Exams & Impressions: Radiology Procedures Category Date Time Status VENOUS UNILAT/LIMITED EXTREMIT [US] Routine Exams 07/04/24 08:18 Completed Assessment/Plan (1) Atrial fibrillation with RVR Current Visit: Yes Status: Acute Assessment & Plan: Rates are on the faster side. He is normally taking metoprolol 75 mg BID. Will increase to 100 mg BID. I will also give him a dose of 500 mcg IV digoxin for now. Will avoid fci digoxin for now. I did explain that he should ne on anticoagulation for both his DVT and his Afib. It is possible that some of his Afib is exacerbated by some increased myocardial demand related to his hypoxia from pneumonia. In any case, I will also order an echocardiogram as I don't see a recent one within our system. If he becomes unstable from hemodynamic perspective then an urgent cardioversion would be indicated per ACLS protocol. Code(s): I48.91 - UNSPECIFIED ATRIAL FIBRILLATION (2) DVT (deep venous thrombosis) Current Visit: Yes Status: Acute Qualifiers: DVT location: lower extremity Laterality: right Assessment & Plan: Will continue Apixaban 5 mg BID for now. He says that he was taking warfarin before but is not sure if his INR or dosing was therapeutic as an outpatient; was 2.98 on admission. With concurrent apixaban use the INR measurement is not accurate. Code(s): I82.409 - ACUTE EMBOLISM AND THOMBOS UNSP DEEP VN UNSP LOWER EXTREMITY
[2024-07-06 00:44] VITALS: BP 125/85; PULSE 114; RESP 25; O2SAT 97
[2024-07-06] MEDS ORDERED: TROUGH DRUG LEVELS IJ ONE (09:30)
[2024-07-09] MEDS ORDERED: COUMADIN PO SCH (18:00)
== END 2024-07-06 01:00 | disposition home or self-care (01) | DRG 189 ==
LOC: ED 09:53 → ICU 18:15 → OBSVTOIN 07-04 05:13
PROVIDERS: ADMIT Internal Medicine; ATTEND Internal Medicine
DX: J96.21 Acute and chronic respiratory failure with hypoxia (principal); J18.9 Pneumonia, unspecified organism; I48.20 Chronic atrial fibrillation, unspecified; J44.1 Chronic obstructive pulmonary disease with (acute) exacerbation; I82.401 Acute embolism and thrombosis of unspecified deep veins of right lower extremity; E11.9 Type 2 diabetes mellitus without complications; N40.0 Benign prostatic hyperplasia without lower urinary tract symptoms; K21.9 Gastro-esophageal reflux disease without esophagitis; Z99.81 Dependence on supplemental oxygen; Z79.899 Other long term (current) drug therapy; Z79.01 Long term (current) use of anticoagulants; Z87.891 Personal history of nicotine dependence
CPT/HCPCS: 36415; 51702; 71045; 71260; 80048; 80053; 81001; 82805; 82947; 83605; 83880; 84484; 85025; 85610; 87040; 87070; 87086; 93005; 93268; 93971; 94640; 94667; 94668; 96374; 96375; 99285; G0378; Q3014; J0456; J0696; J1817; J2919; J3370; A9270-GY